=== PATIENT | male | born 1935 | race Caucasian/White ===

== ENCOUNTER 2019-03-28 08:19 | Outpatient (CLI) | payer MEDICARE, OTHER, SELFPAY ==
[2019-03-28 09:21] LABS: Blood Urea Nitrogen 30 mg/dL (8-23)
== END 2019-03-28 08:20 | disposition home or self-care (01) ==
LOC: RADWPI 08:25
PROVIDERS: Radiology Neuroradiology; Family Provider Family Medicine; PCP Family Medicine; Visit Provider Thoracic Surgery (Cardiothoracic Vascular Surgery)
DX: I65.23 Occlusion and stenosis of bilateral carotid arteries (principal)
CPT/HCPCS: 82565; 84520

== ENCOUNTER 2019-04-06 10:35 | Outpatient (CLI) | payer MEDICARE, OTHER, SELFPAY ==
--- NOTE | 2019-04-06 11:00 | USCV_ITS ---
Macho Michaud Age: 83 Gender: M : 1935 Exam Date: 04/06/2019 10:55 Ordering Phys: Bayron Ramos MD (Andy) ([email or web address]) Technologist: JUSTUS WHITLEY [place] [facility] [place]: CAROTID STENOSIS Risk Factors: Previous Vascular Surgery: Right Brachial BP: / Left Brachial BP: / Right Left Velocity (cm/s) Spectral Plaque Velocity (cm/s) Spectral Plaque Syst/Diast Broadening Syst/Diast Broadening 108.10/19.80 Prox CCA 87.10 / 17.60 100.30/20.90 Mid CCA 64.10 / 15.40 70.90/ 14.50 Distal CCA 72.60 / 15.40 363.50/96.30 Prox ICA 625.00/ 227.05 310.70/77.70 Mid ICA 172.70/ 25.20 122.30/27.00 Distal ICA 134.90/ 18.00 123.50 ECA 354.20 3.62 ICA/CCA 9.75 Antegrade Vertebral Antegrade 35.50/ 9.20 cm/s 41.40/ 7.90 cm/s Tri Subclavian Tri 244.1 169.1 0 0 FINDINGS Comparison: none available. Mixture of calcified and noncalcified plaque in the bifurcations. Severe bilateral ICA stenosis , greater on the left. Marked elevation of systolic and diastolic velocities. Antegrade vertebral artery flow. CONCLUSIONS Left ICA stenosis 70-99%. Near completer left ICA occlusion. Right ICA stenosis 70-99%. Dr. Essence Ramirez DO (Electronically Signed) Final Date: 06 April 2019 11:34 S
== END 2019-04-06 10:36 | disposition home or self-care (01) ==
LOC: RAD 10:40
PROVIDERS: Family Provider Family Medicine; PCP Family Medicine; Visit Provider Thoracic Surgery (Cardiothoracic Vascular Surgery)
DX: I65.23 Occlusion and stenosis of bilateral carotid arteries (principal)
CPT/HCPCS: 93880

== ENCOUNTER 2019-04-18 13:21 | Inpatient (IN) | payer MEDICARE, OTHER, SELFPAY ==
[2019-04-15 09:38] VITALS: BMI 36.0
--- NOTE | 2019-04-15 09:46 | ECG_ITS ---
Measurements Intervals [place] Rate: 53 P: 21 KS: 229 QRS: -35 QRSD: 95 T: 14 QT: 410 QTc: 386 SINUS BRADYCARDIA WITH FIRST DEGREE AV BLOCK INFERIOR MYOCARDIAL INFARCTION, PROBABLY OLD No previous ECG available for comparison Electronically Signed On 04-15-2019 15:36:35 HANG GLIDING INSTRUCTOR by Melissa Owens M.D. [email or web address]
[2019-04-15 10:38] LABS: Basophils # 0.1 10^3/uL (0.0-0.1); Basophils % 1.1 %; Eosinophils # 0.4 10^3/uL (0.0-0.8); Eosinophils % 4.1 %; Hematocrit 35.1 % (42.0-52.0); Hemoglobin 11.7 g/dL (11.7-16.6); Lymphocytes # 1.4 10^3/uL (0.8-4.8); Lymphocytes % 15.1 %; Mean Corpuscular HGB Conc 33.3 g/dL (30.0-36.0); Mean Corpuscular Hemoglobin 30.4 pg (28.0-34.0); Mean Corpuscular Volume 91.2 fL (80-94); Mean Platelet Volume 11.1 fL (7.4-10.4); Monocytes # 0.8 10^3/uL (0.2-0.9); Monocytes % 8.8 %; Neutrophils # 6.6 10^3/uL (1.8-7.7); Neutrophils % 70.3 %; Nucleated Red Blood Cells % 0 %; Platelet Count 272 10^3/cmm (130-400); Red Blood Count 3.85 10^6/uL (4.1-5.3); White Blood Count 9.4 10^3/uL (4.0-10.0)
[2019-04-15 10:45] LABS: INR 1.07 (0.8-1.2)
[2019-04-15 10:52] LABS: Blood Urea Nitrogen 29 mg/dL (8-23); Calcium 9.8 mg/dL (8.5-10.5); Carbon Dioxide 20 mmol/L (22-29); Chloride 102 mmol/L (98-107); Glucose 124 mg/dL (65-115); Osmolality Calculated 280 mOsm/kg (285-295); Sodium 136 mmol/L (136-145)
[2019-04-15 11:01] LABS: Urine Appearance Clear (CLEAR); Urine Color Yellow (Yellow)
[2019-04-15 11:02] LABS: Add Urine Microscopic? YES; Bilirubin Urine Neg (NEGATIVE); Blood Urine Neg (Negative); Glucose Urine UA Norm (Normal); Ketones Urine Negative (Negative); Leukocyte Esterase Urine Negative (Negative); Nitrate Urine Negative (Negative); Protein Urine Trace (Negative); Urobilinogen Urine Norm (Negative)
[2019-04-15 11:36] LABS: Add Urine Culture? No; Bacteria Urine 1+; Mucus Urine TRACE; Squamous Epithelial Cell Urine 0-4 (0-5)
--- NOTE | 2019-04-18 06:13 | XRR_ITS ---
PROCEDURE INFORMATION: Exam: XR Chest, 1 View Exam date and time: 04/18/2019 6:38 AM Age: 83 years old Clinical indication: Pre-operative exam; Cardiovascular screening and respiratory screening exam; Additional info: Preop carotid TECHNIQUE: Imaging protocol: XR of the chest Views: 1 view. COMPARISON: No relevant prior studies available. FINDINGS: Lungs: No lung consolidation or pulmonary edema. There is a calcified granuloma in the left lung base. Pleural space: No pleural effusion or pneumothorax. Heart/Mediastinum: The cardiac silhouette is not enlarged. The mediastinal contours are normal. Bones/joints: No acute osseous abnormality. XR/XR chest 1V portable [id number] IMPRESSION: No acute abnormality.
[2019-04-18 06:20] VITALS: BP 151/70; PULSE 64; RESP 18; TEMP 36.2; O2SAT 98
[2019-04-18 06:37] LABS: Glucose Point of Care 111 mg/dL (70-110)
--- NOTE | 2019-04-18 06:57 | W.PM.OPSUD ---
Surgery/Procedure H&P Update DATE OF PROCEDURE: April 18, 2019 DATE H&P PERFORMED: 04/06/19 H&P UPDATE INFORMATION: I have reviewed H&P completed within last 30 days, I have examined patient prior to procedure and Changes to prior documentation as noted here CHANGES TO PREVIOUS DOCUMENTATION: Creatinine is now 2.1 on most recent laboratory data obtained on April 14. I again carefully discussed with Mr. Michaud he has bilateral high-grade stenosis and what is felt to be near occlusion of the left ICA and recommendation for staged bilateral carotid endarterectomies, initially getting on the left side. The inability to obtain a CTA due to his renal dysfunction does provide us with less than ideal preoperative radiographic evaluation. He is aware of this and understands this may create increased risk related to the surgery in addition to his known bilateral disease which does increase his potential stroke risk. He states understanding and wishes for us to proceed. PREOP DIAGNOSIS: Bilateral Carotid artery stenosis PRIMARY INDICATION FOR PROCEDURE: Bilateral, high-grade carotid artery stenoses at the bifurcation as noted by duplex ultrasound. Highest velocities are on the left side. Radiology does not recommend contrasted studies due to his renal insufficiency, most recent creatinine 2.1. PLANNED PROCEDURE: Operation Date: 04/18/19 08:10 Proposed Procedures p Carotid Endarterectomy(Left) - Bayron Ramos MD
--- NOTE | 2019-04-18 07:04 | ANES.PREANE2 ---
Pre-Anesthetic Assessment Pre-Anesthetic Assessment: Height/Weight: Height 1.63 m Weight 95.254 kg Temp Pulse Resp BP Pulse Ox 97.1 F L 64 18 151/70 98 04/18/19 06:20 04/18/19 06:20 04/18/19 06:20 04/18/19 06:20 04/18/19 06:20 Preop Diagnosis: Bilateral Carotid artery stenosis Proposed Procedure: Operation Date: 04/18/19 08:10 Proposed Procedures p Carotid Endarterectomy(Left) - Bayron Ramos MD Familial anesthetic complications: None Was Beta Anselmo taken within 24 hours: Yes Last intake: NPO > 8 hrs sips with meds this morning Social: Social History: Tobacco and No alcohol Packs per day: 0.5 ppd Exam: Pre-Anes Outpt Exam: alert, oriented x 3, clear to auscultation bilaterally and regular rate & rhythm Airway: Cervical ROM: WNL MP: 3 Additional comments: missing Pulmonary: Pulmonary: Sleep apnea (cpap) CV/HEM: CV/HEM: CAD, HTN and VT (1991 - ) Comments: abdominal aortic aneurysm s/p stent : : Chronic renal Insufficiency Hepatic: Hepatic: None reported GI: GI: GERD Metabolic: Metabolic: DM Musc/skel: Comments: ankle (R) brace Neuropsych: Comments: carotid stenosis Anesthetic Plan: ASA status: 3 Anesthesia: General Risk of > 500 ml blood loss (7ml/kg in children): No PFSH Anesthesia PFSH: Medical History (Updated 04/06/19 @ 18:47 by Bayron Ramos MD) AAA (abdominal aortic aneurysm) Endovascular repair several years ago Carotid stenosis Chronic kidney disease Social History Smoking and tobacco status: current every day smoker Alcohol intake: never Data Anesthesia CBC & Chem 7: 04/15/19 09:49 04/15/19 09:49 Other Labs: Laboratory Results - last 48 hr 04/15/19 04/18/19 09:49 06:35 POC Glucose 111 Blood Type O Positive Rho(D) Type Positive Antibody Screen Negative Crossmatch See Detail Cardiac Studies: No Data to Display
[2019-04-18] MEDS: heparin, porcine 1,000 unit/mL INJ 10 mL 10000 UNIT IRRIGATION (07:17)
[2019-04-18] MEDS: vancomycin 1,000 MG SDV 1000 MG IRRIGATION (07:18)
[2019-04-18] MEDS: sodium chloride 0.9% 1,000 ML 30 ML IV ×2 (08:54→14:19)
[2019-04-18 13:29] VITALS: BP 95/45; PULSE 44; RESP 14; TEMP 36.2; O2SAT 98
[2019-04-18 13:33] VITALS: PULSE 42; O2SAT 98
[2019-04-18] MEDS: sodium chloride 0.9% 500 ML 999 ML IV (13:47)
[2019-04-18] MEDS: ondansetron 2 mg/ML SDV 2 mL 4 MG IVP (13:53)
[2019-04-18] MEDS: tamsulosin 0.4 mg Capsule PO (14:01)
--- NOTE | 2019-04-18 14:17 | ANES.PROC ---
Anesthesia Procedures Procedure/Date: 04/18/19 Arterial Line: Time Out Performed: Yes Consent: from patient, risks and benefits reviewed and patient agrees to proceed Size (Gauge): 20 Technique Used: guide wire technique Post-Procedure: dry sterile dressing placed Patient Tolerated Procedure: well Complications: none Site: right and radial
--- NOTE | 2019-04-18 14:44 | PC.NURSE ---
recovery patient to room at 1305, patient bradycardic heart rate 38-45. BP soft at 95/45. 500ml NS bolus given. BP increased to 96/68, and heart rate up to 51. Patient did feel nauseous and 4mg zofran given.
[2019-04-18] MEDS: aspirin 325 mg Tablet PO (15:03)
[2019-04-18] MEDS: sodium chloride 0.9% 1,000 ML 500 ML IV (15:28)
--- NOTE | 2019-04-18 15:30 | PC.NURSE ---
bladder scan no output since patient on floor, bladder scan performed, with result of 0ml. Notified Dr. Ramos, orders for 1liter bolus over 2 hours
[2019-04-18] MEDS: ceFAZolin 1,000 MG in sodium chloride 0.9% (plus) 50 ML 100 MG IV (16:20)
[2019-04-18] MEDS: fluticasone nasal spray 16gm Btl 1 SPRAY INTRANASAL (18:01)
[2019-04-18 20:00] VITALS: BP 121/49; PULSE 49; RESP 9; O2SAT 94
[2019-04-18 20:08] VITALS: PULSE 71; O2SAT 95
--- NOTE | 2019-04-18 21:00 | PC.NURSE ---
Stood at bedside unable to void. States will try again later. Denies bladder distress
[2019-04-18] MEDS: ropinirole 1 mg Tablet 0.5 MG PO (21:46)
[2019-04-18 22:00] VITALS: BP 114/50; PULSE 54; RESP 19; O2SAT 94
[2019-04-19] VITALS (14 sets, daily range): BP systolic 113–129; BP diastolic 48–63; PULSE 48–65; RESP 16–23; TEMP 36.4–37.4; O2SAT 89–96
[2019-04-19] MEDS: ceFAZolin 1,000 MG in sodium chloride 0.9% (plus) 50 ML 100 MG IV ×2 (01:53→08:10)
[2019-04-19] MEDS: HYDROcodone-acetaminophen 5-325 mg Tablet 1 TAB PO ×2 (02:22→08:09)
[2019-04-19 04:23] LABS: Basophils # 0.1 10^3/uL (0.0-0.1); Basophils % 0.5 %; Eosinophils % 0.3 %; Hematocrit 28.5 % (42.0-52.0); Hemoglobin 9.3 g/dL (11.7-16.6); Lymphocytes # 1.4 10^3/uL (0.8-4.8); Lymphocytes % 12.2 %; Mean Corpuscular HGB Conc 32.6 g/dL (30.0-36.0); Mean Corpuscular Hemoglobin 32.2 pg (28.0-34.0); Mean Corpuscular Volume 98.6 fL (80-94); Mean Platelet Volume 11.6 fL (7.4-10.4); Monocytes # 1.4 10^3/uL (0.2-0.9); Monocytes % 12.5 %; Neutrophils # 8.2 10^3/uL (1.8-7.7); Neutrophils % 73.9 %; Nucleated Red Blood Cells % 0 %; Platelet Count 191 10^3/cmm (130-400); Red Blood Count 2.89 10^6/uL (4.1-5.3); Red Cell Distribution Width 13.6 % (12.1-15.1); White Blood Count 11.1 10^3/uL (4.0-10.0)
[2019-04-19 04:42] LABS: Anion Gap 14.2 (5-19); Blood Urea Nitrogen 36 mg/dL (8-23); Calcium 9.1 mg/dL (8.5-10.5); Carbon Dioxide 20 mmol/L (22-29); Chloride 110 mmol/L (98-107); Creatinine Clr Calc Pharmacy 24.1315; Glucose 86 mg/dL (65-115); Osmolality Calculated 285 mOsm/kg (285-295); Potassium 5.2 mmol/L (3.5-5.1); Sodium 139 mmol/L (136-145)
--- NOTE | 2019-04-19 06:08 | PC.NURSE ---
Up to side of bed with max assist of one for balance. Voided 200 ml clear yellow urine. Up to recliner .Tolerated well
--- NOTE | 2019-04-19 06:56 | PM.PN ---
Subjective Subjective: Interval history: Postop day 1 status post left carotid endarterectomy. Uneventful night. Creatinine slightly elevated at 2.5. We will continue fluids through the day. Baseline is 2.1. Neurologically intact. No swallowing difficulties. Voice quality is normal. Vitals/I&O/Wt Last Vital Signs Temp 99.0 F 04/19/19 06:00 Pulse 52 L 04/19/19 06:00 Resp 21 H 04/19/19 04:00 BP 120/49 04/19/19 06:00 Pulse Ox 94 04/19/19 06:00 04/18/19 04/18/19 04/19/19 14:59 22:59 06:59 Intake Total 1550 / 1550 1084 / 2634 410 / 3044 Output Total 200 / 205 Balance 1550 / 1550 1079 / 2629 210 / 2839 Physical Exam Const: COMMON NORMALS: oriented x3 Neck/C-Spine: OTHER: Neck incision is clean and dry. Minimal swelling. Low drain output, 10 cc overnight. Drain was removed. Surgical dressing change. Tongue is midline with protrusion. Face is symmetrical. Neuro: COMMON NORMALS: oriented x3 and no focal motor deficits Psych: COMMON NORMALS: mental status grossly normal Urinary Catheter Management^: Rob: Cath Placed During This Visit: yes Reason for Continuing Indwelling Catheter: Accurate Measurement of Urinary Output in Critically Ill Patients Urinary Catheter Date of Insertion: 04/18/19 Urinary Catheter Time of Insertion: 10:39 Data : 04/19/19 03:26 04/19/19 03:26 A&P Assessment and plan (1) Status post carotid endarterectomy: Postop day #1 status post left carotid endarterectomy. Neurologically intact. Drain was DC'd. I will transfer to [facility] with plan for discharge this afternoon when his transportation is available. He is doing well. Status: Acute Code(s): Z98.890 - Other specified postprocedural states Attestations Medical Necessity Statement*: Bilateral high-grade carotid artery stenoses, postop day #1 status post left carotid endarterectomy Time Spent in Patient Care: 16 - 35 minutes Procedures Arterial Line Size (Gauge): 20 Coding Level of Care Code Acute Office Machine Servicer Apprentice for Chg Fwd Exam Expanded Problem Focused Diagnoses Status post carotid endarterectomy Z98.890
[2019-04-19 07:38] LABS: Glucose Point of Care 86 mg/dL (70-110)
[2019-04-19 07:38] LABS: Glucose Point of Care 97 mg/dL (70-110)
[2019-04-19] MEDS: chlorthalidone 25 mg Tablet 50 MG PO (08:08)
[2019-04-19] MEDS: sodium chloride 0.45% 1,000 ML 175 ML IV ×2 (08:08→15:07)
[2019-04-19] MEDS: losartan 50 mg Tablet 100 MG PO (08:09)
[2019-04-19] MEDS: atorvastatin 40 mg Tablet PO (08:09)
[2019-04-19] MEDS: pantoprazole DR 40 mg Tablet PO (08:09)
[2019-04-19] MEDS: aspirin 81 mg EC Tablet PO (08:10)
[2019-04-19] MEDS: atenolol 50 mg Tablet 100 MG PO (08:10)
[2019-04-19] MEDS: amlodipine 10 mg Tablet PO (08:10)
[2019-04-19] MEDS: fluticasone nasal spray 16gm Btl 1 SPRAY INTRANASAL (08:13)
--- NOTE | 2019-04-19 10:21 | ANE.PACU2 ---
 Inpatient post-anesthesia follow up: Airway intact: Yes Vital signs: Temperature 99.0 F Pulse Rate 52 Respiratory Rate 21 Blood Pressure 122/48 Pulse Oximetry 94 Oxygen Delivery Me thod [ Nasal Cannula Current Rate & Del mino] Oxygen Delivery Me thod Room Air Oxygen Flow Rate [ Current Rate 4 & Delivery] Oxygen Flow Rate 2 Fraction of Inspir ed Oxygen 2 Hydration adequate: Yes Nausea and vomiting: No Pain level: 1 Mental status: Baseline
--- NOTE | 2019-04-19 11:30 | PC.NURSE ---
Report faxed tp [facility]. Further verbal report given to Cesilia Jeffries RN. Pt to transfer after l unch.
[2019-04-19 11:35] LABS: Glucose Point of Care 106 mg/dL (70-110)
--- NOTE | 2019-04-19 12:15 | PC.NURSE ---
Pt transferred to room 268 via W/C. All belongings with pt. Further bedside report to ROBYN Maravilla and ROYBN Lomas.
--- NOTE | 2019-04-19 16:38 | PM.OP ---
Operative Report Date of procedure: April 18, 2019 Pre-op Diagnosis: Bilateral Carotid artery stenosis Procedure Done: Left carotid endarterectomy with patch angioplasty Specimens removed/disposition: Left carotid artery plaque Surgeon: Bayron Ramos Anesthesia: General Condition: stable Disposition: ICU Brief History: Pleasant 83-year-old gentleman with high-grade bilateral carotid artery stenosis greater than 95% on the left and greater than 90% on the right by duplex study. Due to renal insufficiency, he cannot undergo contrasted CTA confirmatory study. We have recommended staged bilateral carotid endarterectomies to reduce the statistical increased risk for spontaneous CVA related to these high-grade bilateral lesions. He is left hemispheric dominant, and given the higher grade stenosis, we have recommended left carotid endarterectomy as the first staged procedure. Details the risk of procedure were carefully discussed including increased risk related for stroke other complications due to the high-grade and bilateral nature of his disease. All questions were answered. Proper consents have been reviewed and signed. Procedure: Mr. Michaud was placed on the OR table and underwent general endotracheal anesthesia with a neurological monitoring endotracheal tube as well as placement of a right radial arterial line. Bihemispheric monitoring pads were placed as well as grounding and sensing pads for nerve conduction evaluation during neck dissection.The entire upper chest and [right/left] neck were sterilely prepped and draped. Incision was made along the anterior border of the sternomastoid muscle and carried down to the platysma with cautery. Dissection from this point forward was carried out utilizing Metzenbaum scissors. The internal jugular vein was dissected free and the facial vein was ligated, oversewn, and divided. Dissection was continued down through the ansa cervicalis with preservation of major branches. Minor branches were divided if required to allow for adequate exposure. Nerve conduction evaluation was performed throughout the dissection for protection of the recurrent nerve. We subsequently reached the common carotid artery. Dissection was then continued proximally to distally across the bifurcation. Vessel loops were placed around the common carotid artery, internal carotid artery, and external carotid artery. Distally, the base of the hypoglossal nerve could be identified and was protected. The internal carotid artery disease went fairly high and extended above the level of the mandibular angle. This did require some traction in this region, but great care was taken to minimize pressure to the hypoglossal nerve, which was protected. Care was taken during this dissection to avoid injury to the vagus nerve. The patient was then heparinized with 10,000 units. The systolic blood pressure was elevated to 160. Following this, in a rapid sequenced fashion, the distal internal carotid artery was clamped followed by clamping of the common carotid artery and external carotid artery. #11 scalpel blade was used to open the common carotid artery proximally. Dockery scissors were then utilized to extend this arteriotomy across the distal common carotid artery and ulcerated very stenotic plaque and continue this further at the bifurcation across the calcific plaque in the internal carotid artery until we had reached normal intima. The internal carotid artery clamp was briefly flashed with evidence of brisk back bleeding, therefore we elected not to shunt. It should be noted that bi-hemispheric oximetry was recorded throughout the procedure. Next, a freer elevator was utilized to create a dissection plane the plaque from intima at the proximal portion of the arteriotomy. This was then divided with a #11 scalpel blade. This plaque was then further dissected along the intimal plane proximally to distally across the bifurcation. Utilizing an everting technique, plaque was removed from the external carotid artery with brisk flow. This plaque was then dissected free up the internal carotid artery to a feathered edge. Heparinized saline solution was utilized to remove any loose debris. Next, a Hemashield patch was brought into the field and sewn into position utilizing a running 6-0 Prolene suture, thereby completing our patch angioplasty. At the completion of the patch, the external carotid artery was opened followed by the common carotid artery and finally the internal carotid artery, thereby reestablishing cerebral flow. Areas of extravasation were repaired with 6-0 Prolene suture. After 5 minutes, heparin was reversed with protamine. Hemostasis was confirmed. The wound was irrigated with antibiotic solution. A small, flat, Rivera-Soliman drain was placed in the wound and connected to bulb suction. Sponge and needle count was correct. The wound was then closed in 2 layers of 3-0 Vicryl suture. Skin was reapproximated in a subcuticular manner with 4-0 Monocryl suture. A pressure dressing was then applied. He was awakened from anesthesia and spontaneous movement of all extremities as well as movement to command was noted. He was then transferred to the ICU in stable condition. I did service counselor with his close personal friend at completion of the procedure. Mr. Michaud will be monitored in the ICU for the next 24 hours.
--- NOTE | 2019-04-19 16:41 | P.DS_ITS ---
Discharge Providers Date of Admission: 04/18/19 13:21 Date of Discharge: April 19, 2019 Attending Provider at Admission: Bayron Ramos MD Attending Provider at Discharge: Bayron Ramos MD Primary Care Provider: Dominga Cortez MD Diagnoses at Discharge Discharge Diagnosis (1) Status post carotid endarterectomy: Status: Acute Reason for Visit Reason for Visit: Reason For Visit: Carotid Senosis Hospital Course Hospital Course: Mr. Michaud has bilateral high-grade carotid artery stenoses of over 90%. This was confirmed by ultrasound. Due to renal insufficiency, he cannot undergo contrasted studies. We recommended staged carotid endar terectomies, initially beginning on the left side which is his dominant hemisphere. He was therefore electively admitted after careful outpatient preoperative evaluation and counseling. He underwent left carotid endarterectomy with a patch angioplasty yesterday, on April 18, 2019. He awakened hemodynamically and neurologically intact. He was convalesced in the ICU. He was felt to be a bit volume depleted underwent saline boluses x2 and then was maintained on IV fluids as he was tolerating a standard diet. He had low CAROLANN drain output in the CAROLANN drain was discontinued this morning. He has been convalescing in his room in the hallways utilizing his walking cane. He remains neurologically intact. Incision is clean and dry. Voice quality is normal. No swallowing difficulties. Tongue is midline with protrusion. Rob catheter was removed this morning. He has voiding without difficulties. He will be discharged home today in stable condition and schedule follow-up in my clinic in 1 week. Physical Exam Const: COMMON NORMALS: oriented x3 Neck/C-Spine: OTHER: Left neck incision is clean and well approximated. Minimal postoperative swelling. Neuro: COMMON NORMALS: oriented x3, no focal motor deficits and no sensory deficits noted Urinary Catheter Management^: Rob: Cath Placed During This Visit: yes Reason for Continuing Indwelling Catheter: Accurate Measurement of Urinary Output in Critically Ill Patients Urinary Catheter Date of Insertion: 04/18/19 Urinary Catheter Time of Insertion: 10:39 Discharge Data Data Completed and Pending: Completed Studies During Hospitalization Category Date Time Status XR chest 1V chau ble [id number] Routine Exams 04/18/19 06:13 Completed Pathology: Surgic al [PTH] Routine Pth 04/18/19 11:59 Completed Pending at discharge Category Date Time Status Leukocyte Reduced RBC Routine Lab 04/15/19 09:49 Results Retype for XM Rou baron Lab 04/15/19 09:49 Results Type and Screen - Cardiac Routine Lab 04/15/19 09:49 Results Labs from last 24 hours 04/19/19 04/19/19 04/19/19 11:32 03:26 03:26 WBC 11.1 H RBC 2.89 L Hgb 9.3 L Hct 28.5 L MCV 98.6 H MCH 32.2 MCHC 32.6 RDW 13.6 Plt Count 191 MPV 11.6 H Neut % (Auto) 73.9 Lymph % (Auto) 12.2 [place] % (Auto) 12.5 Eos % (Auto) 0.3 Baso % (Auto) 0.5 Neut # (Auto) 8.2 H Lymph # (Auto) 1.4 [place] # (Auto) 1.4 H Eos # (Auto) 0.0 Baso # (Auto) 0.1 Nucleated RBC % (a uto) 0 Nucleated RBCs # 0.0 Sodium 139 Potassium 5.2 H Chloride 110 H Carbon Dioxide 20 L Anion Gap 14.2 BUN 36 H Creatinine 2.5 H Glucose 86 POC Glucose 106 Calculated Osmolal ity 285 Calcium 9.1 04/18/19 04/18/19 21:26 17:19 WBC RBC Hgb Hct MCV MCH MCHC RDW Plt Count MPV Neut % (Auto) Lymph % (Auto) [place] % (Auto) Eos % (Auto) Baso % (Auto) Neut # (Auto) Lymph # (Auto) [place] # (Auto) Eos # (Auto) Baso # (Auto) Nucleated RBC % (a uto) Nucleated RBCs # Sodium Potassium Chloride Carbon Dioxide Anion Gap BUN Creatinine Glucose POC Glucose 86 97 Calculated Osmolal ity Calcium Vitals: Last Vital Signs Temp 97.8 F 04/19/19 15:48 Pulse 64 04/19/19 15:48 Resp 18 04/19/19 15:48 BP 113/63 04/19/19 15:48 Pulse Ox 91 04/19/19 15:48 Discharge Plan Discharge Patient Disposition: Home, Self-Care Condition: Stable Prescriptions: Continued alogliptin [Nesina] 12.5 mg tablet 12.5 mg PO QAM RF: 0 ropinirole 0.5 mg tablet 0.5 mg PO DAILY RF: 0 multivitamin Capsule 1 cap PO QAM RF: 0 nystatin 100,000 unit/gram ointment 1 applic TOPICAL BID RF: 0 triamcinolone acetonide 0.1 % cream 1 applic TOPICAL BID RF: 0 fluticasone propionate 50 mcg/actuation spray,suspension 1 spray INTRANASAL BID RF: 0 hydrocodone-acetaminophen 5-325 mg tablet 1 tab PO Q6H PRN (Reason: Pain) RF: 0 aspirin 500 mg tablet 500 mg PO Q6H RF: 0 atenolol 100 mg tablet 100 mg PO BID RF: 0 tamsulosin 0.4 mg capsule 0.4 mg PO ONCE RF: 0 Refresh Tears 0.5 % drops 1 drop ophthalmic (eye) BID RF: 0 cinacalcet [Sensipar] 60 mg tablet 60 mg PO BID RF: 0 cholecalciferol (vitamin D3) 2,000 unit tablet 2,000 unit PO ONCE RF: 0 losartan 100 mg tablet 100 mg PO DAILY RF: 0 omeprazole 20 mg capsule,delayed release(DR/EC) 20 mg PO DAILY RF: 0 atorvastatin 80 mg tablet See Rx Instructions PO DAILY RF: 0 chlorthalidone 50 mg Tablet 50 mg PO DAILY RF: 0 aspirin 81 mg Tablet,Delayed Release (Dr/Ec) 81 mg PO DAILY RF: 0 amlodipine 10 mg Tablet 10 mg PO DAILY RF: 0 Yale-3 350 mg-235 mg- 90 mg-597 mg Capsule,Delayed Release(Dr/Ec) 1 cap PO DAILY RF: 0 Tylenol Extra Strength 500 mg Tablet 500 mg PO Q6H PRN (Reason: Pain) RF: 0 Discharge Orders: Discharge Order (Routine); Ordered 04/19/19 Ordered By: Bayron Ramos Referrals: Bayron Ramos MD [Physician] - 1 week Discharge Diet: Usual diet Discharge Activity: Limit activity as instructed Activity Restrictions/Additional Instructions: No heavy lifting or pulling x2 weeks May begin showers on , April 20 Report any drainage, swelling, redness, or increased pain Discharge Attestations Time Spent in Discharge Care*: less than 30 min Specific Discharge Activities: Specific discharge activities: educating patient, educating and/or supporting family/caregiver, documenting/other paperwork and evaluating patient/reviewing data Quality Metrics Clinical Quality Measures During this hospital stay, did patient experience: None Coding Level of Care Code Acute Health Informatics Advisor for Emi Herndon Diagnoses Status post carotid endarterectomy Z98.890
[2019-04-20 07:38] LABS: Glucose Point of Care 86 mg/dL (70-110)
== END 2019-04-19 17:13 | disposition home or self-care (01) | DRG 39 ==
LOC: ICU 13:21 → MEDSURG 04-19 12:11
PROVIDERS: Admitting Provider Thoracic Surgery (Cardiothoracic Vascular Surgery); Family Provider Family Medicine; PCP Family Medicine; Visit Provider Thoracic Surgery (Cardiothoracic Vascular Surgery)
PROC: 03UL07Z Supplement Left Internal Carotid Artery with Autologous Tissue Substitute, Open Approach (ICD-10-PCS; CPT 35301; principal; 2019-04-18 08:10)
DX: I65.23 Occlusion and stenosis of bilateral carotid arteries (principal); I25.10 Atherosclerotic heart disease of native coronary artery without angina pectoris; I10 Essential (primary) hypertension; K21.9 Gastro-esophageal reflux disease without esophagitis; E11.9 Type 2 diabetes mellitus without complications; N18.9 Chronic kidney disease, unspecified; G47.30 Sleep apnea, unspecified; F17.210 Nicotine dependence, cigarettes, uncomplicated; Z79.82 Long term (current) use of aspirin
CPT/HCPCS: 12345; 36415; 36416; 51702; 71045; 80048; 81001; 82962; 85025; 85610; 86850; 86900; 86920; 88304; 93005; 96375; J0690; J1644; J2250; J2370; J2405; J2704; J2710; J2720; J3010; J3370; J3490; J7030; J7040; P9016

== ENCOUNTER 2019-04-21 01:11 | Inpatient (IN) | payer MEDICARE, OTHER, SELFPAY ==
[2019-04-21] VITALS (198 sets, daily range): BP systolic 101–161; BP diastolic 53–84; PULSE 39–95; RESP 10–34; TEMP 36.6–37; O2SAT 90–99; BMI 36.0
--- NOTE | 2019-04-21 01:15 | ED_ITS ---
Entered by Ester Jeffries, acting as scribe for Jae Lewis MD HPI - SOB/Dyspnea General: Chief Complaint: Shortness of Breath/Dyspnea Stated Complaint: sob Time Seen by Provider: 04/21/19 01:15 Source: patient and family Mode of arrival: wheelchair History of Present Illness: HPI Narrative: 83 y/o male presents to the ED with complaint of SOB and difficulty breathing. Pt was recently admitted for bilateral carotid artery stenosis. Family states he does not have a hx of COPD, as far as they know. He was discharged from Dr. Ramos's care, yesterday. He is non compliant with his CPAP machine at home;stating that it does not help. MD elicited complaint: shortness of breath Onset (ago): hour(s) Timing: progressively worsening Severity: similar to previous episodes Exacerbating factors: lying flat, movement and talking Associated symptoms: Deny abdominal pain, chest pain, fever(s), nausea or vomiting Review of Systems Const: Denies: fever, chills, body aches or change in appetite Eyes: Denies: blurry vision or eye discomfort ENMT: Denies: throat pain or dental pain Card: Denies: chest pain Resp: Reports: shortness of breath GI: Denies: abdominal pain, nausea, vomiting or diarrhea : Denies: painful urination Musc: Denies: neck pain or back pain Skin/Breast: Denies: rash Neuro: Denies: headache Psych: Denies: depression [place]/Lymph: Denies: easy bruising All/Imm: Denies: hives [facility] ED PFSH: Medical History (Updated 04/21/19 @ 02:37 by Slim Chatman MD) AAA (abdominal aortic aneurysm) Endovascular repair several years ago Carotid stenosis Chronic kidney disease Coronary artery disease Depression Diabetes mellitus GERD (gastroesophageal reflux disease) Hypercalcemia Hyperlipidemia Hypertension Impaired glucose tolerance Osteoarthritis Pancreatitis Severe obesity Sleep apnea Tobacco abuse Surgical History (Updated 04/20/19 @ 00:00 by ) Status post carotid endarterectomy Social History Smoking and tobacco status: current every day smoker Alcohol intake: never Physical Exam Const: COMMON NORMALS: oriented x3 HENMT: COMMON NORMALS: normocephalic and head/scalp atraumatic HEAD & SCALP: normocephalic and atraumatic Eye: COMMON NORMALS: PERRL and EOMs intact bilaterally PUPIL: Yes PERRL Neck/C-Spine: COMMON NORMALS: full ROM and supple Chest: COMMONS NORMALS: inspection of chest normal and palpation of chest normal Resp: EFFORT & INSPECTION: Yes tachypneic and Yes respiratory distress OTHER: diminished breath sounds Cardio: COMMON NORMALS: regular rate, regular rhythm and no murmurs RATE: regular rate RHYTHM: regular rhythm GI: COMMON NORMALS: normal to inspection, nondistended, normoactive bowel sounds, soft to palpation, non-tender and no masses PALPATION: Yes soft Extremity: NARRATIVE EXTREMITY EXAM: right ankle deformity noted Neuro: COMMON NORMALS: oriented x3, moves all extremities and no focal motor deficits Psych: COMMON NORMALS: mental status grossly normal, thought process normal and cooperative THOUGHT PROCESS: normal thought process Skin: COMMON NORMALS: no rashes or lesions noted and no wounds GENERAL SKIN EXAM: no rashes or lesions noted Course Vital Signs: Vital signs: Vital Signs Pulse Rate 68 04/21/19 01:20 Respiratory Rate 34 H 04/21/19 01:14 Pulse Oximetry 99 04/21/19 01:41 MDM - SOB/Dyspnea MDM Narrative: Medical decision making narrative: Patient presents here with respiratory distress from acute pulmonary edema. Patient was quite hypoxic upon arrival but is doing much better on BiPAP. Will give patient Lasix as well. Patient has no signs of pneumonia. EKG here is normal. I spoke to hospitalist and will admit to the ICU. Lab Data: Labs: Lab Results 04/21/19 04/21/19 04/21/19 Range/Units 01:28 01:28 01:28 WBC 21.3 H (4.0-10.0) 10^3/ uL RBC 3.49 L (4.1-5.3) 10^6/u L Hgb 10.6 L (11.7-16.6) g/dL Hct 32.8 L (42.0-52.0) % MCV 94.0 (80-94) fL MCH 30.4 (28.0-34.0) pg MCHC 32.3 (30.0-36.0) g/dL RDW 13.1 (12.1-15.1) % Plt Count 251 (130-400) 10^3/c mm MPV 11.5 H (7.4-10.4) fL Neut % (Auto) 74.4 % Lymph % (Auto) 12.3 % Cavalier % (Auto) 11.1 % Eos % (Auto) 0.2 % Baso % (Auto) 0.4 % Neut # (Auto) 15.8 H (1.8-7.7) 10^3/u L Lymph # (Auto) 2.6 (0.8-4.8) 10^3/u L [place]ier # (Auto) 2.4 H (0.2-0.9) 10^3/u L Eos # (Auto) 0.1 (0.0-0.8) 10^3/u L Baso # (Auto) 0.1 (0.0-0.1) 10^3/u L Nucleated RBC % (a uto) 0 % Nucleated RBCs # 0.0 /100WBC PT 15.00 H (10.5-13.3) SECO NDS INR 1.17 (0.8-1.2) Specimen Type Sample Site ABG pH (7.35-7.45) ABG pCO2 (35-45) mmHg ABG pO2 (80.0-100.0) mmH g ABG HCO3 (22-26) mmol/L ABG Base Excess (-2.0-2.0) mmol/ L Reji Test Hematocrit (42-52) % Hgb O2 Saturation (95-100) % Carboxyhemoglobin (0.4-20.1) %THgb Methemoglobin (0.4-1.5) % Total Hemoglobin (14-18) g/dL O2 Delivery Device FiO2 % Barrel Straightener ID Sodium 134 L (136-145) mmol/L Potassium 4.6 (3.5-5.1) mmol/L Chloride 103 (98-107) mmol/L Carbon Dioxide 17 L (22-29) mmol/L Anion Gap 18.6 (5-19) BUN 43 H (8-23) mg/dL Creatinine 2.3 H (0.7-1.2) mg/dL Glucose 195 H (65-115) mg/dL Calculated Osmolal ity 281 L (285-295) mOsm/k g Calcium 10.1 (8.5-10.5) mg/dL Total Bilirubin 0.9 (0.15-1.2) mg/dL AST 25 (0-40) U/L ALT 9 (0-41) U/L Alkaline Phosphata se 73 (40-130) IU/L NT-Pro-B Natriuret Pep 7808 H (0-450) pg/mL Total Protein 7.4 (6.6-8.7) g/dL Albumin 3.8 (3.5-5.2) g/dL Globulin 3.6 (1.3-4.6) g/dL 04/21/19 Range/Units 01:54 WBC (4.0-10.0) 10^3/ uL RBC (4.1-5.3) 10^6/u L Hgb (11.7-16.6) g/dL Hct (42.0-52.0) % MCV (80-94) fL MCH (28.0-34.0) pg MCHC (30.0-36.0) g/dL RDW (12.1-15.1) % Plt Count (130-400) 10^3/c mm MPV (7.4-10.4) fL Neut % (Auto) % Lymph % (Auto) % Cavalier % (Auto) % Eos % (Auto) % Baso % (Auto) % Neut # (Auto) (1.8-7.7) 10^3/u L Lymph # (Auto) (0.8-4.8) 10^3/u L [place]ier # (Auto) (0.2-0.9) 10^3/u L Eos # (Auto) (0.0-0.8) 10^3/u L Baso # (Auto) (0.0-0.1) 10^3/u L Nucleated RBC % (a uto) % Nucleated RBCs # /100WBC PT (10.5-13.3) SECO NDS INR (0.8-1.2) Specimen Type Arterial Sample Site Radial, left ABG pH 7.22 L (7.35-7.45) ABG pCO2 39.5 (35-45) mmHg ABG pO2 80.0 (80.0-100.0) mmH g ABG HCO3 16.2 L (22-26) mmol/L ABG Base Excess -10.8 L (-2.0-2.0) mmol/ L Reji Test N/a Hematocrit 32.7 L (42-52) % Hgb O2 Saturation 93.4 L (95-100) % Carboxyhemoglobin 1.1 (0.4-20.1) %THgb Methemoglobin 0.3 L (0.4-1.5) % Total Hemoglobin 10.7 L (14-18) g/dL O2 Delivery Device Bipap FiO2 60.0 % Barrel Straightener ID [email or web address] Sodium (136-145) mmol/L Potassium (3.5-5.1) mmol/L Chloride (98-107) mmol/L Carbon Dioxide (22-29) mmol/L Anion Gap (5-19) BUN (8-23) mg/dL Creatinine (0.7-1.2) mg/dL Glucose (65-115) mg/dL Calculated Osmolal ity (285-295) mOsm/k g Calcium (8.5-10.5) mg/dL Total Bilirubin (0.15-1.2) mg/dL AST (0-40) U/L ALT (0-41) U/L Alkaline Phosphata se (40-130) IU/L NT-Pro-B Natriuret Pep (0-450) pg/mL Total Protein (6.6-8.7) g/dL Albumin (3.5-5.2) g/dL Globulin (1.3-4.6) g/dL Imaging Data^: CXR: Attestation: I personally reviewed and interpreted this imaging study as follows: My impression: pulmonary edema EKG Data^: EKG 1: Attestation: I personally reviewed and interpreted this EKG as follows: EKG Interpretation Date: 04/21/19 EKG interpretation time: 02:15 Interpretation: nsr hr [address] or t wave abnormalities qrs 98 qtc 382 Critical Care Time Critical Care Time: Critical Care Time: Yes Total Critical Care Time: 36 Attestation: This case had a high probability of a clinically significant, sudden, or life threatening deterioration of this patient's condition which required my full and direct attention, intervention and personal management. Discharge Plan Discharge Patient Disposition: Admitted As Inpatient Clinical Impression: Acute respiratory distress Pulmonary edema Qualifiers: Chronicity: acute Qualified Code(s): J81.0 - Acute pulmonary edema Condition: Stable Referrals: Dominga Cortez MD [Primary Care Provider] - Coding Level of Care Code ED Machine Stonecutter for Chg Fwd Exam Comprehensive The documentation recorded by the Mervin marie Ashley, accurately reflects the service I personally performed and the decisions made by me, Jae Lewis MD Apr 21, 2019 01:11
--- NOTE | 2019-04-21 01:19 | XR_ITS ---
WS: [id number] Portable AP upright chest, 04/21/2019 Clinical Data: sob Comparison: Portable chest, 04/18/2019. Findings: The pulmonary vascularity is increased and the heart is enlarged. The aortic arch shows sushil cification and tortuosity. No nodules, masses or effusions are seen. XR/XR chest 1V portable [id number] Impression: Cardiomegaly with pulmonary vascular congestion.
--- NOTE | 2019-04-21 01:19 | ECG_ITS ---
Measurements Intervals [place] Rate: 61 P: 35 WV: 170 QRS: 6 QRSD: 95 T: 27 QT: 372 QTc: 375 SINUS RHYTHM LOW QRS VOLTAGE IN EXTREMITY LEADS [QRS DEFLECTION < 0.5 mV IN LIMB LEADS] Compared to ECG 04/15/2019 10:19:33 Low QRS voltage now present Sinus bradycardia no longer present First degree AV block no longer present Myocardial infarct finding no longer present Electronically Signed On 04-21-2019 17:22:13 CDT by Nicanor Lovelace M.D. [email or web address]
--- NOTE | 2019-04-21 01:33 | PC.NURSE ---
Received patient to ER via pov with complaint of SOB. Patient recently had left carotid sugery and has become increasingly SOB. in room, Patient placed on monitor with sats 50%, placed on O2 and iv established. Resp here to place patient on Bi-pap per order.
[2019-04-21 01:39] LABS: Basophils # 0.1 10^3/uL (0.0-0.1); Basophils % 0.4 %; Eosinophils # 0.1 10^3/uL (0.0-0.8); Eosinophils % 0.2 %; Hematocrit 32.8 % (42.0-52.0); Hemoglobin 10.6 g/dL (11.7-16.6); Lymphocytes # 2.6 10^3/uL (0.8-4.8); Lymphocytes % 12.3 %; Mean Corpuscular HGB Conc 32.3 g/dL (30.0-36.0); Mean Corpuscular Hemoglobin 30.4 pg (28.0-34.0); Mean Platelet Volume 11.5 fL (7.4-10.4); Monocytes # 2.4 10^3/uL (0.2-0.9); Monocytes % 11.1 %; Neutrophils # 15.8 10^3/uL (1.8-7.7); Neutrophils % 74.4 %; Nucleated Red Blood Cells % 0 %; Platelet Count 251 10^3/cmm (130-400); Red Blood Count 3.49 10^6/uL (4.1-5.3); Red Cell Distribution Width 13.1 % (12.1-15.1); White Blood Count 21.3 10^3/uL (4.0-10.0)
[2019-04-21 02:05] LABS: ABG PCO2 39.5 mmHg (35-45); ABG PH Result 7.22 (7.35-7.45); Arterial Blood Gas Hematocrit 32.7 % (42-52); Base Excess ABG -10.8 mmol/L (-2.0-2.0); Blood Gas Sample Site Radial, left; Blood Gas Sample Type Arterial; Carboxyhemoglobin 1.1 %THgb (0.4-20.1); HCO3 ABG 16.2 mmol/L (22-26); HGB O2 Sat 93.4 % (95-100); Methemoglobin 0.3 % (0.4-1.5); Oxygen Device BIPAP; Total Hemoglobin 10.7 g/dL (14-18)
[2019-04-21 02:10] LABS: INR 1.17 (0.8-1.2)
[2019-04-21 02:11] LABS: Alanine Aminotransferase 9 U/L (0-41); Albumin Level 3.8 g/dL (3.5-5.2); Alkaline Phosphatase 73 IU/L (40-130); Anion Gap 18.6 (5-19); Aspartate Amino Transferase 25 U/L (0-40); Blood Urea Nitrogen 43 mg/dL (8-23); Calcium 10.1 mg/dL (8.5-10.5); Carbon Dioxide 17 mmol/L (22-29); Chloride 103 mmol/L (98-107); Globulin 3.6 g/dL (1.3-4.6); Glucose 195 mg/dL (65-115); NT Pro B Type Natriuretic Pept 7808 pg/mL (0-450); Osmolality Calculated 281 mOsm/kg (285-295); Potassium 4.6 mmol/L (3.5-5.1); Sodium 134 mmol/L (136-145); Total Bilirubin 0.9 mg/dL (0.15-1.2); Total Protein 7.4 g/dL (6.6-8.7)
--- NOTE | 2019-04-21 02:33 | P.HP_ITS ---
Providers/Chief Complaint Primary Care Provider: Dominga Cortez MD Chief Complaint: sob History of Present Illness Macho Michaud is a 83 year old male who has history of sleep apnea, noncompliant with CPAP, recent left carotid endarterectomy 2 days ago came in with chief complaint of shortness of breath. Patient is stating that after the procedure he went home he started having shortness of breath, orthopnea, PND, cough and high fevers, he did not note temperature but he was experiencing chills with hot flashes. His shortness of breath was getting worse today and he decided to come to ED for further evaluation. Patient is denying chest pain, headaches, dysuria, diarrhea or constipation. Diagnostics in ER reveals congestive heart failure, pulmonary edema, left lower lobe pneumonia, leukocytosis, tachypnea He was hypoxic 60% on room air and did well on BiPAP He got lasix IV 60 mg x 1 Troponins are pending, EKG showing sinus bradycardia with first-degree AV block which is old, he is on beta-yuniel as well Review of Systems Const: Reports: fever, chills and body aches; Denies: change in appetite or change in weight Eyes: Denies: change in vision ENMT: Denies: throat pain Card: Denies: chest pain, palpitations, irregular heart rhythm, edema or swelling of feet/ankles Resp: Reports: shortness of breath and non-productive cough; Denies: pain on inspiration GI: Denies: abdominal pain, nausea or coffee grounds in vomit : Denies: flank pain or urinary frequency Musc: Denies: neck pain or extremity swelling Skin/Breast: Denies: rash or skin pain Neuro: Denies: headache or weakness in extremities Psych: Denies: anxiety or sleeping less Endo: Denies: excessive urination [place]/Lymph: Denies: easy bruising All/Imm: Denies: hives Medications/Allergies Allergies Allergy/AdvReac Type Severity Reaction Status Date / Time gemfibrozil Allergy diarrhea Verified 04/18/19 06:55 tramadol [From Ultram] Allergy nausea Verified 04/18/19 06:55 vomiting PFSH Acute PFSH: Medical History (Updated 04/21/19 @ 03:35 by Slim Chatman MD) AAA (abdominal aortic aneurysm) Endovascular repair several years ago Carotid stenosis Chronic kidney disease Chronic kidney disease Coronary artery disease Depression Diabetes mellitus GERD (gastroesophageal reflux disease) Hypercalcemia Hyperlipidemia Hypertension Impaired glucose tolerance Osteoarthritis Pancreatitis Severe chronic obstructive pulmonary disease Severe obesity Sleep apnea Tobacco abuse Surgical History Status post carotid endarterectomy Family History (Updated 04/21/19 @ 02:40 by Slim Chatman MD) Other CAD (coronary artery disease) Social History Smoking and tobacco status: current every day smoker Alcohol intake: never Vitals/I&O/Wt Last Vital Signs Pulse 68 04/21/19 01:20 Resp 34 H 04/21/19 01:14 Pulse Ox 99 04/21/19 01:41 Weight last 48 hrs Weight 95.254 kg Physical Exam Narrative: EXAM NARRATIVE: Mr. Michaud is a very pleasant male currently doing well on BiPAP No respiratory distress, saturating well BiPAP settings 20/10 reduced to 16 and 8, 30% FiO2 S1, S2 no murmur appreciated, hard to assess his JVD, no bilateral lower extre mity edema noted Lung auscultation reveals crackles bibasilar without wheezing Abdomen soft, distended, bloated, with obesity Alert oriented x3, GCS 15 Chronic right ankle fracture, he uses foot brace Appropriate mood and affect Skin does not show any signs of ischemia, gangrene or ulcers Data : 04/21/19 01:28 04/21/19 01:28 A&P Assessment and plan (1) Pulmonary edema: Status: Acute Qualifiers: Chronicity: acute Qualified Code(s): J81.0 - Acute pulmonary edema Code(s): J81.1 - Chronic pulmonary edema (2) Acute respiratory distress: Status: Acute Code(s): R06.03 - Acute respiratory distress (3) Smoker: Status: Acute Code(s): F17.200 - Nicotine dependence, unspecified, uncomplicated (4) Obesity: Status: Acute Code(s): E66.9 - Obesity, unspecified (5) Chronic kidney disease: Status: Acute Code(s): N18.9 - Chronic kidney disease, unspecified (6) Carotid stenosis: Status: Acute Code(s): I65.29 - Occlusion and stenosis of unspecified carotid artery (7) Sleep apnea: Status: Acute Code(s): G47.30 - Sleep apnea, unspecified Additional A&P Information Acute congestive heart failure exacerbation due to hospital-acquired pneumonia No murmur appreciated , I would give him low-dose Lasix because he is na?ve to diuretics Troponin baseline 74, no signs of ischemia on EKG This is most likely secondary to hospital-acquired pneumonia and underlying obstructive sleep apnea Echo in the morning Hospital-acquired pneumonia Subjective fevers, tachypnea, leukocytosis, left lower lobe infiltrate We will cover him with renally dosed vancomycin and cefepime and Levaquin Blood and sputum culture Monitor leukocytosis with CBC Chronic kidney disease 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 certified 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 on 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 settings, he is on sevelamer Baseline creatinine is 2-2.5, current creatinine is 2.3 Left-sided carotid endarterectomy on Thursday No neurological signs and symptoms Left-sided neck wound looks intact without any drainage Hypoxic respiratory failure secondary to pulmonary edema: Currently doing well on BiPAP Patient uses CPAP at night for sleep apnea: He is noncompliant with his CPAP at home Active smoker Counseled on smoking cessation and benefits on his health, Cardiac diet DNR/DNI DVT prophylaxis: Heparin Attestations Medical Necessity Statement*: Anticipating stay in the hospital to cross more than 2 midnights for management of pulmonary edema and hospital-acquired pneumonia Time Spent in Patient Care: 40 Coding Level of Care Code Acute Central Scheduler for Emi Herndon Diagnoses Pulmonary edema J81.0 Chronicity: acute Acute respiratory distress R06.03 Smoker F17.200 Obesity E66.9 Chronic kidney disease N18.9 Carotid stenosis I65.29 Sleep apnea G47.30
[2019-04-21] MEDS: FUROsemide 10 mg/mL SDV 10mL 60 MG IVP (02:36)
[2019-04-21 02:56] LABS: Troponin(5th) Baseline 73 ng/mL (0-15)
--- NOTE | 2019-04-21 03:27 | PC.NURSE ---
Patient spouse is going home for the night and will return in the am, state she is taking his glasses home with her as he can't wear them with the Bi-pap mask on. Patient still has his cane.
[2019-04-21 04:16] LABS: Troponin 5 2HR 89.95 ng/mL (0-15)
--- NOTE | 2019-04-21 04:32 | USCV_ITS ---
Macho Michaud Age: 83 Gender: M : 1935 Exam Date: 04/21/2019 06:29 Ordering Phys: Slim Chatman MD Technologist: JUSTUS WHITLEY Exam Location: [facility] – [place] Indication: CHF BP: 133 / 70 HR: 62 Rhythm: Sinus Technical Quality: Technically difficult study MEASUREMENTS (Male / Female) Normal Values 2D ECHO LV Diastolic Diameter PLAX 4.7 cm 4.2 - 5.9 / 3.9 - 5.3 cm LV Systolic Diameter PLAX 3.2 cm IVS Diastolic Thickness 1.1 cm 0.6 - 1.0 / 0.6 - 0.9 cm IVS Systolic Thickness 1.5 cm LVPW Diastolic Thickness 1.1 cm 0.6 - 1.0 / 0.6 - 0.9 cm LVPW Systolic Thickness 1.3 cm LVOT Diameter 2.0 cm LV Ejection Fraction 2D Teich 60.7 % LA Diameter 4.2 cm LA Width 3.5 cm LA Height 4.6 cm RA Width 3.7 cm RA Height 4.4 cm Aorta at Sinotubular Diameter 2.5 cm M-MODE LV Diastolic Diameter MM 5.5 cm 4.2 - 5.9 / 3.9 - 5.3 cm LV Systolic Diameter MM 3.7 cm LV Ejection Fraction MM Teich 61.3 % IVS Diastolic Thickness MM 1.1 cm 0.6 - 1.0 / 0.6 - 0.9 cm IVS Systolic Thickness MM 1.6 cm LVPW Diastolic Thickness MM 1.1 cm 0.6 - 1.0 / 0.6 - 0.9 cm LVPW Systolic Thickness MM 1.4 cm Aortic Annulus Diameter 2.9 cm LA Ao Ratio MM 1.5 MV E Point Septal Separation 0.7 cm DOPPLER AV Peak Velocity 140.0 cm/s LVOT Peak Velocity 82.0 cm/s AV Area Cont Eq vti 2.1 cm squared AV Area Cont Eq pk 1.8 cm squared MV Peak Velocity 182.0 cm/s MV Area PHT 2.4 cm squared Mitral E to A Ratio 1.6 MV E' Velocity 9.0 cm/s Mitral E to MV E' Ratio 19.0 Mitral E to LV E' Lateral Ratio 17.5 Mitral E to LV E' Septal Ratio 20.8 TV Peak E Velocity 55.0 cm/s Right Atrial Pressure 15.0 mmHg PV Peak Velocity 59.0 cm/s RV Acceleration Time 0.1 s RV Ejection Time 0.3 s RV AcT/ET 0.4 FINDINGS Left Ventricle Normal left ventricular size, systolic function and wall thickness, with no regional wall motion abnormalities. Left ventricular ejection fraction is estimated at 60-65 %. Grade 2 diastolic dysfunction with moderately elevated left atrial filling pressure. Right Ventricle Normal right ventricular size and systolic function. Normal right ventricular systolic pressure. Right Atrium Normal right atrial size. Right atrial pressure estimated at 15 mmHg. Left Atrium Mildly increased left atrial size. Mitral Valve Moderate to severe mitral annular calcification. Moderately thickened mitral valve. Probably at least moderate eccentric mitral regurgitation. Aortic Valve Mildly thickened and calcified trileaflet aortic valve. Aortic valve sclerosis without stenosis. No aortic valve regurgitation. Tricuspid Valve Structurally normal tricuspid valve. Trace to mild tricuspid valve regurgitation. Pulmonic Valve Pulmonic valve not well visualized. Trace pulmonary valve regurgitation. Pericardium No pericardial effusion. Aorta Normal aorta. CONCLUSIONS 1. Normal left ventricular size, systolic function and wall thickness, with no regional wall motion abnormalities. Left ventricular ejection fraction is estimated at 60-65 %. Grade 2 diastolic dysfunction with moderately elevated left atrial filling pressure. 2. Normal right ventricular size and systolic function. 3. Right atrial pressure estimated at 15 mmHg. 4. Mildly increased left atrial size. 5. Probably at least moderate eccentric mitral regurgitation. 6. No prior similar studies to compare. Melissa Owens MD (Electronically Signed) Final Date: 21 April 2019 18:36 S
[2019-04-21] MEDS: FUROsemide 10 mg/mL SDV 2mL 20 MG IVP (04:55)
[2019-04-21] MEDS: heparin 5,000 unit/mL INJ 1 mL 5000 UNIT SUBCUT ×3 (04:55→21:25)
--- NOTE | 2019-04-21 04:55 | PC.ADMIT ---
[address] [id number] Admission Note: The patient,Macho Michaud,83 y/o, was given written information regarding hospital policies, unit procedures and contact persons. Patient's smoking status: current every day smoker. Vital Signs - 8 hr 04/21/19 01:14 04/21/19 01:20 04/21/19 01:41 Pulse Rate 68 Pulse Rate [Monitor] 87 Respiratory Rate 34 H Blood Pressure Pulse Oximetry 90 99 99 04/21/19 02:43 04/21/19 02:45 04/21/19 03:45 Pulse Rate 60 60 62 Pulse Rate [Monitor] Respiratory Rate 22 H 24 H 16 Blood Pressure 122/68 122/68 101/63 Pulse Oximetry 97 98 98 04/21/19 04:22 04/21/19 04:25 04/21/19 04:30 Pulse Rate 77 62 Pulse Rate [Monitor] Respiratory Rate 26 H 21 H Blood Pressure 124/70 Pulse Oximetry 94 94 94 04/21/19 04:35 04/21/19 04:40 04/21/19 04:45 Pulse Rate 63 59 L 60 Pulse Rate [Monitor] Respiratory Rate 23 H 17 16 Blood Pressure 126/66 126/66 126/66 Pulse Oximetry 90 94 95 04/21/19 04:50 Pulse Rate 62 Pulse Rate [Monitor] Respiratory Rate 16 Blood Pressure 131/71 Pulse Oximetry 95 rcvd pt from ed pt placed on cm vss at this time. pt denies pain. incision to left side of neck well approximated c no s/s of infection noted. pt denies need to void at this time. urinal provided. assessment per flowsheet . pt 2 [address] is 16.[address] dr elena olea rn.
[2019-04-21 04:58] LABS: Troponin 5 2HR Delta 16.95 ABS# (0-10)
--- NOTE | 2019-04-21 05:03 | PC.PHAR ---
Pharmacokinetic dosing service Date: 04/21/19 Time: 0500 Objective: Patient: NOLAN VILLARREAL Floor: ICU-1 Age: 83 yo Serum creatinine: 2.3 mg/dL Height: 64.0 Inches Weight (kg): 95.254 Diagnosis: Relevant medical/social history: Cultures and sensitivities: Other labs: Assessment: IBW (kg): 59.20 Dosing wt(kg): 95.254 Estimated Creatinine clearance (ml/min): 21.1 CRCL method: Cockcroft and Gault using ibw(default). Drug selected: Vancomycin Loading dose (mg): 0 Vd (liters): 85.7 (factor used: 0.9 L/kg) Nakul (hr-1): 0.022 Half life (hrs): 31.51 Recommended dose: 1250 mg Interval: 36 hrs Infusion time (hrs): 1.5 Predicted peak (mcg/mL): 26.2 Predicted trough (mcg/mL): 12.27 Total body weight is being used for vancomycin dosing. Renal function is stable [ ] /unstable [ ] Recommendations: Give Vancomycin 1250 mg q 36 hrs with an expected Cpeak of 26.2 mcg/ml and an expected Ctrough of 12.27 mcg/ml Renal dosing of other antibiotics (review renal dosing of other medications and list guidelines here): Thank you for the consult, will continue to follow. Signature: Juli Wilkerson [facility]
[2019-04-21] MEDS: cefepime 1,000 MG in sodium chloride 0.9% (plus) 100 ML 100 MG IV ×2 (05:30→17:34)
[2019-04-21 07:29] LABS: Glucose Point of Care 143 mg/dL (70-110)
[2019-04-21] MEDS: ipratropium-albuterol 3 mL Neb INHALATION ×3 (07:35→20:18)
[2019-04-21] MEDS: levoFLOXacin 750 mg Tablet PO (08:45)
[2019-04-21] MEDS: aspirin 81 mg EC Tablet PO (08:45)
[2019-04-21] MEDS: atorvastatin 40 mg Tablet 80 MG PO (08:45)
[2019-04-21] MEDS: ropinirole 1 mg Tablet 0.5 MG PO (08:50)
[2019-04-21 08:51] LABS: Troponin 5 6HR 110.3 ng/mL (0-15)
[2019-04-21 08:53] LABS: Troponin 5 6HR Delta 37.3 ng/L (0-12)
--- NOTE | 2019-04-21 09:19 | PM.PN ---
Subjective Subjective: Interval history: Patient denies shortness of breath or chest pain this morning. Reports that he was unable to use CPAP at home because of recent carotid endarterectomy. He denies neck pain. He continues to smoke. He denies cough. He was noted to have significant leukocytosis with WBC count 21.3 and likely related to recent surgery/stress. Pneumonia cannot be ruled out. Denies melena or hematochezia. Vitals/I&O/Wt Last Vital Signs Temp 97.8 F 04/21/19 05:20 Pulse 72 04/21/19 07:59 Resp 20 H 04/21/19 07:40 BP 133/61 04/21/19 07:40 Pulse Ox 96 04/21/19 07:40 04/20/19 04/21/19 04/21/19 22:59 06:59 14:59 Output Total 0 / 0 Balance 0 / 0 Weight last 48 hrs Weight 95.254 kg Physical Exam Const: COMMON NORMALS: no apparent distress and oriented x3 Resp: COMMON NORMALS: normal respiratory effort and clear to auscultation bilaterally AUSCULTATION: clear to auscultation bilaterally Cardio: COMMON NORMALS: regular rate, regular rhythm and S2 normal heart sound RATE: regular rate RHYTHM: regular rhythm HEART SOUNDS: S2 normal OTHER: No lower extremity edema GI: COMMON NORMALS: normal to inspection, nondistended, normoactive bowel sounds, soft to palpation and non-tender PALPATION: Yes soft Neuro: COMMON NORMALS: oriented x3 and no focal motor deficits Data : 04/21/19 01:28 04/21/19 01:28 Micro: Microbiology 04/21/19 07:17 Blood Culture - Preliminary Blood SPECIMEN COLLECTED A&P Assessment and plan (1) Pulmonary edema: Status: Acute Qualifiers: Chronicity: acute Qualified Code(s): J81.0 - Acute pulmonary edema Code(s): J81.1 - Chronic pulmonary edema (2) Acute respiratory distress: Status: Acute Code(s): R06.03 - Acute respiratory distress (3) Smoker: Status: Acute Code(s): F17.200 - Nicotine dependence, unspecified, uncomplicated (4) Obesity: Status: Acute Code(s): E66.9 - Obesity, unspecified (5) Chronic kidney disease: Status: Acute Code(s): N18.9 - Chronic kidney disease, unspecified (6) Carotid stenosis: Status: Acute Code(s): I65.29 - Occlusion and stenosis of unspecified carotid artery (7) Sleep apnea: Status: Acute Code(s): G47.30 - Sleep apnea, unspecified (8) Non-ST elevation ND (NSTEMI): Status: Acute Code(s): I21.4 - Non-ST elevation (NSTEMI) myocardial infarction Additional A&P Information Acute congestive heart failure exacerbation due to hospital-acquired pneumonia Suspected hospital-acquired pneumonia Chronic kidney disease stage III Left-sided carotid endarterectomy on Thursday Hypoxic respiratory failure secondary to pulmonary edema: Currently doing well on BiPAP Patient uses CPAP at night for sleep apnea: Active smoker Restart atenolol. Continue aspirin and statin. Normocytic anemia, likely chronic. We will continue current heparin given recent surgery and anemia. Echocardiogram is pending. Discussed case with Dr. Owens who will see patient in consultation. Cardiac diet DNR/DNI DVT prophylaxis: Heparin Attestations Medical Necessity Statement*: Patient with respite failure as well as non-ST elation ND requires close ICU monitoring and treatment. Coding Level of Care Code Acute Registered Appraiser for Emi Tayd Diagnoses Pulmonary edema J81.0 Chronicity: acute Acute respiratory distress R06.03 Smoker F17.200 Obesity E66.9 Chronic kidney disease N18.9 Carotid stenosis I65.29 Sleep apnea G47.30 Non-ST elevation ND (NSTEMI) I21.4
[2019-04-21 11:49] LABS: Glucose Point of Care 140 mg/dL (70-110)
--- NOTE | 2019-04-21 12:27 | PC.CHAP ---
Pastoral Care Encounter/Spiritual Assessment Type of Contact [] Declined engine repair supervisor visit [] Patient/Family/Request visit [] Outpatient visit [] Follow-up visit [] Physician referral [] Code/Alert [x] Routine visit [] Staff referral [] Actively dying [] Patient sleeping [] Family support [] [] Out of room [] Palliative care [] [] Receiving care in room [] Pre-surgical visit [] Trauma [] Long length of stay [] ICU visit [] Other: Relational/Emotional Strength [] Patient feels connected with others/family/visitors/staff [] Distress [] Loneliness/isolation [] Abandonment Spirituality of Patient [] Person of Verna [] Attends Taoist of their Verna [] Believes in Prayer [] Reads Bible or Sikhism materials [] There are Spiritual issues to be addressed General Merchandise Manager Interventions [x] Prayer [] Active listening [] Non-anxious presence [] Spiritual/emotional support [] Crisis/trauma care [] Spiritual counseling [] Bereavement support [] Provided bereavement packet [] Provided Bible/devotional materials [] Provided toy/stuffed animal, coloring book to patient or family member [] Provided Communion [] Anointing/Loraine [] Salvation [] Completed spiritual assessment [] Other: Impact on Illness or Injury [] Angry [] Fearful [] Anxious [] Often cries [] Exhaustion [] Unable to work [] Unable to attend church [] Unable to walk/stand [] Unable to read [] Unable to drive [] Unable to eat/drink [] Unable to sleep [] Unable to be with family [] Patient intubated [x] Other: Summary Patient is on a ventilator and unconscious. Prayer provided. Time spent with patient 3 minutes
[2019-04-21 14:37] LABS: Add Urine Microscopic? NO
[2019-04-21 15:05] LABS: Bilirubin Urine Neg (NEGATIVE); Blood Urine Neg (Negative); Glucose Urine UA Norm (Normal); Ketones Urine Negative (Negative); Leukocyte Esterase Urine Negative (Negative); Nitrate Urine Negative (Negative); Protein Urine Neg (Negative); Specific Gravity, Urine 1.005 (1.005-1.030); Urine Appearance Clear (CLEAR); Urine Color Straw (Yellow); Urobilinogen Urine Norm (Negative)
--- NOTE | 2019-04-21 15:46 | PM.CONSULT ---
Providers/Reason For Consult Consulting Physican/Specialty*: Dr. Owens, cardiology Reason for Consult*: Elevated troponin Attending Physician: Slim Chatman MD Primary Care Provider: Dominga Cortez MD History of Present Illness History of Present Illness Macho Michaud is a 83 year old male with past medical history of bilateral carotid artery stenosis status post recent left carotid endarterectomy with Dr. Ramos, hypertension, obstructive sleep apnea noncompliant with CPAP, chronic kidney disease baseline creatinine 2-2.5, chronic active smoker and history of abdominal aortic aneurysm status post endovascular repair presented with complaints of shortness of breath. She had his procedure 2 days back and soon after going home he started having shortness of breath cough chills as well as orthopnea. He underwent chest x-ray which shows pneumonia, cardiomegaly and pulmonary congestion. He was found to be hypoxic and was placed on BiPAP as well as received Lasix 60 mg IV. His troponin was found to be increased and hence I have been asked to evaluate the patient and assist in further management. EKG showed sinus bradycardia with first-degree AV block. Probably old inferior wall OK. Review of Systems Const: Reports: fever, chills and body aches; Denies: change in appetite or change in weight Eyes: Denies: change in vision ENMT: Denies: throat pain Card: Denies: chest pain, palpitations, irregular heart rhythm, edema or swelling of feet/ankles Resp: Reports: shortness of breath and non-productive cough; Denies: pain on inspiration GI: Denies: abdominal pain, nausea or coffee grounds in vomit : Denies: flank pain or urinary frequency Musc: Denies: neck pain or extremity swelling Skin/Breast: Denies: rash or skin pain Neuro: Denies: headache or weakness in extremities Psych: Denies: anxiety or sleeping less Endo: Denies: excessive urination [place]/Lymph: Denies: easy bruising All/Imm: Denies: hives Meds/Allergies Home Medications and Allergies Home Medications Medication Instructions Recorded Confirmed Type alogliptin 12.5 mg tablet 12.5 mg PO QAM 02/14/19 04/21/19 History aspirin 500 mg tablet 500 mg PO Q6H 02/14/19 04/21/19 History atenolol 100 mg tablet 100 mg PO BID 02/14/19 04/21/19 History carboxymethylcellulose sodium 0.5 1 drop OPHTHALMIC (EYE) BID 02/14/19 04/21/19 History % eye drops cholecalciferol (vitamin D3) 2,000 2,000 unit PO ONCE 02/14/19 04/21/19 History unit tablet cinacalcet 60 mg tablet 60 mg PO BID 02/14/19 04/21/19 History fluticasone propionate 50 1 spray INTRANASAL BID 02/14/19 04/21/19 History mcg/actuation nasal spray,suspension hydrocodone 5 mg-acetaminophen 325 1 tab PO Q6H PRN 02/14/19 04/21/19 History mg tablet losartan 100 mg tablet 100 mg PO DAILY tab 02/14/19 04/21/19 History multivitamin 1 cap PO QAM 02/14/19 04/21/19 History nystatin 100,000 unit/gram topical 1 applic TOPICAL BID 02/14/19 04/21/19 History ointment omeprazole 20 mg capsule,delayed 20 mg PO DAILY cap 02/14/19 04/21/19 History release ropinirole 0.5 mg tablet 0.5 mg PO DAILY tab 02/14/19 04/21/19 History tamsulosin 0.4 mg capsule 0.4 mg PO ONCE 02/14/19 04/21/19 History triamcinolone acetonide 0.1 % 1 applic TOPICAL BID 02/14/19 04/21/19 History topical cream atorvastatin 80 mg tablet See Rx Instructions PO DAILY tab 02/17/19 04/21/19 History [employer] 1 cap PO DAILY 04/15/19 04/21/19 History amlodipine 10 mg PO DAILY 04/15/19 04/21/19 History aspirin 81 mg PO DAILY 04/15/19 04/21/19 History chlorthalidone 50 mg PO DAILY 04/15/19 04/21/19 History acetaminophen [Tylenol Extra 500 mg PO Q6H PRN 04/18/19 04/21/19 History Strength] Allergies Allergy/AdvReac Type Severity Reaction Status Date / Time gemfibrozil Allergy diarrhea Verified 04/18/19 06:55 tramadol [From Ultram] Allergy nausea Verified 04/18/19 06:55 vomiting Current Medications Current Medications Generic Name Dose Route Start Last Admin Trade Name Freq PRN Reason Stop Dose Admin Albuterol/Ipratropium 3 ml 04/21/19 04:32 04/21/19 14:33 Duoneb INHALATION 3 ml Q4H PRN Administration SHORTNESS OF BREATH Aspirin 81 mg 04/21/19 09:00 04/21/19 08:45 Aspirin Ec PO 81 mg DAILY WILLA Administration Atorvastatin Calcium 80 mg 04/21/19 09:00 04/21/19 08:45 Lipitor PO 80 mg DAILY WILLA Administration Furosemide 40 mg 04/21/19 04:32 04/21/19 04:51 Lasix IVP Not Given Q24H WILLA Furosemide 20 mg 04/21/19 04:32 04/21/19 04:55 Lasix IVP 20 mg Q24H WILLA Administration Heparin Sodium (Beef Lung) 5,000 unit 04/21/19 04:32 04/21/19 11:42 Heparin SUBCUT 5,000 unit Q8H WILLA Administration Cefepime HCl 1,000 mg/ Sodium 100 mls @ 100 mls/hr 04/21/19 05:15 04/21/19 05:30 Chloride IV 100 mls/hr Q12H WILLA Administration Protocol Vancomycin HCl 1,250 mg/ 250 mls @ 250 mls/hr 04/21/19 05:30 04/21/19 07:03 Sodium Chloride IV 250 mls/hr Q36H WILLA Administration Insulin Aspart 0 unit 04/21/19 08:00 04/21/19 11:42 Novolog SUBCUT Not Given WM&BEDTIME WILLA Protocol Levofloxacin 750 mg 04/21/19 09:00 04/21/19 08:45 Levaquin PO 750 mg EVERY OTHER DAY WILLA Administration Protocol Nitroglycerin 1 patch 04/21/19 11:15 04/21/19 11:42 Nitro-Dur 0.1 Mg Patch TRANSDERMA 1 patch Q24H WILLA Administration Ropinirole HCl 0.5 mg 04/21/19 09:00 04/21/19 08:50 Requip PO 0.5 mg DAILY WILLA Administration PFSH Acute PFSH: Medical History (Updated 04/21/19 @ 18:53 by Melissa Owens MD) AAA (abdominal aortic aneurysm) Endovascular repair several years ago Carotid stenosis Chronic kidney disease Depression Diabetes mellitus GERD (gastroesophageal reflux disease) Hypercalcemia Hyperlipidemia Hypertension Impaired glucose tolerance Osteoarthritis Pancreatitis Severe chronic obstructive pulmonary disease Severe obesity Sleep apnea Tobacco abuse Surgical History (Updated 04/21/19 @ 18:43 by Melissa Owens MD) Status post carotid endarterectomy Left Family History (Updated 04/21/19 @ 02:40 by Slim Chatman MD) Other CAD (coronary artery disease) Social History Smoking and tobacco status: current every day smoker Alcohol intake: never Vitals/I&O/Wt Last Vital Signs Temp 98.5 F 04/21/19 13:00 Pulse 68 04/21/19 15:00 Resp 20 H 04/21/19 15:00 BP 152/72 04/21/19 15:00 Pulse Ox 94 04/21/19 15:00 04/21/19 04/21/19 04/21/19 06:59 14:59 22:59 Output Total 0 / 0 Balance 0 / 0 Weight last 48 hrs Weight 210 lb Physical Exam Narrative: EXAM NARRATIVE: GENERAL: Obese man lying in bed with mild respiratory distress HEENT: Extraocular movement intact. Pupils equal round reactive to light. No pallor or icterus. NECK: central trachea, + JVD, well approximated incision of recent surgery on left side of his neck. CARDIOVASCULAR SYSTEM: S1-S2 regular. No S3 or S4 present. No murmur rubs or gallops. RESPIRATORY SYSTEM: Chest clear to auscultation except at bilateral bases. He is currently on oxygen through nasal cannula, intermittent crackles in bilateral bases. ABDOMEN: Soft, nontender and nondistended. Normal bowel sounds present. EXTREMITIES: No cyanosis or clubbing. No edema. No signs of chronic venous insufficiency. DIRECTOR PRIVATE: Patient is alert oriented ?3. No focal neurological deficits. SKIN: Normal turgor and temperature. PSYCH: Normal insight and judgment. No suicidal or homicidal ideations. Data Labs: Other Labs: Laboratory Tests 04/21/19 04/21/19 04/21/19 01:28 01:28 03:12 Troponin I 6 Hour Troponin I Hi Sens Del Troponin T Baselin e 73 H Troponin T 120 Min [place] 89.95 H Delta Troponin T 16.95 H* NT-Pro-B Natriuret Pep 7808 H 04/21/19 07:17 Troponin I 6 Hour 110.3 H Troponin I Hi Sens Del 37.3 H* Troponin T Baselin e Troponin T 120 Min [place] Delta Troponin T NT-Pro-B Natriuret Pep Micro: Micro: Microbiology 04/21/19 09:22 Blood Culture - Pr eliminary Blood SPECIMEN [facility] 04/21/19 07:17 Blood Culture - Pr eliminary Blood SPECIMEN [facility] Imaging^: CXR: Radiologist's impression: Findings: The pulmonary vascularity is increased and the heart is enlarged. The aortic arch shows calcification and tortuosity. No nodules, masses or effusions are seen. TTE (04/21/19): I personally reviewed and interpreted this imaging study as follows: My impression: CONCLUSIONS 1. Normal left ventricular size, systolic function and wall thickness, with no regional wall motion abnormalities. Left ventricular ejection fraction is estimated at 60-65 %. Grade 2 diastolic dysfunction with moderately elevated left atrial filling pressure. 2. Normal right ventricular size and systolic function. 3. Right atrial pressure estimated at 15 mmHg. 4. Mildly increased left atrial size. 5. Probably at least moderate eccentric mitral regurgitation. 6. No prior similar studies to compare. Stress echo (04/2015): Radiologist's impression: FINDINGS Baseline echo Normal left ventricle size and function estimated ejection fraction 55%. There is no wall motion abnormality At the peak exercise level No new wall motion abnormality was detected. Augmentation of the left ventricle cavity was good CONCLUSIONS Normal echocardiographic portion of the stress test not suggestive of ischemia EKG will be reported separately A&P Assessment and plan (1) Acute respiratory distress: Acute respiratory distress in setting of decompensated congestive heart failure and pneumonia. Status: Acute Code(s): R06.03 - Acute respiratory distress (2) Diastolic CHF: Heart failure with preserved ejection fraction -Patient is Lasix na?ve. -1 L since morning. Continue Lasix at present dose. Status: Acute Qualifiers: Heart failure chronicity: acute Qualified Code(s): I50.31 - Acute diastolic (congestive) heart failure Code(s): I50.30 - Unspecified diastolic (congestive) heart failure (3) Non-ST elevation [place] (NSTEMI): Non-ST elevation [place] type II in setting of decompensated congestive heart failure and acute hypoxic respiratory failure. Status: Acute Code(s): I21.4 - Non-ST elevation (NSTEMI) myocardial infarction (4) Diabetes mellitus: Status: Acute Code(s): E11.9 - Type 2 diabetes mellitus without complications (5) Sleep apnea: Status: Acute Qualifiers: Sleep apnea type: obstructive Qualified Code(s): G47.33 - Obstructive sleep apnea (adult) (pediatric) Code(s): G47.30 - Sleep apnea, unspecified (6) Obesity: Status: Acute Qualifiers: Obesity classification: adult class 2 (BMI 35 - 39.9) Code(s): E66.9 - Obesity, unspecified (7) Chronic kidney disease: Status: Acute Qualifiers: Chronic kidney disease stage: stage 3 (moderate) Qualified Code(s): N18.3 - Chronic kidney disease, stage 3 (moderate) Code(s): N18.9 - Chronic kidney disease, unspecified Additional A&P Information Pneumonia : Broad-spectrum antibiotics. At least moderate eccentric mitral regurgitation Normocytic anemia Chronic active smoker. Thank you for allowing me to participate in patient's care. Please feel free to call with questions or concerns. Consult Attestations Medical Necessity Statement: Needs hospital stay for management of pneumonia and decompensated CHF. Coding Level of Care Code Acute Leather Softener for Emi Herndon Diagnoses Acute respiratory distress R06.03 Diastolic CHF I50.31 Heart failure chronicity: acute Non-ST elevation [place] (NSTEMI) I21.4 Diabetes mellitus E11.9 Sleep apnea G47.33 Sleep apnea type: obstructive Obesity E66.9 Obesity classification: adult class 2 (BMI 35 - 39.9) Chronic kidney disease N18.3 Chronic kidney disease stage: stage 3 (moderate)
[2019-04-21 17:35] LABS: Glucose Point of Care 106 mg/dL (70-110)
[2019-04-21] MEDS: atenolol 50 mg Tablet 100 MG PO (17:35)
[2019-04-21 21:22] LABS: Glucose Point of Care 119 mg/dL (70-110)
[2019-04-21] MEDS: ropinirole 0.25 mg Tablet 0.5 MG PO (21:25)
--- NOTE | 2019-04-21 22:50 | PC.NURSE ---
DR ABRAHAM FERNANDEZ GAVE ORDER TO GIVE REQUIP AGAIN AND CHANGE TO NIGHT TIME.
[2019-04-22] VITALS (23 sets, daily range): BP systolic 122–168; BP diastolic 67–82; PULSE 65–83; RESP 16–36; TEMP 36.8–37.1; O2SAT 91–96
[2019-04-22] MEDS: FUROsemide 10 mg/mL SDV 2mL 20 MG IVP (04:30)
[2019-04-22] MEDS: heparin 5,000 unit/mL INJ 1 mL 5000 UNIT SUBCUT ×3 (04:30→20:19)
[2019-04-22] MEDS: cefepime 1,000 MG in sodium chloride 0.9% (plus) 100 ML 100 MG IV ×2 (04:30→16:59)
[2019-04-22 04:46] LABS: Basophils # 0.1 10^3/uL (0.0-0.1); Basophils % 0.5 %; Eosinophils % 0.3 %; Hematocrit 28.6 % (42.0-52.0); Hemoglobin 9.5 g/dL (11.7-16.6); Lymphocytes % 7.8 %; Mean Corpuscular HGB Conc 33.2 g/dL (30.0-36.0); Mean Corpuscular Hemoglobin 30.3 pg (28.0-34.0); Mean Corpuscular Volume 91.1 fL (80-94); Mean Platelet Volume 11.7 fL (7.4-10.4); Monocytes # 1.6 10^3/uL (0.2-0.9); Monocytes % 12.6 %; Neutrophils # 9.5 10^3/uL (1.8-7.7); Neutrophils % 77.5 %; Nucleated Red Blood Cells % 0 %; Platelet Count 219 10^3/cmm (130-400); Red Blood Count 3.14 10^6/uL (4.1-5.3); White Blood Count 12.3 10^3/uL (4.0-10.0)
[2019-04-22 05:06] LABS: Anion Gap 18.2 (5-19); Blood Urea Nitrogen 50 mg/dL (8-23); Calcium 10.5 mg/dL (8.5-10.5); Carbon Dioxide 19 mmol/L (22-29); Chloride 103 mmol/L (98-107); Glucose 112 mg/dL (65-115); Osmolality Calculated 281 mOsm/kg (285-295); Potassium 4.2 mmol/L (3.5-5.1); Sodium 136 mmol/L (136-145)
--- NOTE | 2019-04-22 05:48 | PC.NURSE ---
SHIFT SUMMARY PT HAS BEEN AFEBRILE. PT HAS REMAINED ALERT AND ORIENTATED. PT HAS HAD ADEQUATE URINE OUTPUT, AND IV REMAINS PATENT. PT IS ABLE TO USE URINAL BY HIMSELF TO USE BATHROOM, STATES HE IS TOO WEAK TO STAND. PT LUNGS REMAIN DIMINISHED, AND T WAVES REMAIN INVERTED ON TELEMETRY. NO NECK PAIN, NO RESPIRATORY DISTRESS EPISODES. PT REMAINS ON 5-6LNC.
[2019-04-22 07:36] LABS: Glucose Point of Care 107 mg/dL (70-110)
--- NOTE | 2019-04-22 08:04 | P.PN_ITS ---
Subjective Subjective: Interval history: Patient did not have any episodes of chest pains overnight. Urine output of 2100 mL yesterday. He is net -1.1 L. No episodes on telemetry. Medications: Reviewed: Yes Medication Review Details: Current Medications Acetaminophen (Tylenol) 500 mg PO Q6H PRN PRN Reason: Pain Hydrocodone Bitart/Acetaminophen ([place] 5-325 Mg) 1 tab PO Q6H PRN PRN Reason: Pain Albuterol/Ipratropium (Duoneb) 3 ml INHALATION Q4H PRN PRN Reason: SHORTNESS OF BREATH Last Admin: 04/21/19 20:18 Dose: 3 ml Documented by: Aspirin (Aspirin Ec) 81 mg PO DAILY [facility] Last Admin: 04/21/19 08:45 Dose: 81 mg Documented by: Atenolol (Tenormin) 100 mg PO BID [facility] Last Admin: 04/21/19 17:35 Dose: 100 mg Documented by: Atorvastatin Calcium (Lipitor) 80 mg PO DAILY [facility] Last Admin: 04/21/19 08:45 Dose: 80 mg Documented by: Dextrose (D50w) 25 ml IVP ONCE PRN; Protocol PRN Reason: hypoglycemia protocol Dextrose (D50w) 50 ml IVP PRN PRN; Protocol PRN Reason: hypoglycemia protocol Furosemide (Lasix) 40 mg IVP Q24H [facility] Last Admin: 04/21/19 21:30 Dose: Not Given Documented by: Furosemide (Lasix) 20 mg IVP Q24H [facility] Last Admin: 04/22/19 04:30 Dose: 20 mg Documented by: Glucagon (Glucagen) 1 mg IM ONCE PRN; Protocol PRN Reason: Adult Acute Hypoglycemia Prot. Heparin Sodium (Beef Lung) (Heparin) 5,000 unit SUBCUT Q8H [facility] Last Admin: 04/22/19 04:30 Dose: 5,000 unit Documented by: Dextrose (D5w) 500 mls @ 100 mls/hr IV ONCE PRN; Protocol PRN Reason: Adult Acute Hypoglycemia Prot Cefepime HCl 1,000 mg/ Sodium (Chloride) 100 mls @ 100 mls/hr IV Q12H WILLA; Protocol Last Admin: 04/22/19 04:30 Dose: 100 mls/hr Documented by: Vancomycin HCl 1,250 mg/ (Sodium Chloride) 250 mls @ 250 mls/hr IV Q36H [facility] Last Infusion: 04/21/19 21:29 Dose: Infused Documented by: Insulin Aspart (Novolog) 0 unit SUBCUT WM&BEDTIME WILLA; Protocol Last Admin: 04/22/19 07:45 Dose: Not Given Documented by: Levofloxacin (Levaquin) 750 mg PO EVERY OTHER DAY [facility]; Protocol Last Admin: 04/21/19 08:45 Dose: 750 mg Documented by: Nitroglycerin (Nitro-Dur 0.1 Mg Patch) 1 patch TRANSDERMA Q24H [facility] Last Admin: 04/21/19 11:42 Dose: 1 patch Documented by: Non-Formulary Medication (Cinacalcet [Sensipar]) 60 mg PO BID [facility] Ropinirole HCl (Requip) 0.5 mg PO DAILY [facility] Last Admin: 04/21/19 08:50 Dose: 0.5 mg Documented by: Ropinirole HCl (Requip) 0.5 mg PO BEDTIME [facility] Last Admin: 04/21/19 21:25 Dose: 0.5 mg Documented by: Tamsulosin HCl (Flomax) 0.4 mg PO ONCE [facility] Vitals/I&O/Wt Last Vital Signs Temp 98.3 F 04/22/19 05:38 Pulse 81 04/22/19 07:53 Resp 22 H 04/22/19 07:53 BP 140/68 04/22/19 07:53 Pulse Ox 95 04/22/19 07:53 04/21/19 04/22/19 04/22/19 22:59 06:59 14:59 Intake Total 710 / 1190 120 / 1310 Output Total 600 / 1900 1000 / 2900 Balance 110 / -710 -880 / -1590 Weight last 48 hrs Weight 210 lb Physical Exam Narrative: EXAM NARRATIVE: GENERAL: Obese man lying in bed with no distress HEENT: Extraocular movement intact. Pupils equal round reactive to light. No pallor or icterus. NECK: central trachea, + JVD, well approximated incision of recent surgery on left side of his neck. CARDIOVASCULAR SYSTEM: S1-S2 regular. No S3 or S4 present. No murmur rubs or gallops. RESPIRATORY SYSTEM: Chest clear to auscultation except at bilateral bases. He is currently on oxygen through nasal cannula, intermittent crackles in bilateral bases. ABDOMEN: Soft, nontender and nondistended. Normal bowel sounds present. EXTREMITIES: No cyanosis or clubbing. No edema. No signs of chronic venous insufficiency. ESTATE ATTORNEY: Patient is alert oriented ?3. No focal neurological deficits. SKIN: Normal turgor and temperature. PSYCH: Normal insight and judgment. No suicidal or homicidal ideations. Data : 04/22/19 03:55 04/22/19 03:55 Micro: Microbiology 04/21/19 07:17 Blood Culture - Preliminary Blood NEGATIVE TO DATE 04/21/19 09:22 Blood Culture - Preliminary Blood SPECIMEN COLLECTED A&P Assessment and plan (1) Acute respiratory distress: Acute respiratory distress in setting of decompensated congestive heart failure and pneumonia. Status: Acute Code(s): R06.03 - Acute respiratory distress (2) Diastolic CHF: Heart failure with preserved ejection fraction -Patient is Lasix na?ve. -1 L since morning. Continue Lasix at present dose. Status: Acute Qualifiers: Heart failure chronicity: acute Qualified Code(s): I50.31 - Acute diastolic (congestive) heart failure Code(s): I50.30 - Unspecified diastolic (congestive) heart failure (3) Non-ST elevation [place] (NSTEMI): Non-ST elevation [place] type II in setting of decompensated congestive heart failure and acute hypoxic respiratory failure. -Plan for stress test as an outpatient. -continue ASA, statin. Status: Acute Code(s): I21.4 - Non-ST elevation (NSTEMI) myocardial infarction (4) Diabetes mellitus: Status: Acute Code(s): E11.9 - Type 2 diabetes mellitus without complications (5) Sleep apnea: Status: Acute Qualifiers: Sleep apnea type: obstructive Qualified Code(s): G47.33 - Obstructive sleep apnea (adult) (pediatric) Code(s): G47.30 - Sleep apnea, unspecified (6) Obesity: Status: Acute Qualifiers: Obesity classification: adult class 2 (BMI 35 - 39.9) Code(s): E66.9 - Obesity, unspecified (7) Chronic kidney disease: Status: Acute Qualifiers: Chronic kidney disease stage: stage 3 (moderate) Qualified Code(s): N18.3 - Chronic kidney disease, stage 3 (moderate) Code(s): N18.9 - Chronic kidney disease, unspecified Additional A&P Information Pneumonia : Broad-spectrum antibiotics. At least moderate eccentric mitral regurgitation Normocytic anemia Chronic active smoker. Thank you for allowing me to participate in patient's care. Please feel free to call with questions or concerns. Attestations Medical Necessity Statement*: As per primary team Coding Level of Care Code Acute Fork Assembler for Emi Fwjorge Diagnoses Acute respiratory distress R06.03 Diastolic CHF I50.31 Heart failure chronicity: acute Non-ST elevation [place] (NSTEMI) I21.4 Diabetes mellitus E11.9 Sleep apnea G47.33 Sleep apnea type: obstructive Obesity E66.9 Obesity classification: adult class 2 (BMI 35 - 39.9) Chronic kidney disease N18.3 Chronic kidney disease stage: stage 3 (moderate)
--- NOTE | 2019-04-22 08:26 | PM.PN ---
Subjective Subjective: Interval history: Patient denies chest pain this morning but reports being slightly short of breath. He could not tell me if this is his baseline or he feels worse. Denies cough. He is currently on 6 L by nasal cannula saturating in mid 90s. Reports that he was using CPAP before but not in the last several days after he had left-sided endarterectomy because of neck pain when straps overlie. Reports that his neck pain is gradually getting better and he does not hurt as much as it was before. Medications: Reviewed: Yes Medication Review Details: Current Medications Acetaminophen (Tylenol) 500 mg PO Q6H PRN PRN Reason: Pain Hydrocodone Bitart/Acetaminophen ([place] 5-325 Mg) 1 tab PO Q6H PRN PRN Reason: Pain Albuterol/Ipratropium (Duoneb) 3 ml INHALATION Q4H PRN PRN Reason: SHORTNESS OF BREATH Last Admin: 04/21/19 20:18 Dose: 3 ml Documented by: Aspirin (Aspirin Ec) 81 mg PO DAILY [facility] Last Admin: 04/21/19 08:45 Dose: 81 mg Documented by: Atenolol (Tenormin) 100 mg PO BID [facility] Last Admin: 04/21/19 17:35 Dose: 100 mg Documented by: Atorvastatin Calcium (Lipitor) 80 mg PO DAILY [facility] Last Admin: 04/21/19 08:45 Dose: 80 mg Documented by: Dextrose (D50w) 25 ml IVP ONCE PRN; Protocol PRN Reason: hypoglycemia protocol Dextrose (D50w) 50 ml IVP PRN PRN; Protocol PRN Reason: hypoglycemia protocol Furosemide (Lasix) 40 mg IVP Q24H [facility] Last Admin: 04/21/19 21:30 Dose: Not Given Documented by: Furosemide (Lasix) 20 mg IVP Q24H [facility] Last Admin: 04/22/19 04:30 Dose: 20 mg Documented by: Glucagon (Glucagen) 1 mg IM ONCE PRN; Protocol PRN Reason: Adult Acute Hypoglycemia Prot. Heparin Sodium (Beef Lung) (Heparin) 5,000 unit SUBCUT Q8H [facility] Last Admin: 04/22/19 04:30 Dose: 5,000 unit Documented by: Dextrose (D5w) 500 mls @ 100 mls/hr IV ONCE PRN; Protocol PRN Reason: Adult Acute Hypoglycemia Prot Cefepime HCl 1,000 mg/ Sodium (Chloride) 100 mls @ 100 mls/hr IV Q12H [facility]; Protocol Last Admin: 04/22/19 04:30 Dose: 100 mls/hr Documented by: Vancomycin HCl 1,250 mg/ (Sodium Chloride) 250 mls @ 250 mls/hr IV Q36H [facility] Last Infusion: 04/21/19 21:29 Dose: Infused Documented by: Insulin Aspart (Novolog) 0 unit SUBCUT WM&BEDTIME [facility]; Protocol Last Admin: 04/22/19 07:45 Dose: Not Given Documented by: Levofloxacin (Levaquin) 750 mg PO EVERY OTHER DAY [facility]; Protocol Last Admin: 04/21/19 08:45 Dose: 750 mg Documented by: Nitroglycerin (Nitro-Dur 0.1 Mg Patch) 1 patch TRANSDERMA Q24H [facility] Last Admin: 04/21/19 11:42 Dose: 1 patch Documented by: Non-Formulary Medication (Cinacalcet [Sensipar]) 60 mg PO BID [facility] Ropinirole HCl (Requip) 0.5 mg PO DAILY [facility] Last Admin: 04/21/19 08:50 Dose: 0.5 mg Documented by: Ropinirole HCl (Requip) 0.5 mg PO BEDTIME [facility] Last Admin: 04/21/19 21:25 Dose: 0.5 mg Documented by: Tamsulosin HCl (Flomax) 0.4 mg PO ONCE [facility] Vitals/I&O/Wt Last Vital Signs Temp 98.3 F 04/22/19 05:38 Pulse 81 04/22/19 07:53 Resp 22 H 04/22/19 07:53 BP 140/68 04/22/19 07:53 Pulse Ox 95 04/22/19 07:53 04/21/19 04/22/19 04/22/19 22:59 06:59 14:59 Intake Total 710 / 1190 120 / 1310 300 / 300 Output Total 600 / 1900 1000 / 2900 Balance 110 / -710 -880 / -1590 300 / 300 Weight last 48 hrs Weight 95.254 kg Physical Exam Const: COMMON NORMALS: no apparent distress and oriented x3 Resp: COMMON NORMALS: normal respiratory effort and clear to auscultation bilaterally AUSCULTATION: clear to auscultation bilaterally Cardio: COMMON NORMALS: regular rate, regular rhythm and S2 normal heart sound RATE: regular rate RHYTHM: regular rhythm HEART SOUNDS: S2 normal OTHER: No lower extremity edema GI: COMMON NORMALS: normal to inspection, nondistended, normoactive bowel sounds, soft to palpation and non-tender PALPATION: Yes soft Neuro: COMMON NORMALS: oriented x3 and no focal motor deficits Data : 04/22/19 03:55 04/22/19 03:55 Micro: Microbiology 04/21/19 07:17 Blood Culture - Preliminary Blood NEGATIVE TO DATE 04/21/19 09:22 Blood Culture - Preliminary Blood SPECIMEN COLLECTED A&P Assessment and plan (1) Pulmonary edema: Status: Acute Qualifiers: Chronicity: acute Qualified Code(s): J81.0 - Acute pulmonary edema Code(s): J81.1 - Chronic pulmonary edema (2) Acute respiratory distress: Status: Acute Code(s): R06.03 - Acute respiratory distress (3) Smoker: Status: Acute Code(s): F17.200 - Nicotine dependence, unspecified, uncomplicated (4) Obesity: Status: Acute Qualifiers: Obesity classification: adult class 2 (BMI 35 - 39.9) Code(s): E66.9 - Obesity, unspecified (5) Chronic kidney disease: Status: Acute Qualifiers: Chronic kidney disease stage: stage 3 (moderate) Qualified Code(s): N18.3 - Chronic kidney disease, stage 3 (moderate) Code(s): N18.9 - Chronic kidney disease, unspecified (6) Carotid stenosis: Status: Acute Code(s): I65.29 - Occlusion and stenosis of unspecified carotid artery (7) Sleep apnea: Status: Acute Qualifiers: Sleep apnea type: obstructive Qualified Code(s): G47.33 - Obstructive sleep apnea (adult) (pediatric) Code(s): G47.30 - Sleep apnea, unspecified (8) Non-ST elevation [place] (NSTEMI): Status: Acute Code(s): I21.4 - Non-ST elevation (NSTEMI) myocardial infarction Additional A&P Information Acute congestive heart failure exacerbation due to hospital-acquired pneumonia Suspected hospital-acquired pneumonia Chronic kidney disease stage III Left-sided carotid endarterectomy on Thursday Hypoxic respiratory failure secondary to pulmonary edema: Currently doing well on BiPAP Patient uses CPAP at night for sleep apnea: Active smoker Normocytic anemia, likely chronic. Continue monitoring and treatment given clinical improvement we will transfer patient to cardiac stepdown unit. Request physical therapy. Will discuss with Dr. Owens Cardiac diet DNR/DNI DVT prophylaxis: Heparin Attestations Medical Necessity Statement*: Patient with heart failure requires close inpatient monitoring and treatment. Coding Level of Care Code Acute Networking Engineer for Chg Fwd Diagnoses Pulmonary edema J81.0 Chronicity: acute Acute respiratory distress R06.03 Smoker F17.200 Obesity E66.9 Obesity classification: adult class 2 (BMI 35 - 39.9) Chronic kidney disease N18.3 Chronic kidney disease stage: stage 3 (moderate) Carotid stenosis I65.29 Sleep apnea G47.33 Sleep apnea type: obstructive Non-ST elevation [place] (NSTEMI) I21.4
[2019-04-22] MEDS: atorvastatin 40 mg Tablet 80 MG PO (08:50)
[2019-04-22] MEDS: ropinirole 1 mg Tablet 0.5 MG PO (08:50)
[2019-04-22] MEDS: aspirin 81 mg EC Tablet PO (08:50)
[2019-04-22] MEDS: atenolol 50 mg Tablet 100 MG PO ×2 (08:50→18:00)
--- NOTE | 2019-04-22 08:54 | PC.NURSE ---
decreased o2 to 3.5 l nc am meds given
--- NOTE | 2019-04-22 09:52 | PC.CHAP ---
Pastoral Care Encounter/Spiritual Assessment Type of Contact [] Declined precision filer hand visit [] Patient/Family/Request visit [] Outpatient visit [] Follow-up visit [] Physician referral [] Code/Alert [x] Routine visit [] Staff referral [] Actively dying [] Patient sleeping [] Family support [] [] Out of room [] Palliative care [] [] Receiving care in room [] Pre-surgical visit [] Trauma [] Long length of stay [x] ICU visit [] Other: Relational/Emotional Strength [] Patient feels connected with others/family/visitors/staff [] Distress [] Loneliness/isolation [] Abandonment Spirituality of Patient [] Person of Verna [] Attends Gnosticist of their Verna [] Believes in Prayer [] Reads Bible or Jainism materials [] There are Spiritual issues to be addressed Brand Advocate Interventions [] Prayer [] Active listening [] Non-anxious presence [] Spiritual/emotional support [] Crisis/trauma care [] Spiritual counseling [] Bereavement support [] Provided bereavement packet [] Provided Bible/devotional materials [] Provided toy/stuffed animal, coloring book to patient or family member [] Provided Communion [] Anointing/Leopold [] Salvation [x] Completed spiritual assessment [] Other: Impact on Illness or Injury [] Angry [] Fearful [] Anxious [] Often cries [] Exhaustion [] Unable to work [] Unable to attend jain [] Unable to walk/stand [] Unable to read [] Unable to drive [] Unable to eat/drink [] Unable to sleep [] Unable to be with family [] Patient intubated [] Other: Summary little to no appetite. Resting ok. Ney could visit, however no prayer needed. Time spent with patient 15min
[2019-04-22 11:32] LABS: Glucose Point of Care 122 mg/dL (70-110)
--- NOTE | 2019-04-22 14:38 | PC.SOCIAL ---
Addendum entered by Kimberly Funes 04/22/19 14:39: Patients significant other signed with permission from the patient. Original Note: Patient signed for the MCR Recipient letter for the BPCI advanced and the original is in the chart. Information provided.
[2019-04-22 17:06] LABS: Glucose Point of Care 112 mg/dL (70-110)
[2019-04-22] MEDS: HYDROcodone-acetaminophen 5-325 mg Tablet 1 TAB PO (20:19)
[2019-04-22] MEDS: ropinirole 0.25 mg Tablet 0.5 MG PO (20:19)
[2019-04-23] VITALS (7 sets, daily range): BP systolic 122–150; BP diastolic 69–87; PULSE 65–71; RESP 19–22; TEMP 36.6–36.9; O2SAT 92–97
[2019-04-23 02:48] LABS: Glucose Point of Care 124 mg/dL (70-110)
[2019-04-23] MEDS: FUROsemide 10 mg/mL SDV 2mL 20 MG IVP (04:29)
[2019-04-23] MEDS: heparin 5,000 unit/mL INJ 1 mL 5000 UNIT SUBCUT ×3 (04:29→20:01)
[2019-04-23 06:26] LABS: Glucose Point of Care 109 mg/dL (70-110)
[2019-04-23] MEDS: atenolol 50 mg Tablet 100 MG PO ×2 (07:59→17:01)
[2019-04-23] MEDS: levoFLOXacin 750 mg Tablet PO (08:00)
[2019-04-23] MEDS: aspirin 81 mg EC Tablet PO (08:00)
[2019-04-23] MEDS: atorvastatin 40 mg Tablet 80 MG PO (08:00)
[2019-04-23] MEDS: ropinirole 1 mg Tablet 0.5 MG PO (08:00)
--- NOTE | 2019-04-23 08:07 | ECG_ITS ---
Measurements Intervals [place] Rate: 69 P: [place]: 0 QRS: -34 QRSD: 105 T: -20 QT: 404 QTc: 435 ATRIAL FLUTTER PATTERN CONSISTENT WITH PULMONARY DISEASE INFERIOR MYOCARDIAL INFARCTION [40+ ms Q WAVE AND/OR ST/T ABNORMALITY IN II/aVF], OF INDETERMINATE AGE Compared to ECG 04/21/2019 06:15:01 Myocardial infarct finding now present Sinus rhythm no longer present Electronically Signed On 04-23-2019 13:44:46 CDT by Nicanor Lovelace M.D. [email or web address]
--- NOTE | 2019-04-23 08:41 | P.PN_ITS ---
Subjective Subjective: Interval history: Mr. Michaud was admitted recently 2 days after being discharged from having had a carotid endarterectomy. He was in pulmonary edema with heart failure and pneumonia. He is being treated for both. He has a long list of other medical problems. He has grade 2 diastolic dysfunction and normal left ventricular ejection fraction. Originally he was in the ICU but has been transferred to the second floor. This morning he is very sleepy. No complaints Medications: Reviewed: Yes Vitals/I&O/Wt Last Vital Signs Temp 98.4 F 04/23/19 03:24 Pulse 69 04/23/19 07:34 Resp 20 H 04/23/19 07:34 BP 150/84 04/23/19 07:34 Pulse Ox 95 04/23/19 07:34 04/22/19 04/23/19 04/23/19 22:59 06:59 14:59 Intake Total 600 / 1150 240 / 1390 Output Total 650 / 1750 350 / 2100 400 / 400 Balance -50 / -600 -110 / -710 -400 / -400 Physical Exam Narrative: EXAM NARRATIVE: GENERAL: In general he is comfortable at rest HEENT: Exam within normal limits. NECK: Supple without jugular vein distention. The carotid upstroke is normal without bruits. BACK: Exam normal. LUNGS: Clear. HEART: Regular rate and rhythm. ABDOMEN: Benign without organomegaly or tenderness. EXTREMITIES: No edema. NEUROLOGIC: Exam normal. SKIN: Unremarkable. Data : 04/22/19 03:55 04/22/19 03:55 Micro: Microbiology 04/21/19 13:35 Legionella Urinary Antigen - Final Urine,Voided Bacterial Antigens - Final 04/21/19 09:22 Blood Culture - Preliminary Blood NEGATIVE TO DATE 04/21/19 07:17 Blood Culture - Preliminary Blood NEGATIVE TO DATE A&P Assessment and plan (1) Diastolic CHF: Status: Acute Qualifiers: Heart failure chronicity: acute Qualified Code(s): I50.31 - Acute diastolic (congestive) heart failure Code(s): I50.30 - Unspecified diastolic (congestive) heart failure (2) Diabetes mellitus: Status: Acute Code(s): E11.9 - Type 2 diabetes mellitus without complications (3) Sleep apnea: Status: Acute Qualifiers: Sleep apnea type: obstructive Qualified Code(s): G47.33 - Obstructive sleep apnea (adult) (pediatric) Code(s): G47.30 - Sleep apnea, unspecified (4) Obesity: Status: Acute Qualifiers: Obesity classification: adult class 2 (BMI 35 - 39.9) Code(s): E66.9 - Obesity, unspecified (5) Smoker: Status: Acute Code(s): F17.200 - Nicotine dependence, unspecified, uncomplicated (6) Chronic kidney disease: Status: Acute Qualifiers: Chronic kidney disease stage: stage 3 (moderate) Qualified Code(s): N18.3 - Chronic kidney disease, stage 3 (moderate) Code(s): N18.9 - Chronic kidney disease, unspecified (7) Pulmonary edema: Status: Acute Qualifiers: Chronicity: acute Qualified Code(s): J81.0 - Acute pulmonary edema Code(s): J81.1 - Chronic pulmonary edema (8) Acute respiratory distress: Status: Acute Code(s): R06.03 - Acute respiratory distress (9) Carotid stenosis: Status: Acute Code(s): I65.29 - Occlusion and stenosis of unspecified carotid artery (10) Severe chronic obstructive pulmonary disease: Status: Acute Code(s): J44.9 - Chronic obstructive pulmonary disease, unspecified (11) Hypertension: Status: Acute Code(s): I10 - Essential (primary) hypertension (12) Hyperlipidemia: Status: Acute Code(s): E78.5 - Hyperlipidemia, unspecified (13) Moderate mitral regurgitation: Status: Acute Code(s): I34.0 - Nonrheumatic mitral (valve) insufficiency Additional A&P Information Plan is to continue current treatment. He seems better compensated since admission. No changes in medication today. Should be able to transition to Lasix by mouth soon. Attestations Medical Necessity Statement*: Not applicable Coding Level of Care Code Established Pt Acute Wheel And Caster Repairer for Emi Herndon Patient Type Established History Detailed Exam Detailed Medical Decision Making Moderate Complexity Diagnoses Diastolic CHF I50.31 Heart failure chronicity: acute Diabetes mellitus E11.9 Sleep apnea G47.33 Sleep apnea type: obstructive Obesity E66.9 Obesity classification: adult class 2 (BMI 35 - 39.9) Smoker F17.200 Chronic kidney disease N18.3 Chronic kidney disease stage: stage 3 (moderate) Pulmonary edema J81.0 Chronicity: acute Acute respiratory distress R06.03 Carotid stenosis I65.29 Severe chronic obstructive pulmonary disease J44.9 Hypertension I10 Hyperlipidemia E78.5 Moderate mitral regurgitation I34.0
[2019-04-23 11:27] LABS: Glucose Point of Care 103 mg/dL (70-110)
[2019-04-23 12:44] LABS: Basophils # 0.1 10^3/uL (0.0-0.1); Basophils % 0.6 %; Eosinophils # 0.1 10^3/uL (0.0-0.8); Eosinophils % 0.9 %; Hematocrit 31.6 % (42.0-52.0); Hemoglobin 10.8 g/dL (11.7-16.6); Lymphocytes # 0.8 10^3/uL (0.8-4.8); Lymphocytes % 6.4 %; Mean Corpuscular HGB Conc 34.2 g/dL (30.0-36.0); Mean Corpuscular Hemoglobin 31.2 pg (28.0-34.0); Mean Corpuscular Volume 91.3 fL (80-94); Mean Platelet Volume 11.4 fL (7.4-10.4); Monocytes # 1.4 10^3/uL (0.2-0.9); Monocytes % 11.1 %; Neutrophils # 10.1 10^3/uL (1.8-7.7); Neutrophils % 79.7 %; Nucleated Red Blood Cells % 0 %; Platelet Count 269 10^3/cmm (130-400); Red Blood Count 3.46 10^6/uL (4.1-5.3); Red Cell Distribution Width 12.8 % (12.1-15.1); White Blood Count 12.7 10^3/uL (4.0-10.0)
[2019-04-23 12:49] LABS: Alanine Aminotransferase 12 U/L (0-41); Albumin Level 3.5 g/dL (3.5-5.2); Alkaline Phosphatase 68 IU/L (40-130); Anion Gap 19.1 (5-19); Aspartate Amino Transferase 23 U/L (0-40); Blood Urea Nitrogen 58 mg/dL (8-23); Calcium 10.7 mg/dL (8.5-10.5); Carbon Dioxide 20 mmol/L (22-29); Chloride 97 mmol/L (98-107); Globulin 3.2 g/dL (1.3-4.6); Glucose 115 mg/dL (65-115); Osmolality Calculated 274 mOsm/kg (285-295); Potassium 4.1 mmol/L (3.5-5.1); Sodium 132 mmol/L (136-145); Total Bilirubin 0.6 mg/dL (0.15-1.2); Total Protein 6.7 g/dL (6.6-8.7)
--- NOTE | 2019-04-23 15:09 | P.PN_ITS ---
Subjective Subjective: Interval history: Patient denies any chest pain but thinks that he could possibly be short of breath. Denies abdominal pain. Has very low initiative and does not get up or participate with physical therapy. Vitals/I&O/Wt Last Vital Signs Temp 98.4 F 04/23/19 03:24 Pulse 71 04/23/19 11:00 Resp 21 H 04/23/19 11:00 BP 127/69 04/23/19 11:00 Pulse Ox 95 04/23/19 11:00 04/23/19 04/23/19 04/23/19 06:59 14:59 22:59 Intake Total 240 / 1490 360 / 360 Output Total 350 / 2100 850 / 850 Balance -110 / -610 -490 / -490 Physical Exam Const: COMMON NORMALS: no apparent distress and oriented x3 Resp: COMMON NORMALS: normal respiratory effort and clear to auscultation kiera aterally AUSCULTATION: clear to auscultation bilaterally Cardio: COMMON NORMALS: regular rate, regular rhythm and S2 normal heart sound RATE: regular rate RHYTHM: regular rhythm HEART SOUNDS: S2 normal OTHER: No lower extremity edema GI: COMMON NORMALS: normal to inspection, nondistended, normoactive bowel sounds, soft to palpation and non-tender PALPATION: Yes soft Neuro: COMMON NORMALS: oriented x3 and no focal motor deficits Data : 04/23/19 12:05 04/23/19 12:05 Micro: Microbiology 04/21/19 13:35 Legionella Urinary Antigen - Final Urine,Voided Bacterial Antigens - Final A&P Assessment and plan (1) Pulmonary edema: Status: Acute Qualifiers: Chronicity: acute Qualified Code(s): J81.0 - Acute pulmonary edema Code(s): J81.1 - Chronic pulmonary edema (2) Acute respiratory distress: Status: Acute Code(s): R06.03 - Acute respiratory distress (3) Smoker: Status: Acute Code(s): F17.200 - Nicotine dependence, unspecified, uncomplicated (4) Obesity: Status: Acute Qualifiers: Obesity classification: adult class 2 (BMI 35 - 39.9) Code(s): E66.9 - Obesity, unspecified (5) Chronic kidney disease: Status: Acute Qualifiers: Chronic kidney disease stage: stage 3 (moderate) Qualified Code(s): N18.3 - Chronic kidney disease, stage 3 (moderate) Code(s): N18.9 - Chronic kidney disease, unspecified (6) Carotid stenosis: Status: Acute Code(s): I65.29 - Occlusion and stenosis of unspecified carotid artery (7) Sleep apnea: Status: Acute Qualifiers: Sleep apnea type: obstructive Qualified Code(s): G47.33 - Obstructive sleep apnea (adult) (pediatric) Code(s): G47.30 - Sleep apnea, unspecified (8) Non-ST elevation [place] (NSTEMI): Status: Acute Code(s): I21.4 - Non-ST elevation (NSTEMI) myocardial infarction Additional A&P Information Acute congestive heart failure exacerbation due to hospital-acquired pneumonia Suspected hospital-acquired pneumonia Chronic kidney disease stage III Left-sided carotid endarterectomy on Thursday Hypoxic respiratory failure secondary to pulmonary edema: Currently doing well on BiPAP Patient uses CPAP at night for sleep apnea: Active smoker Normocytic anemia, likely chronic. Continue monitoring and treatment but stop vancomycin and monitor. Discussed regarding importance to participate with physical therapy if he wants to go home. Cardiac diet DNR/DNI DVT prophylaxis: Heparin Attestations Medical Necessity Statement*: Patient with pneumonia and TN requires close inpatient monitoring and treatment until deemed safe for discharge. Coding Level of Care Code Acute Environmental Protection Economist for Emi Herndon Diagnoses Pulmonary edema J81.0 Chronicity: acute Acute respiratory distress R06.03 Smoker F17.200 Obesity E66.9 Obesity classification: adult class 2 (BMI 35 - 39.9) Chronic kidney disease N18.3 Chronic kidney disease stage: stage 3 (moderate) Carotid stenosis I65.29 Sleep apnea G47.33 Sleep apnea type: obstructive Non-ST elevation [place] (NSTEMI) I21.4
[2019-04-23 16:56] LABS: Glucose Point of Care 111 mg/dL (70-110)
[2019-04-23] MEDS: cefepime 1,000 MG in sodium chloride 0.9% (plus) 100 ML 100 MG IV (16:59)
[2019-04-23] MEDS: ropinirole 0.25 mg Tablet 0.5 MG PO (19:59)
[2019-04-23] MEDS: HYDROcodone-acetaminophen 5-325 mg Tablet 1 TAB PO (20:00)
[2019-04-23 20:59] LABS: Glucose Point of Care 111 mg/dL (70-110)
[2019-04-24] VITALS (7 sets, daily range): BP systolic 120–158; BP diastolic 65–81; PULSE 64–82; RESP 15–24; TEMP 36.8–37; O2SAT 94–99
--- NOTE | 2019-04-24 00:30 | PC.NURSE ---
Awakened upon nurse entering room. Urinal emptied. Patient denies complaints at this time. Will monitor.
--- NOTE | 2019-04-24 00:36 | PC.NURSE ---
Monitor showing A-Flutter at this time. Patient continues to deny complaints at present. Will monitor.
[2019-04-24] MEDS: FUROsemide 10 mg/mL SDV 2mL 20 MG IVP (04:30)
[2019-04-24] MEDS: heparin 5,000 unit/mL INJ 1 mL 5000 UNIT SUBCUT ×3 (04:30→20:32)
[2019-04-24 05:10] LABS: Basophils # 0.1 10^3/uL (0.0-0.1); Basophils % 0.6 %; Eosinophils # 0.2 10^3/uL (0.0-0.8); Eosinophils % 1.7 %; Hematocrit 34.7 % (42.0-52.0); Hemoglobin 11.5 g/dL (11.7-16.6); Lymphocytes # 1.2 10^3/uL (0.8-4.8); Lymphocytes % 9.7 %; Mean Corpuscular HGB Conc 33.1 g/dL (30.0-36.0); Mean Corpuscular Hemoglobin 31.2 pg (28.0-34.0); Mean Platelet Volume 11.5 fL (7.4-10.4); Monocytes # 1.7 10^3/uL (0.2-0.9); Monocytes % 13.7 %; Neutrophils % 72.7 %; Nucleated Red Blood Cells % 0 %; Platelet Count 297 10^3/cmm (130-400); Red Blood Count 3.69 10^6/uL (4.1-5.3); White Blood Count 12.4 10^3/uL (4.0-10.0)
--- NOTE | 2019-04-24 05:13 | PC.NURSE ---
Monitor showing SR at this time. Patient denies complaints at this time. Will monitor.
[2019-04-24 05:31] LABS: Alanine Aminotransferase 15 U/L (0-41); Albumin Level 3.6 g/dL (3.5-5.2); Alkaline Phosphatase 73 IU/L (40-130); Anion Gap 18.1 (5-19); Aspartate Amino Transferase 27 U/L (0-40); Blood Urea Nitrogen 60 mg/dL (8-23); Carbon Dioxide 21 mmol/L (22-29); Chloride 100 mmol/L (98-107); Globulin 3.4 g/dL (1.3-4.6); Glucose 100 mg/dL (65-115); Osmolality Calculated 279 mOsm/kg (285-295); Potassium 4.1 mmol/L (3.5-5.1); Sodium 135 mmol/L (136-145); Total Bilirubin 0.4 mg/dL (0.15-1.2)
[2019-04-24 06:29] LABS: Glucose Point of Care 103 mg/dL (70-110)
[2019-04-24] MEDS: ropinirole 1 mg Tablet 0.5 MG PO (08:12)
[2019-04-24] MEDS: aspirin 81 mg EC Tablet PO (08:12)
[2019-04-24] MEDS: atenolol 50 mg Tablet 100 MG PO ×2 (08:13→17:04)
[2019-04-24] MEDS: atorvastatin 40 mg Tablet 80 MG PO (08:13)
--- NOTE | 2019-04-24 08:47 | P.PN_ITS ---
Subjective Subjective: Interval history: Mr. Michaud is awake and alert sitting up in the chair this morning. He states he feels well. No shortness of breath and no chest pain. Output in the last 24 hours 2276 mL. Medications: Reviewed: Yes Vitals/I&O/Wt Last Vital Signs Temp 98.6 F 04/24/19 04:00 Pulse 67 04/24/19 07:32 Resp 17 04/24/19 07:32 BP 144/67 04/24/19 07:32 Pulse Ox 99 04/24/19 07:32 04/23/19 04/24/19 04/24/19 22:59 06:59 14:59 Intake Total 540 / 900 120 / 1020 Output Total 775 / 1625 1051 / 2676 Balance -235 / -725 -931 / -1656 Physical Exam Narrative: EXAM NARRATIVE: GENERAL: In general he looks and feels well HEENT: Exam within normal limits. NECK: Supple without jugular vein distention. The carotid upstroke is normal without bruits. BACK: Exam normal. LUNGS: Clear. HEART: Regular rate and rhythm. ABDOMEN: Benign without organomegaly or tenderness. EXTREMITIES: No edema. NEUROLOGIC: Exam normal. SKIN: Unremarkable. Data : 04/24/19 04:35 04/24/19 04:35 A&P Assessment and plan (1) Moderate mitral regurgitation: Status: Acute Code(s): I34.0 - Nonrheumatic mitral (valve) insufficiency (2) AAA (abdominal aortic aneurysm): Status: Acute Code(s): I71.4 - Abdominal aortic aneurysm, without rupture (3) Hyperlipidemia: Status: Acute Code(s): E78.5 - Hyperlipidemia, unspecified (4) Hypertension: Status: Acute Code(s): I10 - Essential (primary) hypertension (5) Severe chronic obstructive pulmonary disease: Status: Acute Code(s): J44.9 - Chronic obstructive pulmonary disease, unspecified (6) Diastolic CHF: Status: Acute Qualifiers: Heart failure chronicity: acute Qualified Code(s): I50.31 - Acute diastolic (congestive) heart failure Code(s): I50.30 - Unspecified diastolic (congestive) heart failure (7) Diabetes mellitus: Status: Acute Code(s): E11.9 - Type 2 diabetes mellitus without complications (8) Non-ST elevation [place] (NSTEMI): Status: Acute Code(s): I21.4 - Non-ST elevation (NSTEMI) myocardial infarction (9) Chronic kidney disease: Status: Acute Qualifiers: Chronic kidney disease stage: stage 3 (moderate) Qualified Code(s): N18.3 - Chronic kidney disease, stage 3 (moderate) Code(s): N18.9 - Chronic kidney disease, unspecified (10) Smoker: Status: Acute Code(s): F17.200 - Nicotine dependence, unspecified, uncomplicated (11) Obesity: Status: Acute Qualifiers: Obesity classification: adult class 2 (BMI 35 - 39.9) Code(s): E66.9 - Obesity, unspecified (12) Sleep apnea: Status: Acute Qualifiers: Sleep apnea type: obstructive Qualified Code(s): G47.33 - Obstructive sleep apnea (adult) (pediatric) Code(s): G47.30 - Sleep apnea, unspecified (13) Pulmonary edema: Status: Acute Qualifiers: Chronicity: acute Qualified Code(s): J81.0 - Acute pulmonary edema Code(s): J81.1 - Chronic pulmonary edema (14) Acute respiratory distress: Status: Acute Code(s): R06.03 - Acute respiratory distress (15) Carotid stenosis: Status: Acute Code(s): I65.29 - Occlusion and stenosis of unspecified carotid artery Additional A&P Information He continues to diurese relatively well. His creatinine has remained stable.Mildly increased left atrial size. He should be able to go home soon. He could go home on his home medications as listed. I would add Lasix 40 mg a day to his regimen. Follow-up as previously arranged after carotid endarterectomy. Attestations Medical Necessity Statement*: Not applicable Coding Level of Care Code Acute Home Hospice Rn for g Fwd Diagnoses Moderate mitral regurgitation I34.0 AAA (abdominal aortic aneurysm) I71.4 Hyperlipidemia E78.5 Hypertension I10 Severe chronic obstructive pulmonary disease J44.9 Diastolic CHF I50.31 Heart failure chronicity: acute Diabetes mellitus E11.9 Non-ST elevation [place] (NSTEMI) I21.4 Chronic kidney disease N18.3 Chronic kidney disease stage: stage 3 (moderate) Smoker F17.200 Obesity E66.9 Obesity classification: adult class 2 (BMI 35 - 39.9) Sleep apnea G47.33 Sleep apnea type: obstructive Pulmonary edema J81.0 Chronicity: acute Acute respiratory distress R06.03 Carotid stenosis I65.29
--- NOTE | 2019-04-24 09:55 | PC.SOCIAL ---
IMM Page 2 of IMM explained to patient and caregiver at bedside. They verbalize understanding. Initialed, dated, and timed and placed in chart. Copy provided to patient.
[2019-04-24 11:37] LABS: Glucose Point of Care 124 mg/dL (70-110)
--- NOTE | 2019-04-24 12:12 | PM.PN ---
Subjective Subjective: Interval history: Patient denies shortness of breath or chest pain this morning. He continues to require at least moderate assistance with physical therapy and has low initiated. Medications: Reviewed: Yes Medication Review Details: Current Medications Acetaminophen (Tylenol) 500 mg PO Q6H PRN PRN Reason: Pain Hydrocodone Bitart/Acetaminophen (Orange 5-325 Mg) 1 tab PO Q6H PRN PRN Reason: Pain Albuterol/Ipratropium (Duoneb) 3 ml INHALATION Q4H PRN PRN Reason: SHORTNESS OF BREATH Last Admin: 04/21/19 20:18 Dose: 3 ml Documented by: Aspirin (Aspirin Ec) 81 mg PO DAILY [facility] Last Admin: 04/21/19 08:45 Dose: 81 mg Documented by: Atenolol (Tenormin) 100 mg PO BID [facility] Last Admin: 04/21/19 17:35 Dose: 100 mg Documented by: Atorvastatin Calcium (Lipitor) 80 mg PO DAILY [facility] Last Admin: 04/21/19 08:45 Dose: 80 mg Documented by: Dextrose (D50w) 25 ml IVP ONCE PRN; Protocol PRN Reason: hypoglycemia protocol Dextrose (D50w) 50 ml IVP PRN PRN; Protocol PRN Reason: hypoglycemia protocol Furosemide (Lasix) 40 mg IVP Q24H [facility] Last Admin: 04/21/19 21:30 Dose: Not Given Documented by: Furosemide (Lasix) 20 mg IVP Q24H [facility] Last Admin: 04/22/19 04:30 Dose: 20 mg Documented by: Glucagon (Glucagen) 1 mg IM ONCE PRN; Protocol PRN Reason: Adult Acute Hypoglycemia Prot. Heparin Sodium (Beef Lung) (Heparin) 5,000 unit SUBCUT Q8H [facility] Last Admin: 04/22/19 04:30 Dose: 5,000 unit Documented by: Dextrose (D5w) 500 mls @ 100 mls/hr IV ONCE PRN; Protocol PRN Reason: Adult Acute Hypoglycemia Prot Cefepime HCl 1,000 mg/ Sodium (Chloride) 100 mls @ 100 mls/hr IV Q12H [facility]; Protocol Last Admin: 04/22/19 04:30 Dose: 100 mls/hr Documented by: Vancomycin HCl 1,250 mg/ (Sodium Chloride) 250 mls @ 250 mls/hr IV Q36H [facility] Last Infusion: 04/21/19 21:29 Dose: Infused Documented by: Insulin Aspart (Novolog) 0 unit SUBCUT WM&BEDTIME [facility]; Protocol Last Admin: 04/22/19 07:45 Dose: Not Given Documented by: Levofloxacin (Levaquin) 750 mg PO EVERY OTHER DAY [facility]; Protocol Last Admin: 04/21/19 08:45 Dose: 750 mg Documented by: Nitroglycerin (Nitro-Dur 0.1 Mg Patch) 1 patch TRANSDERMA Q24H [facility] Last Admin: 04/21/19 11:42 Dose: 1 patch Documented by: Non-Formulary Medication (Cinacalcet [Sensipar]) 60 mg PO BID [facility] Ropinirole HCl (Requip) 0.5 mg PO DAILY [facility] Last Admin: 04/21/19 08:50 Dose: 0.5 mg Documented by: Ropinirole HCl (Requip) 0.5 mg PO BEDTIME [facility] Last Admin: 04/21/19 21:25 Dose: 0.5 mg Documented by: Tamsulosin HCl (Flomax) 0.4 mg PO ONCE [facility] Vitals/I&O/Wt Last Vital Signs Temp 98.6 F 04/24/19 04:00 Pulse 73 04/24/19 11:19 Resp 24 H 04/24/19 11:19 BP 158/81 04/24/19 11:19 Pulse Ox 96 04/24/19 11:19 04/23/19 04/24/19 04/24/19 22:59 06:59 14:59 Intake Total 640 / 1000 120 / 1120 Output Total 775 / 1625 1051 / 2676 Balance -135 / -625 -931 / -1556 Physical Exam Const: COMMON NORMALS: no apparent distress and oriented x3 Resp: COMMON NORMALS: normal respiratory effort and clear to auscultation bilaterally AUSCULTATION: clear to auscultation bilaterally Cardio: COMMON NORMALS: regular rate, regular rhythm and S2 normal heart sound RATE: regular rate RHYTHM: regular rhythm HEART SOUNDS: S2 normal OTHER: No lower extremity edema GI: COMMON NORMALS: normal to inspection, nondistended, normoactive bowel sounds, soft to palpation and non-tender PALPATION: Yes soft Neuro: COMMON NORMALS: oriented x3 and no focal motor deficits Data : 04/24/19 04:35 04/24/19 04:35 A&P Assessment and plan (1) Pulmonary edema: Status: Acute Qualifiers: Chronicity: acute Qualified Code(s): J81.0 - Acute pulmonary edema Code(s): J81.1 - Chronic pulmonary edema (2) Acute respiratory distress: Status: Acute Code(s): R06.03 - Acute respiratory distress (3) Smoker: Status: Acute Code(s): F17.200 - Nicotine dependence, unspecified, uncomplicated (4) Obesity: Status: Acute Qualifiers: Obesity classification: adult class 2 (BMI 35 - 39.9) Code(s): E66.9 - Obesity, unspecified (5) Chronic kidney disease: Status: Acute Qualifiers: Chronic kidney disease stage: stage 3 (moderate) Qualified Code(s): N18.3 - Chronic kidney disease, stage 3 (moderate) Code(s): N18.9 - Chronic kidney disease, unspecified (6) Carotid stenosis: Status: Acute Code(s): I65.29 - Occlusion and stenosis of unspecified carotid artery (7) Sleep apnea: Status: Acute Qualifiers: Sleep apnea type: obstructive Qualified Code(s): G47.33 - Obstructive sleep apnea (adult) (pediatric) Code(s): G47.30 - Sleep apnea, unspecified (8) Non-ST elevation [place] (NSTEMI): Status: Acute Code(s): I21.4 - Non-ST elevation (NSTEMI) myocardial infarction Additional A&P Information Acute congestive heart failure exacerbation due to hospital-acquired pneumonia Suspected hospital-acquired pneumonia Chronic kidney disease stage III Left-sided carotid endarterectomy on Thursday Hypoxic respiratory failure secondary to pulmonary edema: Currently doing well on BiPAP Patient uses CPAP at night for sleep apnea: Active smoker Normocytic anemia, likely chronic. Continue monitoring and treatment with Levaquin. Dr. Lovelace recommends to add Lasix 40 mg daily to his home medications and have outpatient follow-up. Patient currently is weak and not safe to be dismissed home. I have discussed regarding importance to participate with physical therapy as if he is unable to go home tomorrow he will need to be placed to nursing facility for rehabilitation. Cardiac diet DNR/DNI DVT prophylaxis: Heparin Attestations Medical Necessity Statement*: Patient with heart failure and pneumonia requires close inpatient monitoring and treatment until deemed safe for discharge. Coding Level of Care Code Acute Stencil Sprayer for Chg Fwd Exam Detailed Diagnoses Pulmonary edema J81.0 Chronicity: acute Acute respiratory distress R06.03 Smoker F17.200 Obesity E66.9 Obesity classification: adult class 2 (BMI 35 - 39.9) Chronic kidney disease N18.3 Chronic kidney disease stage: stage 3 (moderate) Carotid stenosis I65.29 Sleep apnea G47.33 Sleep apnea type: obstructive Non-ST elevation OR (NSTEMI) I21.4
[2019-04-24] MEDS: ondansetron 2 mg/ML SDV 2 mL 4 MG IVP (16:37)
[2019-04-24 17:03] LABS: Glucose Point of Care 113 mg/dL (70-110)
[2019-04-24] MEDS: cefepime 1,000 MG in sodium chloride 0.9% (plus) 100 ML 100 MG IV (17:12)
[2019-04-24] MEDS: ropinirole 0.25 mg Tablet 0.5 MG PO (20:32)
[2019-04-24] MEDS: HYDROcodone-acetaminophen 5-325 mg Tablet 1 TAB PO (20:33)
[2019-04-24 20:40] LABS: Glucose Point of Care 161 mg/dL (70-110)
--- NOTE | 2019-04-25 00:24 | PC.NURSE ---
Patient now in A-Flutter. Respirations even and unlabored with no s/s of distress noted. Will monitor.
[2019-04-25] MEDS: acetaminophen 500 mg Tablet PO ×3 (00:57→20:39)
[2019-04-25 04:00] VITALS: BP 112/76; PULSE 71; RESP 17; TEMP 36.8; O2SAT 97
[2019-04-25] MEDS: FUROsemide 10 mg/mL SDV 2mL 20 MG IVP (04:28)
[2019-04-25] MEDS: heparin 5,000 unit/mL INJ 1 mL 5000 UNIT SUBCUT (04:28)
--- NOTE | 2019-04-25 05:18 | PC.NURSE ---
Heart monitor showing A-Flutter alternating with SR. States, Headache is a lot better. Denies any other needs. Will monitor.
[2019-04-25 05:20] LABS: Basophils # 0.1 10^3/uL (0.0-0.1); Eosinophils # 0.3 10^3/uL (0.0-0.8); Eosinophils % 2.1 %; Hematocrit 34.1 % (42.0-52.0); Hemoglobin 11.1 g/dL (11.7-16.6); Lymphocytes # 1.4 10^3/uL (0.8-4.8); Lymphocytes % 9.7 %; Mean Corpuscular HGB Conc 32.6 g/dL (30.0-36.0); Mean Corpuscular Hemoglobin 31.1 pg (28.0-34.0); Mean Corpuscular Volume 95.5 fL (80-94); Mean Platelet Volume 11.7 fL (7.4-10.4); Monocytes % 13.6 %; Neutrophils # 10.3 10^3/uL (1.8-7.7); Neutrophils % 71.7 %; Nucleated Red Blood Cells % 0 %; Platelet Count 303 10^3/cmm (130-400); Red Blood Count 3.57 10^6/uL (4.1-5.3); White Blood Count 14.4 10^3/uL (4.0-10.0)
[2019-04-25 05:47] LABS: Alanine Aminotransferase 19 U/L (0-41); Albumin Level 3.1 g/dL (3.5-5.2); Alkaline Phosphatase 75 IU/L (40-130); Anion Gap 19.4 (5-19); Aspartate Amino Transferase 31 U/L (0-40); Blood Urea Nitrogen 69 mg/dL (8-23); Calcium 10.6 mg/dL (8.5-10.5); Carbon Dioxide 18 mmol/L (22-29); Chloride 101 mmol/L (98-107); Globulin 3.6 g/dL (1.3-4.6); Glucose 110 mg/dL (65-115); Osmolality Calculated 278 mOsm/kg (285-295); Potassium 4.4 mmol/L (3.5-5.1); Sodium 134 mmol/L (136-145); Total Bilirubin 0.3 mg/dL (0.15-1.2); Total Protein 6.7 g/dL (6.6-8.7)
[2019-04-25 06:09] LABS: Glucose Point of Care 121 mg/dL (70-110)
[2019-04-25 07:55] VITALS: BP 119/65; PULSE 69; RESP 16; TEMP 36.6; O2SAT 98
[2019-04-25 09:08] VITALS: PULSE 77; RESP 18; O2SAT 98
[2019-04-25] MEDS: levoFLOXacin 750 mg Tablet PO (09:18)
[2019-04-25] MEDS: atorvastatin 40 mg Tablet 80 MG PO (09:19)
[2019-04-25] MEDS: aspirin 81 mg EC Tablet PO (09:19)
[2019-04-25] MEDS: ropinirole 1 mg Tablet 0.5 MG PO (09:19)
[2019-04-25] MEDS: atenolol 50 mg Tablet 100 MG PO (09:21)
[2019-04-25 11:09] VITALS: BP 111/67; PULSE 71; RESP 18; TEMP 36.9; O2SAT 98
[2019-04-25 11:40] LABS: Glucose Point of Care 118 mg/dL (70-110)
--- NOTE | 2019-04-25 12:36 | P.PN_ITS ---
Subjective Subjective: Interval history: Chart reviewed, had 375 mL urine output overnight. AM labs noted, slightly worsening renal function. Continues to require maximum assistance with out of bed activity but seemed to do better with therapy today. States that he has adequate support at home including who is a retired RN and would prefer to return home on discharge. Is a working on getting CPAP machine replaced as cannot wear a mask following his left carotid surgery. Medications: Reviewed: Yes Medication Review Details: Active Medications Generic Name Dose Route Start Last Admin Trade Name Freq PRN Reason Stop Dose Admin Acetaminophen 500 mg 04/21/19 04:32 04/25/19 09:18 Tylenol PO 500 mg Q6H PRN Administration Pain Albuterol/Ipratrop ium 3 ml 04/21/19 04:32 04/21/19 20:18 Duoneb INHALATION 3 ml Q4H PRN Administration SHORTNESS OF GHADA TH Aspirin 81 mg 04/21/19 09:00 04/25/19 09:19 Aspirin Ec PO 81 mg DAILY [facility] Administration Atenolol 100 mg 04/21/19 18:00 04/25/19 09:21 Tenormin PO 100 mg BID [facility] Administration Atorvastatin Calci um 80 mg 04/21/19 09:00 04/25/19 09:19 Lipitor PO 80 mg DAILY [facility] Administration Dextrose 25 ml 04/21/19 04:32 D50w IVP ONCE PRN hypoglycemia prot ocol Protocol Dextrose 50 ml 04/21/19 04:32 D50w IVP PRN PRN hypoglycemia prot ocol Protocol Furosemide 20 mg 04/21/19 04:32 04/25/19 04:28 Lasix IVP 20 mg Q24H [facility] Administration Glucagon 1 mg 04/21/19 04:32 Glucagen IM ONCE PRN Adult Acute Hypog lycemia Prot. Protocol Heparin Sodium (Be ef Lung) 5,000 unit 04/21/19 04:32 04/25/19 04:28 Heparin SUBCUT 5,000 unit Q8H [facility] Administration Dextrose 500 mls @ 100 mls /hr 04/21/19 04:32 D5w IV ONCE PRN Adult Acute Hypog lycemia Prot Protocol Cefepime HCl 1,000 mg/ Sodium 100 mls @ 100 mls /hr 04/22/19 17:15 04/24/19 19:30 Chloride IV Infused Q24H [facility] Infusion Protocol Insulin Aspart 0 unit 04/21/19 08:00 04/25/19 11:48 Novolog SUBCUT Not Given WM&BEDTIME [facility] Protocol Levofloxacin 750 mg 04/21/19 09:00 04/25/19 09:18 Levaquin PO 750 mg EVERY OTHER DAY [facility] Administration Protocol Nitroglycerin 1 patch 04/21/19 11:15 04/24/19 12:17 Nitro-Dur 0.1 Mg Patch TRANSDERMA 1 patch Q24H [facility] Administration Non-Formulary Medi cation 60 mg 04/21/19 09:00 04/25/19 09:21 Cinacalcet [Sens ipar] PO Not Given BID [facility] Ropinirole HCl 0.5 mg 04/21/19 09:00 04/25/19 09:19 Requip PO 0.5 mg DAILY [facility] Administration Ropinirole HCl 0.5 mg 04/21/19 21:15 04/24/19 20:32 Requip PO 0.5 mg BEDTIME [facility] Administration Tamsulosin HCl 0.4 mg 04/21/19 04:32 Flomax PO ONCE [facility] gemfibrozil Allergy (Verified 04/18/19 06:55) diarrhea tramadol [From Ultram] Allergy (Verified 04/18/19 06:55) nausea vomiting Vitals/I&O/Wt Last Vital Signs Temp 98.5 F 04/25/19 11:09 Pulse 71 04/25/19 11:09 Resp 18 04/25/19 11:09 BP 111/67 04/25/19 11:09 Pulse Ox 98 04/25/19 11:09 04/24/19 04/25/19 04/25/19 22:59 06:59 14:59 Intake Total 240 / 240 120 / 360 360 / 360 Output Total 395 / 395 200 / 595 Balance -155 / -155 -80 / -235 360 / 360 Physical Exam Const: COMMON NORMALS: no apparent distress and oriented x3 GENERAL APPEARANCE: cooperative and comfortable ORIENTATION/CONSCIOUSNESS: Yes awake OTHER: -Appears younger than stated age HENMT: COMMON NORMALS: normocephalic, head/scalp atraumatic, hearing grossly normal bilaterally and moist oral mucous membranes HEAD & SCALP: normocephalic and atraumatic Eye: COMMON NORMALS: PERRL, EOMs intact bilaterally and conjunctivae normal CONJUNCTIVA: Yes conjunctivae normal PUPIL: Yes PERRL Neck/C-Spine: COMMON NORMALS: full ROM GENERAL: Yes normal visual inspection and Yes trachea midline OTHER: -noted L CEA incision; healing patricia ropriately, incision well approximated Resp: COMMON NORMALS: normal respiratory effort, no retractions and no use of accessory muscles EFFORT & INSPECTION: Yes able to speak in complete sentences, Yes symmetric chest movement and No tachypneic AUSCULTATION: diminished lung sounds bilateral OTHER: -on 3 L NC Cardio: COMMON NORMALS: regular rate, regular rhythm, S1 normal heart sound, S2 normal heart sound and no murmurs RATE: regular rate RHYTHM: regular rhythm HEART SOUNDS: S1 normal and S2 normal GI: COMMON NORMALS: normal to inspection, nondistended, normoactive bowel sounds, soft to palpation and non-tender INSPECTION: Yes central obesity PALPATION: Yes soft Extremity: COMMON NORMALS: normal to inspection, full ROM and no clubbing, cyanosis or edema; negative for no pedal edema Neuro: COMMON NORMALS: oriented x3, moves all extremities, no focal motor deficits and no sensory deficits noted Psych: COMMON NORMALS: mental status grossly normal, thought process normal, c ooperative, affect normal and speech normal SPEECH: Yes normal speech THOUGHT PROCESS: normal thought process Skin: COMMON NORMALS: no rashes or lesions noted, no jaundice, no petechiae and no mottling GENERAL SKIN EXAM: no rashes or lesions noted Data : 04/25/19 04:39 04/25/19 04:39 A&P Assessment and plan (1) Diastolic CHF: -acutely decompensated diastolic CHF -Echo: EF=60-65%, G2DD, no RWMA, moderate MR, trace to mild TR, trace [place] -on IV diuretics; so far has diuresed 3.5 L; switch to oral Lasix as clinically compensated -continue to monitor Is & Os, daily weights -continue to monitor lytes and renal function -noted evidence of pulmonary vascular congestion on imaging, elevated BNP (7808) Status: Acute Qualifiers: Heart failure chronicity: acute Qualified Code(s): I50.31 - Acute diastolic (congestive) heart failure Code(s): I50.30 - Unspecified diastolic (congestive) heart failure (2) Non-ST elevation GA (NSTEMI): -noted elevated troponins with delta -Cardiology evaluation appreciated -continue statin, ASA Status: Acute Code(s): I21.4 - Non-ST elevation (NSTEMI) myocardial infarction (3) Carotid stenosis: -s/p recent L CEA done by Dr. Ramos on 04/18/19 Status: Acute Qualifiers: Laterality: bilateral Qualified Code(s): I65.23 - Occlusion and stenosis of bilateral carotid arteries Code(s): I65.29 - Occlusion and stenosis of unspecified carotid artery (4) Chronic kidney disease: -has known CKD stage 3; baseline Cr 2.1-2.5 -continue to monitor renal function -avoid nephrotoxins, renally dose meds Status: Acute Qualifiers: Chronic kidney disease stage: stage 3 (moderate) Qualified Code(s): N18.3 - Chronic kidney disease, stage 3 (moderate) Code(s): N18.9 - Chronic kidney disease, unspecified Additional A&P Information -Advanced age -HTN -Morbid obesity: BMI-36 kg/m2 -Deconditioning; PT/OT evaluations appreciated; fall precautions -suspected pneumonia; on empiric antibiotics; CXR negative for infection; supplemental oxygen as needed, continued monitoring of respiratory status -noted hx of DM type II; BG controlled; on diabetic diet -DVT ppx with heparin -Dispo: may need SNF placement if continued generalized weakness but would prefer to return home, feels that he has adequate support there -Code status: DNR/DNI Attestations Medical Necessity Statement*: Patient requires hospitalization for continued IV diuresis and medical management of NSTEMI, pending appropriate disposition given overall deconditioning. Time Spent in Patient Care: Greater than 35 minutes (>than 50% of time spent in counselling and/or direct pt care on unit) . Coding Level of Care Code Acute Operation Specialist for Christineg Fwd Exam Comprehensive Diagnoses Diastolic CHF I50.31 Heart failure chronicity: acute Non-ST elevation GA (NSTEMI) I21.4 Carotid stenosis I65.23 Laterality: bilateral Chronic kidney disease N18.3 Chronic kidney disease stage: stage 3 (moderate)
--- NOTE | 2019-04-25 15:18 | PC.CHAP ---
Pastoral Care Encounter/Spiritual Assessment Type of Contact [] Declined shell molder visit [] Patient/Family/Request visit [] Outpatient visit [] Follow-up visit [] Physician referral [] Code/Alert [x] Routine visit [] Staff referral [] Actively dying [] Patient sleeping [] Family support [] [] Out of room [] Palliative care [] [] Receiving care in room [] Pre-surgical visit [] Trauma [] Long length of stay [] ICU visit [] Other: Relational/Emotional Strength [] Patient feels connected with others/family/visitors/staff [] Distress [] Loneliness/isolation [] Abandonment Spirituality of Patient [] Person of Verna [] Attends Hindu of their Verna [] Believes in Prayer [] Reads Bible or Methodist materials [] There are Spiritual issues to be addressed Sap Bi Developer Interventions [] Prayer [] Active listening [] Non-anxious presence [] Spiritual/emotional support [] Crisis/trauma care [] Spiritual counseling [] Bereavement support [] Provided bereavement packet [] Provided Bible/devotional materials [] Provided toy/stuffed animal, coloring book to patient or family member [] Provided Communion [] Anointing/[place] [] Salvation [] Completed spiritual assessment [] Other: Impact on Illness or Injury [] Angry [] Fearful [] Anxious [] Often cries [] Exhaustion [] Unable to work [] Unable to attend nondenominational [] Unable to walk/stand [] Unable to read [] Unable to drive [] Unable to eat/drink [] Unable to sleep [] Unable to be with family [] Patient intubated [] Other: Summary Patient declined prayer and stated that she did not need anything from the chaplains. Patient was visited by Sap Bi Developer Evans Brantley. Time spent with patient 7 minutes
[2019-04-25 15:50] VITALS: BP 128/63; PULSE 78; RESP 18; TEMP 36.7; O2SAT 98
--- NOTE | 2019-04-25 16:21 | P.PN_ITS ---
Subjective Subjective: Interval history: Patient was transferred out of unit. He is feeling better. No chest pain. Telemetry showed atrial fibrillation on and off since Thursday. Medications: Reviewed: Yes Medication Review Details: Current Medications Acetaminophen (Tylenol) 500 mg PO Q6H PRN PRN Reason: Pain Last Admin: 04/25/19 09:18 Dose: 500 mg Documented by: Albuterol/Ipratropium (Duoneb) 3 ml INHALATION Q4H PRN PRN Reason: SHORTNESS OF BREATH Last Admin: 04/21/19 20:18 Dose: 3 ml Documented by: Apixaban (Eliquis) 2.5 mg PO Q12H [facility] Aspirin (Aspirin Ec) 81 mg PO DAILY [facility] Last Admin: 04/25/19 09:19 Dose: 81 mg Documented by: Atorvastatin Calcium (Lipitor) 80 mg PO DAILY [facility] Last Admin: 04/25/19 09:19 Dose: 80 mg Documented by: Dextrose (D50w) 25 ml IVP ONCE PRN; Protocol PRN Reason: hypoglycemia protocol Dextrose (D50w) 50 ml IVP PRN PRN; Protocol PRN Reason: hypoglycemia protocol Furosemide (Lasix) 20 mg IVP Q24H [facility] Last Admin: 04/25/19 04:28 Dose: 20 mg Documented by: Glucagon (Glucagen) 1 mg IM ONCE PRN; Protocol PRN Reason: Adult Acute Hypoglycemia Prot. Dextrose (D5w) 500 mls @ 100 mls/hr IV ONCE [facility]; Protocol PRN Reason: Adult Acute Hypoglycemia Prot Cefepime HCl 1,000 mg/ Sodium (Chloride) 100 mls @ 100 mls/hr IV Q24H [facility]; Protocol Last Infusion: 04/24/19 19:30 Dose: Infused Documented by: Insulin Aspart (Novolog) 0 unit SUBCUT WM&BEDTIME [facility]; Protocol Last Admin: 04/25/19 11:48 Dose: Not Given Documented by: Levofloxacin (Levaquin) 750 mg PO EVERY OTHER DAY [facility]; Protocol Last Admin: 04/25/19 09:18 Dose: 750 mg Documented by: Metoprolol Tartrate (Lopressor) 100 mg PO BID [facility] Non-Formulary Medication (Cinacalcet [Sensipar]) 60 mg PO BID [facility] Last Admin: 04/25/19 09:21 Dose: Not Given Documented by: Ropinirole HCl (Requip) 0.5 mg PO DAILY [facility] Last Admin: 04/25/19 09:19 Dose: 0.5 mg Documented by: Ropinirole HCl (Requip) 0.5 mg PO BEDTIME [facility] Last Admin: 04/24/19 20:32 Dose: 0.5 mg Documented by: Tamsulosin HCl (Flomax) 0.4 mg PO ONCE [facility] Vitals/I&O/Wt Last Vital Signs Temp 98.0 F 04/25/19 15:50 Pulse 78 04/25/19 15:50 Resp 18 04/25/19 15:50 BP 128/63 04/25/19 15:50 Pulse Ox 98 04/25/19 15:50 04/25/19 04/25/19 04/25/19 06:59 14:59 22:59 Intake Total 120 / 360 360 / 360 Output Total 200 / 595 Balance -80 / -235 360 / 360 Physical Exam Narrative: EXAM NARRATIVE: GENERAL: Obese man lying in bed with no distress HEENT: Extraocular movement intact. Pupils equal round reactive to light. No pallor or icterus. NECK: central trachea, + JVD, well approximated incision of recent surgery on left side of his neck. CARDIOVASCULAR SYSTEM: S1-S2 regular. No S3 or S4 present. No murmur rubs or gallops. RESPIRATORY SYSTEM: Chest clear to auscultation except at bilateral bases. He is currently on oxygen through nasal cannula. ABDOMEN: Soft, nontender and nondistended. Normal bowel sounds present. EXTREMITIES: No cyanosis or clubbing. No edema. No signs of chronic venous insufficiency. CURB HOP: Patient is alert oriented ?3. No focal neurological deficits. SKIN: Normal turgor and temperature. PSYCH: Normal insight and judgment. No suicidal or homicidal ideations. Data : 04/25/19 04:39 04/25/19 04:39 A&P Assessment and plan (1) Acute respiratory distress: Acute respiratory distress in setting of decompensated congestive heart failure and pneumonia. -diuresed well. Status: Acute Code(s): R06.03 - Acute respiratory distress (2) Diastolic CHF: Diuresed well with IV lasix. I will transition to PO lasix tomorrow. Status: Acute Qualifiers: Heart failure chronicity: acute Qualified Code(s): I50.31 - Acute diastolic (congestive) heart failure Code(s): I50.30 - Unspecified diastolic (congestive) heart failure (3) Atrial fibrillation: [id number]=4/9 , 1 for CHF, 2 for age, 1 for PVD. -start on metoprolol tartrate 100 mg twice a day and Eliquis 2.5 mg twice a day. Status: Acute Qualifiers: Atrial fibrillation type: other persistent Qualified Code(s): I48.19 - Other persistent atrial fibrillation Code(s): I48.91 - Unspecified atrial fibrillation (4) Non-ST elevation [place] (NSTEMI): Type 2 in setting of decompensated CHF and PNA. Status: Acute Code(s): I21.4 - Non-ST elevation (NSTEMI) myocardial infarction (5) Hypertension: Fairly controlled. continue current medications. Status: Acute Qualifiers: Hypertension type: essential hypertension Qualified Code(s): I10 - Essential (primary) hypertension Code(s): I10 - Essential (primary) hypertension (6) Hyperlipidemia: Status: Acute Qualifiers: Hyperlipidemia type: mixed hyperlipidemia Qualified Code(s): E78.2 - Mixed hyperlipidemia Code(s): E78.5 - Hyperlipidemia, unspecified (7) Chronic kidney disease: Likely worsening d/t overdiuresis. stop IV lasix. Status: Acute Qualifiers: Chronic kidney disease stage: stage 3 (moderate) Qualified Code(s): N18.3 - Chronic kidney disease, stage 3 (moderate) Code(s): N18.9 - Chronic kidney disease, unspecified (8) Carotid stenosis: s/p left carotid endarterectomy. continue ASA and statin Status: Acute Qualifiers: Laterality: bilateral Qualified Code(s): I65.23 - Occlusion and stenosis of bilateral carotid arteries Code(s): I65.29 - Occlusion and stenosis of unspecified carotid artery Additional A&P Information Pneumonia : On Levaquin. At least moderate eccentric mitral regurgitation Normocytic anemia Chronic active smoker. Thank you for allowing me to participate in patient's care. Please feel free to call with questions or concerns. Attestations Medical Necessity Statement*: Needs hospital stay for management of CHF, CKD and atrial fibrillation. Coding Level of Care Code Acute Day Care Worker for Emi Fwjorge Diagnoses Acute respiratory distress R06.03 Diastolic CHF I50.31 Heart failure chronicity: acute Atrial fibrillation I48.19 Atrial fibrillation type: other persistent Non-ST elevation [place] (NSTEMI) I21.4 Hypertension I10 Hypertension type: essential hypertension Hyperlipidemia E78.2 Hyperlipidemia type: mixed hyperlipidemia Chronic kidney disease N18.3 Chronic kidney disease stage: stage 3 (moderate) Carotid stenosis I65.23 Laterality: bilateral
[2019-04-25 16:54] LABS: Glucose Point of Care 103 mg/dL (70-110)
[2019-04-25] MEDS: metoprolol tartrate 50 mg Tablet 100 MG PO (17:05)
[2019-04-25] MEDS: cefepime 1,000 MG in sodium chloride 0.9% (plus) 100 ML 100 MG IV (17:06)
[2019-04-25] MEDS: apixaban 5 mg Tablet 2.5 MG PO (17:06)
[2019-04-25 20:00] VITALS: BP 124/69; PULSE 77; RESP 24; TEMP 36.6; O2SAT 99
[2019-04-25] MEDS: ropinirole 0.25 mg Tablet 0.5 MG PO (20:39)
[2019-04-25 21:08] LABS: Glucose Point of Care 124 mg/dL (70-110)
--- NOTE | 2019-04-25 22:02 | PC.NURSE ---
Incontinent of urine after using urinal. CLC completed while patient sat up in chair. Able to pivot with one assist. Back to bed. Unable to move self up in the bed. Patient pulled up in the bed. Will monitor.
--- NOTE | 2019-04-25 23:46 | PC.NURSE ---
Lying supine in bed. Still hurting....this old arthritis.. VS taken. Patient usually takes hydrocodone;however, medication wasn't renewed to date. Will monitor.
[2019-04-26] VITALS (8 sets, daily range): BP systolic 104–130; BP diastolic 59–75; PULSE 68–81; RESP 13–22; TEMP 36.7–36.8; O2SAT 94–98
--- NOTE | 2019-04-26 01:49 | PC.NURSE ---
Patient complaining of bipap machines going off. What the hell is that damn noise? This nurse explained to patient about the machines and that respiratory therapy were on their way to fix them. States, Well I hope so....I would like to get some sleep. Will monitor.
[2019-04-26] MEDS: acetaminophen 500 mg Tablet PO (03:16)
[2019-04-26 04:01] LABS: Basophils # 0.1 10^3/uL (0.0-0.1); Basophils % 0.8 %; Eosinophils # 0.4 10^3/uL (0.0-0.8); Eosinophils % 2.7 %; Hematocrit 34.2 % (42.0-52.0); Hemoglobin 11.5 g/dL (11.7-16.6); Lymphocytes # 1.3 10^3/uL (0.8-4.8); Lymphocytes % 9.5 %; Mean Corpuscular HGB Conc 33.6 g/dL (30.0-36.0); Mean Corpuscular Hemoglobin 31.3 pg (28.0-34.0); Mean Corpuscular Volume 92.9 fL (80-94); Mean Platelet Volume 11.4 fL (7.4-10.4); Monocytes # 1.7 10^3/uL (0.2-0.9); Monocytes % 12.5 %; Neutrophils # 10.2 10^3/uL (1.8-7.7); Neutrophils % 72.9 %; Nucleated Red Blood Cells % 0 %; Platelet Count 352 10^3/cmm (130-400); Red Blood Count 3.68 10^6/uL (4.1-5.3); Red Cell Distribution Width 12.9 % (12.1-15.1); White Blood Count 13.9 10^3/uL (4.0-10.0)
[2019-04-26 04:09] LABS: Alanine Aminotransferase 20 U/L (0-41); Albumin Level 3.2 g/dL (3.5-5.2); Alkaline Phosphatase 80 IU/L (40-130); Aspartate Amino Transferase 26 U/L (0-40); Blood Urea Nitrogen 65 mg/dL (8-23); Calcium 10.6 mg/dL (8.5-10.5); Chloride 102 mmol/L (98-107); Globulin 3.6 g/dL (1.3-4.6); Glucose 123 mg/dL (65-115); Osmolality Calculated 284 mOsm/kg (285-295); Potassium 4.3 mmol/L (3.5-5.1); Sodium 137 mmol/L (136-145); Total Bilirubin 0.3 mg/dL (0.15-1.2); Total Protein 6.8 g/dL (6.6-8.7)
--- NOTE | 2019-04-26 05:05 | PC.NURSE ---
Answered patient's call light. Patient requesting something for his legs. This nurse informed him that I had just given him Tylenol for his leg pain approximately one hour ago. Voices understanding. Will monitor.
--- NOTE | 2019-04-26 05:30 | PC.NURSE ---
Dr. Bradshaw notified of patient's complaint of pain. Awaiting return call/message.
[2019-04-26 05:41] LABS: Anion Gap 18.3 (5-19); Carbon Dioxide 21 mmol/L (22-29)
[2019-04-26] MEDS: apixaban 5 mg Tablet 2.5 MG PO (06:03)
[2019-04-26] MEDS: HYDROcodone-acetaminophen 5-325 mg Tablet 1 TAB PO (06:03)
[2019-04-26] MEDS: tamsulosin 0.4 mg Capsule PO (06:03)
--- NOTE | 2019-04-26 06:08 | PC.NURSE ---
Order received to renew Hydrocodone 5/325mg one PO every 6 hours PRN. Patient continues to be upset over bipap alarm that keeps, going off....whoever invented that needs to be shot. Will monitor.
[2019-04-26 06:39] LABS: Glucose Point of Care 113 mg/dL (70-110)
--- NOTE | 2019-04-26 08:30 | P.DS_ITS ---
Discharge Providers Date of Admission: 04/21/19 02:20 Date of Discharge: April 26, 2019 Attending Provider at Admission: Slim Chatman MD Attending Provider at Discharge: Emily Chicas MD Primary Care Provider: Dominga Cortez MD Diagnoses at Discharge Discharge Diagnosis (1) Diastolic CHF: Status: Acute Problem details: -acutely decompensated diastolic CHF -Echo: EF=60-65%, G2DD, no RWMA, moderate MR, trace to mild TR, trace AK -on IV diuretics; so far has diuresed 3.5 L; switch to oral Lasix as clinically compensated -continue to monitor Is & Os, daily weights -continue to monitor lytes and renal function -noted evidence of pulmonary vascular congestion on imaging, elevated BNP (7808) Qualifiers: Heart failure chronicity: acute Qualified Code(s): I50.31 - Acute diastolic (congestive) heart failure (2) Non-ST elevation MD (NSTEMI): Status: Acute Problem details: -noted elevated troponins with delta -Cardiology evaluation appreciated; will f/u in 2 weeks to discuss further evaluation including possible stress testing -continue statin, ASA (3) Carotid stenosis: Status: Chronic Problem details: -s/p recent L CEA done by Dr. Ramos on 04/18/19 Qualifiers: Laterality: bilateral Qualified Code(s): I65.23 - Occlusion and stenosis of bilateral carotid arteries (4) Chronic kidney disease: Status: Chronic Problem details: -has known CKD stage 3; baseline Cr 2.1-2.5 -continue to monitor renal function -avoid nephrotoxins, renally dose meds Qualifiers: Chronic kidney disease stage: stage 3 (moderate) Qualified Code(s): N18.3 - Chronic kidney disease, stage 3 (moderate) Other Information Additional DC diagnoses/information: -Advanced age -HTN -Morbid obesity: BMI-36 kg/m2 -Deconditioning; PT/OT evaluations appreciated; fall precautions -suspected pneumonia; on empiric antibiotics; CXR negative for infection; supplemental oxygen as needed, continued monitoring of respiratory status -noted hx of DM type II; BG controlled; on diabetic diet Reason for Visit Reason for Visit: Reason For Visit: sob Hospital Course Hospital Course: Patient was initially admitted to ICU given the severity of respiratory distress requiring close monitoring of his hemodynamic and respiratory status as well as continuous BiPAP. His hypoxia was related to pulmonary edema as evidenced on imaging and he was diuresed to which he responded well with an overall negative fluid balance of 3.8 L and noted symptomatic improvement. He was found to have elevated troponins and cardiology was consulted. Patient had had a recent left CEA done by Dr. Ramos earlier this month and seems to be doing well from a postop recovery standpoint. There was noted concern for possible pneumonia so patient has been on empiric Levaquin which she will need to continue on discharge to complete his treatment course. He has required supplemental oxygen support which he is not on at baseline so has had a home oxygen evaluation done prior to discharge; does not qualify for oxygen at this time. He has been hemodynamically stable, afebrile and tolerating oral intake without difficulty. He was noted to have some level of renal impairment so has been off ARB and other diuretics other than Lasix. His renal function seems to have stabilized with a creatinine in the 2.0-2.5 range which may be his new baseline. Secondary to atrial fibrillation he has been started on anticoagulation with Eliquis and been continued on beta-yuniel. He has been rate controlled. Following appropriate clinical compensation he was switched from IV diuretics to oral Lasix. Cardiology has continued to follow-up with the patient and has recommended continued medical optimization as this is likely type II NSTEMI secondary to pneumonia and acute CHF exacerbation. Patient was eventually transferred out of the ICU and moved to the cardiac stepdown unit for continued telemetry monitoring. He has been deconditioned and has been working with physical therapy. Disposition was discussed and he prefers to return home where he says he has adequate support including his who is a retired RN. He will likely require further evaluation including possible stress testing which is to be decided on during follow-up with cardiology in approximately 2 weeks. Discharge Summary: -Patient to follow-up with primary care physician within 1 week. He will need follow-up BMP to continue to monitor his renal function in approximately 1 week -Patient to follow-up with cardiology Physical Exam Const: COMMON NORMALS: no apparent distress and oriented x3 GENERAL APPEARANCE: cooperative and comfortable ORIENTATION/CONSCIOUSNESS: Yes awake OTHER: -Appears younger than stated age HENMT: COMMON NORMALS: normocephalic, head/scalp atraumatic, hearing grossly normal bilaterally and moist oral mucous membranes HEAD & SCALP: normocephalic and atraumatic Eye: COMMON NORMALS: PERRL, EOMs intact bilaterally and conjunctivae normal CONJUNCTIVA: Yes conjunctivae normal PUPIL: Yes PERRL Neck/C-Spine: COMMON NORMALS: full ROM GENERAL: Yes normal visual inspection and Yes trachea midline OTHER: -noted L CEA incision; healing appropriately, incision well approximated Resp: COMMON NORMALS: normal respiratory effort, no retractions and no use of accessory muscles EFFORT & INSPECTION: Yes able to speak in complete sentences, Yes symmetric chest movement and No tachypneic AUSCULTATION: diminished lung sounds bilateral OTHER: -on 3 L NC Cardio: COMMON NORMALS: regular rate, regular rhythm, S1 normal heart sound, S2 normal heart sound and no murmurs RATE: regular rate RHYTHM: regular rhythm HEART SOUNDS: S1 normal and S2 normal GI: COMMON NORMALS: normal to inspection, nondistended, normoactive bowel sounds, soft to palpation and non-tender INSPECTION: Yes central obesity PALPATION: Yes soft Extremity: COMMON NORMALS: normal to inspection, full ROM and no clubbing, cyanosis or edema; negative for no pedal edema Neuro: COMMON NORMALS: oriented x3, moves all extremities, no focal motor deficits and no sensory deficits noted Psych: COMMON NORMALS: mental status grossly normal, thought process normal, cooperative, affect normal and speech normal SPEECH: Yes normal speech THOUGHT PROCESS: normal thought process Skin: COMMON NORMALS: no rashes or lesions noted, no jaundice, no petechiae and no mottling GENERAL SKIN EXAM: no rashes or lesions noted Discharge Data Data Completed and Pending: Completed Studies During Hospitalization Category Date Time Status XR chest 1V chau ble [id number] Urgent Exams 04/21/19 01:19 Completed CV echo complete* [id number] Routine Ultrasound 04/21/19 04:32 Completed Pending at discharge Category Date Time Status Blood Culture Rou baron Lab 04/21/19 09:22 Results Sputum Culture an d Gram Stain Stat Lab 04/21/19 04:32 Uncollected Labs from last 24 hours 04/26/19 04/26/19 04/26/19 06:01 03:00 03:00 WBC 13.9 H RBC 3.68 L Hgb 11.5 L Hct 34.2 L MCV 92.9 MCH 31.3 MCHC 33.6 RDW 12.9 Plt Count 352 MPV 11.4 H Neut % (Auto) 72.9 Lymph % (Auto) 9.5 [place] % (Auto) 12.5 Eos % (Auto) 2.7 Baso % (Auto) 0.8 Neut # (Auto) 10.2 H Lymph # (Auto) 1.3 [place] # (Auto) 1.7 H Eos # (Auto) 0.4 Baso # (Auto) 0.1 Nucleated RBC % (a uto) 0 Nucleated RBCs # 0.0 Sodium 137 Potassium 4.3 Chloride 102 Carbon Dioxide 21 L Anion Gap 18.3 BUN 65 H Creatinine 2.3 H Glucose 123 H POC Glucose 113 Calculated Osmolal ity 284 L Calcium 10.6 H Total Bilirubin 0.3 AST 26 ALT 20 Alkaline Phosphata se 80 Total Protein 6.8 Albumin 3.2 L Globulin 3.6 04/25/19 04/25/19 04/25/19 20:37 16:34 11:07 WBC RBC Hgb Hct MCV MCH MCHC RDW Plt Count MPV Neut % (Auto) Lymph % (Auto) [place] % (Auto) Eos % (Auto) Baso % (Auto) Neut # (Auto) Lymph # (Auto) [place] # (Auto) Eos # (Auto) Baso # (Auto) Nucleated RBC % (a uto) Nucleated RBCs # Sodium Potassium Chloride Carbon Dioxide Anion Gap BUN Creatinine Glucose POC Glucose 124 103 118 Calculated Osmolal ity Calcium Total Bilirubin AST ALT Alkaline Phosphata se Total Protein Albumin Globulin Vitals: Last Vital Signs Temp 98.1 F 04/26/19 04:00 Pulse 68 04/26/19 07:16 Resp 17 04/26/19 07:16 BP 104/59 04/26/19 07:16 Pulse Ox 98 04/26/19 07:16 Discharge Plan Discharge Patient Disposition: Home, Self-Care Condition: Stable Prescriptions: New metoprolol tartrate 50 mg Tablet 100 mg PO BID 30 Days Qty: 120 RF: 0 levofloxacin 750 mg Tablet 750 mg PO EVERY OTHER DAY 4 Days Qty: 4 RF: 0 Eliquis 5 mg Tablet 2.5 mg PO Q12H 30 Days Qty: 30 RF: 0 Lasix 20 mg tablet 40 mg PO DAILY 30 Days Qty: 60 RF: 0 Continued ropinirole 0.5 mg tablet 0.5 mg PO DAILY RF: 0 multivitamin Capsule 1 cap PO QAM RF: 0 nystatin 100,000 unit/gram ointment 1 applic TOPICAL BID RF: 0 triamcinolone acetonide 0.1 % cream 1 applic TOPICAL BID RF: 0 fluticasone propionate 50 mcg/actuation spray,suspension 1 spray INTRANASAL BID RF: 0 hydrocodone-acetaminophen 5-325 mg tablet 1 tab PO Q6H PRN (Reason: Pain) RF: 0 tamsulosin 0.4 mg capsule 0.4 mg PO ONCE RF: 0 Refresh Tears 0.5 % drops 1 drop ophthalmic (eye) BID RF: 0 cinacalcet [Sensipar] 60 mg tablet 60 mg PO BID RF: 0 cholecalciferol (vitamin D3) 2,000 unit tablet 2,000 unit PO ONCE RF: 0 omeprazole 20 mg capsule,delayed release(DR/EC) 20 mg PO DAILY RF: 0 aspirin 81 mg Tablet,Delayed Release (Dr/Ec) 81 mg PO DAILY RF: 0 [place]-3 350 mg-235 mg- 90 mg-597 mg Capsule,Delayed Release(Dr/Ec) 1 cap PO DAILY RF: 0 acetaminophen [Tylenol Extra Strength] 500 mg Tablet 500 mg PO Q6H PRN (Reason: Pain) RF: 0 Changed atorvastatin 80 mg tablet 80 mg PO BEDTIME 30 Days Qty: 30 RF: 0 Discontinued alogliptin [Nesina] 12.5 mg tablet 12.5 mg PO QAM RF: 0 aspirin 500 mg tablet 500 mg PO Q6H RF: 0 atenolol 100 mg tablet 100 mg PO BID RF: 0 losartan 100 mg tablet 100 mg PO DAILY RF: 0 chlorthalidone 50 mg Tablet 50 mg PO DAILY RF: 0 amlodipine 10 mg Tablet 10 mg PO DAILY RF: 0 Discharge Orders: Discharge Order (Routine); Ordered 04/26/19 Ordered By: Emily Chicas Referrals: Dominga Cortez MD [Primary Care Provider] - 4-7 days (Post hospital discharge follow up. Treated for pneumonia with Levaquin as well as diuresed with lasix. Patient had noted worsening renal function and will need BMP in 1 week. ) Melissa Owens MD [Physician] - 2 weeks (Post hospital discharge follow up) Discharge Diet: Cardiac Discharge Activity: As per PT/OT instructions Discharge Attestations Time Spent in Discharge Care*: greater than 30 min Specific Discharge Activities: Specific discharge activities: educating patient, discussing with pcp/other providers, discussing with pillowcase cutter/social workers/dc planners, documenting/other paperwork and evaluating patient/reviewing data Status at Discharge: Cognitive status at discharge: cognitively intact , Behavioral status at discharge: cooperative , Functional status at discharge: other assisted ambulation Overall status at discharge: patient is back to baseline Quality Metrics Clinical Quality Measures During this hospital stay, did patient experience: None Coding Level of Care Code Acute Sweatband Maker for Emi Fwd Exam Comprehensive Diagnoses Diastolic CHF I50.31 Heart failure chronicity: acute Non-ST elevation MD (NSTEMI) I21.4 Carotid stenosis I65.23 Laterality: bilateral Chronic kidney disease N18.3 Chronic kidney disease stage: stage 3 (moderate)
--- NOTE | 2019-04-26 08:35 | DCPLANNER ---
Pg 2 of IM updated and reviewed with pt. No questions, copy provided.
[2019-04-26] MEDS: aspirin 81 mg EC Tablet PO (09:07)
[2019-04-26] MEDS: alum-mag-hydroxide-sime 30 mL UDC 15 ML PO ×2 (09:07→13:53)
[2019-04-26] MEDS: metoprolol tartrate 50 mg Tablet 100 MG PO (09:07)
[2019-04-26] MEDS: FUROsemide 40 mg Tablet PO (09:07)
[2019-04-26] MEDS: ropinirole 1 mg Tablet 0.5 MG PO (09:07)
[2019-04-26] MEDS: atorvastatin 40 mg Tablet 80 MG PO (09:07)
--- NOTE | 2019-04-26 09:55 | PC.RESP ---
Pt states that he needs new cpap at home. D/T his incision on his neck, he is unable to use either of the masks we have available for our cpap.
[2019-04-26 11:50] LABS: Glucose Point of Care 119 mg/dL (70-110)
--- NOTE | 2019-04-26 12:22 | PC.RESP ---
Patient given Pulmonary Rehab/Smoking Cessation information.
[2019-04-26] MEDS: calcium carbonate 500 mg Chew Tablet PO (13:53)
--- NOTE | 2019-04-26 15:34 | PM.PN ---
Subjective Subjective: Interval history: No nee complaints, doing well overall. He remains in atrial fibrillation with controlled ventricular response Medications: Reviewed: Yes Vitals/I&O/Wt Last Vital Signs Temp 98.1 F 04/26/19 14:53 Pulse 71 04/26/19 15:29 Resp 16 04/26/19 15:29 BP 128/64 04/26/19 15:29 Pulse Ox 97 04/26/19 15:29 04/26/19 04/26/19 04/26/19 06:59 14:59 22:59 Intake Total 300 / 1020 360 / 360 Output Total 600 / 900 550 / 550 Balance -300 / 120 -190 / -190 Weight last 48 hrs Weight 189 lb 6.4 oz Physical Exam Narrative: EXAM NARRATIVE: GENERAL: Obese man lying in bed with no distress HEENT: Extraocular movement intact. Pupils equal round reactive to light. No pallor or icterus. NECK: central trachea, No JVD, well approximated incision of recent surgery on left side of his neck. CARDIOVASCULAR SYSTEM: S1-S2 regular. No S3 or S4 present. No murmur rubs or gallops. RESPIRATORY SYSTEM: Chest clear to auscultation. No wheezes, rales or rhonchi EXTREMITIES: No cyanosis or clubbing. No edema. No signs of chronic venous insufficiency. 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 No focal neurological deficits. Data : 04/26/19 03:00 04/26/19 03:00 Micro: Microbiology 04/21/19 09:22 Blood Culture - Final Blood NO GROWTH AFTER 5 DAYS 04/21/19 07:17 Blood Culture - Final Blood NO GROWTH AFTER 5 DAYS A&P Assessment and plan (1) Acute respiratory distress: Acute respiratory distress in setting of decompensated congestive heart failure and pneumonia. -resolved. -diuresed well. Status: Acute Code(s): R06.03 - Acute respiratory distress (2) Diastolic CHF: Diuresed well with IV lasix. I will transition to lasix 20 mg daily. -BMP in 1 week and follow up with me in 2 weeks. Status: Acute Qualifiers: Heart failure chronicity: acute Qualified Code(s): I50.31 - Acute diastolic (congestive) heart failure Code(s): I50.30 - Unspecified diastolic (congestive) heart failure (3) Atrial fibrillation: [id number]=1/9 , 1 for CHF, 2 for age, 1 for PVD. -started on metoprolol tartrate 100 mg twice a day and Eliquis 2.5 mg twice a day. -remains rate controlled and asymptomatic. Status: Acute Qualifiers: Atrial fibrillation type: other persistent Qualified Code(s): I48.19 - Other persistent atrial fibrillation Code(s): I48.91 - Unspecified atrial fibrillation (4) Non-ST elevation RI (NSTEMI): Type 2 in setting of decompensated CHF and PNA. -Plan for stress test as an outpatient. Status: Acute Code(s): I21.4 - Non-ST elevation (NSTEMI) myocardial infarction (5) Hypertension: Fairly controlled. continue current medications. Status: Acute Qualifiers: Hypertension type: essential hypertension Qualified Code(s): I10 - Essential (primary) hypertension Code(s): I10 - Essential (primary) hypertension (6) Hyperlipidemia: Status: Acute Qualifiers: Hyperlipidemia type: mixed hyperlipidemia Qualified Code(s): E78.2 - Mixed hyperlipidemia Code(s): E78.5 - Hyperlipidemia, unspecified (7) Chronic kidney disease: Likely worsening d/t overdiuresis. start on lasix 20 mg daily. -Follow up BMP in 1 week Status: Chronic Qualifiers: Chronic kidney disease stage: stage 3 (moderate) Qualified Code(s): N18.3 - Chronic kidney disease, stage 3 (moderate) Code(s): N18.9 - Chronic kidney disease, unspecified (8) Carotid stenosis: s/p left carotid endarterectomy. continue ASA and statin Status: Chronic Qualifiers: Laterality: bilateral Qualified Code(s): I65.23 - Occlusion and stenosis of bilateral carotid arteries Code(s): I65.29 - Occlusion and stenosis of unspecified carotid artery Additional A&P Information Pneumonia : On Levaquin. At least moderate eccentric mitral regurgitation Normocytic anemia Chronic active smoker. Thank you for allowing me to participate in patient's care. Please feel free to call with questions or concerns. Attestations Medical Necessity Statement*: stable to be discharged home from cardiac standpoint Coding Level of Care Code Acute Supervisor Shed Workers for Emi Fwjorge Diagnoses Acute respiratory distress R06.03 Diastolic CHF I50.31 Heart failure chronicity: acute Atrial fibrillation I48.19 Atrial fibrillation type: other persistent Non-ST elevation RI (NSTEMI) I21.4 Hypertension I10 Hypertension type: essential hypertension Hyperlipidemia E78.2 Hyperlipidemia type: mixed hyperlipidemia Chronic kidney disease N18.3 Chronic kidney disease stage: stage 3 (moderate) Carotid stenosis I65.23 Laterality: bilateral
[2019-04-26 16:31] LABS: Glucose Point of Care 144 mg/dL (70-110)
== END 2019-04-26 17:49 | disposition home or self-care (01) | DRG 193 ==
LOC: ER 02:36 → ICU 02:40 → CSU 04-22 18:22
PROVIDERS: Internal Medicine; Admitting Provider Internal Medicine; Emergency Provider Emergency Medicine; Family Provider Family Medicine; PCP Family Medicine; Visit Provider Family Medicine
DX: J18.9 Pneumonia, unspecified organism (principal); I50.31 Acute diastolic (congestive) heart failure; I21.4 Non-ST elevation (NSTEMI) myocardial infarction; J81.0 Acute pulmonary edema; J96.01 Acute respiratory failure with hypoxia; I13.0 Hypertensive heart and chronic kidney disease with heart failure and stage 1 through stage 4 chronic kidney disease, or unspecified chronic kidney disease; I48.19 Other persistent atrial fibrillation; I65.23 Occlusion and stenosis of bilateral carotid arteries; N18.3 Chronic kidney disease, stage 3 (moderate); E66.01 Morbid (severe) obesity due to excess calories; Z68.36 Body mass index [BMI] 36.0-36.9, adult; E11.22 Type 2 diabetes mellitus with diabetic chronic kidney disease; G47.33 Obstructive sleep apnea (adult) (pediatric); F17.210 Nicotine dependence, cigarettes, uncomplicated; Z79.82 Long term (current) use of aspirin; D64.9 Anemia, unspecified; I34.0 Nonrheumatic mitral (valve) insufficiency; Z66 Do not resuscitate; I71.4 Abdominal aortic aneurysm, without rupture
CPT/HCPCS: 12345; 36415; 36416; 36600; 51702; 71045; 80048; 80053; 81001; 81003; 82805; 82962; 83880; 84484; 85025; 85610; 86403; 86850; 86900; 86920; 87040; 87449; 88304; 93005; 93306; 94640; 94660; 96372; 96374; 96375; 97110; 97162; 97530; 99283; J0690; J0692; J1644; J1815; J1940; J2250; J2370; J2405; J2704; J2710; J2720; J3010; J3370; J3490; J7030; J7040; J7050; P9016

== ENCOUNTER 2019-11-22 08:36 | Outpatient (CLI) | payer MEDICARE, OTHER, SELFPAY ==
[2019-11-22 09:02] VITALS: BMI 31.2
--- NOTE | 2019-11-22 09:03 | NMCV_ITS ---
NM damián perf SPECT r/s* [id number] Macho Michaud Age: 84 Gender: M : 1935 Exam Date: 11/22/2019 09:52 Ordering Phys: Melissa Owens MD ([email or web address]) Technologist: ISAK Walker Exam Location: [facility] Indications: SOB, elevated troponin STRESS TEST Please see separate stress test report in [facility] for full findings IMAGE PROTOCOL Rest/Stress 1 Radiopharmaceutical Dose (mCi) Administration Site Administered by Rest: Tc-99m 11.0 IV ISAK Joya Sestamibi Stress:Tc-99m 32.4 IV ISAK Walker Sestamiharika Rest: 22-Nov-2019 Discovery 630 Stress: 22-Nov-2019 Discovery 630 SPECT RESULTS Technical Quality: Good Raw Data Analysis: Soft tissue attenuation Image Corrections: No attenuation or motion correction applied Summed Stress Score: 2 Summed Rest Score: 2 Summed Difference Score: 1 PERFUSION FINDINGS Small size perfusion abnormality of mild severity of apical inferior and apical lateral wall on rest images. There is somewhat improved tracer uptake in apical inferior wall on supine stress images. Prone images were not done. FUNCTIONAL RESULTS (calculated via Gated SPECT) Stress Image LV EF (%): 64 Stress EDV (mL):103 TID: 1.11 Stress ESV (mL):37 FUNCTIONAL FINDINGS: The left ventricle is normal in size. Transient Ischemia Dilatation of 1.1. There is normal left ventricular systolic function. The left ventricular ejection fraction is normal with a value of 64%. There is normal left ventricular wall thickening. IMPRESSIONS 1. Small sized perfusion abnormality of mild severity in apical lateral wall is noted. 2. This may represent attenuation artifact however in absence of prone imaging small area of ischemia in circumflex artery territory cannot be completely excluded. 3. Overall left ventricular systolic function is abnormal with regional wall motion abnormalities. 4. The left ventricular ejection fraction is normal with a value of 64%. 5. No prior similar studies to compare. Melissa Owens MD (Electronically Signed) Final Date: 22 November 2019 13:08 S
--- NOTE | 2019-11-22 09:03 | ECG_ITS ---
[facility] Test Date: 2019-11-22 Pat Name: Macho Michaud Department: Room: Gender: Male Programs Assistant: Marquita Kee : 1935 Requested By: Melissa Owens Order Number: [id number] Anyi MD: Melissa Owens M.D. Interpretive Statements NAME OF STUDY: LEXISCAN SESTAMIBI STRESS TEST INDICATION: Shortness of breath, Elevated Troponin PROCEDURE: At the baseline, the blood pressure was 153/72 mmHg, oxygen saturation 98% with a heart rate of 67 bpm. The electrocardiogram showed normal sinus rhythm, leftward axis. Poor anterior R wave progression and nonspecific ST-T wave changes.. The Lexiscan was infused over a period of 20 seconds. A total of 0.4 milligrams of Lexiscan was infused. The stress phase was continued for a total of 5 minutes. Heart rate at the end of the stress phase was 81 bpm, oxygen saturation 98% with a blood pressure 121/73 mmHg. The EKG at the peak infusion revealed sinus rhythm with no significant ST-T wave changes. Sestamibi was injected 20 seconds after the Lexiscan infusion. Blood pressure at the end of the recovery phase was 143/68 mmHg, oxygen saturation 98% with a heart rate of 78 beats per minute. CONCLUSION: 1. No significant EKG changes with the LexiScan infusion. 2. No LexiScan induced chest pain or cardiac arrhythmia. 3. Normal blood pressure and heart rate response. 4. Sestamibi/sestamibi perfusion scan pending; see separate report. Electronically Signed On 11-22-2019 14:33:28 CDT by Melissa Owens M.D. [id number]
[2019-11-22] MEDS: regadenoson 0.4 Mg/5 ml Syringe IVP (10:44)
[2019-11-22 10:45] VITALS: BP 145/65; PULSE 81
== END 2019-11-22 08:37 | disposition home or self-care (01) ==
LOC: CDL 08:37
PROVIDERS: PCP Family Medicine; Visit Provider Internal Medicine Cardiovascular Disease
DX: I21.4 Non-ST elevation (NSTEMI) myocardial infarction (principal); R06.02 Shortness of breath
CPT/HCPCS: 78452; 93017; A9500; J2785

== ENCOUNTER 2020-05-16 03:17 | Inpatient (IN) | payer MEDICARE, OTHER, SELFPAY ==
[2020-05-16] VITALS (94 sets, daily range): BP systolic 110–196; BP diastolic 57–123; PULSE 85–129; RESP 15–29; TEMP 35.9–36.6; O2SAT 85–100
--- NOTE | 2020-05-16 03:32 | PC.NURSE ---
Patient arrived to ICU via direct admit from [facility] at 0317.
--- NOTE | 2020-05-16 03:37 | P.HP_ITS ---
Providers/Chief Complaint Admitting Physician: Slim Chatman MD Primary Care Provider: Dominga Cortez MD Chief Complaint: Acute Coronary Syndrome History of Present Illness Macho Michaud is a 84 year old male who has history of grade 2 diastolic dysfunction EF 60 to 65% mild tricuspid regurgitation moderate mitral valve regurgitation, carotid stenosis status post left-sided CEA with Dr. Ramos 04/18/2019, chronic kidney disease stage III presented to [facility] with chief complaint of chest discomfort. Patient symptoms started on Thursday. He stating that symptoms started with neck pain, his pain traveled to his anterior part of the chest. He is describing this pain as heaviness, associated with diaphoresis, he could only sleep for 4 hours on Thursday and Thursday and because of worsening of symptoms made his decision to go to the ER for further evaluation, at [facility] his EKG revealed ST elevation with prominent Q waves in inferior leads with ST depression in lead I aVL first troponin 1064, patient was complaining of pain 6/10. His chest pain is persistent he still complaining of 6/10 chest discomfort, he is denying shortness of breath, orthopnea, PND, fever, radiation of chest pain. He denies previous history of PA, he does not take Lasix, he does not use CPAP or use oxygen at home. He currently smokes half a pack a day. EKG was discussed with Dr. Galindo, his presentation is consistent with completed myocardial infarction with prominent Q waves, at the time of my evaluation he is 160s/80s millimeters mercury, he saturating well on room air complaining of chest pain 5-6 intensity, afebrile. Review of Systems Const: Denies: fever(s) Eyes: Denies: change in vision ENMT: Denies: throat pain Card: Reports: chest pain and swelling of feet/ankles; Denies: dyspnea on exertion or orthopnea Resp: Reports: dyspnea and productive cough (Bringing up thick mucus) GI: Denies: abdominal pain : Denies: flank pain Musc: Denies: neck pain Skin/Breast: Denies: rash Neuro: Denies: headache(s) Psych: Denies: anxiety Endo: Denies: polyuria [place]/Lymph: Denies: easy bruising All/Imm: Denies: urticaria Medications/Allergies Home Medications Medication Instructions Recorded Confirmed Last Taken Type carboxymethylcellulose sodium 0.5 1 drop OPHTHALMIC (EYE) BID 02/14/19 05/16/20 04/20/19 History % eye drops cholecalciferol (vitamin D3) 50 2,000 unit PO ONCE 02/14/19 05/16/20 04/20/19 History mcg (2,000 unit) tablet fluticasone propionate 50 1 spray INTRANASAL BID 02/14/19 05/16/20 04/20/19 History mcg/actuation nasal spray,suspension hydrocodone 5 mg-acetaminophen 325 1 tab PO Q6H PRN 02/14/19 05/16/20 04/20/19 History mg tablet multivitamin 1 cap PO QAM 02/14/19 05/16/20 04/20/19 History nystatin 100,000 unit/gram topical 1 applic TOPICAL BID 02/14/19 05/16/20 04/20/19 History ointment omeprazole 20 mg capsule,delayed 20 mg PO DAILY cap 02/14/19 05/16/20 04/20/19 History release acetaminophen 500 mg tablet 500 mg PO DAILY PRN tab 05/10/19 05/16/20 Unknown History cinacalcet 30 mg tablet 30 mg PO DAILY 08/10/19 05/16/20 Unknown History omega 3-dha 500 mg-epa 100 mg-fish cap PO 08/10/19 08/10/19 Unknown History oil capsule ropinirole 1 mg tablet 1 mg PO DAILY PRN 08/10/19 05/16/20 Unknown History vit C 250 mg-vit E 90 mg-zinc 40 1 tab PO BID 08/10/19 05/16/20 Unknown History mg-copper 1 tl-oljemm-avmbww capsule lisinopril 10 mg tablet 10 mg PO DAILY 11/02/19 Unknown History aspirin 81 mg tablet,delayed 81 mg PO DAILY 12/12/19 05/16/20 Unknown History release atorvastatin 80 mg tablet 80 mg PO BEDTIME tab 12/12/19 05/16/20 Unknown History isosorbide mononitrate 30 mg 30 mg PO DAILY #90 tab 12/12/19 05/16/20 Unknown Rx tablet,extended release 24 hr metoprolol tartrate 100 mg tablet 50 mg PO BID tab 12/12/19 05/16/20 Unknown History nifedipine 60 mg tablet,extended 60 mg PO DAILY #90 tab 02/08/20 05/16/20 Unknown Rx release Allergies Allergy/AdvReac Type Severity Reaction Status Date / Time gemfibrozil Allergy diarrhea Verified 12/12/19 09:19 tramadol [From Ultram] Allergy nausea Verified 12/12/19 09:19 vomiting PFSH Acute PFSH: Medical History (Updated 05/16/20 @ 04:27 by Slim Chatman MD) AAA (abdominal aortic aneurysm) Endovascular repair several years ago Atrial fibrillation Carotid stenosis -s/p recent L CEA done by Dr. Ramos on 04/18/19 Chronic kidney disease Depression Diabetes mellitus GERD (gastroesophageal reflux disease) Hypercalcemia Hyperlipidemia Hypertension Impaired glucose tolerance Moderate mitral regurgitation Osteoarthritis Pancreatitis Severe chronic obstructive pulmonary disease Severe obesity Sleep apnea Tobacco abuse Surgical History Status post carotid endarterectomy Left Family History Other CAD (coronary artery disease) Social History Smoking and tobacco status: current every day smoker Alcohol intake: never Vitals/I&O/Wt Last Vital Signs Temp 96.6 F L 05/16/20 03:25 Pulse 90 05/16/20 03:30 Resp 18 05/16/20 03:30 BP 160/85 05/16/20 03:30 Pulse Ox 100 05/16/20 03:30 Physical Exam Narrative: EXAM NARRATIVE: Pleasant male Who does look fluid overloaded clinically Saturating well on room air Appears stated age Complaining of chest discomfort 10 No carotid bruits S1, S2 systolic murmur radiating towards his axilla Bilateral breath sounds without adventitious rhonchi or crackles Bilateral lower extremity with 2+ pitting edema No acute respiratory distress No neurological deficits EOMI, PERRLA No signs of cellulitis A&P Assessment and plan (1) Myocardial infarction: Status: Acute (2) Diastolic CHF: Status: Acute Qualifiers: Heart failure chronicity: acute Qualified Code(s): I50.31 - Acute diastolic (congestive) heart failure (3) Severe chronic obstructive pulmonary disease: Status: Acute (4) Hypertension: Status: Acute Qualifiers: Hypertension type: essential hypertension Qualified Code(s): I10 - Essential (primary) hypertension (5) Chronic kidney disease: Status: Chronic Qualifiers: Chronic kidney disease stage: stage 3 (moderate) Qualified Code(s): N18.3 - Chronic kidney disease, stage 3 (moderate) Additional A&P Information Completed myocardial infarction Prominent Q waves inferior leads: Patient currently complaining of chest discomfort 07/19, hypertensive saturating well on room air, will trend troponin with EKG Keep him n.p.o. until evaluated by cardiology Start heparin therapeutic regimen along aspirin, Plavix and atorvastatin and metoprolol holding lisinopril because of chronic kidney disease We will request echo, he does have valvular abnormality, pansystolic murmur radiating towards axilla EKG reviewed by Dr. Galindo, transportation clerk consulted Patient is leaning towards no surgical intervention considering his chronic kidney disease with risk of further progression with angiogram Diastolic congestive heart failure exacerbation Clinically looks fluid overloaded Lower extremity 2+ pitting edema bilaterally however he is able to lay flat, saturating well on room air I will keep him on Lasix 20 mg a day, he does not use any diuretics at home Has history of mitral valve regurgitation and diastolic dysfunction Chronic kidney disease stage III His baseline creatinine is 2-2.5, his creatinine seems to be around baseline He is at risk of worsening kidney function, he understands the complications of angiogram, requiring temporary dialysis, progression to end-stage renal disease Hold lisinopril for now Hypertension: Metoprolol succinate added today along Lasix monitor blood pressure, could use Imdur or amlodipine if he stays above 140s Goals of care discussed with the patient: DNR/DNI N.p.o., advance diet after cardiology evaluation DVT prophylaxis not needed currently on heparin GTT Attestations Medical Necessity Statement*: Anticipating stay in the hospital cross more than 2 midnights, currently need medical management for completed myocardial infarction, further clinical course to be decided after cardiology evaluation currently monitor in ICU as he is at risk of arrhythmias with recent PA Time Spent in Patient Care: (>than 50% of time spent in counselling and/or direct pt care on unit) . 40mins Coding Level of Care Code Acute Communications Station Manager for Chg Fwd Diagnoses Myocardial infarction I21.9 Diastolic CHF I50.31 Heart failure chronicity: acute Severe chronic obstructive pulmonary disease J44.9 Hypertension I10 Hypertension type: essential hypertension Chronic kidney disease N18.3 Chronic kidney disease stage: stage 3 (moderate)
--- NOTE | 2020-05-16 03:41 | USCV_ITS ---
Macho Michaud Age: 84 Gender: M : 1935 Exam Date: 05/16/2020 07:08 Ordering Phys: Slim Chatman MD Technologist: Neida Shore Exam Location: [facility] [place] Indication: TX BP: 170 / 85 HR: 87 Rhythm: Sinus Technical Quality: Adequate MEASUREMENTS (Male / Female) Normal Values 2D ECHO LV Diastolic Diameter PLAX 3.7 cm 4.2 - 5.9 / 3.9 - 5.3 cm LV Systolic Diameter PLAX 2.8 cm LV Chamber Size 2.8 cm IVS Diastolic Thickness 1.0 cm 0.6 - 1.0 / 0.6 - 0.9 cm IVS Systolic Thickness 1.3 cm LVPW Diastolic Thickness 1.6 cm 0.6 - 1.0 / 0.6 - 0.9 cm LVPW Systolic Thickness 1.8 cm RV Chamber Size 3.4 cm LVOT Diameter 2.0 cm LV Ejection Fraction 2D Teich 48.4 % LA Diameter 4.3 cm LA Width 4.0 cm LA Height 4.1 cm RA Width 3.8 cm RA Height 3.6 cm Aorta at Sinotubular Diameter 2.5 cm M-MODE LV Diastolic Diameter MM 4.3 cm 4.2 - 5.9 / 3.9 - 5.3 cm LV Systolic Diameter MM 2.7 cm LV Ejection Fraction MM Teich 69.2 % IVS Diastolic Thickness MM 1.1 cm 0.6 - 1.0 / 0.6 - 0.9 cm IVS Systolic Thickness MM 1.5 cm LVPW Diastolic Thickness MM 1.2 cm 0.6 - 1.0 / 0.6 - 0.9 cm LVPW Systolic Thickness MM 1.6 cm Aortic Annulus Diameter 2.9 cm LA Ao Ratio MM 1.6 MV E Point Septal Separation 1.1 cm DOPPLER AV Peak Velocity 165.0 cm/s LVOT Peak Velocity 112.0 cm/s AV Area Cont Eq vti 2.1 cm squared AV Area Cont Eq pk 2.2 cm squared MV Area PHT 11.0 cm squared Mitral E to A Ratio 0.6 MV E' Velocity 40.0 cm/s Mitral E to MV E' Ratio 10.8 Mitral E to LV E' Lateral Ratio 12.1 Mitral E to LV E' Septal Ratio 10.0 TR Peak Velocity 183.0 cm/s TR Peak Gradient 13.4 mmHg TV Peak E Velocity 65.0 cm/s Right Atrial Pressure 3.0 mmHg Pulmonary Artery Systolic Pressu 16.4 mmHg PV Peak Velocity 75.0 cm/s RV Acceleration Time 0.1 s RV Ejection Time 0.3 s RV AcT/ET 0.3 FINDINGS Left Ventricle Normal left ventricular size, systolic function and wall thickness. Although no diagnostic regional wall motion abnormality could be identified, this cannot be excluded completely given off axis images. Left ventricular ejection fraction is estimated at 60%. Grade I diastolic dysfunction (abnormal relaxation filling pattern), normal to mildly elevated filling pressures. Right Ventricle Normal right ventricular size. Midly decreased right ventricular systolic function. There is possibly right ventricular free wall hypokinesis. Right ventricular systolic pressure 16.4 mmHg. Right Atrium Normal right atrial size. Left Atrium Mildly increased left atrial size. Mitral Valve Moderate mitral annular calcification. Thickened mitral valve. No mitral valve stenosis. Mild mitral valve regurgitation. Aortic Valve Thickened trileaflet aortic valve. No aortic valve stenosis. No aortic valve regurgitation. Tricuspid Valve Structurally normal tricuspid valve. Trace to mild tricuspid valve regurgitation. Pulmonic Valve Pulmonic valve not well visualized. Trace pulmonary valve regurgitation. Pericardium No pericardial effusion. Aorta Normal size aortic root and proximal ascending aorta. CONCLUSIONS 1. Normal left ventricular size and systolic function. Although no diagnostic regional wall motion abnormality could be identified, this cannot be excluded completely given off axis images. Left ventricular ejection fraction is estimated at 60%. Grade I diastolic dysfunction (abnormal relaxation filling pattern), normal to mildly elevated filling pressures. 2. Normal right ventricular size. Midly decreased right ventricular systolic function. There is possibly right ventricular free wall hypokinesis. 3. When compared to previous echocardiogram dated 04/29/19, mitral valve regurgitation and right ventrcular systolic function may have decreased. Melissa Owens MD (Electronically Signed) Final Date: 17 May 2020 11:02 S
--- NOTE | 2020-05-16 03:44 | ECG_ITS ---
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1935 Requested By: Slim Chatman Order Number: [id number] Reading MD: SLIM ARNETT Measurements Intervals [place] Rate: 88 P: 50 ND: 174 QRS: -30 QRSD: 90 T: 3 QT: 337 QTc: 409 Interpretive Statements SINUS RHYTHM INFERIOR MYOCARDIAL INFARCTION [40+ ms Q WAVE AND/OR ST/T ABNORMALITY IN II/aVF], OF INDETERMINATE AGE ANTEROSEPTAL MYOCARDIAL INFARCTION [40+ ms Q WAVE IN V1-V4], POSSIBLY subacute compared to ECG 04/23/2019 09:07:32 Atrial flutter no longer present Myocardial infarct finding still present Electronically Signed On 05-16-2020 20:22:46 CDT by SLIM ARNETT [id number]
[2020-05-16] MEDS: morphine 4 mg/mL SDV 1 mL 2 MG IVP ×4 (04:03→23:15)
[2020-05-16] MEDS: heparin drip 25,000 UNIT/500 ML PREMIX 18 UNIT IV (04:12)
[2020-05-16] MEDS: heparin 5,000 unit/mL INJ 1 mL IV ×2 (04:12→12:21)
[2020-05-16 04:57] LABS: Basophils # 0.1 10^3/uL (0.0-0.1); Eosinophils # 0.3 10^3/uL (0.0-0.8); Eosinophils % 2.2 %; Hematocrit 34.7 % (42.0-52.0); Hemoglobin 11.3 g/dL (11.7-16.6); Lymphocytes # 1.7 10^3/uL (0.8-4.8); Lymphocytes % 13.8 %; Mean Corpuscular HGB Conc 32.6 g/dL (30.0-36.0); Mean Corpuscular Volume 95.1 fL (80-94); Mean Platelet Volume 10.6 fL (7.4-10.4); Monocytes # 1.2 10^3/uL (0.2-0.9); Monocytes % 9.7 %; Neutrophils # 8.95 10^3/uL (1.8-7.7); Neutrophils % 72.5 %; Nucleated Red Blood Cells % 0 %; Platelet Count 315 10^3/cmm (130-400); Red Blood Count 3.65 10^6/uL (4.1-5.3); Red Cell Distribution Width 13.2 % (12.1-15.1); White Blood Count 12.3 10^3/uL (4.0-10.0)
[2020-05-16 05:20] LABS: Anion Gap 15.6 (5-19); Blood Urea Nitrogen 35 mg/dL (8-23); Calcium 9.3 mg/dL (8.5-10.5); Carbon Dioxide 24 mmol/L (22-29); Chloride 102 mmol/L (98-107); Glucose 114 mg/dL (65-115); Osmolality Calculated 293 mOsm/kg (285-295); Potassium 4.6 mmol/L (3.5-5.1); Sodium 137 mmol/L (136-145)
[2020-05-16 05:28] LABS: NT Pro B Type Natriuretic Pept 3780 pg/mL (0-450)
[2020-05-16 05:36] LABS: Troponin(5th) Baseline 1340 ng/L (0-15)
--- NOTE | 2020-05-16 05:44 | ECG_ITS ---
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: : 1935 Requested By: Slim Chatman Order Number: [id number] Reading MD: SLIM ARNETT Measurements Intervals [place] Rate: 87 P: 39 CT: 173 QRS: -26 QRSD: 87 T: -5 QT: 341 QTc: 411 Interpretive Statements SINUS RHYTHM POSSIBLE LEFT ATRIAL ENLARGEMENT [-0.1mV P WAVE IN V1/V2] INFERIOR MYOCARDIAL INFARCTION [40+ ms Q WAVE AND/OR ST/T ABNORMALITY IN II/aVF], PROBABLY RECENT ANTEROSEPTAL MYOCARDIAL INFARCTION [40+ ms Q WAVE IN V1-V4], POSSIBLY subacute compared to ECG 05/16/2020 03:57:30 No significant changes Electronically Signed On 05-16-2020 20:27:28 CDT by SLIM ARNETT [id number]
--- NOTE | 2020-05-16 07:29 | P.CONIM_ITS ---
Providers/Reason For Consult Consulting Physican/Specialty*: Cardiology Reason for Consult*: Completed infarct, uncontrolled hypertension Attending Physician: Slim Chatman MD Primary Care Provider: Dominga Cortez MD History of Present Illness History of Present Illness Macho Michaud is a 84 year old male past medical history significant for coronary artery disease, chronic kidney disease with baseline creatinine of 2- 2.5, abdominal aortic aneurysm repair, peripheral arterial disease, chronic atrial fibrillation, carotid artery disease, diabetes mellitus and COPD presented after completed infarct with chest pain ongoing for the last 2 days for which patient did not seek any medical attention. Last night he presented to [facility] from where patient was transferred to our service. Dr. Chatman admitted the patient last night and I was consulted. I reviewed his EKG which is suggestive of completed anterior myocardial infarction peak troponin more than 1700 with BNP more than 37,000. I examined the patient this morning he has 5 out of 10 chest pain on a scale of 1-10, I offered him angiogram which was declined. He understand risk benefit and alternative for the procedure he understand the risk of her heart failure which he is already in, risk of contras t-induced nephropathy which he would like to avoid and would not like to end up in renal failure or dialysis which is the main reason. He was started on nitro drip which improved the chest pain . His blood pressure was moderately elevated which will also be controlled with nitroglycerin and optimization of medicines. Currently he denies PND orthopnea. I will also ask for echocardiogram to ass ess LV function. For now we will treat him conservatively as per his own wishes and according to the clinical presentation Review of Systems Const: Denies: fever(s) Eyes: Denies: change in vision ENMT: Denies: throat pain or enlarged tonsils Card: Reports: chest pain and swelling of feet/ankles; Denies: dyspnea on exertion or orthopnea Resp: Reports: dyspnea and productive cough (Bringing up thick mucus) GI: Denies: abdominal pain : Denies: flank pain Musc: Denies: neck pain Skin/Breast: Denies: rash Neuro: Denies: headache(s) Psych: Denies: anxiety Endo: Denies: polyuria [place]/Lymph: Denies: easy bruising All/Imm: Denies: urticaria or acute wheezing Meds/Allergies Home Medications and Allergies Home Medications Medication Instructions Recorded Confirmed Last Taken Type carboxymethylcellulose sodium 0.5 1 drop OPHTHALMIC (EYE) BID 02/14/19 05/16/20 04/20/19 History % eye drops cholecalciferol (vitamin D3) 50 2,000 unit PO ONCE 02/14/19 05/16/20 04/20/19 History mcg (2,000 unit) tablet fluticasone propionate 50 1 spray INTRANASAL BID 02/14/19 05/16/20 04/20/19 History mcg/actuation nasal spray,suspension hydrocodone 5 mg-acetaminophen 325 1 tab PO Q6H PRN 02/14/19 05/16/20 04/20/19 History mg tablet omeprazole 20 mg capsule,delayed 20 mg PO DAILY cap 02/14/19 05/16/20 04/20/19 History release acetaminophen 500 mg tablet 500 mg PO DAILY PRN tab 05/10/19 05/16/20 Unknown History cinacalcet 30 mg tablet 30 mg PO DAILY 08/10/19 05/16/20 Unknown History vit C 250 mg-vit E 90 mg-zinc 40 1 tab PO BID 08/10/19 05/16/20 Unknown History mg-copper 1 dy-lctefi-jrozwg capsule lisinopril 10 mg tablet 10 mg PO DAILY 11/02/19 Unknown History aspirin 81 mg tablet,delayed 81 mg PO DAILY 12/12/19 05/16/20 Unknown History release isosorbide mononitrate 30 mg 30 mg PO DAILY #90 tab 12/12/19 05/16/20 Unknown Rx tablet,extended release 24 hr nifedipine 60 mg tablet,extended 60 mg PO DAILY #90 tab 02/08/20 05/16/20 Unknown Rx release atorvastatin 40 mg PO QPM 05/16/20 05/16/20 Unknown History dextromethorphan-guaifenesin 1 tab PO DAILY@18 05/16/20 05/16/20 Unknown History [Mucus Relief DM] iron 325 mg PO DAILY@18 05/16/20 05/16/20 Unknown History metoprolol tartrate 12.5 mg PO BID 05/16/20 05/16/20 Unknown History nystatin 1 applic TOPICAL BID PRN 05/16/20 05/16/20 Unknown History ondansetron HCl 4 mg PO TID PRN 05/16/20 05/16/20 Unknown History ropinirole 2 mg PO DAILY@18 05/16/20 05/16/20 Unknown History tamsulosin 0.4 mg PO DAILY@18 05/16/20 05/16/20 Unknown History triamcinolone acetonide 1 applic TOPICAL . DIRECTED PRN 05/16/20 05/16/20 Unknown History Allergies Allergy/AdvReac Type Severity Reaction Status Date / Time gemfibrozil Allergy diarrhea Verified 05/16/20 09:31 tramadol [From Ultram] Allergy nausea Verified 05/16/20 09:31 vomiting Current Medications Current Medications Generic Name Dose Route Start Last Admin Trade Name Freq PRN Reason Stop Dose Admin Heparin Sodium (Beef Lung) 0 unit 05/16/20 03:41 05/16/20 04:12 Heparin 5,000 Unit/Ml Inj 1 Ml IV 3,300 unit PRN PRN Administration Heparin weight-base protocol Protocol Heparin Sodium/Sodium Chloride 25,000 unit in 500 mls @ 0 mls/hr 05/16/20 03:45 05/16/20 04:12 Heparin Drip IV 13.74 unit/kg/hr .Q0M WILLA 18 mls/hr Administration Protocol Per Protocol Morphine Sulfate 2 mg 05/16/20 03:50 05/16/20 04:03 Morphine 4 Mg/Ml Sdv 1 Ml IVP 2 mg Q4H PRN Administration SEVERE PAIN PFSH Acute PFSH: Medical History (Updated 05/16/20 @ 18:47 by Slim Galindo MD) AAA (abdominal aortic aneurysm) Endovascular repair several years ago Atrial fibrillation Carotid stenosis -s/p recent L CEA done by Dr. Ramos on 04/18/19 Chronic kidney disease Depression Diabetes mellitus GERD (gastroesophageal reflux disease) Hypercalcemia Hyperlipidemia Hypertension Impaired glucose tolerance Moderate mitral regurgitation Osteoarthritis Pancreatitis Severe chronic obstructive pulmonary disease Severe obesity Sleep apnea Tobacco abuse Surgical History Status post carotid endarterectomy Left Family History Other CAD (coronary artery disease) Social History Smoking and tobacco status: current every day smoker Alcohol intake: never Vitals/I&O/Wt Last Vital Signs Temp 96.6 F L 05/16/20 03:25 Pulse 89 05/16/20 05:35 Resp 16 05/16/20 05:35 BP 170/85 05/16/20 05:35 Pulse Ox 97 05/16/20 05:35 Weight last 48 hrs Weight 144 lb 6.444 oz Physical Exam Narrative: EXAM NARRATIVE: GENERAL: Patient is alert, awake and oriented x3. NECK: No jugular vein distension. HEENT: No cyanosis. No icterus. No pallor. HEART: Regular S1 and S2. No murmur, rub or gallop. LUNGS: Clear to auscultate bilaterally. ABDOMEN: Soft, nontender and nondistended. Positive bowel sounds. No guarding, rebound or tenderness. CENTRAL NERVOUS SYSTEM: Grossly nonfocal. EXTREMITIES: Lower extremities without edema bilaterally. A&P Assessment and plan (1) Myocardial infarction: Most likely patient has completed infarct of anterior wall with possible LAD involvement. It has been more than 24 hours. Patient is not interested in invasive procedure. We will continue to treat him medically unless he change his mind. He understand all the risk benefit and alternative for the treatment. He understand the risk for further deterioration into severe heart failure arrhythmia and worse case scenario . I will obtain echocardiogram to assess LV function. Continue aspirin statin beta-yuniel nitroglycerin anticoagulation and nitro drip. Will add clopidogrel to the regimen Status: Acute Qualifiers: Myocardial infarction type: unspecified Involved coronary artery: unspecified coronary artery Qualified Code(s): I21.9 - Acute myocardial infarction, unspecified (2) Atrial fibrillation: Sinus rhythm continue current regimen Status: Acute Qualifiers: Atrial fibrillation type: other persistent Qualified Code(s): I48.19 - Other persistent atrial fibrillation (3) Hypertension: Start nitro drip due to uncontrolled hypertension Status: Acute Qualifiers: Hypertension type: essential hypertension Qualified Code(s): I10 - Essential (primary) hypertension (4) Chronic kidney disease: Patient has baseline creatinine of 2-2.5. He is high risk for contrast- induced nephropathy leading to transient or permanent dialysis. We will continue to monitor it. Patient declined left heart cath Status: Chronic Qualifiers: Chronic kidney disease stage: stage 3 (moderate) Qualified Code(s): N18.3 - Chronic kidney disease, stage 3 (moderate) (5) Moderate mitral regurgitation: Appear to be stable at this point not in pulmonary edema or decompensated heart failure. Continue to monitor. Will ask for echocardiogram to assess LV function and mitral valve regurgitation. 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
[2020-05-16 07:50] LABS: Troponin 5 2HR 1582 ng/L (0-15); Troponin 5 2HR Delta 242 ABS# (0-10)
--- NOTE | 2020-05-16 08:08 | PC.NURSE ---
Dr. Galindo in unit. Notified of critical trop and delta values. aware et patient refusing angiogram due to kidney function.
[2020-05-16] MEDS: nitroglycerin drip 50 MG/250 ML PREMIX IV (08:41)
[2020-05-16] MEDS: aspirin 81 mg EC Tablet PO (08:43)
[2020-05-16] MEDS: clopidogrel 75 mg Tablet PO (08:44)
[2020-05-16] MEDS: sennosides-docusate Tablet 1 TAB PO (08:44)
[2020-05-16] MEDS: isosorbide mononitrate ER 30 mg Tablet PO (08:45)
--- NOTE | 2020-05-16 09:35 | PC.PHAR ---
PT STATES HE TAKES CARE OF HIS OWN MEDICATIONS-PT BROUGHT IN A MED LIST WITH HIM-PTS MED LIST HAD LIPITOR 1 TAB QPM-PTS [facility] MED LIST HAD 40MG 1 1/2 TAB (60MG)QPM-PTS LIST HAD LISINOPRIL 10MG DAILY-PTS VA MED LIST LISINOPRIL/HCTZ 10-12.5MG DAILY-
[2020-05-16] MEDS: metoprolol succinate ER (24 HR) 25 mg Tablet 12.5 MG PO (09:43)
--- NOTE | 2020-05-16 09:44 | ECG_ITS ---
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[id number] Requested By: Slim Chatman Order Number: [id number] Reading MD: SLIM ARNETT Measurements Intervals Sinclair Rate: 95 P: 37 CO: 147 QRS: -33 QRSD: 92 T: -11 QT: 322 QTc: 406 Interpretive Statements SINUS RHYTHM ANTERIOR MYOCARDIAL INFARCTION [40+ ms Q WAVE AND/OR ST/T ABNORMALITY IN V3/V4], PROBABLY SUBACUTE AND COMPLETED INFERIOR MYOCARDIAL INFARCTION [40+ ms Q WAVE AND/OR ST/T ABNORMALITY IN II/aVF], OF INDETERMINATE AGE ACUTE [place] Compared to ECG 05/16/2020 06:01:30 No significant changes Electronically Signed On 05-16-2020 20:26:41 CDT by SLIM ARNETT [email or web address]
--- NOTE | 2020-05-16 10:26 | PC.CHAP ---
Pastoral Care Encounter/Spiritual Assessment Type of Contact [] Declined customer counter associate visit [] Patient/Family/Request visit [] Outpatient visit [] Follow-up visit [] Physician referral [] Code/Alert [x] Routine visit [] Staff referral [] Actively dying [] Patient sleeping [] Family support [] [] Out of room [] Palliative care [] [] Receiving care in room [] Pre-surgical visit [] Trauma [] Long length of stay [x] ICU visit [] Other: Relational/Emotional Strength [] Patient feels connected with others/family/visitors/staff [] Distress [] Loneliness/isolation [] Abandonment Spirituality of Patient [] Person of Verna [] Attends Restorationism of their Verna [] Believes in Prayer [] Reads Bible or Tenriism materials [] There are Spiritual issues to be addressed [place] Interventions [x] Prayer [] Active listening [] Non-anxious presence [] Spiritual/emotional support [] Crisis/trauma care [] Spiritual counseling [] Bereavement support [] Provided bereavement packet [] Provided Bible/devotional materials [] Provided toy/stuffed animal, coloring book to patient or family member [] Provided Communion [] Anointing/[place] [] Salvation [x] Completed spiritual assessment [] Other: Impact on Illness or Injury [] Angry [] Fearful [] Anxious [] Often cries [] Exhaustion [] Unable to work [] Unable to attend taoist [] Unable to walk/stand [] Unable to read [] Unable to drive [] Unable to eat/drink [] Unable to sleep [] Unable to be with family [] Patient intubated [] Other: Summary Time spent with patient
[2020-05-16 10:59] LABS: Partial Thromboplastin Time 47.7 SECONDS (23.9-36.7)
--- NOTE | 2020-05-16 11:06 | PC.NURSE ---
patient's critical troponin et delta troponin levels are expected. Dr. Galindo is planning to manage the patient medically et will not take him for an angiogram.
[2020-05-16 11:07] LABS: Troponin 5 6HR 1719 ng/L (0-15); Troponin 5 6HR Delta 379 ng/L (0-12)
--- NOTE | 2020-05-16 11:13 | PM.PN ---
Subjective Subjective: Interval history: Patient was seen and examined this morning, he is still complaining of chest tightness, Denies any shortness of, nausea, cough fever. His other vitals and labs have been reviewed. Medications: Reviewed: Yes Vitals/I&O/Wt Last Vital Signs Temp 96.6 F L 05/16/20 03:25 Pulse 94 05/16/20 09:55 Resp 16 05/16/20 09:55 BP 170/85 05/16/20 05:35 Pulse Ox 96 05/16/20 09:55 05/15/20 05/16/20 05/16/20 22:59 06:59 14:59 Output Total 500 / 500 Balance -500 / -500 Weight last 48 hrs Weight 65.5 kg Physical Exam Const: COMMON NORMALS: patient oriented x3 HENMT: COMMON NORMALS: normocephalic and atraumatic HEAD & SCALP: normocephalic and atraumatic Chest: CHEST: Yes Symmetrical chest wall rise Resp: COMMON NORMALS: clear to auscultation bilaterally EFFORT & INSPECTION: Yes symmetric chest movement AUSCULTATION: clear to auscultation bilaterally Cardio: COMMON NORMALS: S1 normal heart sound present and S2 normal heart sound present HEART SOUNDS: S1 normal heart sound present and S2 normal heart sound present OTHER: Irregularly irregular rhythm, S1-S2 are variable intensity, pansystolic murmur in mitral area. GI: COMMON NORMALS: Normal to inspection, nondistended, normoactive bowel sounds present, Soft to palpation, non-tender, No hepatosplenomegaly present and no masses AUSCULTATION: Yes normoactive bowel sounds PALPATION: Yes Soft to palpation and Yes No hepatosplenomegaly present RECTAL EXAM: Yes deferred Extremity: COMMON NORMALS: no clubbing, cyanosis or edema and no pedal edema Neuro: COMMON NORMALS: patient oriented x3 Data : 05/16/20 04:40 05/16/20 04:40 A&P Assessment and plan (1) Non-ST elevation AK (NSTEMI): Pertinent prior studies: Nuclear scan: 11/2019 Small sized perfusion abnormality of mild severity in apical lateral wall is noted. This may represent attenuation artifact however in absence of prone imaging small area of ischemia in circumflex artery territory cannot be completely excluded. Overall left ventricular systolic function is abnormal with regional wall motion abnormalities. The left ventricular ejection fraction is normal with a value of 64%. 2D echo: 04/20 : Normal left ventricular size, systolic function and wall thickness, with no regional wall motion abnormalities. Left ventricular ejection fraction is estimated at 60-65 %. Grade 2 diastolic dysfunction with moderately elevated left atrial filling pressure. Normal right ventricular size and systolic function.Right atrial pressure estimated at 15 mmHg. 2D echo: Telemetry: Aspirin 81 mg. Plavix 75 mg p.o. Atorvastatin 80 mg p.o. Metoprolol tartrate 12.5 mg p.o. daily Imdur 30 mg p.o. daily Heparin drip Nitro drip Patient currently wants medical management.He does not want cardiac cath. Is concerned about his kidney function being affected by cardiac cath. Appreciate cardiology recommendations Status: Acute (2) Atrial fibrillation: Currently in A. fib, rate has varied from 100-110 Continue metoprolol 25 mg every 12 hours On heparin drip Status: Acute Qualifiers: Atrial fibrillation type: other persistent Qualified Code(s): I48.19 - Other persistent atrial fibrillation (3) Chronic kidney disease: Admission serum creatinine: 2.1 Baseline serum creatinine: 2.1-2.5 Monitor BMP. Avoid nephrotoxic Status: Chronic Qualifiers: Chronic kidney disease stage: stage 3 (moderate) Qualified Code(s): N18.3 - Chronic kidney disease, stage 3 (moderate) (4) Carotid stenosis: Status: Chronic Qualifiers: Laterality: bilateral Qualified Code(s): I65.23 - Occlusion and stenosis of bilateral carotid arteries (5) Diastolic CHF: History of heart failure with preserved ejection fraction. Continue Lasix 40 mg IV daily Monitor intake output Daily weight K>4, Mg>2 Status: Acute Qualifiers: Heart failure chronicity: acute Qualified Code(s): I50.31 - Acute diastolic (congestive) heart failure (6) Diabetes mellitus: Status: Acute (7) Severe chronic obstructive pulmonary disease: Status: Acute (8) Hypertension: Status: Acute Qualifiers: Hypertension type: essential hypertension Qualified Code(s): I10 - Essential (primary) hypertension (9) AAA (abdominal aortic aneurysm): Status: Acute Qualifiers: Presence of rupture: without rupture Qualified Code(s): I71.4 - Abdominal aortic aneurysm, without rupture (10) Moderate mitral regurgitation: Status: Acute Additional A&P Information DVT prophylaxis: Currently on heparin drip CODE STATUS;[facility] Necessity Statement*: Patient needs to be in hospital for management of NSTEMI. Coding Level of Care Code Acute Retail Cashier Associate for g Fwd Exam Detailed Diagnoses Non-ST elevation AK (NSTEMI) I21.4 Atrial fibrillation I48.19 Atrial fibrillation type: other persistent Chronic kidney disease N18.3 Chronic kidney disease stage: stage 3 (moderate) Carotid stenosis I65.23 Laterality: bilateral Diastolic CHF I50.31 Heart failure chronicity: acute Diabetes mellitus E11.9 Severe chronic obstructive pulmonary disease J44.9 Hypertension I10 Hypertension type: essential hypertension AAA (abdominal aortic aneurysm) I71.4 Presence of rupture: without rupture Moderate mitral regurgitation I34.0
[2020-05-16] MEDS: ondansetron 2 mg/ML SDV 2 mL 4 MG IVP (13:23)
[2020-05-16] MEDS: metoprolol tartrate 50 mg Tablet PO (19:18)
[2020-05-16] MEDS: hyDRALAzine 25 mg Tablet PO (20:08)
[2020-05-16] MEDS: FUROsemide 10 mg/mL SDV 4mL 40 MG IVP (20:08)
[2020-05-16] MEDS: atorvastatin 40 mg Tablet 80 MG PO (20:08)
[2020-05-16 22:29] LABS: Partial Thromboplastin Time 69.7 SECONDS (23.9-36.7)
[2020-05-17] VITALS (52 sets, daily range): BP systolic 67–156; BP diastolic 42–88; PULSE 72–166; RESP 16–29; TEMP 36.9–38.1; O2SAT 90–97
[2020-05-17] MEDS: morphine 4 mg/mL SDV 1 mL 2 MG IVP ×6 (01:59→21:01)
[2020-05-17] MEDS: heparin drip 25,000 UNIT/500 ML PREMIX 19 UNIT IV (03:14)
[2020-05-17] MEDS: cetylpyridinium Lozenge 1 EACH MUCOUS MEM (03:42)
[2020-05-17 05:27] LABS: Partial Thromboplastin Time 68.6 SECONDS (23.9-36.7)
--- NOTE | 2020-05-17 07:41 | XR_ITS ---
WS: [id number] Portable AP upright chest, 05/17/2020 Clinical Data: chest pain Comparison: Portable chest, 04/21/2019. Findings: No nodules, masses or effusions are seen. The heart is enlarged. The pulmonary vascularity is not increased. No pneumonia or pneumothorax is seen. The aortic arch and descending aorta show sushil cification and tortuosity. Monitor leads are on the chest wall. XR/XR chest 1V portable [id number] Impression: 1. Cardiomegaly. 2. Clearing of pulmonary vascular congestion.
--- NOTE | 2020-05-17 09:24 | PM.PN ---
Subjective Subjective: Interval history: Blood pressure got under control however patient still has mild chest pressure denies any significant shortness of breath. No arrhythmia overnight. X-ray chest is consistent with little volume overload status Medications: Reviewed: Yes Vitals/I&O/Wt Last Vital Signs Temp 98.7 F 05/17/20 07:00 Pulse 111 H 05/17/20 08:30 Resp 21 H 05/17/20 08:30 BP 135/71 05/17/20 08:30 Pulse Ox 95 05/17/20 08:30 05/16/20 05/17/20 05/17/20 22:59 06:59 14:59 Intake Total 1500 / 1890.625 285.633 / 2176.258 Output Total 1000 / 2100 Balance 500 / -209.375 285.633 / 76.258 Weight last 48 hrs Weight 144 lb 6.444 oz Physical Exam Narrative: EXAM NARRATIVE: GENERAL: Patient is alert, awake and oriented x3. NECK: No jugular vein distension. HEENT: No cyanosis. No icterus. No pallor. HEART: Regular S1 and S2. No murmur, rub or gallop. LUNGS: Clear to auscultate bilaterally. ABDOMEN: Soft, nontender and nondistended. Positive bowel sounds. No guarding, rebound or tenderness. CENTRAL NERVOUS SYSTEM: Grossly nonfocal. EXTREMITIES: Lower extremities without edema bilaterally. Data : 05/16/20 04:40 05/16/20 04:40 A&P Assessment and plan (1) Myocardial infarction: Most likely patient has completed infarct of anterior wall with possible LAD involvement. It has been more than 24 hours. Patient is not interested in invasive procedure. We will continue to treat him medically unless he change his mind. He understand all the risk benefit and alternative for the treatment. He understand the risk for further deterioration into severe heart failure arrhythmia and worse case scenario . I will obtain echocardiogram to assess LV function. Continue aspirin statin beta-yuniel nitroglycerin anticoagulation and nitro drip. Will add clopidogrel to the regimen. On today's visit dated 2020 patient denies significant chest pain. He has completed infarct. He refused left heart cath. Continue medical management I will switch patient to carvedilol add hydralazine to the regimen. Continue aspirin statin and clopidogrel. Continue anticoagulation. Status: Acute Qualifiers: Myocardial infarction type: unspecified Involved coronary artery: unspecified coronary artery Qualified Code(s): I21.9 - Acute myocardial infarction, unspecified (2) Atrial fibrillation: Stable. Status: Acute Qualifiers: Atrial fibrillation type: other persistent Qualified Code(s): I48.19 - Other persistent atrial fibrillation (3) Hypertension: Hopefully switching to carvedilol and adding hydralazine will control blood pressure at the same time we will titrate him off nitro drip. Imdur has been added as well. Status: Acute Qualifiers: Hypertension type: essential hypertension Qualified Code(s): I10 - Essential (primary) hypertension (4) Chronic kidney disease: Remained stable at baseline. Status: Chronic Qualifiers: Chronic kidney disease stage: stage 3 (moderate) Qualified Code(s): N18.3 - Chronic kidney disease, stage 3 (moderate) (5) Moderate mitral regurgitation: Added IV diuretics hopefully by diuresing it will improve Status: Acute (6) AAA (abdominal aortic aneurysm): Status: Acute Qualifiers: Presence of rupture: without rupture Qualified Code(s): I71.4 - Abdominal aortic aneurysm, without rupture (7) Carotid stenosis: Status: Chronic Qualifiers: Laterality: bilateral Qualified Code(s): I65.23 - Occlusion and stenosis of bilateral carotid arteries Attestations Medical Necessity Statement*: Patient require continuation hospitalization for above defined care. Coding Level of Care Code Acute Bread Molder for [facility] Fwd Diagnoses Myocardial infarction I21.9 Myocardial infarction type: unspecified Involved coronary artery: unspecified coronary artery Atrial fibrillation I48.19 Atrial fibrillation type: other persistent Hypertension I10 Hypertension type: essential hypertension Chronic kidney disease N18.3 Chronic kidney disease stage: stage 3 (moderate) Moderate mitral regurgitation I34.0 AAA (abdominal aortic aneurysm) I71.4 Presence of rupture: without rupture Carotid stenosis I65.23 Laterality: bilateral
[2020-05-17] MEDS: clopidogrel 75 mg Tablet PO (09:26)
[2020-05-17] MEDS: sennosides-docusate Tablet 1 TAB PO (09:26)
[2020-05-17] MEDS: aspirin 81 mg EC Tablet PO (09:26)
[2020-05-17] MEDS: carvedilol 6.25 mg Tablet PO ×2 (09:27→18:33)
[2020-05-17] MEDS: isosorbide mononitrate ER 30 mg Tablet PO (09:27)
[2020-05-17] MEDS: hyDRALAzine 25 mg Tablet PO (10:35)
[2020-05-17] MEDS: FUROsemide 10 mg/mL SDV 4mL 40 MG IVP (10:39)
--- NOTE | 2020-05-17 10:39 | PC.CHAP ---
Pastoral Care Encounter/Spiritual Assessment Type of Contact [] Declined photographic developer and printer visit [] Patient/Family/Request visit [] Outpatient visit [] Follow-up visit [] Physician referral [] Code/Alert [x] Routine visit [] Staff referral [] Actively dying [] Patient sleeping [] Family support [] [] Out of room [] Palliative care [] [] Receiving care in room [] Pre-surgical visit [] Trauma [] Long length of stay [x] ICU visit [] Other: Relational/Emotional Strength [] Patient feels connected with others/family/visitors/staff [] Distress [] Loneliness/isolation [] Abandonment Spirituality of Patient [] Person of Verna [] Attends Sabianism of their Verna [] Believes in Prayer [] Reads Bible or Congregation materials [] There are Spiritual issues to be addressed Slicing Machine Feeder Interventions [x] Prayer [x] Active listening [x] Non-anxious presence [x] Spiritual/emotional support [] Crisis/trauma care [] Spiritual counseling [] Bereavement support [] Provided bereavement packet [] Provided Bible/devotional materials [] Provided toy/stuffed animal, coloring book to patient or family member [] Provided Communion [] Anointing/[place] [] Salvation [x] Completed spiritual assessment [] Other: Impact on Illness or Injury [] Angry [] Fearful [] Anxious [] Often cries [] Exhaustion [] Unable to work [] Unable to attend anglican [] Unable to walk/stand [] Unable to read [] Unable to drive [] Unable to eat/drink [] Unable to sleep [] Unable to be with family [] Patient intubated [] Other: Summary patient feeling stronger... thankful for care Time spent with patient 5 min
[2020-05-17 12:07] LABS: Partial Thromboplastin Time 56.5 SECONDS (23.9-36.7)
[2020-05-17] MEDS: nitroglycerin drip 50 MG/250 ML PREMIX IV (14:17)
--- NOTE | 2020-05-17 15:26 | PM.PN ---
Subjective Subjective: Interval history: Patient noted improvement in chest pain however is on ngt ggt. This was decreased to 5mcg/hr. no fever, chills, nausea or vomiting. Medications: Reviewed: Yes Vitals/I&O/Wt Last Vital Signs Temp 98.5 F 05/17/20 12:00 Pulse 138 H 05/17/20 14:00 Resp 21 H 05/17/20 14:00 BP 111/81 05/17/20 14:00 Pulse Ox 94 05/17/20 14:00 05/17/20 05/17/20 05/17/20 06:59 14:59 22:59 Intake Total 285.633 / 2176.258 327.288 / 327.288 Output Total 1000 / 1000 Balance 285.633 / 76.258 -672.712 / -672.712 Weight last 48 hrs Weight 65.5 kg Physical Exam Const: COMMON NORMALS: patient oriented x3 HENMT: COMMON NORMALS: normocephalic and atraumatic HEAD & SCALP: normocephalic and atraumatic Chest: CHEST: Yes Symmetrical chest wall rise Resp: COMMON NORMALS: clear to auscultation bilaterally EFFORT & INSPECTION: Yes symmetric chest movement AUSCULTATION: clear to auscultation bilaterally Cardio: COMMON NORMALS: S1 normal heart sound present and S2 normal heart sound present HEART SOUNDS: S1 normal heart sound present and S2 normal heart sound present OTHER: Irregularly irregular rhythm, S1-S2 are variable intensity, pansystolic murmur in mitral area. GI: COMMON NORMALS: Normal to inspection, nondistended, normoactive bowel sounds present, Soft to palpation, non-tender, No hepatosplenomegaly present and no masses AUSCULTATION: Yes normoactive bowel sounds PALPATION: Yes Soft to palpation and Yes No hepatosplenomegaly present RECTAL EXAM: Yes deferred Extremity: COMMON NORMALS: no clubbing, cyanosis or edema and no pedal edema Neuro: COMMON NORMALS: patient oriented x3 Data : 05/16/20 04:40 05/16/20 04:40 A&P Assessment and plan (1) Non-ST elevation [place] (NSTEMI): Pertinent prior studies: Nuclear scan: 11/2019 Small sized perfusion abnormality of mild severity in apical lateral wall is noted. This may represent attenuation artifact however in absence of prone imaging small area of ischemia in circumflex artery territory cannot be completely excluded. Overall left ventricular systolic function is abnormal with regional wall motion abnormalities. The left ventricular ejection fraction is normal with a value of 64%. 2D echo: 04/20 : Normal left ventricular size, systolic function and wall thickness, with no regional wall motion abnormalities. Left ventricular ejection fraction is estimated at 60-65 %. Grade 2 diastolic dysfunction with moderately elevated left atrial filling pressure. Normal right ventricular size and systolic function.Right atrial pressure estimated at 15 mmHg. 2D echo: Telemetry: Aspirin 81 mg. Plavix 75 mg p.o. Atorvastatin 80 mg p.o. Metoprolol tartrate 12.5 mg p.o. daily- switched to Coreg. Imdur 30 mg p.o. daily Heparin drip Nitro drip Cardilogy on board. Repeat lab in am Wean NGT as tolerated. Status: Acute (2) Atrial fibrillation: Currently in A. fib, rate has varied from 100-110 Cardiology on board Changed to coreg On heparin drip Status: Acute Qualifiers: Atrial fibrillation type: other persistent Qualified Code(s): I48.19 - Other persistent atrial fibrillation (3) Chronic kidney disease: Admission serum creatinine: 2.1 Baseline serum creatinine: 2.1-2.5 Monitor BMP. Avoid nephrotoxic At baseline Status: Chronic Qualifiers: Chronic kidney disease stage: stage 3 (moderate) Qualified Code(s): N18.3 - Chronic kidney disease, stage 3 (moderate) (4) Carotid stenosis: Status: Chronic Qualifiers: Laterality: bilateral Qualified Code(s): I65.23 - Occlusion and stenosis of bilateral carotid arteries (5) Diastolic CHF: History of heart failure with preserved ejection fraction. Continue Lasix 40 mg IV daily Monitor intake output Daily weight K>4, Mg>2 Status: Acute Qualifiers: Heart failure chronicity: acute Qualified Code(s): I50.31 - Acute diastolic (congestive) heart failure (6) Diabetes mellitus: Status: Acute (7) Severe chronic obstructive pulmonary disease: Status: Acute (8) Hypertension: Status: Acute Qualifiers: Hypertension type: essential hypertension Qualified Code(s): I10 - Essential (primary) hypertension (9) AAA (abdominal aortic aneurysm): Status: Acute Qualifiers: Presence of rupture: without rupture Qualified Code(s): I71.4 - Abdominal aortic aneurysm, without rupture (10) Moderate mitral regurgitation: Status: Acute Additional A&P Information DVT prophylaxis: Currently on heparin drip CODE STATUS;AND Attestations Medical Necessity Statement*: Will require further hospitalization for management of chsest pain on ngt, and afib on heparin gtt with cardiology Time Spent in Patient Care: Greater than 35 minutes (>than 50% of time spent in counselling and/or direct pt care on unit). 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
--- NOTE | 2020-05-17 18:00 | PC.NURSE ---
[address] Galindo. Discussed medications and plan of care. Orders to change metoporolol to coreg and try to titrate Nitro drip off, if able patient may transfer to [facility]. [address] Blanco. Reviewed medications. Discussed patient c/o throat pain. No issues swallowing. 1330 Reported change in heart rhythm to Dr. Galindo 1350 Reported vital signs to Dr. Galindo. Reported no BMP since yesterday, no orders for labs at this time. 1355 Reported chest pain to Dr. Galindo, Nitro drip turned back on. 1400 Reported heart rhythm to Dr. Galindo.
[2020-05-17 18:23] LABS: Partial Thromboplastin Time 65.9 SECONDS (23.9-36.7)
[2020-05-17] MEDS: atorvastatin 40 mg Tablet 80 MG PO (20:35)
[2020-05-17] MEDS: sodium chloride 0.9% 500 ML IV (21:31)
[2020-05-17] MEDS: sodium chloride 0.9% 1,000 ML 100 ML IV (23:05)
[2020-05-18] VITALS (72 sets, daily range): BP systolic 77–133; BP diastolic 43–78; PULSE 81–105; RESP 14–31; TEMP 36.5–38.7; O2SAT 88–100
[2020-05-18 01:08] LABS: Partial Thromboplastin Time 75.4 SECONDS (23.9-36.7)
[2020-05-18] MEDS: acetaminophen 325 mg Tablet PO (01:36)
[2020-05-18 02:36] LABS: Platelet Count 268 10^3/cmm (130-400)
--- NOTE | 2020-05-18 03:24 | PC.NURSE ---
[facility] 1900 Bedside report done with Sintia Huynh and Germania Gil, ROBYN. Patient is alert and oriented x 4 and is resting in bed on 3L nasal cannula. Patient has nitroglycerin drip running at 10 mcg/min, cardizem drip at 10 mg/hr, and heparin drip running at 19 mL/hour as reported in change of shift, despite MAR saying 14.5 mL/hour. Next PTT per heparin drip protocol at 0010.
--- NOTE | 2020-05-18 03:38 | PC.NURSE ---
Addendum entered by Karina Riddle RN 05/18/20 05:14: Second 500 mL bolus given from 1000 mL saline bag hanging in room for continuous fluids. Original Note: HYPOTENSION 2229- Sintia Sharpe RN called Dr. Chatman for primary nurse due to manual blood pressure of 62/42. Patient is lethargic at this time but remains oriented. Order for 500 mL bolus. 6- Dr. Galindo called about 2300 to check on patient and notified of initial hypotension issue, he states if any more issues with blood pressure or any other needs to call him and gave order for normal saline 100 mL/hour. Notified him at 2346 after fluids started that patients blood pressure remains at 75/45, and he gave order for another 500 mL bolus and to call him after bolus completed. 0022- Dr. Galindo called about 500 mL bolus completing, and MAP still remains below 60 and patient is lethargic. Order for levophed drip and to continue IV fluids at 100 mL/hour.
--- NOTE | 2020-05-18 04:21 | PC.NURSE ---
CARDIZEM/NITRO DRIP Cardizem drip titrated to 5 mg/hour at 2027 due to HR sustaining in the 70s. Cardizem drip has been paused since 2221 and patients HR has remained controlled atrial fibrillation under 100 BPM. Nitro drip has been paused since initial hypotensive episode. No complaints of chest pain so far. Dr. Galindo states if he complains of chest pain again that nitro drip can be restarted.
[2020-05-18] MEDS: sodium chloride 0.9% 1,000 ML 100 ML IV (05:14)
[2020-05-18] MEDS: heparin drip 25,000 UNIT/500 ML PREMIX 23.6 UNIT IV (05:15)
--- NOTE | 2020-05-18 06:16 | PC.NURSE ---
SHIFT SUMMARY Patient has remained alert and oriented x 4 this shift. See previous notes regarding blood pressure and drips. Levophed is at 5 mcg/min. NS running at 100 mL/hour, and heparin drip reduced by 1 mL to 18 mL/hour. Next PTT at 0630 this AM, lab called to ensure they knew of draw for accurate result. 1 void of 175 mL in urinal and 1 incontinent void. Patient states he wants intervention done because he knows he has to do something, and Dr. Galindo notified of that when called about blood pressure last night. States that he will come speak with him this morning about procedure and plan for procedure Thursday morning if patient is still wanting it done.
[2020-05-18] MEDS: sennosides-docusate Tablet 1 TAB PO (09:11)
[2020-05-18] MEDS: isosorbide mononitrate ER 30 mg Tablet PO (09:11)
[2020-05-18] MEDS: aspirin 81 mg EC Tablet PO (09:11)
[2020-05-18] MEDS: clopidogrel 75 mg Tablet PO (09:11)
--- NOTE | 2020-05-18 10:20 | PC.NURSE ---
Bladder scanned pt, scanner showing 180 ml in bladder.
[2020-05-18] MEDS: carvedilol 3.125 mg Tablet PO ×2 (11:03→21:46)
[2020-05-18 11:18] LABS: Add Urine Microscopic? YES; Bilirubin Urine Neg (Negative); Blood Urine Neg (Negative); Glucose Urine UA Norm (Normal); Ketones Urine Negative (Negative); Leukocyte Esterase Urine Negative (Negative); Nitrate Urine Negative (Negative); Protein Urine 1+ (Negative); Specific Gravity, Urine 1.015 (1.005-1.030); Urine Appearance SL Hazy (CLEAR); Urine Color Yellow (Yellow); Urobilinogen Urine Norm (Negative); pH Urine 5 (5-7)
[2020-05-18 11:24] LABS: Squamous Epithelial Cell Urine 0-4 /hpf (0-5); WBC Urine 0-4 /hpf (0-5)
[2020-05-18 11:25] LABS: Add Urine Culture? No; Amorphous Sediment Urine 1+ /hpf; Bacteria Urine TRACE /hpf
[2020-05-18 12:02] LABS: Hematocrit 26.3 % (42.0-52.0); Hemoglobin 8.5 g/dL (11.7-16.6); Mean Corpuscular HGB Conc 32.3 g/dL (30.0-36.0); Mean Corpuscular Hemoglobin 31.1 pg (28.0-34.0); Mean Corpuscular Volume 96.3 fL (80-94); Mean Platelet Volume 10.8 fL (7.4-10.4); Platelet Count 247 10^3/cmm (130-400); Red Blood Count 2.73 10^6/uL (4.1-5.3); Red Cell Distribution Width 13.7 % (12.1-15.1); White Blood Count 19.3 10^3/uL (4.0-10.0)
[2020-05-18 12:20] LABS: Lactate (Lactic Acid level) 0.8 mmol/L (0.5-2.2)
[2020-05-18] MEDS: cefepime 1,000 MG in sodium chloride 0.9% (plus) 50 ML 100 MG IV (12:28)
[2020-05-18 12:30] LABS: Procalcitonin 5.99 ng/mL (0-0.5)
[2020-05-18 12:41] LABS: Alanine Aminotransferase 15 U/L (0-41); Albumin Level 3.2 g/dL (3.5-5.2); Alkaline Phosphatase 65 IU/L (40-130); Aspartate Amino Transferase 41 U/L (0-40); Blood Urea Nitrogen 51 mg/dL (8-23); Calcium 8.9 mg/dL (8.5-10.5); Carbon Dioxide 18 mmol/L (22-29); Chloride 100 mmol/L (98-107); Globulin 2.9 g/dL (1.3-4.6); Glucose 128 mg/dL (65-115); Osmolality Calculated 287 mOsm/kg (285-295); Sodium 131 mmol/L (136-145); Total Bilirubin 0.5 mg/dL (0.15-1.2); Total Protein 6.1 g/dL (6.6-8.7)
[2020-05-18 12:49] LABS: Anion Gap 18.5 (5-19); Potassium 5.5 mmol/L (3.5-5.1)
[2020-05-18 12:57] LABS: Absolute Neutrophil 13.7 10^3/cmm (1.4-6.5); Absolute Segmented Neutrophil 12.7 10/cmm (1.6-7.1); Eosinophils 0 %; Giant Platelets Trace; Lymphocytes 10 %; Lymphocytes Absolute 1.9 10^3/cmm (1.2-3.4); Monocytes Absolute 3.7 10^3/cmm (0.1-0.6); Platelet Estimate Normal (Normal); Segmented Neutrophils 66 %
--- NOTE | 2020-05-18 12:58 | P.PN_ITS ---
Subjective Subjective: Interval history: Overnight patient became hypotensive, responded to IVF however did also require initiation of levophed. Was givena bolus of NS and started on IVF at 100cc/hr. Antihypertensives were held last night. Noted to have Tmax of 101.7, noted increase productive cough as well. Medications: Reviewed: Yes Vitals/I&O/Wt Last Vital Signs Temp 97.7 F 05/18/20 08:00 Pulse 91 05/18/20 11:15 Resp 19 H 05/18/20 11:15 BP 107/78 05/18/20 11:15 Pulse Ox 97 05/18/20 11:15 05/17/20 05/18/20 05/18/20 22:59 06:59 14:59 Intake Total 712.417 / 4389.133 3104.380 / 2291.085 272.947 / 272.947 Output Total 300 / 1300 Balance 412.417 / -914.016 7876.380 / 991.085 272.947 / 272.947 Weight last 48 hrs Weight 81.783 kg Physical Exam Const: COMMON NORMALS: patient oriented x3 HENMT: COMMON NORMALS: normocephalic and atraumatic HEAD & SCALP: normocephalic and atraumatic Chest: CHEST: Yes Symmetrical chest wall rise Resp: COMMON NORMALS: clear to auscultation bilaterally EFFORT & INSPECTION: Yes symmetric chest movement AUSCULTATION: clear to auscultation bilaterally Cardio: COMMON NORMALS: S1 normal heart sound present and S2 normal heart ed[place] nd present HEART SOUNDS: S1 normal heart sound present and S2 normal heart sound present OTHER: Irregularly irregular rhythm, S1-S2 are variable intensity, pansystolic murmur in mitral area. GI: COMMON NORMALS: Normal to inspection, nondistended, normoactive bowel soun ds present, Soft to palpation, non-tender, No hepatosplenomegaly present and no masses AUSCULTATION: Yes normoactive bowel sounds PALPATION: Yes Soft to palpation and Yes No hepatosplenomegaly present RECTAL EXAM: Yes deferred Extremity: COMMON NORMALS: no clubbing, cyanosis or edema and no pedal edema Neuro: COMMON NORMALS: patient oriented x3 Urinary Catheter Management^: Rob: Cath Placed During This Visit: yes Urinary Catheter Date of Insertion: 04/09/21 Urinary Catheter Time of Insertion: 11:00 Data : 05/18/20 11:52 05/18/20 11:52 Micro: Microbiology 05/18/20 01:43 Blood Culture - Preliminary Blood SPECIMEN COLLECTED 05/18/20 01:43 Blood Culture - Preliminary Blood SPECIMEN COLLECTED A&P Assessment and plan (1) Non-ST elevation NM (NSTEMI): Pertinent prior studies: Nuclear scan: 11/2019 Small sized perfusion abnormality of mild severity in apical lateral wall is noted. This may represent attenuation artifact however in absence of prone imaging small area of ischemia in circumflex artery territory cannot be complet jessica excluded. Overall left ventricular systolic function is abnormal with regional wall motion abnormalities. The left ventricular ejection fraction is normal with a value of 64%. 2D echo: 04/20 : Normal left ventricular size, systolic function and wall thickness, with no regional wall motion abnormalities. Left ventricular ejection fraction is estimated at 60-65 %. Grade 2 diastolic dysfunction with moderately elevated left atrial filling pressure. Normal right ventricular size and systolic f unction.Right atrial pressure estimated at 15 mmHg. 2D echo: Telemetry: Aspirin 81 mg. Plavix 75 mg p.o. Coreg 3.125 mg po BID Imdur 30 mg p.o. daily Heparin drip Nitro drip- wean as tolerated Cardilogy on board. Repeat lab in am Patient is agreeable for cardiac cath - defer to cardiology Status: Acute (2) Atrial fibrillation: Currently in A. fib, rate has varied from 100-110 Cardiology on board Changed to coreg 3.125 mg PO BID On heparin drip Was started on cardizem gtt overnight - weaned Status: Acute Qualifiers: Atrial fibrillation type: other persistent Qualified Code(s): I48.19 - Other persistent atrial fibrillation (3) Carotid stenosis: Status: Chronic Qualifiers: Laterality: bilateral Qualified Code(s): I65.23 - Occlusion and stenosis of bilateral carotid arteries (4) Diastolic CHF: History of heart failure with preserved ejection fraction. Continue Lasix 40 mg IV daily - HELD Monitor intake output Daily weight K>4, Mg>2 Status: Acute Qualifiers: Heart failure chronicity: acute Qualified Code(s): I50.31 - Acute diastolic (congestive) heart failure (5) Diabetes mellitus: Sliding scale insulin Status: Acute (6) Severe chronic obstructive pulmonary disease: Status: Acute (7) Hypertension: Status: Acute Qualifiers: Hypertension type: essential hypertension Qualified Code(s): I10 - Essential (primary) hypertension (8) AAA (abdominal aortic aneurysm): Status: Acute Qualifiers: Presence of rupture: without rupture Qualified Code(s): I71.4 - Abdominal aortic aneurysm, without rupture (9) Moderate mitral regurgitation: Status: Acute (10) Hyperkalemia: Likley due to worsening renal function Kayexelate 15g PO x 1 Calcium gluconate 1g iv x 1 1 amp d50 with 10 units of regular insulin Check BS q1hr x 3 after insulin Repeat bmp in am Status: Acute (11) Sepsis associated hypotension: Tmax 101.7 Horvath culture drawn Pro-calcitoin 5.86 Empirically started on vancomycin pharmacy to dose Cefepime 1 g IV q12hr Started on levophed - hypotension possible related to meds vs sepsis Lactic acid - check - trend if high Possible pulmonary source Tylenol PRN for fever Status: Acute (12) Acute worsening of stage 3 chronic kidney disease: Admission serum creatinine: 2.1 ->>> increased to 3.6 - likely due to hypotension Baseline serum creatinine: 2.1-2.5 Monitor BMP. Avoid nephrotoxic At baseline Bolus of NS NS at 100cc/hr Holding diuretics Avoid hypotension May consider nephrology consult Rob placement Status: Acute Additional A&P Information DVT prophylaxis: Currently on heparin drip CODE STATUS;AND Attestations Medical Necessity Statement*: Will require further hospital stay for management of sepsis, worsening renal failure, hyperkalemia, and acs Time Spent in Patient Care: Greater than 35 minutes (>than 50% of time s pent in counselling and/or direct pt care on unit) . Critical Care Time: Critical Care Time (min): 65 Coding Level of Care Code Acute [employer] for g Fwd Diagnoses Non-ST elevation NM (NSTEMI) I21.4 Atrial fibrillation I48.19 Atrial fibrillation type: other persistent Carotid stenosis I65.23 Laterality: bilateral Diastolic CHF I50.31 Heart failure chronicity: acute Diabetes mellitus E11.9 Severe chronic obstructive pulmonary disease J44.9 Hypertension I10 Hypertension type: essential hypertension AAA (abdominal aortic aneurysm) I71.4 Presence of rupture: without rupture Moderate mitral regurgitation I34.0 Hyperkalemia E87.5 Sepsis associated hypotension A41.9; I95.9 Acute worsening of stage 3 chronic kidney disease N18.30
[2020-05-18 13:08] LABS: Total Cells Counted 100 (0-100)
--- NOTE | 2020-05-18 13:17 | XR_ITS ---
WS: [id number] Portable AP upright chest, 05/18/2020 Clinical Data: SOB Comparison: Portable chest, 05/17/2020 Findings: No nodules or masses are seen. The heart is enlarged. The pulmonary vascularity is not inc reased. No pneumonia or pneumothorax is seen. There is a small left pleural effusion. The aortic arch and descending aorta show calcification and tortuosity. XR/XR chest 1V portable [id number] Impression: 1. Cardiomegaly and atherosclerosis 2. Small left pleural effusion.
[2020-05-18] MEDS: vancomycin 1,000 MG in sodium chloride 0.9% 250 ML 250 MG IV (13:29)
[2020-05-18] MEDS: sodium polystyrene sulfonate 15 gm/60 mL Btl PO (13:30)
[2020-05-18] MEDS: dextrose 50% syringe 50 mL IVP (13:30)
[2020-05-18] MEDS: insulin regular-human 10 UNIT in SYRINGE 1 EACH 300 UNIT IVP (13:32)
[2020-05-18 14:03] LABS: NT Pro B Type Natriuretic Pept 17876 pg/mL (0-450)
[2020-05-18 14:06] LABS: Glucose Point of Care 227 mg/dL (70-110)
--- NOTE | 2020-05-18 14:59 | PC.NURSE ---
[address] Galindo to clarify Coreg order while patient is on the Levophed drip. [address] Blanco. Discussed fever over night, labs, and Coreg administration while on Levophed drip. Orders to decrease Coreg to 3.125 mg. Reported low UOP over night and bladder scan of 180 ml at 1020. Orders for Rob and labs. 1250 Reported lab results to Dr. Blanco. Orders obtained. [address] Galindo. Discussed plan of care. No indication for heart cath at this time. Orders to DC IVF, CXR, and Pro-BNP. Orders to hold Coreg while on Levophed drip. [address] Galindo to report CXR and BNP results.
[2020-05-18 15:08] LABS: Glucose Point of Care 158 mg/dL (70-110)
--- NOTE | 2020-05-18 16:01 | PC.NURSE ---
1550 Spoke to lab who reported patient's PTT had a clot in it, stated someone from lab will be over to redraw blood. Dr. Galindo on unit. Reviewed labs and chest xray. No indication for lasix at this time.
[2020-05-18 16:09] LABS: Glucose Point of Care 140 mg/dL (70-110)
--- NOTE | 2020-05-18 16:48 | PC.NURSE ---
Called lab to check status of PTT,lab stated tech was out collecting samples.
--- NOTE | 2020-05-18 17:00 | PC.NURSE ---
Notified Dr. Galindo of patients output of 260 ml this shift. No new orders.
--- NOTE | 2020-05-18 17:43 | PC.RESP ---
Smoking Cessation and Pulmonary Rehab information sent to patient.
[2020-05-18 18:02] LABS: Partial Thromboplastin Time 38.7 SECONDS (23.9-36.7)
--- NOTE | 2020-05-18 18:10 | PC.NURSE ---
1700 Spoke to lab to check on status of blood draw for PTT, laboratory secretary states she is one her way.
[2020-05-18] MEDS: heparin 5,000 unit/mL INJ 1 mL IV (18:23)
--- NOTE | 2020-05-18 21:15 | P.PN_ITS ---
Subjective Subjective: Interval history: Patient denied chest pain but last night dropped his blood pressure for which he was given IV bolus. Lasix was discontinued. Creatinine has worsened with high potassium. Hemoglobin is at 8.5 Medications: Reviewed: Yes Vitals/I&O/Wt Last Vital Signs Temp 98.5 F 05/18/20 14:34 Pulse 96 05/18/20 18:00 Resp 21 H 05/18/20 18:00 BP 97/71 05/18/20 18:00 Pulse Ox 95 05/18/20 18:00 05/18/20 05/18/20 05/18/20 06:59 14:59 22:59 Intake Total 1251.380 / 2291.085 602.807 / 531.606 2350.773 / 2009.580 Output Total 260 / 260 Balance 1251.380 / 991.085 602.807 / 199.525 2289.773 / 1749.580 Weight last 48 hrs Weight 180 lb 4.8 oz Physical Exam Narrative: EXAM NARRATIVE: GENERAL: Patient is alert, awake and oriented x3. NECK: No jugular vein distension. HEENT: No cyanosis. No icterus. No pallor. HEART: Regular S1 and S2. No murmur, rub or gallop. LUNGS: Clear to auscultate bilaterally. ABDOMEN: Soft, nontender and nondistended. Positive bowel sounds. No guarding, rebound or tenderness. CENTRAL NERVOUS SYSTEM: Grossly nonfocal. EXTREMITIES: Lower extremities without edema bilaterally. Urinary Catheter Management^: Rob: Cath Placed During This Visit: yes Reason for Continuing Indwelling Catheter: Accurate Measurement of Urinary Output in Critically Ill Patients Urinary Catheter Date of Insertion: 05/18/20 Urinary Catheter Time of Insertion: 11:00 Data : 05/18/20 11:52 05/18/20 11:52 Micro: Microbiology 05/18/20 01:43 Blood Culture - Preliminary Blood SPECIMEN COLLECTED 05/18/20 01:43 Blood Culture - Preliminary Blood SPECIMEN COLLECTED A&P Assessment and plan (1) Myocardial infarction: Most likely patient has completed infarct of anterior wall with possible LAD involvement. It has been more than 24 hours. Patient is not interested in invasive procedure. We will continue to treat him medically unless he change his mind. He understand all the risk benefit and alternative for the treatment. He understand the risk for further deterioration into severe heart failure arrhythmia and worse case scenario . I will obtain echocardiogram to assess LV function. Continue aspirin statin beta-yuniel nitroglycerin anticoagulation and nitro drip. Will add clopidogrel to the regimen. On today's visit dated 2020 patient denies significant chest pain. He has completed infarct. He refused left heart cath. Continue medical management I will switch patient to carvedilol add hydralazine to the regimen. Continue aspi rin statin and clopidogrel. Continue anticoagulation. On today's visit dated 05/18/2020 patient denies any chest pain last night he dropped his blood pressure for which he was started on Levophed after bolus, we will continue medical management I have discussion with the patient in detail at this point since he is chest pain-free and in renal failure along with anemia intervention is not indicated Status: Acute Qualifiers: Myocardial infarction type: unspecified Involved coronary artery: unspecified coronary artery Qualified Code(s): I21.9 - Acute myocardial infarction, unspecified (2) Atrial fibrillation: Stable. Status: Acute Qualifiers: Atrial fibrillation type: other persistent Qualified Code(s): I48.19 - Other persistent atrial fibrillation (3) Hypertension: hold antihypertensives due to hypotension Status: Acute Qualifiers: Hypertension type: essential hypertension Qualified Code(s): I10 - Essential (primary) hypertension (4) Chronic kidney disease: Due to hyperkalemia patient was given Kayexalate insulin and gluconate, will check potassium now. Continue IV fluid with gentle hydration 70/h Status: Chronic Qualifiers: Chronic kidney disease stage: stage 3 (moderate) Qualified Code(s): N18.3 - Chronic kidney disease, stage 3 (moderate) (5) Moderate mitral regurgitation: Hold diuretics for now Status: Acute (6) AAA (abdominal aortic aneurysm): Status: Acute Qualifiers: Presence of rupture: without rupture Qualified Code(s): I71.4 - Abdo fawn aortic aneurysm, without rupture (7) Carotid stenosis: Status: Chronic Qualifiers: Laterality: bilateral Qualified Code(s): I65.23 - Occlusion and stenosis of bilateral carotid arteries Attestations 2 Medical Necessity Statement*: Patient require continuation hospitalization in the ICU Coding Level of Care Code 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
[2020-05-18] MEDS: sodium chloride 0.9% 1,000 ML 75 ML IV (21:46)
[2020-05-18] MEDS: atorvastatin 40 mg Tablet 80 MG PO (21:47)
[2020-05-18 23:50] LABS: Partial Thromboplastin Time 56.2 SECONDS (23.9-36.7)
[2020-05-19] VITALS (50 sets, daily range): BP systolic 89–158; BP diastolic 46–85; PULSE 82–124; RESP 16–26; TEMP 36.6–37; O2SAT 90–98
--- NOTE | 2020-05-19 04:32 | PC.NURSE ---
ASSUMING CARE 1900 Patient is on 2L nasal cannula. Alert and oriented x 4. Heparin drip running at 16 mL/hour. Rob catheter in place and draining.
[2020-05-19 05:41] LABS: Basophils # 0.1 10^3/uL (0.0-0.1); Basophils % 0.5 %; Eosinophils % 0.1 %; Hematocrit 25.9 % (42.0-52.0); Hemoglobin 8.2 g/dL (11.7-16.6); Lymphocytes % 6.7 %; Mean Corpuscular HGB Conc 31.7 g/dL (30.0-36.0); Mean Corpuscular Hemoglobin 31.2 pg (28.0-34.0); Mean Corpuscular Volume 98.5 fL (80-94); Mean Platelet Volume 11.3 fL (7.4-10.4); Monocytes # 1.6 10^3/uL (0.2-0.9); Monocytes % 10.8 %; Neutrophils # 12.09 10^3/uL (1.8-7.7); Neutrophils % 80.4 %; Nucleated Red Blood Cells % 0 %; Platelet Count 238 10^3/cmm (130-400); Red Blood Count 2.63 10^6/uL (4.1-5.3); Red Cell Distribution Width 13.7 % (12.1-15.1)
[2020-05-19 05:55] LABS: Partial Thromboplastin Time 66.8 SECONDS (23.9-36.7)
[2020-05-19 06:05] LABS: Alanine Aminotransferase 14 U/L (0-41); Albumin Level 3.1 g/dL (3.5-5.2); Alkaline Phosphatase 63 IU/L (40-130); Anion Gap 18.1 (5-19); Aspartate Amino Transferase 26 U/L (0-40); Blood Urea Nitrogen 61 mg/dL (8-23); Calcium 8.9 mg/dL (8.5-10.5); Carbon Dioxide 18 mmol/L (22-29); Chloride 100 mmol/L (98-107); Globulin 2.7 g/dL (1.3-4.6); Glucose 88 mg/dL (65-115); Osmolality Calculated 289 mOsm/kg (285-295); Potassium 5.1 mmol/L (3.5-5.1); Sodium 131 mmol/L (136-145); Total Bilirubin 0.3 mg/dL (0.15-1.2); Total Protein 5.8 g/dL (6.6-8.7)
[2020-05-19] MEDS: aspirin 81 mg EC Tablet PO (08:34)
[2020-05-19] MEDS: isosorbide mononitrate ER 30 mg Tablet PO (08:34)
[2020-05-19] MEDS: carvedilol 3.125 mg Tablet PO ×2 (08:34→21:38)
[2020-05-19] MEDS: clopidogrel 75 mg Tablet PO (08:34)
[2020-05-19] MEDS: cetylpyridinium Lozenge 1 EACH MUCOUS MEM (08:36)
--- NOTE | 2020-05-19 10:45 | PC.SOCIAL ---
IMM Update Pg.2 of IMM updated and reviewed with patient who verbalized understanding. Copy provided.
[2020-05-19] MEDS: sodium chloride 0.9% 1,000 ML 75 ML IV ×2 (11:30→23:23)
--- NOTE | 2020-05-19 11:33 | P.PN_ITS ---
Subjective Subjective: Interval history: Patient says that he feels tired. He denies any chest pain. Has some shortness of breath. His creatinine has worsened significantly. On IV fluids. Vitals/I&O/Wt Last Vital Signs Temp 98.6 F 05/19/20 07:00 Pulse 90 05/19/20 10:30 Resp 23 H 05/19/20 11:00 BP 110/69 05/19/20 11:00 Pulse Ox 97 05/19/20 11:00 05/18/20 05/19/20 05/19/20 22:59 06:59 14:59 Intake Total 1466.773 / 2069.580 1300 / 1300 Output Total 260 / 260 125 / 385 Balance 1206.773 / 1809.580 -125 / 3649.272 9920 / 1300 Weight last 48 hrs Weight 182 lb 4.8 oz Weight 180 lb 4.8 oz Physical Exam Narrative: EXAM NARRATIVE: GENERAL: Patient is alert, awake and oriented x3. NECK: No jugular vein distension. HEENT: No cyanosis. No icterus. No pallor. HEART: Regular S1 and S2. No murmur, rub or gallop. LUNGS: Clear to auscultate bilaterally. ABDOMEN: Soft, nontender and nondistended. Positive bowel sounds. No guarding, rebound or tenderness. CENTRAL NERVOUS SYSTEM: Grossly nonfocal. EXTREMITIES: Lower extremities without edema bilaterally. Urinary Catheter Management^: Rob: Cath Placed During This Visit: yes Reason for Continuing Indwelling Catheter: Accurate Measurement of Urinary Output in Critically Ill Patients Urinary Catheter Date of Insertion: 05/18/20 Urinary Catheter Time of Insertion: 11:00 Data : 05/20/20 05:19 05/19/20 18:11 Micro: Microbiology 05/18/20 01:43 Blood Culture - Preliminary Blood NEGATIVE TO DATE 05/18/20 01:43 Blood Culture - Preliminary Blood NEGATIVE TO DATE A&P Assessment and plan (1) Myocardial infarction: Most likely patient has completed infarct of anterior wall with possible LAD involvement. Patient had refused coronary angiogram after that. Plans for medical management. His echocardiogram shows preserved LV systolic function. There is significant worsening of renal function. Consult nephrology. Continue IV fluids. Repeat BMP in the evening. Status: Acute Qualifiers: Myocardial infarction type: unspecified Involved coronary artery: unspecified coronary artery Qualified Code(s): I21.9 - Acute myocardial infarction, unspecified (2) Atrial fibrillation: Stable. Status: Acute Qualifiers: Atrial fibrillation type: other persistent Qualified Code(s): I48.19 - Other persistent atrial fibrillation (3) Hypertension: hold antihypertensives due to hypotension Status: Acute Qualifiers: Hypertension type: essential hypertension Qualified Code(s): I10 - Essential (primary) hypertension (4) Chronic kidney disease: Patient's creatinine has significantly worsened. Consult nephrology. Continue IV fluids. Status: Chronic Qualifiers: Chronic kidney disease stage: stage 3 (moderate) Qualified Code(s): N18.3 - Chronic kidney disease, stage 3 (moderate) (5) Moderate mitral regurgitation: Hold diuretics for now Status: Acute (6) AAA (abdominal aortic aneurysm): Status: Acute Qualifiers: Presence of rupture: without rupture Qualified Code(s): I71.4 - Abdominal aortic aneurysm, without rupture (7) Carotid stenosis: Status: Chronic Qualifiers: Laterality: bilateral Qualified Code(s): I65.23 - Occlusion and stenosis of bilateral carotid arteries Attestations Medical Necessity Statement*: Care expected to cross 2 midnights. 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
[2020-05-19] MEDS: cefepime 1,000 MG in sodium chloride 0.9% (plus) 50 ML 100 MG IV (11:38)
[2020-05-19 11:51] LABS: Partial Thromboplastin Time 53.9 SECONDS (23.9-36.7)
[2020-05-19] MEDS: heparin 5,000 unit/mL INJ 1 mL IV (12:37)
--- NOTE | 2020-05-19 16:12 | PM.PN ---
Subjective Subjective: Interval history: No new clinical events overnight. Patient was weaned off nitroglycerin and Levophed. No fevers overnight. No chest pain. Medications: Reviewed: Yes Vitals/I&O/Wt Last Vital Signs Temp 98.6 F 05/19/20 11:30 Pulse 93 05/19/20 13:53 Resp 26 H 05/19/20 13:30 BP 114/77 05/19/20 13:30 Pulse Ox 96 05/19/20 13:30 05/19/20 05/19/20 05/19/20 06:59 14:59 22:59 Intake Total 1791.467 / 1791.467 Output Total 125 / 385 100 / 100 Balance -125 / 7720.428 7901.467 / 1691.467 Weight last 48 hrs Weight 82.69 kg Weight 81.783 kg Physical Exam Const: COMMON NORMALS: patient oriented x3 HENMT: COMMON NORMALS: normocephalic and atraumatic HEAD & SCALP: normocephalic and atraumatic Chest: CHEST: Yes Symmetrical chest wall rise Resp: COMMON NORMALS: clear to auscultation bilaterally EFFORT & INSPECTION: Yes symmetric chest movement AUSCULTATION: clear to auscultation bilaterally Cardio: COMMON NORMALS: S1 normal heart sound present and S2 normal heart sound present HEART SOUNDS: S1 normal heart sound present and S2 normal heart sound present OTHER: Irregularly irregular rhythm, S1-S2 are variable intensity, pansystolic murmur in mitral area. GI: COMMON NORMALS: Normal to inspection, nondistended, normoactive bowel sounds present, Soft to palpation, non-tender, No hepatosplenomegaly present and no masses AUSCULTATION: Yes normoactive bowel sounds PALPATION: Yes Soft to palpation and Yes No hepatosplenomegaly present RECTAL EXAM: Yes deferred Extremity: COMMON NORMALS: no clubbing, cyanosis or edema and no pedal edema Neuro: COMMON NORMALS: patient oriented x3 Urinary Catheter Management^: Rob: Cath Placed During This Visit: yes Reason for Continuing Indwelling Catheter: Accurate Measurement of Urinary Output in Critically Ill Patients Urinary Catheter Date of Insertion: 05/18/20 Urinary Catheter Time of Insertion: 11:00 Data : 05/19/20 05:23 05/19/20 05:23 Micro: Microbiology 05/19/20 12:50 MRSA Culture - Final Nose 05/18/20 12:00 Gram Stain - Final Sputum - Expectorated Sputum 05/18/20 01:43 Blood Culture - Preliminary Blood NEGATIVE TO DATE 05/18/20 01:43 Blood Culture - Preliminary Blood NEGATIVE TO DATE A&P Assessment and plan (1) Non-ST elevation [place] (NSTEMI): Pertinent prior studies: Nuclear scan: 11/2019 Small sized perfusion abnormality of mild severity in apical lateral wall is noted. This may represent attenuation artifact however in absence of prone imaging small area of ischemia in circumflex artery territory cannot be completely excluded. Overall left ventricular systolic function is abnormal with regional wall motion abnormalities. The left ventricular ejection fraction is normal with a value of 64%. 2D echo: 04/20 : Normal left ventricular size, systolic function and wall thickness, with no regional wall motion abnormalities. Left ventricular ejection fraction is estimated at 60-65 %. Grade 2 diastolic dysfunction with moderately elevated left atrial filling pressure. Normal right ventricular size and systolic function.Right atrial pressure estimated at 15 mmHg. 2D echo: Telemetry: Aspirin 81 mg. Plavix 75 mg p.o. Coreg 3.125 mg po BID Imdur 30 mg p.o. daily Heparin drip Off Nitro gtt Cardilogy on board. No current plan for cath Chest pain improved. Status: Acute (2) Atrial fibrillation: Rate controlled Cardiology on board Changed to coreg 3.125 mg PO BID On heparin drip Status: Acute Qualifiers: Atrial fibrillation type: other persistent Qualified Code(s): I48.19 - Other persistent atrial fibrillation (3) Carotid stenosis: Status: Chronic Qualifiers: Laterality: bilateral Qualified Code(s): I65.23 - Occlusion and stenosis of bilateral carotid arteries (4) Diastolic CHF: History of heart failure with preserved ejection fraction. Continue Lasix 40 mg IV daily - HELD Monitor intake output Daily weight K>4, Mg>2 Status: Acute Qualifiers: Heart failure chronicity: acute Qualified Code(s): I50.31 - Acute diastolic (congestive) heart failure (5) Diabetes mellitus: Sliding scale insulin Status: Acute (6) Severe chronic obstructive pulmonary disease: Status: Acute (7) Hypertension: Status: Acute Qualifiers: Hypertension type: essential hypertension Qualified Code(s): I10 - Essential (primary) hypertension (8) AAA (abdominal aortic aneurysm): Status: Acute Qualifiers: Presence of rupture: without rupture Qualified Code(s): I71.4 - Abdominal aortic aneurysm, without rupture (9) Moderate mitral regurgitation: Status: Acute (10) Hyperkalemia: Improved after tx 5.1 today Status: Acute (11) Sepsis associated hypotension: No clear source of infection Culture drawn - no NGTD Pro-calcitoin 5.86- Recheck in am - could be high in setting of renal failure Empirically started on vancomycin pharmacy to dose Cefepime 1 g IV q12hr Off pressors Status: Acute (12) Acute worsening of stage 3 chronic kidney disease: Admission serum creatinine: 2.1 ->>> increased to 3.6 - likely due to hypotension - Increased to 4.1 Baseline serum creatinine: 2.1-2.5 Monitor BMP. Avoid nephrotoxic At baseline Bolus of NS NS at 75 cc/hr Holding diuretics Avoid hypotension Nephrology consult Rob placement Status: Acute Additional A&P Information DVT prophylaxis: Currently on heparin drip CODE STATUS;AND Attestations Medical Necessity Statement*: Will require further hospitalization for management of possible sepsis, atrial fibrillation, non STEMI, worsening renal failure Time Spent in Patient Care: Greater than 35 minutes (>than 50% of time spent in counselling and/or direct pt care on unit). Coding Level of Care Code Acute [employer] Head for g Fwd Diagnoses Non-ST elevation [place] (NSTEMI) I21.4 Atrial fibrillation I48.19 Atrial fibrillation type: other persistent Carotid stenosis I65.23 Laterality: bilateral Diastolic CHF I50.31 Heart failure chronicity: acute Diabetes mellitus E11.9 Severe chronic obstructive pulmonary disease J44.9 Hypertension I10 Hypertension type: essential hypertension AAA (abdominal aortic aneurysm) I71.4 Presence of rupture: without rupture Moderate mitral regurgitation I34.0 Hyperkalemia E87.5 Sepsis associated hypotension A41.9; I95.9 Acute worsening of stage 3 chronic kidney disease N18.30
[2020-05-19] MEDS: heparin drip 25,000 UNIT/500 ML PREMIX 18 UNIT IV (17:09)
[2020-05-19 18:29] LABS: Partial Thromboplastin Time 57.2 SECONDS (23.9-36.7)
[2020-05-19 18:39] LABS: Anion Gap 17.7 (5-19); Blood Urea Nitrogen 66 mg/dL (8-23); Calcium 9.2 mg/dL (8.5-10.5); Carbon Dioxide 19 mmol/L (22-29); Chloride 98 mmol/L (98-107); Glucose 137 mg/dL (65-115); Osmolality Calculated 291 mOsm/kg (285-295); Potassium 4.7 mmol/L (3.5-5.1); Sodium 130 mmol/L (136-145)
[2020-05-19] MEDS: ondansetron 2 mg/ML SDV 2 mL 4 MG IVP (21:09)
[2020-05-19] MEDS: atorvastatin 40 mg Tablet 80 MG PO (21:37)
[2020-05-19] MEDS: simethicone 80 mg Chew PO (21:48)
[2020-05-19] MEDS: acetaminophen 325 mg Tablet PO (23:22)
[2020-05-20] VITALS (51 sets, daily range): BP systolic 90–139; BP diastolic 51–85; PULSE 77–97; RESP 2–26; TEMP 36.9; O2SAT 82–98
--- NOTE | 2020-05-20 00:17 | PC.NURSE ---
Addendum entered by Silvia Sharpe RN 05/21/20 00:25: Note entered on incorrect patient. Original Note: Central line Note At approx 2040 nurse to round and administer medication to patient. Left IJ central line found pulled out several cm with small portion of catheter remaining inside patient, sutures still intact. Levophed and fluids stopped at that time. Dr. Chatman was notified by phone. Dr. Chatman placed new central line over guide wire and secured device. Bp without pressor 60/[address] Chatman at bedside and chest xray revealed incorrect placement. Catheter was removed. Dr. Sandhu and Dr. Chatman at bedside, placed right femoral vein central line. Time out completed.
[2020-05-20] MEDS: morphine 4 mg/mL SDV 1 mL 2 MG IVP (00:32)
[2020-05-20] MEDS: vancomycin 1,000 MG in sodium chloride 0.9% 250 ML 250 MG IV (00:33)
--- NOTE | 2020-05-20 00:45 | PC.NURSE ---
Patient complains of chest discomfort at 0032, patient dozing intermittently. Vital signs reviewed. Rates 5/10. Denies shortness of breath. 2mg morphine given IVP at that time with resolution of chest pain approx 30 minutes after administration.
[2020-05-20 01:08] LABS: Partial Thromboplastin Time 57.5 SECONDS (23.9-36.7)
[2020-05-20 05:31] LABS: Platelet Count 251 10^3/cmm (130-400)
[2020-05-20] MEDS: lanolin oint 7 gm 1 APPLIC TOPICAL (05:43)
[2020-05-20] MEDS: nitroglycerin 0.4 mg sublingual Tablet SUBLINGUAL (05:53)
--- NOTE | 2020-05-20 06:02 | PC.NURSE ---
Patient complains of chest discomfort this am. Rates pain 4/10. 1 sublingual nitro given at this time. 5 minutes later patient reports chest pain level 3/10. Denies shortness of breath at this this. 2nd dose nitro tab not delivered due to BP 90/54 after first nitro. Pt is relaxed and attempting to sleep. Will continue to monitor.
--- NOTE | 2020-05-20 07:08 | P.CONIM_ITS ---
Providers/Reason For Consult Consulting Physican/Specialty*: radha maloney md / telenephrology Reason for Consult*: POPPY on CKD stage 4 Attending Physician: Nicholas Blanco Primary Care Provider: Dominga Cortez MD History of Present Illness History of Present Illness Jennifer Michaud is a 84 year old male w/ CKD stage 4- baseline cr 2 in 2019. He was admitted w/ cp and NSTEMI- felt completed AMI on 05/16/20. His history includes grade 2 diastolic dysfunction, moderate Mitral regurgitation, AAA< a fib,carotid stenosis s/p CEA, DM, COPD. The pts BP was treated, lasix and nitro drip were started, catia-i was held. The pt declined angiogram [place] of risk of POPPY/ SAPPHIRE. The pt became hypotensive between nights of 05/17 to 05/18/20- he also developed a fever and a cough. He was started on cardizem drip, lasix held 05/18/20. He was started on iv vanco- convertrd to cefepime, and hyperkalemia treated medically. His cr was 2.1 on 05/16/20 by 05/18 cr was 3.6 mgm/dl. currently cr is 3.9 mg/dl. BP stable and he has edema. Pt is a little confused. Review of Systems General: Reports: 10 or more systems reviewed and unremarkable except in HPI and below Narrative: weak, + CP, sob, urinating in whiteside, nausea, abd pain. Meds/Allergies Home Medications and Allergies Home Medications Medication Instructions Recorded Confirmed Last Taken Type carboxymethylcellulose sodium 0.5 1 drop OPHTHALMIC (EYE) BID 02/14/19 05/16/20 04/20/19 History % eye drops cholecalciferol (vitamin D3) 50 2,000 unit PO DAILY@06 02/14/19 05/16/20 04/20/19 History mcg (2,000 unit) tablet fluticasone propionate 50 1 spray INTRANASAL BID PRN 02/14/19 05/16/20 04/20/19 History mcg/actuation nasal spray,suspension hydrocodone 5 mg-acetaminophen 325 1 tab PO TID@06,12,18 PRN 02/14/19 05/16/20 04/20/19 History mg tablet omeprazole 20 mg capsule,delayed 20 mg PO DAILY@06 cap 02/14/19 05/16/20 04/20/19 History release acetaminophen 500 mg tablet 500 mg PO Q6H PRN tab 05/10/19 05/16/20 Unknown History cinacalcet 30 mg tablet 30 mg PO DAILY@08/10/19 05/16/20 Unknown History vit C 250 mg-vit E 90 mg-zinc 40 1 tab PO BID@06,18 08/10/19 05/16/20 Unknown History mg-copper 1 [id number] capsule lisinopril 10 mg tablet 10 mg PO DAILY@11/02/19 05/16/20 Unknown History aspirin 81 mg tablet,delayed 81 mg PO DAILY@06 12/12/19 05/16/20 Unknown History release isosorbide mononitrate 30 mg 30 mg PO DAILY #90 tab 12/12/19 05/16/20 Unknown Rx tablet,extended release 24 hr nifedipine 60 mg tablet,extended 60 mg PO DAILY #90 tab 02/08/20 05/16/20 Unknown Rx release atorvastatin 40 mg PO QPM 05/16/20 05/16/20 Unknown History dextromethorphan-guaifenesin 1 tab PO DAILY@18 05/16/20 05/16/20 Unknown History [Mucus Relief DM] iron 325 mg PO DAILY@18 05/16/20 05/16/20 Unknown History metoprolol tartrate 12.5 mg PO BID 05/16/20 05/16/20 Unknown History nystatin 1 applic TOPICAL BID PRN 05/16/20 05/16/20 Unknown History ondansetron HCl 4 mg PO TID PRN 05/16/20 05/16/20 Unknown History ropinirole 2 mg PO DAILY@18 05/16/20 05/16/20 Unknown History tamsulosin 0.4 mg PO DAILY@18 05/16/20 05/16/20 Unknown History triamcinolone acetonide 1 applic TOPICAL . DIRECTED PRN 05/16/20 05/16/20 Unknown History Allergies Allergy/AdvReac Type Severity Reaction Status Date / Time gemfibrozil Allergy diarrhea Verified 05/16/20 09:31 tramadol [From Ultram] Allergy nausea Verified 05/16/20 09:31 vomiting Current Medications Current Medications Generic Name Dose Route Start Last Admin Trade Name Freq PRN Reason Stop Dose Admin Acetaminophen 325 - 650 mg 05/18/20 00:54 05/19/20 23:22 Acetaminophen 325 Mg Tablet PO 650 mg Q4H PRN Administration MILD PAIN OR INCREASE TEMP Aspirin 81 mg 05/16/20 09:00 05/19/20 08:34 Aspirin 81 Mg Ec Tablet PO 81 mg DAILY WILLA Administration Atorvastatin Calcium 80 mg 05/16/20 21:00 05/19/20 21:37 Atorvastatin 40 Mg Tablet PO 80 mg BEDTIME WILLA Administration Benzocaine 1 each 05/17/20 03:20 05/19/20 08:36 Cetylpyridinium Lozenge MUCOUS MEM 1 each Q2H PRN Administration SORE THROAT Carvedilol 3.125 mg 05/18/20 11:00 05/19/20 21:38 Carvedilol 3.125 Mg Tablet PO 3.125 mg BID@0900,2100 WILLA Administration Clopidogrel Bisulfate 75 mg 05/16/20 09:00 05/19/20 08:34 Clopidogrel 75 Mg Tablet PO 75 mg DAILY WILLA Administration Furosemide 40 mg 05/17/20 09:30 05/18/20 09:08 Furosemide 10 Mg/Ml Sdv 4ml IVP Not Given Q24H [facility] Heparin Sodium (Beef Lung) 0 unit 05/16/20 03:41 05/19/20 12:37 Heparin 5,000 Unit/Ml Inj 1 Ml IV 1,600 unit PRN PRN Administration Heparin weight-base protocol Protocol Hydralazine HCl 25 mg 05/16/20 21:00 05/18/20 09:08 Hydralazine 25 Mg Tablet PO Not Given TID [facility] Heparin Sodium/Sodium Chloride 25,000 unit in 500 mls @ 0 mls/hr 05/16/20 03:45 05/19/20 17:09 Heparin Drip IV 13.74 unit/kg/hr .Q0M WILLA 18 mls/hr Administration Protocol Per Protocol Nitroglycerin/Dextrose 50 mg in 250 mls @ 0 mls/hr 05/16/20 08:15 05/17/20 22:22 Nitroglycerin Drip IV 0 mcg/min .Q0M WILLA 0 mls/hr Titration Protocol Per Protocol Diltiazem HCl 125 mg/ Sodium 125 mls @ 0 mls/hr 05/17/20 14:00 05/17/20 22:22 Chloride IV 0 mg/hr .Q0M WILLA 0 mls/hr Titration Protocol Per Protocol Norepinephrine Bitartrate 4 mg 254 mls @ 0 mls/hr 05/18/20 00:30 05/18/20 15:59 / Dextrose IV 0 mcg/min .Q0M WILLA 0 mls/hr Titration Protocol Per Protocol Cefepime HCl 1,000 mg/ Sodium 50 mls @ 100 mls/hr 05/18/20 12:00 05/19/20 12:10 Chloride IV Infused Q24H WILLA Infusion Protocol Sodium Chloride 1,000 mls @ 75 mls/hr 05/18/20 21:45 05/19/20 23:23 Sodium Chloride 0.9% IV 75 mls/hr .[id number] WILLA Administration Vancomycin HCl 1,000 mg/ 250 mls @ 250 mls/hr 05/20/20 01:00 05/20/20 01:33 Sodium Chloride IV Infused Q48H WILLA Infusion Protocol Isosorbide Mononitrate 30 mg 05/16/20 09:00 05/19/20 08:34 Isosorbide Mononitrate Er 30 Mg Tablet PO 30 mg DAILY WILLA Administration Lanolin 1 applic 05/20/20 05:37 05/20/20 05:43 Lanolin Oint 7 Gm TOPICAL 1 applic PRN PRN Administration DRYNESS Nitroglycerin 0.4 mg 05/16/20 04:34 05/20/20 05:53 Nitroglycerin 0.4 Mg Sublingual Tablet SUBLINGUAL 1 tab Q5M PRN Administration CHEST PAIN Ondansetron HCl 4 mg 05/19/20 21:00 05/19/20 21:09 Ondansetron 2 Mg/Ml Sdv 2 Ml IVP 4 mg Q6H PRN Administration NAUSEA AND VOMITING Senna/Docusate Sodium 1 tab 05/16/20 09:00 05/19/20 08:39 Sennosides-Docusate Tablet PO Not Given DAILY WILLA Simethicone 80 mg 05/19/20 20:53 05/19/20 21:48 Simethicone 80 Mg Chew PO 80 mg QID PRN Administration FLATULENCE PFSH Acute PFSH: Medical History (Updated 05/18/20 @ 13:06 by Nicholas Blanco MD) AAA (abdominal aortic aneurysm) Endovascular repair several years ago Atrial fibrillation Carotid stenosis -s/p recent L CEA done by Dr. Ramos on 04/18/19 Chronic kidney disease Depression Diabetes mellitus GERD (gastroesophageal reflux disease) Hypercalcemia Hyperlipidemia Hypertension Impaired glucose tolerance Moderate mitral regurgitation Osteoarthritis Pancreatitis Severe chronic obstructive pulmonary disease Severe obesity Sleep apnea Tobacco abuse Surgical History Status post carotid endarterectomy Left Family History Other CAD (coronary artery disease) Social History Smoking and tobacco status: current every day smoker Alcohol intake: never Vitals/I&O/Wt Last Vital Signs Temp 97.8 F 05/19/20 15:00 Pulse 80 05/20/20 05:30 Resp 18 05/20/20 05:30 BP 110/60 05/20/20 05:30 Pulse Ox 96 05/20/20 05:30 05/19/20 05/20/20 05/20/20 22:59 06:59 14:59 Intake Total 200 / 2044.600 1141.25 / 3185.850 Output Total 100 / 200 400 / 600 Balance 100 / 1844.600 741.25 / 2585.850 Weight last 48 hrs Weight 89.312 kg Weight 82.69 kg Physical Exam Narrative: EXAM NARRATIVE: comfortable, w/ NC 02, VSS heent- nc/at, eomi, anicteric neck no jvp lungs crackles at bases heart reg, no rub, +STACY abd soft, nt, nd, +BS ext 1+ b/l edema neuro- a,a, o 2+ Urinary Catheter Management^: [place]iteside: Cath Placed During This Visit: yes Reason for Continuing Indwelling Catheter: Accurate Measurement of Urinary Output in Critically Ill Patients Urinary Catheter Date of Insertion: 05/18/20 Urinary Catheter Time of Insertion: 11:00 Data Micro: Micro: Microbiology 05/19/20 12:50 MRSA Culture - Fin al Nose 05/18/20 12:00 Gram Stain - Final Sputum - Expector ated Sputum A&P Additional A&P Information 84 yr old man NSTEMIA 1. CKD stage 3b/4- baseline cr 2 - -likely etiology is DM, HTN, CRS -bone mineral -metabolism- check pth and phos -renal us -u/a- 1+ prot- would expect more w/ DM neohropathy -given anemia and renal failure-0 send SPEP/ UPEP 2. POPPY- from CRS and pt likely had ATN vs Prerenal- he was hypertensive on admission- had a NV and febrile and hypotensive night between 05/17- 05/18/20 -if cr stable, would d/c ivf -monitor in and out -monitor chemistries and daily weight 3. diastolic dysfunction and moderate MR 4. htn- bp low now 5. DM control 6. infection- monitor vanco trough, keep under 19 7. hyponatremia- likely from POPPY -check urine lytes, tsh, cortisol levels 8. non AGMA and mild AGMA from infection and POPPY 9. full anemia eval 10. echo- CONCLUSIONS 1. Normal left ventricular size and systolic function. Although no diagnostic regional wall motion abnormality could be identified, this cannot be excluded completely given off axis images. Left ventricular ejection fraction is estimated at 60%. Grade I diastolic dysfunction (abnormal relaxation filling pattern), normal to mildly elevated filling pressures. 2. Normal right ventricular size. Midly decreased right ventricular systolic function. There is possibly right ventricular free wall hypokinesis. 3. When compared to previous echocardiogram dated 04/29/19, mitral valve regurgitation and right ventrcular systolic function may have decreased. seen and examined w/ RN- telehealth visit Consult Attestations Medical Necessity Statement: NSTEMI, POPPY, ckd stage 4, infection Time Spent in Patient Care: Greater than 35 minutes Coding Level of Care Code Acute Inspector And Tester for Emi Herndon
--- NOTE | 2020-05-20 07:32 | USR_ITS ---
PROCEDURE INFORMATION: Exam: US Retroperitoneal; Complete; Kidneys and Bladder Exam date and time: 05/20/2020 9:55 AM Age: 84 years old Clinical indication: Abnormal findings; Abnormal lab test; Abnormal kidney function lab tests; Additional info: Desmond on ckd TECHNIQUE: Imaging protocol: Real-time ultrasound of the retroperitoneum with image documentation. Complete exam focused on the kidneys and bladder. COMPARISON: US Renal Kidney Structu* [id number] 11/08/2013 1:10 PM FINDINGS: Right kidney: The right kidney is echogenic compatible with medical renal disease. The right kidney measures 13.4 cm in length. Multiple simple cysts are noted in the upper pole right kidney. The largest cyst right kidney measures 3.4 x 3.7 x 3.5 cm. A smaller cyst upper pole right kidney has some internal echoes or debris and measures 2.5 x 2.9 x 3.2 cm. Left kidney: There is also a simple cyst lower pole left kidney measuring 2.5 x 2.4 x 2.9 cm. The left kidney is echogenic. No left hydronephrosis or nephrolithiasis. Several simple cysts left kidney are noted with the largest measuring 2.4 x 1.9 x 2.6 cm. Aorta: The abdominal aorta measures 1.9 cm. Urinary bladder: The bladder is decompressed and a Rob catheter is present. Other findings: The exam is limited by extensive bowel gas artifact. There is no hydronephrosis. US/US renal BI* [id number] IMPRESSION: Echogenic kidneys compatible with medical renal disease. No hydronephrosis or nephrolithiasis. Bilateral renal cortical simple cysts are noted.
[2020-05-20 07:41] LABS: Glucose Point of Care 74 mg/dL (70-110)
[2020-05-20] MEDS: clopidogrel 75 mg Tablet PO (09:35)
[2020-05-20] MEDS: aspirin 81 mg EC Tablet PO (09:35)
[2020-05-20] MEDS: sennosides-docusate Tablet 1 TAB PO (09:35)
[2020-05-20] MEDS: isosorbide mononitrate ER 30 mg Tablet PO (09:36)
[2020-05-20] MEDS: carvedilol 3.125 mg Tablet PO ×2 (09:37→20:02)
[2020-05-20 09:42] LABS: Potassium, Radom Urine 20 mmol/L; Urine Random Sodium 47 mmol/L
[2020-05-20 09:49] LABS: Thyroid Stimulating Hormone 1.25 uIU/mL (0.27-4.20); Uric Acid 8.3 mg/dL (3.4-7.0)
[2020-05-20 09:54] LABS: Urine Random Chloride 19 mmol/L
[2020-05-20 10:01] LABS: Partial Thromboplastin Time 58.6 SECONDS (23.9-36.7)
[2020-05-20 10:43] LABS: Alanine Aminotransferase 14 U/L (0-41); Alkaline Phosphatase 65 IU/L (40-130); Anion Gap 18.7 (5-19); Aspartate Amino Transferase 19 U/L (0-40); Blood Urea Nitrogen 68 mg/dL (8-23); Calcium 8.8 mg/dL (8.5-10.5); Carbon Dioxide 18 mmol/L (22-29); Chloride 102 mmol/L (98-107); Globulin 2.9 g/dL (1.3-4.6); Glucose 96 mg/dL (65-115); Magnesium 1.7 mg/dL (1.7-2.3); Osmolality Calculated 298 mOsm/kg (285-295); Phosphorus 6.7 mg/dL (2.5-4.5); Potassium 4.7 mmol/L (3.5-5.1); Sodium 134 mmol/L (136-145); Total Bilirubin 0.3 mg/dL (0.15-1.2); Total Protein 5.9 g/dL (6.6-8.7)
[2020-05-20 10:52] LABS: Cortisol Random 20.44 ug/dL (2.47-19.5)
[2020-05-20 11:23] LABS: Hepatitis C Virus Antibody Non-Reactive (Nonreactive)
[2020-05-20 11:34] LABS: Calcium 8.6 mg/dL (8.5-10.5); Vancomycin Random 19.1 ug/mL (20.0-40.0)
[2020-05-20 12:21] LABS: Parathyroid Hormone 273.1 pg/mL (15-65)
[2020-05-20] MEDS: cefepime 1,000 MG in sodium chloride 0.9% (plus) 50 ML 100 MG IV (12:39)
[2020-05-20 13:27] LABS: Partial Thromboplastin Time 54.7 SECONDS (23.9-36.7)
[2020-05-20] MEDS: sodium chloride 0.9% 1,000 ML 75 ML IV (14:24)
--- NOTE | 2020-05-20 14:34 | PC.NURSE ---
Pt states that his CP is worse upon laying down and after he eats. Last night when NItro was given and it did not help with the chest pain. Let Dr. Blanco know. No new orders at this time.
--- NOTE | 2020-05-20 14:42 | P.PN_ITS ---
Subjective Subjective: Interval history: Denied chest pian at the time of my eval, no respiratory distress, stated he felt weak. no fever or chills, no nausea or vomiting. Medications: Reviewed: Yes Vitals/I&O/Wt Last Vital Signs Temp 97.8 F 05/19/20 15:00 Pulse 88 05/20/20 14:00 Resp 20 H 05/20/20 14:00 BP 121/73 05/20/20 14:00 Pulse Ox 97 05/20/20 14:00 05/19/20 05/20/20 05/20/20 22:59 06:59 14:59 Intake Total 200 / 2044.600 1141.25 / 3185.850 1871.6 / 1871.6 Output Total 100 / 200 400 / 600 Balance 100 / 1844.600 741.25 / 2585.850 1871.6 / 1871.6 Weight last 48 hrs Weight 89.312 kg Weight 82.69 kg Physical Exam Const: COMMON NORMALS: patient oriented x3 HENMT: COMMON NORMALS: normocephalic and atraumatic HEAD & SCALP: normocephalic and atraumatic Chest: CHEST: Yes Symmetrical chest wall rise Resp: COMMON NORMALS: clear to auscultation bilaterally EFFORT & INSPECTION: Yes symmetric chest movement AUSCULTATION: clear to auscultation bilaterally Cardio: COMMON NORMALS: S1 normal heart sound present and S2 normal heart sound present HEART SOUNDS: S1 normal heart sound present and S2 normal heart sound present OTHER: Irregularly irregular rhythm, S1-S2 are variable intensity, pansystolic murmur in mitral area. GI: COMMON NORMALS: Normal to inspection, nondistended, normoactive bowel sounds present, Soft to palpation, non-tender, No hepatosplenomegaly present and no masses AUSCULTATION: Yes normoactive bowel sounds PALPATION: Yes Soft to palpation and Yes No hepatosplenomegaly present RECTAL EXAM: Yes deferred Extremity: COMMON NORMALS: no clubbing, cyanosis or edema and no pedal edema Neuro: COMMON NORMALS: patient oriented x3 Urinary Catheter Management^: Rob: Cath Placed During This Visit: yes Reason for Continuing Indwelling Catheter: Accurate Measurement of Urinary Output in Critically Ill Patients Urinary Catheter Date of Insertion: 05/18/20 Urinary Catheter Time of Insertion: 11:00 Data : 05/20/20 05:19 05/20/20 08:45 Micro: Microbiology 05/18/20 12:00 Gram Stain - Final Sputum - Expectorated Sputum Sputum Culture - Preliminary 05/19/20 12:50 MRSA Culture - Final Nose A&P Assessment and plan (1) Non-ST elevation OR (NSTEMI): Pertinent prior studies: Nuclear scan: 11/2019 Small sized perfusion abnormality of mild severity in apical lateral wall is noted. This may represent attenuation artifact however in absence of prone imaging small area of ischemia in circumflex artery territory cannot be completely excluded. Overall left ventricular systolic function is abnormal with regional wall motion abnormalities. The left ventricular ejection fraction is normal with a value of 64%. 2D echo: 04/20 : Normal left ventricular size, systolic function and wall thickness, with no regional wall motion abnormalities. Left ventricular ejection fraction is estimated at 60-65 %. Grade 2 diastolic dysfunction with moderately elevated left atrial filling pressure. Normal right ventricular size and systolic function.Right atrial pressure estimated at 15 mmHg. 2D echo: Telemetry: Aspirin 81 mg. Plavix 75 mg p.o. Coreg 3.125 mg po BID Imdur 30 mg p.o. daily Heparin drip Off Nitro gtt Cardilogy on board. No current plan for cath Chest pain improved however does have intermittent episodes Further plan per cardiology Status: Acute (2) Atrial fibrillation: Rate controlled Cardiology on board Changed to coreg 3.125 mg PO BID On heparin drip Improved Status: Acute Qualifiers: Atrial fibrillation type: other persistent Qualified Code(s): I48.19 - Other persistent atrial fibrillation (3) Carotid stenosis: Status: Chronic Qualifiers: Laterality: bilateral Qualified Code(s): I65.23 - Occlusion and stenosis of bilateral carotid arteries (4) Diastolic CHF: History of heart failure with preserved ejection fraction. Continue Lasix 40 mg IV daily - HELD Monitor intake output Daily weight K>4, Mg>2 Wean 02 Respiratory status stable Status: Acute Qualifiers: Heart failure chronicity: acute Qualified Code(s): I50.31 - Acute diastolic (congestive) heart failure (5) Diabetes mellitus: Sliding scale insulin Status: Acute (6) Severe chronic obstructive pulmonary disease: Status: Acute (7) Hypertension: Status: Acute Qualifiers: Hypertension type: essential hypertension Qualified Code(s): I10 - Essential (primary) hypertension (8) AAA (abdominal aortic aneurysm): Status: Acute Qualifiers: Presence of rupture: without rupture Qualified Code(s): I71.4 - Abdominal aortic aneurysm, without rupture (9) Moderate mitral regurgitation: Status: Acute (10) Hyperkalemia: Improved after tx Status: Acute (11) Sepsis associated hypotension: No clear source of infection Culture drawn - no NGTD Pro-calcitoin 5.86- Recheck in am - could be high in setting of renal failure MRSA - Negative - Will d/c vancomycin Cefepime 1 g IV q12hr Off pressors Etilogy of fever unlear - will continue to monitor for infection and de-escalate abx based on clinical course and culture Follow up on sputum culture Status: Acute (12) Acute worsening of stage 3 chronic kidney disease: Admission serum creatinine: 2.1 ->>> increased to 3.6 - likely due to hypotension - Improving Baseline serum creatinine: 2.1-2.5 Monitor BMP. Avoid nephrotoxic At baseline Bolus of NS NS at 75 cc/hr Holding diuretics Avoid hypotension Nephrology consulted Renal US - medical renal disease Follow up on UPEP/SPEP Rob placement Status: Acute Additional A&P Information DVT prophylaxis: Currently on heparin drip CODE STATUS;AND Attestations Medical Necessity Statement*: will require further hospitalization for management of worsening renal failure, possible infection and cardiac workup Time Spent in Patient Care: Greater than 35 minutes (>than 50% of time spent in counselling and/or direct pt care on unit) . Coding Level of Care Code Acute Car Cleaner for g Fwd Diagnoses Non-ST elevation OR (NSTEMI) I21.4 Atrial fibrillation I48.19 Atrial fibrillation type: other persistent Carotid stenosis I65.23 Laterality: bilateral Diastolic CHF I50.31 Heart failure chronicity: acute Diabetes mellitus E11.9 Severe chronic obstructive pulmonary disease J44.9 Hypertension I10 Hypertension type: essential hypertension AAA (abdominal aortic aneurysm) I71.4 Presence of rupture: without rupture Moderate mitral regurgitation I34.0 Hyperkalemia E87.5 Sepsis associated hypotension A41.9; I95.9 Acute worsening of stage 3 chronic kidney disease N18.30
--- NOTE | 2020-05-20 14:57 | P.PN_ITS ---
Subjective Subjective: Interval history: Patient is overall doing well. He feels very weak and fatigued. Had one episode of chest discomfort in the morning that resolved after taking nitro. Breathing at rest is normal. Heart rates are controlled. Vitals/I&O/Wt Last Vital Signs Temp 97.8 F 05/19/20 15:00 Pulse 88 05/20/20 14:00 Resp 20 H 05/20/20 14:00 BP 121/73 05/20/20 14:00 Pulse Ox 97 05/20/20 14:00 05/19/20 05/20/20 05/20/20 22:59 06:59 14:59 Intake Total 200 / 2044.600 1141.25 / 3185.850 1871.6 / 1871.6 Output Total 100 / 200 400 / 600 Balance 100 / 1844.600 741.25 / 2585.850 1871.6 / 1871.6 Weight last 48 hrs Weight 196 lb 14.4 oz Weight 182 lb 4.8 oz Physical Exam Narrative: EXAM NARRATIVE: GENERAL: Patient is alert, awake and oriented x3. NECK: No jugular vein distension. HEENT: No cyanosis. No icterus. No pallor. HEART: Regular S1 and S2. No murmur, rub or gallop. LUNGS: Clear to auscultate bilaterally. ABDOMEN: Soft, nontender and nondistended. Positive bowel sounds. No guarding, rebound or tenderness. CENTRAL NERVOUS SYSTEM: Grossly nonfocal. EXTREMITIES: Lower extremities without edema bilaterally. Urinary Catheter Management^: Rob: Cath Placed During This Visit: yes Reason for Continuing Indwelling Catheter: Accurate Measurement of Urinary Output in Critically Ill Patients Urinary Catheter Date of Insertion: 05/18/20 Urinary Catheter Time of Insertion: 11:00 Data : 05/20/20 05:19 05/20/20 08:45 Micro: Microbiology 05/18/20 12:00 Gram Stain - Final Sputum - Expectorated Sputum Sputum Culture - Preliminary 05/19/20 12:50 MRSA Culture - Final Nose A&P Assessment and plan (1) Myocardial infarction: Most likely patient has completed infarct of anterior wall with possible LAD involvement. Patient had refused coronary angiogram after that. Plans for medical management. His echocardiogram shows preserved LV systolic function. This is not consistent with large infarct. He may benefit from coronary angiogram once renal function is back to baseline. Will discuss with patient and family in once renal function has improved. Nephrology on board as patient had developed POPPY on CKD. Creatinine has slightly improved with IV fluids. Continue IV fluids. Status: Acute Qualifiers: Myocardial infarction type: unspecified Involved coronary artery: unspecified coronary artery Qualified Code(s): I21.9 - Acute myocardial infarction, unspecified (2) Atrial fibrillation: Stable. Status: Acute Qualifiers: Atrial fibrillation type: other persistent Qualified Code(s): I48.19 - Other persistent atrial fibrillation (3) Hypertension: hold antihypertensives due to hypotension Status: Acute Qualifiers: Hypertension type: essential hypertension Qualified Code(s): I10 - Essential (primary) hypertension (4) Chronic kidney disease: Patient's creatinine has significantly worsened. Consult nephrology. Continue IV fluids. Status: Chronic Qualifiers: Chronic kidney disease stage: stage 3 (moderate) Qualified Code(s): N18.3 - Chronic kidney disease, stage 3 (moderate) (5) Moderate mitral regurgitation: Hold diuretics for now Status: Acute (6) AAA (abdominal aortic aneurysm): Status: Acute Qualifiers: Presence of rupture: without rupture Qualified Code(s): I71.4 - Abdominal aortic aneurysm, without rupture (7) Carotid stenosis: Status: Chronic Qualifiers: Laterality: bilateral Qualified Code(s): I65.23 - Occlusion and stenosis of bilateral carotid arteries Attestations Medical Necessity Statement*: Care expected to cross 2 midnights. Coding Level of Care Code Acute Salesperson Furs for [facility] Fwd Diagnoses Myocardial infarction I21.9 Myocardial infarction type: unspecified Involved coronary artery: unspecified coronary artery Atrial fibrillation I48.19 Atrial fibrillation type: other persistent Hypertension I10 Hypertension type: essential hypertension Chronic kidney disease N18.3 Chronic kidney disease stage: stage 3 (moderate) Moderate mitral regurgitation I34.0 AAA (abdominal aortic aneurysm) I71.4 Presence of rupture: without rupture Carotid stenosis I65.23 Laterality: bilateral
[2020-05-20] MEDS: pantoprazole DR 40 mg Tablet PO (15:37)
[2020-05-20] MEDS: calcium carbonate 500 mg Chew Tablet PO (15:37)
--- NOTE | 2020-05-20 15:49 | PC.NURSE ---
assumed care of this pt. c/o burning in abd. previous nurse called and orders noted. protonix and calcium carbonate given.
--- NOTE | 2020-05-20 17:27 | PC.NURSE ---
resting quietly in bed. doesnt feel he is ready to get o.o.b. yet. not sure how well he will handle it.
[2020-05-20] MEDS: simethicone 80 mg Chew PO (18:03)
--- NOTE | 2020-05-20 18:08 | PC.NURSE ---
states tums helped earlier, but burning sensation has returned after eating dinner. to soon to give tms. alayna given
[2020-05-20] MEDS: atorvastatin 40 mg Tablet 80 MG PO (20:03)
[2020-05-20 20:04] LABS: Partial Thromboplastin Time 51.4 SECONDS (23.9-36.7)
[2020-05-20] MEDS: heparin drip 25,000 UNIT/500 ML PREMIX 20 UNIT IV (20:10)
[2020-05-20] MEDS: heparin 5,000 unit/mL INJ 1 mL IV (21:06)
[2020-05-20] MEDS: acetaminophen 325 mg Tablet PO (21:29)
[2020-05-21] VITALS (55 sets, daily range): BP systolic 99–147; BP diastolic 53–87; PULSE 63–96; RESP 14–35; TEMP 36.5–37.1; O2SAT 89–99
--- NOTE | 2020-05-21 00:34 | PC.NURSE ---
Pain Pt complaining of generalized pain, but reports for pain to BLE. Tylenol ineffective. Pt requesting pain pill. Home med list reviewed, Dr. Chatman notified via telephone and received orders for home hydrocodone 5/325mg TID PRN.
[2020-05-21] MEDS: HYDROcodone-acetaminophen 5-325 mg Tablet 1 TAB PO ×3 (00:51→20:27)
[2020-05-21] MEDS: sodium chloride 0.9% 1,000 ML 75 ML IV (02:58)
[2020-05-21 03:27] LABS: Basophils # 0.1 10^3/uL (0.0-0.1); Basophils % 0.8 %; Eosinophils # 0.2 10^3/uL (0.0-0.8); Eosinophils % 1.8 %; Hematocrit 25.3 % (42.0-52.0); Hemoglobin 8.2 g/dL (11.7-16.6); Lymphocytes # 0.9 10^3/uL (0.8-4.8); Mean Corpuscular HGB Conc 32.4 g/dL (30.0-36.0); Mean Corpuscular Hemoglobin 31.9 pg (28.0-34.0); Mean Corpuscular Volume 98.4 fL (80-94); Mean Platelet Volume 11.6 fL (7.4-10.4); Monocytes # 1.1 10^3/uL (0.2-0.9); Monocytes % 12.3 %; Neutrophils # 6.61 10^3/uL (1.8-7.7); Neutrophils % 73.3 %; Nucleated Red Blood Cells % 0 %; Platelet Count 267 10^3/cmm (130-400); Red Blood Count 2.57 10^6/uL (4.1-5.3); Red Cell Distribution Width 13.2 % (12.1-15.1)
[2020-05-21 03:57] LABS: Partial Thromboplastin Time 72.8 SECONDS (23.9-36.7)
[2020-05-21 04:16] LABS: 25 Hydroxy Vitamin D 40 ng/mL (30-100); Alanine Aminotransferase 14 U/L (0-41); Albumin Level 2.9 g/dL (3.5-5.2); Alkaline Phosphatase 70 IU/L (40-130); Anion Gap 17.7 (5-19); Aspartate Amino Transferase 18 U/L (0-40); Blood Urea Nitrogen 76 mg/dL (8-23); Calcium 8.7 mg/dL (8.5-10.5); Carbon Dioxide 16 mmol/L (22-29); Chloride 106 mmol/L (98-107); Ferritin 316 ng/mL (30-400); Globulin 2.5 g/dL (1.3-4.6); Glucose 96 mg/dL (65-115); Iron 16 ug/dL (59-158); Magnesium 1.6 mg/dL (1.7-2.3); Osmolality Calculated 302 mOsm/kg (285-295); Percent Saturation 11.2 % (20-50); Phosphorus 6.2 mg/dL (2.5-4.5); Potassium 4.7 mmol/L (3.5-5.1); Sodium 135 mmol/L (136-145); Total Bilirubin 0.3 mg/dL (0.15-1.2); Total Iron Binding Capacity 142 mcg/dl; Total Protein 5.4 g/dL (6.6-8.7); Unsaturated Iron Binding 126 ug/dL (112-347)
[2020-05-21 04:21] LABS: Cortisol Random 10.45 ug/dL (2.47-19.5)
--- NOTE | 2020-05-21 07:00 | P.PN_ITS ---
Subjective Subjective: Interval history: lethargic, denies CP overnight. +DAWKINS, no sob at resh, no hemoptysis, weak, poor appetite. Medications: Reviewed: Yes Medication Review Details: Current Medications Acetaminophen (Acetaminophen 325 Mg Tablet) 325 - 650 mg PO Q4H PRN PRN Reason: MILD PAIN OR INCREASE TEMP Last Admin: 05/20/20 21:29 Dose: 650 mg Documented by: Hydrocodone Bitart/Acetaminophen (Hydrocodone-Acetaminophen 5-325 Mg Tablet) 1 tab PO TID PRN PRN Reason: MODERATE PAIN Last Admin: 05/21/20 00:51 Dose: 1 tab Documented by: Albuterol/Ipratropium (Ipratropium-Albuterol 3 Ml Neb) 3 ml INHALATION Q4H PRN PRN Reason: SHORTNESS OF BREATH Aspirin (Aspirin 81 Mg Ec Tablet) 81 mg PO DAILY [facility] Last Admin: 05/20/20 09:35 Dose: 81 mg Documented by: Atorvastatin Calcium (Atorvastatin 40 Mg Tablet) 80 mg PO BEDTIME [facility] Last Admin: 05/20/20 20:03 Dose: 80 mg Documented by: Benzocaine (Cetylpyridinium Lozenge) 1 each MUCOUS MEM Q2H PRN PRN Reason: SORE THROAT Last Admin: 05/19/20 08:36 Dose: 1 each Documented by: Calcium Carbonate (Calcium Carbonate 500 Mg Chew Tablet) 500 mg PO Q4H PRN PRN Reason: INDIGESTION Last Admin: 05/20/20 15:37 Dose: 500 mg Documented by: Carvedilol (Carvedilol 3.125 Mg Tablet) 3.125 mg PO BID@0900,2100 [facility] Last Admin: 05/20/20 20:02 Dose: 3.125 mg Documented by: Clopidogrel Bisulfate (Clopidogrel 75 Mg Tablet) 75 mg PO DAILY [facility] Last Admin: 05/20/20 09:35 Dose: 75 mg Documented by: Furosemide (Furosemide 10 Mg/Ml Sdv 4ml) 40 mg IVP Q24H [facility] Last Admin: 05/18/20 09:08 Dose: Not Given Documented by: Guaifenesin (Guaifenesin 100 Mg/5 Ml Udc 10 Ml) 200 mg PO Q4H PRN PRN Reason: COUGH AND CONGESTION Heparin Sodium (Beef Lung) (Heparin 5,000 Unit/Ml Inj 1 Ml) 0 unit IV PRN PRN; Protocol PRN Reason: Heparin weight-base protocol Last Admin: 05/20/20 21:06 Dose: 1,600 unit Documented by: Hydralazine HCl (Hydralazine 25 Mg Tablet) 25 mg PO TID [facility] Last Admin: 05/18/20 09:08 Dose: Not Given Documented by: Heparin Sodium/Sodium Chloride (Heparin Drip) 25,000 unit in 500 mls @ 0 mls/hr IV .Q0M WILLA; Protocol Last Titration: 05/20/20 21:16 Dose: 16.79 unit/kg/hr, 22 mls/hr Documented by: Nitroglycerin/Dextrose (Nitroglycerin Drip) 50 mg in 250 mls @ 0 mls/hr IV .Q0M WILLA; Protocol Last Titration: 05/17/20 22:22 Dose: 0 mcg/min, 0 mls/hr Documented by: Diltiazem HCl 125 mg/ Sodium (Chloride) 125 mls @ 0 mls/hr IV .Q0M WILLA; Protocol Last Titration: 05/17/20 22:22 Dose: 0 mg/hr, 0 mls/hr Documented by: Norepinephrine Bitartrate 4 mg (/ Dextrose) 254 mls @ 0 mls/hr IV .Q0M WLILA; Protocol Last Titration: 05/18/20 15:59 Dose: 0 mcg/min, 0 mls/hr Documented by: Cefepime HCl 1,000 mg/ Sodium (Chloride) 50 mls @ 100 mls/hr IV Q24H [facility]; Protocol Last Infusion: 05/20/20 14:33 Dose: Infused Documented by: Sodium Chloride (Sodium Chloride 0.9%) 1,000 mls @ 75 mls/hr IV .[id number] [facility] Last Admin: 05/21/20 02:58 Dose: 75 mls/hr Documented by: Isosorbide Mononitrate (Isosorbide Mononitrate Er 30 Mg Tablet) 30 mg PO DAILY [facility] Last Admin: 05/20/20 09:36 Dose: 30 mg Documented by: Lanolin (Lanolin Oint 7 Gm) 1 applic TOPICAL PRN PRN PRN Reason: DRYNESS Last Admin: 05/20/20 05:43 Dose: 1 applic Documented by: Nitroglycerin (Nitroglycerin 0.4 Mg Sublingual Tablet) 0.4 mg SUBLINGUAL Q5M PRN PRN Reason: CHEST PAIN Last Admin: 05/20/20 05:53 Dose: 1 tab Documented by: Ondansetron HCl (Ondansetron 2 Mg/Ml Sdv 2 Ml) 4 mg IVP Q6H PRN PRN Reason: NAUSEA AND VOMITING Last Admin: 05/19/20 21:09 Dose: 4 mg Documented by: Pantoprazole Sodium (Pantoprazole Dr 40 Mg Tablet) 40 mg PO DAILY WILLA Last Admin: 05/20/20 15:37 Dose: 40 mg Documented by: Senna/Docusate Sodium (Sennosides-Docusate Tablet) 1 tab PO DAILY [facility] Last Admin: 05/20/20 09:35 Dose: 1 tab Documented by: Simethicone (Simethicone 80 Mg Chew) 80 mg PO QID PRN PRN Reason: FLATULENCE Last Admin: 05/20/20 18:03 Dose: 80 mg Documented by: Vitals/I&O/Wt Last Vital Signs Temp 97.7 F 05/21/20 06:14 Pulse 71 05/21/20 05:00 Resp 15 05/21/20 05:00 BP 141/63 05/21/20 05:00 Pulse Ox 97 05/21/20 05:00 05/20/20 05/21/20 05/21/20 22:59 06:59 14:59 Intake Total 498.333 / 2369.933 942.5 / 3312.433 Output Total 800 / 800 475 / 1275 Balance -301.667 / 1569.933 467.5 / 2037.433 Weight last 48 hrs Weight 90.31 kg Weight 89.312 kg Physical Exam Narrative: EXAM NARRATIVE: comfortable, w/ NC 02, VSS heent- nc/at, eomi, anicteric neck no jvp lungs crackles at bases heart - controlled, irreg irreg, no rub, +STACY abd soft, nt, nd, +BS ext 1+ b/l edema neuro- a,a, o 2+ Urinary Catheter Management^: Rob: Cath Placed During This Visit: yes Reason for Continuing Indwelling Catheter: Accurate Measurement of Urinary Output in Critically Ill Patients Urinary Catheter Date of Insertion: 05/18/20 Urinary Catheter Time of Insertion: 11:00 Data : 05/21/20 03:14 05/21/20 03:14 Micro: Microbiology 05/18/20 12:00 Gram Stain - Final Sputum - Expectorated Sputum Sputum Culture - Preliminary A&P Additional A&P Information 84 yr old man NSTEMIA 1. CKD stage 3b/4- baseline cr 2 - -likely etiology is DM, HTN, CRS -bone mineral -metabolism- check pth and phos -renal us -u/a- 1+ prot- would expect more w/ DM neohropathy -given anemia and renal failure- send SPEP/ UPEP 2. POPPY- from CRS and pt likely had ATN vs Prerenal- he was hypertensive on admission- had a [place] and febrile and hypotensive night between 05/17- 05/18/20 --appears volume overloaded, edema and crackles on exam- will hold ivf -may need lasix as per cardiology -monitor in and out -monitor chemistries and daily weight 3. diastolic dysfunction and moderate MR -echo- CONCLUSIONS 1. Normal left ventricular size and systolic function. Although no diagnostic regional wall motion abnormality could be identified, this cannot be excluded completely given off axis images. Left ventricular ejection fraction is estimated at 60%. Grade I diastolic dysfunction (abnormal relaxation filling pattern), normal to mildly elevated filling pressures. 2. Normal right ventricular size. Midly decreased right ventricular systolic function. There is possibly right ventricular free wall hypokinesis. 3. When compared to previous echocardiogram dated 04/29/19, mitral valve regurgitation and right ventrcular systolic function may have decreased. 3b. CAD- if needs cardiac cath- high renal risk, high likelihood pt will need temporary and maybe even permanent HD -lasix per cardiology 4. htn- bp well controlled 5. DM control 6. infection- off of vanco. on cefepime 7. hyponatremia- likely from POPPY -check urine lytes, tsh, cortisol levels 8. non AGMA and mild AGMA from infection and POPPY - give sodium bicarb pills 9. full anemia eval - tsat 11%, await ferritin 10. phos binders, replace magnesium -pth 273- calcitriol seen and examined w/ RN- telehealth visit Attestations Medical Necessity Statement*: poppy, ckd, infection, dm Time Spent in Patient Care: 16 - 35 minutes Coding Level of Care Code Acute System Dispatcher for Chg Yanick
[2020-05-21] MEDS: isosorbide mononitrate ER 30 mg Tablet PO (08:55)
[2020-05-21] MEDS: aspirin 81 mg EC Tablet PO (08:55)
[2020-05-21] MEDS: pantoprazole DR 40 mg Tablet PO (08:56)
[2020-05-21] MEDS: sodium bicarbonate 650 mg Tablet PO ×3 (08:56→20:27)
[2020-05-21] MEDS: sennosides-docusate Tablet 1 TAB PO (08:56)
[2020-05-21] MEDS: clopidogrel 75 mg Tablet PO (08:56)
[2020-05-21] MEDS: carvedilol 3.125 mg Tablet PO ×2 (08:56→20:27)
[2020-05-21] MEDS: simethicone 80 mg Chew PO (08:59)
--- NOTE | 2020-05-21 09:00 | PM.PN ---
Subjective Subjective: Interval history: Up in chair. He states he is doing all right. Finally was able to eat some food. Denies any chest pain or pressure currently. Occasional cough here and there. Complains of sore throat. Vitals/I&O/Wt Last Vital Signs Temp 98.7 F 05/21/20 07:54 Pulse 87 05/21/20 07:54 Resp 24 H 05/21/20 07:54 BP 134/67 05/21/20 07:54 Pulse Ox 97 05/21/20 07:54 05/20/20 05/21/20 05/21/20 22:59 06:59 14:59 Intake Total 498.333 / 2369.933 942.5 / 3312.433 Output Total 800 / 800 475 / 1275 Balance -301.667 / 1569.933 467.5 / 2037.433 - Weight last 48 hrs Weight 90.31 kg Weight 89.312 kg Physical Exam Const: COMMON NORMALS: no acute distress and patient oriented x3 HENMT: OTHER: small white exudates of posterior oropharynx Neck/C-Spine: COMMON NORMALS: no JVD Resp: COMMON NORMALS: normal respiratory effort and clear to auscultation bilaterally AUSCULTATION: clear to auscultation bilaterally Cardio: COMMON NORMALS: no JVD, regular rhythm, S1 normal heart sound present, S2 normal heart sound present and No murmurs present (Cardio) RHYTHM: regular rhythm HEART SOUNDS: S1 normal heart sound present and S2 normal heart sound present GI: COMMON NORMALS: Normal to inspection, nondistended, normoactive bowel sounds present, Soft to palpation and non-tender PALPATION: Yes Soft to palpation Extremity: COMMON NORMALS: no joint enlargement GENERAL: Yes edema (Trace) Neuro: COMMON NORMALS: patient oriented x3 and moves all extremities Skin: COMMON NORMALS: no rashes or lesions noted GENERAL SKIN EXAM: no rashes or lesions noted Urinary Catheter Management^: Rob: Cath Placed During This Visit: yes Reason for Continuing Indwelling Catheter: Accurate Measurement of Urinary Output in Critically Ill Patients Urinary Catheter Date of Insertion: 05/18/20 Urinary Catheter Time of Insertion: 11:00 Data : 05/21/20 03:14 05/21/20 03:14 Micro: Microbiology 05/18/20 12:00 Gram Stain - Final Sputum - Expectorated Sputum Sputum Culture - Preliminary A&P Assessment and plan (1) Non-ST elevation NV (NSTEMI): No chest pain. Continue aspirin, Plavix, beta-yuniel, statin, Imdur Consideration given to additional assessment by coronary geography depending on renal function. Appreciate further cardiology recommendations. Pertinent prior studies: Nuclear scan: 11/2019 Small sized perfusion abnormality of mild severity in apical lateral wall is noted. This may represent attenuation artifact however in absence of prone imaging small area of ischemia in circumflex artery territory cannot be completely excluded. Overall left ventricular systolic function is abnormal with regional wall motion abnormalities. The left ventricular ejection fraction is normal with a value of 64%. 2D echo: 04/20 : Normal left ventricular size, systolic function and wall thickness, with no regional wall motion abnormalities. Left ventricular ejection fraction is estimated at 60-65 %. Grade 2 diastolic dysfunction with moderately elevated left atrial filling pressure. Normal right ventricular size and systolic function.Right atrial pressure estimated at 15 mmHg. Status: Acute (2) Atrial fibrillation: Rate controlled 3.125 mg PO BID On heparin drip Status: Acute Qualifiers: Atrial fibrillation type: other persistent Qualified Code(s): I48.19 - Other persistent atrial fibrillation (3) Acute worsening of stage 3 chronic kidney disease: Appears to be showing slow gradual improvement in creatinine today down to 3.5. Appreciate nephrology recommendations. Further IVF held due to concern for fluid overload. 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 To me currently does not appear in active diastolic heart failure, although I am meeting him for the first time. Will await cardiology assessment for now with Lasix on hold, although holding additional IV fluid. Baseline serum creatinine: 2.1-2.5 Avoid nephrotoxic Avoid hypotension Renal US - medical renal disease Follow up on [facility] for monitoring of intake and output Status: Acute (4) Sepsis associated hypotension: Reports he has been having sore throat. White exudates noted. Will obtain rapid strep. Continue current antibiotic. Occasional cough, although no suggestion of pneumonia on chest x-ray. Urine not suggestive of UTI. No neuro, GI, integumentary or other systems showing symptoms of infection. Culture drawn - no NGTD Cefepime 1 g IV q12hr Status: Acute (5) Diastolic CHF: Hold IV fluids. Reassess volume status. Appreciate cardiology recommendations. Cardiac diet Monitor intake output Daily weight K>4, Mg>2 Wean 02 Respiratory status stable Status: Acute Qualifiers: Heart failure chronicity: acute Qualified Code(s): I50.31 - Acute diastolic (congestive) heart failure (6) Carotid stenosis: Status: Chronic Qualifiers: Laterality: bilateral Qualified Code(s): I65.23 - Occlusion and stenosis of bilateral carotid arteries (7) Diabetes mellitus: Sliding scale insulin Status: Acute (8) Severe chronic obstructive pulmonary disease: Status: Acute (9) Hypertension: Status: Acute Qualifiers: Hypertension type: essential hypertension Qualified Code(s): I10 - Essential (primary) hypertension (10) AAA (abdominal aortic aneurysm): Status: Acute Qualifiers: Presence of rupture: without rupture Qualified Code(s): I71.4 - Abdominal aortic aneurysm, without rupture (11) Moderate mitral regurgitation: Status: Acute (12) Hyperkalemia: Improved after tx Status: Acute Additional A&P Information Hypomagnesemia: Replaced DVT prophylaxis: Currently on heparin drip CODE STATUS;AND Attestations Medical Necessity Statement*: Continue admission for assessment management of NSTEMI in setting of acute kidney injury on chronic kidney disease, possible fluid overload, diastolic dysfunction, additional assessment treatment of resolving sepsis, in the setting of multiple underlying comorbidities as above. Coding Level of Care Code Acute Linoleum Layer Helper for Channing Homed Diagnoses Non-ST elevation NV (NSTEMI) I21.4 Atrial fibrillation I48.19 Atrial fibrillation type: other persistent Acute worsening of stage 3 chronic kidney disease N18.30 Sepsis associated hypotension A41.9; I95.9 Diastolic CHF I50.31 Heart failure chronicity: acute Carotid stenosis I65.23 Laterality: bilateral Diabetes mellitus E11.9 Severe chronic obstructive pulmonary disease J44.9 Hypertension I10 Hypertension type: essential hypertension AAA (abdominal aortic aneurysm) I71.4 Presence of rupture: without rupture Moderate mitral regurgitation I34.0 Hyperkalemia E87.5
[2020-05-21] MEDS: sevelamer 800 mg Tablet 1600 MG PO ×3 (09:01→20:26)
[2020-05-21] MEDS: calcitriol 0.25 mcg Capsule PO (09:10)
[2020-05-21 10:24] LABS: Partial Thromboplastin Time 62.8 SECONDS (23.9-36.7)
[2020-05-21 10:42] LABS: Rapid Strep A Test Negative (Negative)
--- NOTE | 2020-05-21 11:57 | PC.SOCIAL ---
*IMM UPDATE* Life Skills Teacher gave patient IMM update. Provided him copy of page 2 of IMM. 05/21/20 @ 1146 Initialed, dated, timed and placed in chart.
--- NOTE | 2020-05-21 13:22 | USCV_ITS ---
Jaswant Jennifer Age: 84 Gender: M : 1935 Exam Date: 05/21/2020 14:49 Ordering Phys: Melissa Owens MD ([email or web address]) Technologist: Exam Location: [facility] [place] Indication: LV AND RV FUNCTION BP: 126 / 61 HR: 79 Rhythm: Sinus Technical Quality: Adequate MEASUREMENTS (Male / Female) Normal Values 2D ECHO LV Diastolic Diameter PLAX 3.9 cm 4.2 - 5.9 / 3.9 - 5.3 cm LV Systolic Diameter PLAX 2.2 cm IVS Diastolic Thickness 1.3 cm 0.6 - 1.0 / 0.6 - 0.9 cm IVS Systolic Thickness 1.3 cm LVPW Diastolic Thickness 1.4 cm 0.6 - 1.0 / 0.6 - 0.9 cm LVPW Systolic Thickness 1.5 cm LV Ejection Fraction 2D Teich 75.7 % LV Ejection Fraction MOD 2C 63.5 % LV Ejection Fraction 2C AL 63.3 % LA Diameter 5.1 cm M-MODE LV Diastolic Diameter MM 4.8 cm 4.2 - 5.9 / 3.9 - 5.3 cm LV Systolic Diameter MM 3.5 cm LV Ejection Fraction MM Teich 52.3 % IVS Diastolic Thickness MM 1.1 cm 0.6 - 1.0 / 0.6 - 0.9 cm IVS Systolic Thickness MM 1.9 cm LVPW Diastolic Thickness MM 1.5 cm 0.6 - 1.0 / 0.6 - 0.9 cm LVPW Systolic Thickness MM 1.8 cm RV Diastolic Diameter MM 2.0 cm Aortic Annulus Diameter 3.8 cm LA Ao Ratio MM 1.3 MV E Point Septal Separation 1.2 cm FINDINGS Left Ventricle Normal left ventricular cavity size. Mildly decreased left ventricular systolic function. Left ventricular ejection fraction is estimated at 50 %. There is moderate hypokinesis of basal to mid anteroseptal and apical septal and apical lateral santana. Abnormal septal motion. Flattened septum in diastole consistent with right ventricle volume overload. Right Ventricle Dilated right ventricle. Moderately decreased right ventricular systolic function. Right Atrium Probably moderate increased right atrial size. Left Atrium Moderately increased left atrial size. Mitral Valve Moderate mitral annular calcification. Aortic Valve Aortic valve not well visualized. Tricuspid Valve Tricuspid valve not well visualized. Pulmonic Valve Pulmonic valve not well visualized. Pericardium No pericardial effusion. Aorta Aorta not well visualized. CONCLUSIONS 1. This is a technically difficult study. Ultrasound enhancing agent Optison was used per protocol. 2. Normal left ventricular cavity size. Mildly decreased left ventricular systolic function. Left ventricular ejection fraction is estimated at 50 %. There is moderate hypokinesis of basal to mid anteroseptal and apical septal and apical lateral santana. Abnormal septal motion. Flattened septum in diastole consistent with right ventricle volume overload. 3. Dilated right ventricle. Moderately decreased right ventricular systolic function. Melissa Owens MD (Electronically Signed) Final Date: 21 May 2020 17:10 S
[2020-05-21] MEDS: cefepime 1,000 MG in sodium chloride 0.9% (plus) 50 ML 100 MG IV (14:44)
[2020-05-21] MEDS: enoxaparin 100 mg/mL Syringe 90 MG SUBCUT (14:44)
--- NOTE | 2020-05-21 19:25 | PM.PN ---
Subjective Subjective: Interval history: Stable. Denies any chest pain creatinine has stabilized Medications: Reviewed: Yes Medication Review Details: Current Medications Acetaminophen (Acetaminophen 325 Mg Tablet) 325 - 650 mg PO Q4H PRN PRN Reason: MILD PAIN OR INCREASE TEMP Last Admin: 05/20/20 21:29 Dose: 650 mg Documented by: Hydrocodone Bitart/Acetaminophen (Hydrocodone-Acetaminophen 5-325 Mg Tablet) 1 tab PO TID PRN PRN Reason: MODERATE PAIN Last Admin: 05/21/20 00:51 Dose: 1 tab Documented by: Albuterol/Ipratropium (Ipratropium-Albuterol 3 Ml Neb) 3 ml INHALATION Q4H PRN PRN Reason: SHORTNESS OF BREATH Aspirin (Aspirin 81 Mg Ec Tablet) 81 mg PO DAILY [facility] Last Admin: 05/20/20 09:35 Dose: 81 mg Documented by: Atorvastatin Calcium (Atorvastatin 40 Mg Tablet) 80 mg PO BEDTIME [facility] Last Admin: 05/20/20 20:03 Dose: 80 mg Documented by: Benzocaine (Cetylpyridinium Lozenge) 1 each MUCOUS MEM Q2H PRN PRN Reason: SORE THROAT Last Admin: 05/19/20 08:36 Dose: 1 each Documented by: Calcium Carbonate (Calcium Carbonate 500 Mg Chew Tablet) 500 mg PO Q4H PRN PRN Reason: INDIGESTION Last Admin: 05/20/20 15:37 Dose: 500 mg Documented by: Carvedilol (Carvedilol 3.125 Mg Tablet) 3.125 mg PO BID@0900,2100 [facility] Last Admin: 05/20/20 20:02 Dose: 3.125 mg Documented by: Clopidogrel Bisulfate (Clopidogrel 75 Mg Tablet) 75 mg PO DAILY [facility] Last Admin: 05/20/20 09:35 Dose: 75 mg Documented by: Furosemide (Furosemide 10 Mg/Ml Sdv 4ml) 40 mg IVP Q24H [facility] Last Admin: 05/18/20 09:08 Dose: Not Given Documented by: Guaifenesin (Guaifenesin 100 Mg/5 Ml Udc 10 Ml) 200 mg PO Q4H PRN PRN Reason: COUGH AND CONGESTION Heparin Sodium (Beef Lung) (Heparin 5,000 Unit/Ml Inj 1 Ml) 0 unit IV PRN PRN; Protocol PRN Reason: Heparin weight-base protocol Last Admin: 05/20/20 21:06 Dose: 1,600 unit Documented by: Hydralazine HCl (Hydralazine 25 Mg Tablet) 25 mg PO TID [facility] Last Admin: 05/18/20 09:08 Dose: Not Given Documented by: Heparin Sodium/Sodium Chloride (Heparin Drip) 25,000 unit in 500 mls @ 0 mls/hr IV .Q0M WILLA; Protocol Last Titration: 05/20/20 21:16 Dose: 16.79 unit/kg/hr, 22 mls/hr Documented by: Nitroglycerin/Dextrose (Nitroglycerin Drip) 50 mg in 250 mls @ 0 mls/hr IV .Q0M WILLA; Protocol Last Titration: 05/17/20 22:22 Dose: 0 mcg/min, 0 mls/hr Documented by: Diltiazem HCl 125 mg/ Sodium (Chloride) 125 mls @ 0 mls/hr IV .Q0M WILLA; Protocol Last Titration: 05/17/20 22:22 Dose: 0 mg/hr, 0 mls/hr Documented by: Norepinephrine Bitartrate 4 mg (/ Dextrose) 254 mls @ 0 mls/hr IV .Q0M [facility]; Protocol Last Titration: 05/18/20 15:59 Dose: 0 mcg/min, 0 mls/hr Documented by: Cefepime HCl 1,000 mg/ Sodium (Chloride) 50 mls @ 100 mls/hr IV Q24H [facility]; Protocol Last Infusion: 05/20/20 14:33 Dose: Infused Documented by: Sodium Chloride (Sodium Chloride 0.9%) 1,000 mls @ 75 mls/hr IV .[id number] [facility] Last Admin: 05/21/20 02:58 Dose: 75 mls/hr Documented by: Isosorbide Mononitrate (Isosorbide Mononitrate Er 30 Mg Tablet) 30 mg PO DAILY [facility] Last Admin: 05/20/20 09:36 Dose: 30 mg Documented by: Lanolin (Lanolin Oint 7 Gm) 1 applic TOPICAL PRN PRN PRN Reason: DRYNESS Last Admin: 05/20/20 05:43 Dose: 1 applic Documented by: Nitroglycerin (Nitroglycerin 0.4 Mg Sublingual Tablet) 0.4 mg SUBLINGUAL Q5M PRN PRN Reason: CHEST PAIN Last Admin: 05/20/20 05:53 Dose: 1 tab Documented by: Ondansetron HCl (Ondansetron 2 Mg/Ml Sdv 2 Ml) 4 mg IVP Q6H PRN PRN Reason: NAUSEA AND VOMITING Last Admin: 05/19/20 21:09 Dose: 4 mg Documented by: Pantoprazole Sodium (Pantoprazole Dr 40 Mg Tablet) 40 mg PO DAILY [facility] Last Admin: 05/20/20 15:37 Dose: 40 mg Documented by: Senna/Docusate Sodium (Sennosides-Docusate Tablet) 1 tab PO DAILY [facility] Last Admin: 05/20/20 09:35 Dose: 1 tab Documented by: Simethicone (Simethicone 80 Mg Chew) 80 mg PO QID PRN PRN Reason: FLATULENCE Last Admin: 05/20/20 18:03 Dose: 80 mg Documented by: Vitals/I&O/Wt Last Vital Signs Temp 97.7 F 05/21/20 16:00 Pulse 83 05/21/20 18:00 Resp 23 H 05/21/20 18:00 BP 138/77 05/21/20 18:00 Pulse Ox 95 05/21/20 18:00 05/21/20 05/21/20 05/21/20 06:59 14:59 22:59 Intake Total 942.5 / 3312.433 52 / 52 1648 / 1700 Output Total 475 / 1275 127 / 127 700 / 827 Balance 467.5 / 2037.433 -75 / -75 948 / 873 Weight last 48 hrs Weight 199 lb 1.6 oz Weight 196 lb 14.4 oz Physical Exam Narrative: EXAM NARRATIVE: GENERAL: Patient is alert, awake and oriented x3. NECK: No jugular vein distension. HEENT: No cyanosis. No icterus. No pallor. HEART: Regular S1 and S2. No murmur, rub or gallop. LUNGS: Clear to auscultate bilaterally. ABDOMEN: Soft, nontender and nondistended. Positive bowel sounds. No guarding, rebound or tenderness. CENTRAL NERVOUS SYSTEM: Grossly nonfocal. EXTREMITIES: Lower extremities without edema bilaterally. Urinary Catheter Management^: Rob: Cath Placed During This Visit: yes Reason for Continuing Indwelling Catheter: Accurate Measurement of Urinary Output in Critically Ill Patients Urinary Catheter Date of Insertion: 05/18/20 Urinary Catheter Time of Insertion: 11:00 Data : 05/21/20 03:14 05/21/20 03:14 Micro: Microbiology 05/18/20 12:00 Gram Stain - Final Sputum - Expectorated Sputum Sputum Culture - Final A&P Assessment and plan (1) Myocardial infarction: Most likely patient has completed infarct of anterior wall with possible LAD involvement. Patient had refused coronary angiogram after that. Plans for medical management. His echocardiogram shows preserved LV systolic function. This is not consistent with large infarct. He may benefit from coronary angiogram once renal function is back to baseline. Will discuss with patient and family in once renal function has improved. Nephrology on board as patient had developed POPPY on CKD. Creatinine has slightly improved with IV fluids. Continue IV fluids. Arterial visit patient appeared to be stable continue to manage medically. Status: Acute Qualifiers: Myocardial infarction type: unspecified Involved coronary artery: unspecified coronary artery Qualified Code(s): I21.9 - Acute myocardial infarction, unspecified (2) Atrial fibrillation: Stable. Continue current regimen Status: Acute Qualifiers: Atrial fibrillation type: other persistent Qualified Code(s): I48.19 - Other persistent atrial fibrillation (3) Hypertension: On the lower side blood pressure continue medicine Status: Acute Qualifiers: Hypertension type: essential hypertension Qualified Code(s): I10 - Essential (primary) hypertension (4) Chronic kidney disease: Creatinine is stabilizing now continue IV hydration Status: Chronic Qualifiers: Chronic kidney disease stage: stage 3 (moderate) Qualified Code(s): N18.3 - Chronic kidney disease, stage 3 (moderate) (5) Moderate mitral regurgitation: Hold diuretics for now Status: Acute (6) AAA (abdominal aortic aneurysm): Status: Acute Qualifiers: Presence of rupture: without rupture Qualified Code(s): I71.4 - Abdominal aortic aneurysm, without rupture (7) Carotid stenosis: Status: Chronic Qualifiers: Laterality: bilateral Qualified Code(s): I65.23 - Occlusion and stenosis of bilateral carotid arteries Attestations Medical Necessity Statement*: Patient require continuation hospitalization for above defined care Coding Level of Care Code Established Pt Acute Colorer Hides And Skins for Christineg Fwd Patient Type Established History Expanded Problem Focused Exam Expanded Problem Focused Medical Decision Making Moderate Complexity Diagnoses Myocardial infarction I21.9 Myocardial infarction type: unspecified Involved coronary artery: unspecified coronary artery Atrial fibrillation I48.19 Atrial fibrillation type: other persistent Hypertension I10 Hypertension type: essential hypertension Chronic kidney disease N18.3 Chronic kidney disease stage: stage 3 (moderate) Moderate mitral regurgitation I34.0 AAA (abdominal aortic aneurysm) I71.4 Presence of rupture: without rupture Carotid stenosis I65.23 Laterality: bilateral
--- NOTE | 2020-05-21 20:05 | PC.NURSE ---
Received bed side shift report from off going nurse. Pt's plan of care reviewed. Pt resting in bed. Respirations are even and unlabored. No s/sx of distress noted. Pt c/o moderate generalized pain. Pt states that the pain is chronic in nature. Pt has prn pain medication ordered. Pt states that his pain is being managed at this time. Pt denies any pains or concerns at this time. Pt is very pleasant and compliant with care. Bed in lowest and locked position, call light and water within reach, x's 2 rails up. Will continue to monitor pt.
[2020-05-21] MEDS: atorvastatin 40 mg Tablet 80 MG PO (20:26)
[2020-05-22] VITALS (45 sets, daily range): BP systolic 124–172; BP diastolic 65–112; PULSE 65–95; RESP 15–29; TEMP 36.1–36.8; O2SAT 92–97; BMI 34.3
[2020-05-22 04:01] LABS: Basophils # 0.1 10^3/uL (0.0-0.1); Basophils % 0.7 %; Eosinophils # 0.3 10^3/uL (0.0-0.8); Eosinophils % 3.2 %; Hemoglobin 8.3 g/dL (11.7-16.6); Mean Corpuscular HGB Conc 31.9 g/dL (30.0-36.0); Mean Corpuscular Hemoglobin 30.6 pg (28.0-34.0); Mean Corpuscular Volume 95.9 fL (80-94); Mean Platelet Volume 11.5 fL (7.4-10.4); Monocytes # 1.2 10^3/uL (0.2-0.9); Monocytes % 14.6 %; Neutrophils # 5.65 10^3/uL (1.8-7.7); Neutrophils % 68.5 %; Nucleated Red Blood Cells % 0 %; Platelet Count 290 10^3/cmm (130-400); Red Blood Count 2.71 10^6/uL (4.1-5.3); Red Cell Distribution Width 13.2 % (12.1-15.1); White Blood Count 8.2 10^3/uL (4.0-10.0)
[2020-05-22 04:18] LABS: Alanine Aminotransferase 15 U/L (0-41); Albumin Level 2.8 g/dL (3.5-5.2); Alkaline Phosphatase 72 IU/L (40-130); Anion Gap 14.8 (5-19); Aspartate Amino Transferase 17 U/L (0-40); Blood Urea Nitrogen 79 mg/dL (8-23); Calcium 9.2 mg/dL (8.5-10.5); Carbon Dioxide 18 mmol/L (22-29); Chloride 104 mmol/L (98-107); Globulin 2.6 g/dL (1.3-4.6); Glucose 95 mg/dL (65-115); Magnesium 1.8 mg/dL (1.7-2.3); Osmolality Calculated 297 mOsm/kg (285-295); Phosphorus 5.3 mg/dL (2.5-4.5); Potassium 4.8 mmol/L (3.5-5.1); Sodium 132 mmol/L (136-145); Total Bilirubin 0.3 mg/dL (0.15-1.2); Total Protein 5.4 g/dL (6.6-8.7)
[2020-05-22] MEDS: HYDROcodone-acetaminophen 5-325 mg Tablet 1 TAB PO ×3 (05:37→20:03)
--- NOTE | 2020-05-22 08:10 | P.PN_ITS ---
Subjective Subjective: Interval history: still weak, feels better, no figueroa, + nausea, edema. no diarrhea, poor appetite Medications: Reviewed: Yes Medication Review Details: Current Medications Acetaminophen (Acetaminophen 325 Mg Tablet) 325 - 650 mg PO Q4H PRN PRN Reason: MILD PAIN OR INCREASE TEMP Last Admin: 05/20/20 21:29 Dose: 650 mg Documented by: Hydrocodone Bitart/Acetaminophen (Hydrocodone-Acetaminophen 5-325 Mg Tablet) 1 tab PO TID PRN PRN Reason: SEVERE PAIN Last Admin: 05/22/20 05:37 Dose: 1 tab Documented by: Albuterol/Ipratropium (Ipratropium-Albuterol 3 Ml Neb) 3 ml INHALATION Q4H PRN PRN Reason: SHORTNESS OF BREATH Aspirin (Aspirin 81 Mg Ec Tablet) 81 mg PO DAILY [facility] Last Admin: 05/21/20 08:55 Dose: 81 mg Documented by: Atorvastatin Calcium (Atorvastatin 40 Mg Tablet) 80 mg PO BEDTIME [facility] Last Admin: 05/21/20 20:26 Dose: 80 mg Documented by: Benzocaine (Cetylpyridinium Lozenge) 1 each MUCOUS MEM Q2H PRN PRN Reason: SORE THROAT Last Admin: 05/19/20 08:36 Dose: 1 each Documented by: Calcitriol (Calcitriol 0.25 Mcg Capsule) 0.25 mcg PO DAILY [facility] Last Admin: 05/21/20 09:10 Dose: 0.25 mcg Documented by: Calcium Carbonate (Calcium Carbonate 500 Mg Chew Tablet) 500 mg PO Q4H PRN PRN Reason: INDIGESTION Last Admin: 05/20/20 15:37 Dose: 500 mg Documented by: Carvedilol (Carvedilol 3.125 Mg Tablet) 3.125 mg PO BID@0900,2100 [facility] Last Admin: 05/21/20 20:27 Dose: 3.125 mg Documented by: Clopidogrel Bisulfate (Clopidogrel 75 Mg Tablet) 75 mg PO DAILY [facility] Last Admin: 05/21/20 08:56 Dose: 75 mg Documented by: Enoxaparin Sodium (Enoxaparin 100 Mg/Ml Syringe) 90 mg 1 mg/kg (90 mg) SUBCUT Q24H [facility] Last Admin: 05/21/20 14:44 Dose: 90 mg Documented by: Furosemide (Furosemide 10 Mg/Ml Sdv 4ml) 40 mg IVP Q24H [facility] Last Admin: 05/18/20 09:08 Dose: Not Given Documented by: Guaifenesin (Guaifenesin 100 Mg/5 Ml Udc 10 Ml) 200 mg PO Q4H PRN PRN Reason: COUGH AND CONGESTION Hydralazine HCl (Hydralazine 25 Mg Tablet) 25 mg PO TID [facility] Last Admin: 05/18/20 09:08 Dose: Not Given Documented by: Nitroglycerin/Dextrose (Nitroglycerin Drip) 50 mg in 250 mls @ 0 mls/hr IV .Q0M [facility]; Protocol Last Titration: 05/17/20 22:22 Dose: 0 mcg/min, 0 mls/hr Documented by: Cefepime HCl 1,000 mg/ Sodium (Chloride) 50 mls @ 100 mls/hr IV Q24H [facility]; Protocol Last Infusion: 05/21/20 19:16 Dose: Infused Documented by: Isosorbide Mononitrate (Isosorbide Mononitrate Er 30 Mg Tablet) 30 mg PO DAILY [facility] Last Admin: 05/21/20 08:55 Dose: 30 mg Documented by: Lanolin (Lanolin Oint 7 Gm) 1 applic TOPICAL PRN PRN PRN Reason: DRYNESS Last Admin: 05/20/20 05:43 Dose: 1 applic Documented by: Nitroglycerin (Nitroglycerin 0.4 Mg Sublingual Tablet) 0.4 mg SUBLINGUAL Q5M PRN PRN Reason: CHEST PAIN Last Admin: 05/20/20 05:53 Dose: 1 tab Documented by: Ondansetron HCl (Ondansetron 2 Mg/Ml Sdv 2 Ml) 4 mg IVP Q6H PRN PRN Reason: NAUSEA AND VOMITING Last Admin: 05/19/20 21:09 Dose: 4 mg Documented by: Pantoprazole Sodium (Pantoprazole Dr 40 Mg Tablet) 40 mg PO DAILY [facility] Last Admin: 05/21/20 08:56 Dose: 40 mg Documented by: Senna/Docusate Sodium (Sennosides-Docusate Tablet) 1 tab PO DAILY [facility] Last Admin: 05/21/20 08:56 Dose: 1 tab Documented by: Sevelamer Carbonate (Sevelamer 800 Mg Tablet) 1,600 mg PO TID [facility] Last Admin: 05/21/20 20:26 Dose: 1,600 mg Documented by: Simethicone (Simethicone 80 Mg Chew) 80 mg PO QID PRN PRN Reason: FLATULENCE Last Admin: 05/21/20 08:59 Dose: 80 mg Documented by: Sodium Bicarbonate (Sodium Bicarbonate 650 Mg Tablet) 650 mg PO TID [facility] Last Admin: 05/21/20 20:27 Dose: 650 mg Documented by: Vitals/I&O/Wt Last Vital Signs Temp 98.2 F 05/22/20 05:30 Pulse 92 05/22/20 07:00 Resp 15 05/22/20 07:00 BP 142/92 05/22/20 05:30 Pulse Ox 95 05/22/20 07:00 05/21/20 05/22/20 05/22/20 22:59 06:59 14:59 Intake Total 1648 / 1700 Output Total 700 / 827 1000 / 1827 Balance 948 / 873 -1000 / -127 Weight last 48 hrs Weight 90.718 kg Weight 90.31 kg Physical Exam Narrative: EXAM NARRATIVE: comfortable, w/ NC 02, VSS heent- nc/at, eomi, anicteric neck no jvp lungs crackles at bases heart - controlled, irreg irreg, no rub, +STACY abd soft, nt, nd, +BS ext 1+ b/l edema neuro- a,a, o 3 no rash Urinary Catheter Management^: Rob: Cath Placed During This Visit: yes Reason for Continuing Indwelling Catheter: Accurate Measurement of Urinary Output in Critically Ill Patients Urinary Catheter Date of Insertion: 05/18/20 Urinary Catheter Time of Insertion: 11:00 Data : 05/22/20 03:17 05/22/20 03:17 Micro: Microbiology 05/18/20 12:00 Gram Stain - Final Sputum - Expectorated Sputum Sputum Culture - Final A&P Additional A&P Information 84 yr old man NSTEMIA 1. CKD stage 3b/4- baseline cr 2 - -likely etiology is DM, HTN, CRS -bone mineral -metabolism- check pth and phos -renal us -u/a- 1+ prot- would expect more w/ DM neohropathy -given anemia and renal failure- send SPEP/ UPEP 2. POPPY- from CRS and pt likely had ATN vs Prerenal- he was hypertensive on admission- had a [place] and febrile and hypotensive night between 05/17- 05/18/20 - appears euvolemic to volume overloaded - lasix as needed by cardiology -monitor in and out -monitor chemistries and daily weight 3. diastolic dysfunction and moderate MR -echo- CONCLUSIONS 1. Normal left ventricular size and systolic function. Although no diagnostic regional wall motion abnormality could be identified, this cannot be excluded completely given off axis images. Left ventricular ejection fraction is estimated at 60%. Grade I diastolic dysfunction (abnormal relaxation filling pattern), normal to mildly elevated filling pressures. 2. Normal right ventricular size. Midly decreased right ventricular systolic function. There is possibly right ventricular free wall hypokinesis. 3. When compared to previous echocardiogram dated 04/29/19, mitral valve regurgitation and right ventrcular systolic function may have decreased. 3b. CAD- if needs cardiac cath- high renal risk, high likelihood pt will need temporary and maybe even permanent HD -as of now, pt wants to avoid dialysis and cardiac cath -I explained to pt that it is possible that his weakness, lethargy are due to his heart disease, and that he may feel better w/ cardiac cath and dialysis if needed. -pt wants to consider it -lasix per cardiology 4. htn- bp okay- no catia-i/ arb due to kidney failure 5. DM control 6. infection- off of vanco. on cefepime 7. hyponatremia- likely from POPPY -check urine lytes, tsh, cortisol levels 8. non AGMA and mild AGMA from infection and POPPY - give sodium bicarb pills 9. full anemia eval - tsat 11%, ferritin 316- iv iron and epo 10. phos improved w/ binders, -pth 273- calcitriol 11. uric acid- 8.3- monitor, may benefit from allopurinol seen and examined w/ RN- telehealth visit Attestations Medical Necessity Statement*: per cardiology Time Spent in Patient Care: 16 - 35 minutes Coding Level of Care Code Acute Lapidary Apprentice for Emi Herndon
[2020-05-22] MEDS: sevelamer 800 mg Tablet 1600 MG PO ×3 (08:13→20:03)
[2020-05-22] MEDS: sennosides-docusate Tablet 1 TAB PO (08:14)
[2020-05-22] MEDS: isosorbide mononitrate ER 30 mg Tablet PO (08:14)
[2020-05-22] MEDS: clopidogrel 75 mg Tablet PO (08:14)
[2020-05-22] MEDS: aspirin 81 mg EC Tablet PO (08:14)
[2020-05-22] MEDS: carvedilol 3.125 mg Tablet PO ×2 (08:14→20:03)
[2020-05-22] MEDS: pantoprazole DR 40 mg Tablet PO (08:14)
[2020-05-22] MEDS: sodium bicarbonate 650 mg Tablet PO ×3 (08:15→20:03)
[2020-05-22] MEDS: calcitriol 0.25 mcg Capsule PO (08:21)
[2020-05-22] MEDS: ferric gluconate 125 MG in sodium chloride 0.9% (100 ml) 100 ML 110 MG IV (09:54)
[2020-05-22] MEDS: cefepime 1,000 MG in sodium chloride 0.9% (plus) 50 ML 100 MG IV (11:18)
[2020-05-22] MEDS: epoetin alfa 10,000 unit/mL INJ 10000 UNIT SUBCUT (11:19)
--- NOTE | 2020-05-22 12:54 | PC.NURSE ---
ST elevation was noted on monitor at around 1245. Patient complained of slight chest pressure. Voicemail left for Dr. Galindo
--- NOTE | 2020-05-22 12:56 | ECG_ITS ---
[facility] Test Date: 2020-05-22 Pat Name: Jennifer Michaud Department: Room: ICU06 Gender: Male [employer] Driver: : [id number] Requested By: Slim Galindo Order Number: [id number] Anyi MD: Amarilis Miller M.D. Measurements Intervals [place] Rate: 73 P: [place]: QRS: -35 QRSD: 101 T: 14 QT: 364 QTc: 403 Interpretive Statements ATRIAL FIBRILLATION LOW QRS VOLTAGE IN PRECORDIAL LEADS [QRS DEFLECTION < 1.0 mV IN CHEST LEADS] POSSIBLE ANTERIOR MYOCARDIAL INFARCTION [30 ms Q WAVE IN V3/V4, OR R < 0.2 mV IN V4], OF INDETERMINATE AGE INFERIOR MYOCARDIAL INFARCTION [40+ ms Q WAVE AND/OR ST/T ABNORMALITY IN II/aVF], OF INDETERMINATE AGE Compared to ECG 05/16/2020 10:37:19 Low QRS voltage now present Sinus rhythm no longer present Myocardial infarct finding still present Electronically Signed On 05-23-2020 7:41:05 CDT by Amarilis Miller M.D. [email or web address]
[2020-05-22] MEDS: enoxaparin 100 mg/mL Syringe 90 MG SUBCUT (13:14)
--- NOTE | 2020-05-22 15:47 | PC.NURSE ---
Patient complained of chest pain at 410. EKG done and sent to Dr. Galindo.
[2020-05-22 15:51] LABS: Creatinine, Random Urine 86 mg/dL (20-320); Protein, Total, Random 101 mg/dL (5-25); Protein/Creatinine Ratio 1.174 (0.022-0.128); Protein/Creatinine Ratio 1174 mg/g creat (22-128)
[2020-05-22] MEDS: nitroglycerin 0.4 mg sublingual Tablet SUBLINGUAL (15:55)
--- NOTE | 2020-05-22 16:06 | PC.NURSE ---
Nitro This nurse entered patients room to give evening medication and patient complained of chest pain 4/10. Patient stated that a nitro might help his pain. Nitro was given at 1559. Vitals before administration were HR-83, RR-20, o2- 96, BP- 135/95. At 1604 vitals 5 minuets after first nitro were HR-89, RR-20, o2-95, BP- 132/76. Pateint stated his chest pain after nitro was 3.5/10. When asked if he wanted another nitro he declined.
--- NOTE | 2020-05-22 17:08 | PM.PN ---
Subjective Subjective: Interval history: States overall he is doing all right. Gradually getting better. Denies chest pain or pressure. has not really gotten up almost at all while in the hospital. States at home he normally uses a cane, has a walker available. States is better set up to get around at home. He is agreeable to try to mobilize with physical therapy closer assess his current functional status and conditioning. Vitals/I&O/Wt Last Vital Signs Temp 97.0 F L 05/22/20 10:00 Pulse 95 05/22/20 16:00 Resp 24 H 05/22/20 16:00 BP 156/82 05/22/20 16:00 Pulse Ox 96 05/22/20 16:00 05/22/20 05/22/20 05/22/20 06:59 14:59 22:59 Intake Total 400 / 400 Output Total 1000 / 1827 325 / 325 Balance -1000 / -127 75 / 75 Weight last 48 hrs Weight 90.718 kg Weight 90.31 kg Physical Exam Const: COMMON NORMALS: no acute distress and patient oriented x3 HENMT: OTHER: small white exudates of posterior oropharynx Neck/C-Spine: COMMON NORMALS: no JVD Resp: COMMON NORMALS: normal respiratory effort and clear to auscultation bilaterally AUSCULTATION: clear to auscultation bilaterally Cardio: COMMON NORMALS: no JVD, regular rhythm, S1 normal heart sound present, S2 normal heart sound present and No murmurs present (Cardio) RHYTHM: regular rhythm HEART SOUNDS: S1 normal heart sound present and S2 normal heart sound present GI: COMMON NORMALS: Normal to inspection, nondistended, normoactive bowel sounds present, Soft to palpation and non-tender PALPATION: Yes Soft to palpation Extremity: COMMON NORMALS: no joint enlargement GENERAL: Yes edema (Trace) Neuro: COMMON NORMALS: patient oriented x3 and moves all extremities Skin: COMMON NORMALS: no rashes or lesions noted GENERAL SKIN EXAM: no rashes or lesions noted Urinary Catheter Management^: Rob: Cath Placed During This Visit: yes Reason for Continuing Indwelling Catheter: Accurate Measurement of Urinary Output in Critically Ill Patients Urinary Catheter Date of Insertion: 05/18/20 Urinary Catheter Time of Insertion: 11:00 Data : 05/22/20 03:17 05/22/20 03:17 Micro: Microbiology 05/21/20 09:30 Group A Streptococcus Rapid Screen - Preliminary Throat A&P Assessment and plan (1) Non-ST elevation RI (NSTEMI): Discussed with him as well as with cardiology regarding plan. For now continue medical management. If he continues to do well, from cardiology standpoint may be will discharge and follow-up with them in clinic to further consider risks and benefits of coronary angiography upon recovery of renal function. Based on echocardiography results RI territory does not appear to be very large. We will try to get him mobilized with physical therapy, assess his functional status and physical conditioning as he has been rather sedentary here in the hospital. If he tolerates this well, mobilizes, and otherwise does all right, tentatively may plan for discharge and outpatient follow-up. No chest pain. Continue aspirin, Plavix, beta-yuniel, statin, Imdur Appreciate nephrology recommendation, in case of deterioration or need for more urgent assessment by coronary angiography, combination with dialysis may be a consideration. He is in ICU as overflow from CSU. Status: Acute (2) Atrial fibrillation: Rate controlled 3.125 mg PO BID Therapeutic Lovenox. If renal function remains stable, consider transition to renally adjusted Eliquis. Status: Acute Qualifiers: Atrial fibrillation type: other persistent Qualified Code(s): I48.19 - Other persistent atrial fibrillation (3) Acute worsening of stage 3 chronic kidney disease: Appears to be showing slow gradual improvement in creatinine. Baseline serum creatinine: 2.1-2.5 Avoid nephrotoxic agents Avoid hypotension Renal US - medical renal disease Follow up on UPEP/SPEP. Immunofixation with serum IgM decreased. No monoclonal immunoglobulin. Rob for monitoring of intake and output Status: Acute (4) Sepsis associated hypotension: Reports he has been having sore throat. White exudates noted. Continue current antibiotic. Rapid strep negative but after antibiotic administration. Occasional cough, although no suggestion of pneumonia on chest x-ray. Urine not suggestive of UTI. No neuro, GI, integumentary or other systems showing symptoms of infection. Culture drawn - no NGTD Cefepime 1 g IV q12hr Status: Acute (5) Diastolic CHF: For now holding both diuretic and IV fluid. Monitor volume status. Mobilize. So far doing well on room air. Cardiac diet Monitor intake output Daily weight K>4, Mg>2 Wean 02 Respiratory status stable Status: Acute Qualifiers: Heart failure chronicity: acute Qualified Code(s): I50.31 - Acute diastolic (congestive) heart failure (6) Carotid stenosis: Status: Chronic Qualifiers: Laterality: bilateral Qualified Code(s): I65.23 - Occlusion and stenosis of bilateral carotid arteries (7) Diabetes mellitus: Sliding scale insulin Status: Acute (8) Severe chronic obstructive pulmonary disease: Status: Acute (9) Hypertension: Status: Acute Qualifiers: Hypertension type: essential hypertension Qualified Code(s): I10 - Essential (primary) hypertension (10) AAA (abdominal aortic aneurysm): Status: Acute Qualifiers: Presence of rupture: without rupture Qualified Code(s): I71.4 - Abdominal aortic aneurysm, without rupture (11) Moderate mitral regurgitation: Status: Acute (12) Hyperkalemia: Improved after tx Status: Acute Additional A&P Information Hypomagnesemia: Recheck magnesium level DVT prophylaxis: Currently on Lovenox CODE STATUS;AND Attestations Medical Necessity Statement*: Continue admission for assessment management following non-STEMI, with acute kidney injury on chronic disease, additional monitoring in the hospital due to risk of deterioration, consideration of timing of additional assessment by coronary angiography, mobilization assessment of functional capacity with limited baseline mobility, discharge planning and arrangements. Coding Level of Care Code Acute Prototype Model Maker for [employer] Fwd Diagnoses Non-ST elevation RI (NSTEMI) I21.4 Atrial fibrillation I48.19 Atrial fibrillation type: other persistent Acute worsening of stage 3 chronic kidney disease N18.30 Sepsis associated hypotension A41.9; I95.9 Diastolic CHF I50.31 Heart failure chronicity: acute Carotid stenosis I65.23 Laterality: bilateral Diabetes mellitus E11.9 Severe chronic obstructive pulmonary disease J44.9 Hypertension I10 Hypertension type: essential hypertension AAA (abdominal aortic aneurysm) I71.4 Presence of rupture: without rupture Moderate mitral regurgitation I34.0 Hyperkalemia E87.5
--- NOTE | 2020-05-22 17:34 | PM.PN ---
Subjective Subjective: Interval history: Denies any complaint. Medications: Reviewed: Yes Medication Review Details: Current Medications Acetaminophen (Acetaminophen 325 Mg Tablet) 325 - 650 mg PO Q4H PRN PRN Reason: MILD PAIN OR INCREASE TEMP Last Admin: 05/20/20 21:29 Dose: 650 mg Documented by: Hydrocodone Bitart/Acetaminophen (Hydrocodone-Acetaminophen 5-325 Mg Tablet) 1 tab PO TID PRN PRN Reason: SEVERE PAIN Last Admin: 05/22/20 05:37 Dose: 1 tab Documented by: Albuterol/Ipratropium (Ipratropium-Albuterol 3 Ml Neb) 3 ml INHALATION Q4H PRN PRN Reason: SHORTNESS OF BREATH Aspirin (Aspirin 81 Mg Ec Tablet) 81 mg PO DAILY [facility] Last Admin: 05/21/20 08:55 Dose: 81 mg Documented by: Atorvastatin Calcium (Atorvastatin 40 Mg Tablet) 80 mg PO BEDTIME [facility] Last Admin: 05/21/20 20:26 Dose: 80 mg Documented by: Benzocaine (Cetylpyridinium Lozenge) 1 each MUCOUS MEM Q2H PRN PRN Reason: SORE THROAT Last Admin: 05/19/20 08:36 Dose: 1 each Documented by: Calcitriol (Calcitriol 0.25 Mcg Capsule) 0.25 mcg PO DAILY [facility] Last Admin: 05/21/20 09:10 Dose: 0.25 mcg Documented by: Calcium Carbonate (Calcium Carbonate 500 Mg Chew Tablet) 500 mg PO Q4H PRN PRN Reason: INDIGESTION Last Admin: 05/20/20 15:37 Dose: 500 mg Documented by: Carvedilol (Carvedilol 3.125 Mg Tablet) 3.125 mg PO BID@0900,2100 [facility] Last Admin: 05/21/20 20:27 Dose: 3.125 mg Documented by: Clopidogrel Bisulfate (Clopidogrel 75 Mg Tablet) 75 mg PO DAILY [facility] Last Admin: 05/21/20 08:56 Dose: 75 mg Documented by: Enoxaparin Sodium (Enoxaparin 100 Mg/Ml Syringe) 90 mg 1 mg/kg (90 mg) SUBCUT Q24H [facility] Last Admin: 05/21/20 14:44 Dose: 90 mg Documented by: Furosemide (Furosemide 10 Mg/Ml Sdv 4ml) 40 mg IVP Q24H [facility] Last Admin: 05/18/20 09:08 Dose: Not Given Documented by: Guaifenesin (Guaifenesin 100 Mg/5 Ml Udc 10 Ml) 200 mg PO Q4H PRN PRN Reason: COUGH AND CONGESTION Hydralazine HCl (Hydralazine 25 Mg Tablet) 25 mg PO TID [facility] Last Admin: 05/18/20 09:08 Dose: Not Given Documented by: Nitroglycerin/Dextrose (Nitroglycerin Drip) 50 mg in 250 mls @ 0 mls/hr IV .Q0M [facility]; Protocol Last Titration: 05/17/20 22:22 Dose: 0 mcg/min, 0 mls/hr Documented by: Cefepime HCl 1,000 mg/ Sodium (Chloride) 50 mls @ 100 mls/hr IV Q24H [facility]; Protocol Last Infusion: 05/21/20 19:16 Dose: Infused Documented by: Isosorbide Mononitrate (Isosorbide Mononitrate Er 30 Mg Tablet) 30 mg PO DAILY [facility] Last Admin: 05/21/20 08:55 Dose: 30 mg Documented by: Lanolin (Lanolin Oint 7 Gm) 1 applic TOPICAL PRN PRN PRN Reason: DRYNESS Last Admin: 05/20/20 05:43 Dose: 1 applic Documented by: Nitroglycerin (Nitroglycerin 0.4 Mg Sublingual Tablet) 0.4 mg SUBLINGUAL Q5M PRN PRN Reason: CHEST PAIN Last Admin: 05/20/20 05:53 Dose: 1 tab Documented by: Ondansetron HCl (Ondansetron 2 Mg/Ml Sdv 2 Ml) 4 mg IVP Q6H PRN PRN Reason: NAUSEA AND VOMITING Last Admin: 05/19/20 21:09 Dose: 4 mg Documented by: Pantoprazole Sodium (Pantoprazole Dr 40 Mg Tablet) 40 mg PO DAILY [facility] Last Admin: 05/21/20 08:56 Dose: 40 mg Documented by: Senna/Docusate Sodium (Sennosides-Docusate Tablet) 1 tab PO DAILY [facility] Last Admin: 05/21/20 08:56 Dose: 1 tab Documented by: Sevelamer Carbonate (Sevelamer 800 Mg Tablet) 1,600 mg PO TID [facility] Last Admin: 05/21/20 20:26 Dose: 1,600 mg Documented by: Simethicone (Simethicone 80 Mg Chew) 80 mg PO QID PRN PRN Reason: FLATULENCE Last Admin: 05/21/20 08:59 Dose: 80 mg Documented by: Sodium Bicarbonate (Sodium Bicarbonate 650 Mg Tablet) 650 mg PO TID [facility] Last Admin: 05/21/20 20:27 Dose: 650 mg Documented by: Vitals/I&O/Wt Last Vital Signs Temp 97.0 F L 05/22/20 10:00 Pulse 95 05/22/20 16:00 Resp 24 H 05/22/20 16:00 BP 156/82 05/22/20 16:00 Pulse Ox 96 05/22/20 16:00 05/22/20 05/22/20 05/22/20 06:59 14:59 22:59 Intake Total 400 / 400 Output Total 1000 / 1827 325 / 325 Balance -1000 / -127 75 / 75 Weight last 48 hrs Weight 200 lb Weight 199 lb 1.6 oz Physical Exam Narrative: EXAM NARRATIVE: GENERAL: Patient is alert, awake and oriented x3. NECK: No jugular vein distension. HEENT: No cyanosis. No icterus. No pallor. HEART: Regular S1 and S2. No murmur, rub or gallop. LUNGS: Clear to auscultate bilaterally. ABDOMEN: Soft, nontender and nondistended. Positive bowel sounds. No guarding, rebound or tenderness. CENTRAL NERVOUS SYSTEM: Grossly nonfocal. EXTREMITIES: Lower extremities without edema bilaterally. Urinary Catheter Management^: Rob: Cath Placed During This Visit: yes Reason for Continuing Indwelling Catheter: Accurate Measurement of Urinary Output in Critically Ill Patients Urinary Catheter Date of Insertion: 05/18/20 Urinary Catheter Time of Insertion: 11:00 Data : 05/22/20 03:17 05/22/20 03:17 Micro: Microbiology 05/21/20 09:30 Group A Streptococcus Rapid Screen - Preliminary Throat A&P Assessment and plan (1) Myocardial infarction: Most likely patient has completed infarct of anterior wall with possible LAD involvement. Patient had refused coronary angiogram after that. Plans for medical management. His echocardiogram shows preserved LV systolic function. This is not consistent with large infarct. He may benefit from coronary angiogram once renal function is back to baseline. Will discuss with patient and family in once renal function has improved. Nephrology on board as patient had developed POPPY on CKD. Creatinine has slightly improved with IV fluids. Continue IV fluids. Arterial visit patient appeared to be stable continue to manage medically. On today's visit dated 05/22/2020 patient denies any complaint sitting in the chair, PT and OT to work with we will treat him conservatively at this point we do not have any intervention to take him to the [facility] due to underlying anemia and renal failure. Status: Acute Qualifiers: Myocardial infarction type: unspecified Involved coronary artery: unspecified coronary artery Qualified Code(s): I21.9 - Acute myocardial infarction, unspecified (2) Atrial fibrillation: Stable. Rate controlled continue medicine Status: Acute Qualifiers: Atrial fibrillation type: other persistent Qualified Code(s): I48.19 - Other persistent atrial fibrillation (3) Hypertension: Better improved Status: Acute Qualifiers: Hypertension type: essential hypertension Qualified Code(s): I10 - Essential (primary) hypertension (4) Chronic kidney disease: Stable. Status: Chronic Qualifiers: Chronic kidney disease stage: stage 3 (moderate) Qualified Code(s): N18.3 - Chronic kidney disease, stage 3 (moderate) (5) Moderate mitral regurgitation: Hold diuretics for now Status: Acute (6) AAA (abdominal aortic aneurysm): Status: Acute Qualifiers: Presence of rupture: without rupture Qualified Code(s): I71.4 - Abdominal aortic aneurysm, without rupture (7) Carotid stenosis: Status: Chronic Qualifiers: Laterality: bilateral Qualified Code(s): I65.23 - Occlusion and stenosis of bilateral carotid arteries Attestations Medical Necessity Statement*: Patient require continued hospitalization for above defined care Coding Level of Care Code Established Pt Acute Claims Representative for [facility] Fwd Patient Type Established History Detailed Exam Detailed Medical Decision Making Moderate Complexity Diagnoses Myocardial infarction I21.9 Myocardial infarction type: unspecified Involved coronary artery: unspecified coronary artery Atrial fibrillation I48.19 Atrial fibrillation type: other persistent Hypertension I10 Hypertension type: essential hypertension Chronic kidney disease N18.3 Chronic kidney disease stage: stage 3 (moderate) Moderate mitral regurgitation I34.0 AAA (abdominal aortic aneurysm) I71.4 Presence of rupture: without rupture Carotid stenosis I65.23 Laterality: bilateral
[2020-05-22] MEDS: atorvastatin 40 mg Tablet 80 MG PO (20:03)
[2020-05-23] VITALS (14 sets, daily range): BP systolic 107–152; BP diastolic 56–91; PULSE 68–104; RESP 7–27; TEMP 36.3–36.7; O2SAT 91–98
[2020-05-23 04:53] LABS: Basophils # 0.1 10^3/uL (0.0-0.1); Basophils % 1.1 %; Eosinophils # 0.3 10^3/uL (0.0-0.8); Eosinophils % 2.8 %; Hematocrit 26.6 % (42.0-52.0); Hemoglobin 8.5 g/dL (11.7-16.6); Lymphocytes % 9.9 %; Mean Corpuscular Hemoglobin 30.8 pg (28.0-34.0); Mean Corpuscular Volume 96.4 fL (80-94); Mean Platelet Volume 11.5 fL (7.4-10.4); Monocytes # 1.6 10^3/uL (0.2-0.9); Monocytes % 15.5 %; Neutrophils # 6.92 10^3/uL (1.8-7.7); Neutrophils % 69.1 %; Nucleated Red Blood Cells % 0 %; Platelet Count 316 10^3/cmm (130-400); Red Blood Count 2.76 10^6/uL (4.1-5.3); Red Cell Distribution Width 13.1 % (12.1-15.1)
[2020-05-23 05:19] LABS: Alanine Aminotransferase 13 U/L (0-41); Albumin Level 2.9 g/dL (3.5-5.2); Alkaline Phosphatase 69 IU/L (40-130); Anion Gap 14.8 (5-19); Aspartate Amino Transferase 12 U/L (0-40); Blood Urea Nitrogen 72 mg/dL (8-23); Calcium 9.3 mg/dL (8.5-10.5); Carbon Dioxide 20 mmol/L (22-29); Chloride 108 mmol/L (98-107); Globulin 2.5 g/dL (1.3-4.6); Glucose 110 mg/dL (65-115); Magnesium 1.7 mg/dL (1.7-2.3); Osmolality Calculated 308 mOsm/kg (285-295); Phosphorus 4.2 mg/dL (2.5-4.5); Potassium 4.8 mmol/L (3.5-5.1); Sodium 138 mmol/L (136-145); Total Bilirubin 0.2 mg/dL (0.15-1.2); Total Protein 5.4 g/dL (6.6-8.7)
--- NOTE | 2020-05-23 06:59 | PM.PN ---
Subjective Subjective: Interval history: feels better. nop sob or cp. has joint pain and weakness. no n/v/f/c/figueroa/d. Medications: Reviewed: Yes Medication Review Details: Current Medications Acetaminophen (Acetaminophen 325 Mg Tablet) 325 - 650 mg PO Q4H PRN PRN Reason: MILD PAIN OR INCREASE TEMP Last Admin: 05/20/20 21:29 Dose: 650 mg Documented by: Hydrocodone Bitart/Acetaminophen (Hydrocodone-Acetaminophen 5-325 Mg Tablet) 1 tab PO TID PRN PRN Reason: SEVERE PAIN Last Admin: 05/22/20 20:03 Dose: 1 tab Documented by: Albuterol/Ipratropium (Ipratropium-Albuterol 3 Ml Neb) 3 ml INHALATION Q4H PRN PRN Reason: SHORTNESS OF BREATH Aspirin (Aspirin 81 Mg Ec Tablet) 81 mg PO DAILY [facility] Last Admin: 05/22/20 08:14 Dose: 81 mg Documented by: Atorvastatin Calcium (Atorvastatin 40 Mg Tablet) 80 mg PO BEDTIME [facility] Last Admin: 05/22/20 20:03 Dose: 80 mg Documented by: Benzocaine (Cetylpyridinium Lozenge) 1 each MUCOUS MEM Q2H PRN PRN Reason: SORE THROAT Last Admin: 05/19/20 08:36 Dose: 1 each Documented by: Calcitriol (Calcitriol 0.25 Mcg Capsule) 0.25 mcg PO DAILY [facility] Last Admin: 05/22/20 08:21 Dose: 0.25 mcg Documented by: Calcium Carbonate (Calcium Carbonate 500 Mg Chew Tablet) 500 mg PO Q4H PRN PRN Reason: INDIGESTION Last Admin: 05/20/20 15:37 Dose: 500 mg Documented by: Carvedilol (Carvedilol 3.125 Mg Tablet) 3.125 mg PO BID@0900,2100 [facility] Last Admin: 05/22/20 20:03 Dose: 3.125 mg Documented by: Clopidogrel Bisulfate (Clopidogrel 75 Mg Tablet) 75 mg PO DAILY [facility] Last Admin: 05/22/20 08:14 Dose: 75 mg Documented by: Enoxaparin Sodium (Enoxaparin 100 Mg/Ml Syringe) 90 mg 1 mg/kg (90 mg) SUBCUT Q24H [facility] Last Admin: 05/22/20 13:14 Dose: 90 mg Documented by: Furosemide (Furosemide 10 Mg/Ml Sdv 4ml) 40 mg IVP Q24H [facility] Last Admin: 05/18/20 09:08 Dose: Not Given Documented by: Guaifenesin (Guaifenesin 100 Mg/5 Ml Udc 10 Ml) 200 mg PO Q4H PRN PRN Reason: COUGH AND CONGESTION Hydralazine HCl (Hydralazine 25 Mg Tablet) 25 mg PO TID [facility] Last Admin: 05/18/20 09:08 Dose: Not Given Documented by: Nitroglycerin/Dextrose (Nitroglycerin Drip) 50 mg in 250 mls @ 0 mls/hr IV .Q0M [facility]; Protocol Last Titration: 05/17/20 22:22 Dose: 0 mcg/min, 0 mls/hr Documented by: Cefepime HCl 1,000 mg/ Sodium (Chloride) 50 mls @ 100 mls/hr IV Q24H [facility]; Protocol Last Infusion: 05/22/20 13:17 Dose: Infused Documented by: Ferric Sodium Gluconate 125 mg (/ Sodium Chloride) 110 mls @ 110 mls/hr IV Q24H [facility] Stop: 05/29/20 10:29 Last Infusion: 05/22/20 11:34 Dose: Infused Documented by: Isosorbide Mononitrate (Isosorbide Mononitrate Er 30 Mg Tablet) 30 mg PO DAILY [facility] Last Admin: 05/22/20 08:14 Dose: 30 mg Documented by: Lanolin (Lanolin Oint 7 Gm) 1 applic TOPICAL PRN PRN PRN Reason: DRYNESS Last Admin: 05/20/20 05:43 Dose: 1 applic Documented by: Nitroglycerin (Nitroglycerin 0.4 Mg Sublingual Tablet) 0.4 mg SUBLINGUAL Q5M PRN PRN Reason: CHEST PAIN Last Admin: 05/22/20 15:55 Dose: 1 tab Documented by: Ondansetron HCl (Ondansetron 2 Mg/Ml Sdv 2 Ml) 4 mg IVP Q6H PRN PRN Reason: NAUSEA AND VOMITING Last Admin: 05/19/20 21:09 Dose: 4 mg Documented by: Pantoprazole Sodium (Pantoprazole Dr 40 Mg Tablet) 40 mg PO DAILY [facility] Last Admin: 05/22/20 08:14 Dose: 40 mg Documented by: Senna/Docusate Sodium (Sennosides-Docusate Tablet) 1 tab PO DAILY [facility] Last Admin: 05/22/20 08:14 Dose: 1 tab Documented by: Sevelamer Carbonate (Sevelamer 800 Mg Tablet) 1,600 mg PO TID [facility] Last Admin: 05/22/20 20:03 Dose: 1,600 mg Documented by: Simethicone (Simethicone 80 Mg Chew) 80 mg PO QID PRN PRN Reason: FLATULENCE Last Admin: 05/21/20 08:59 Dose: 80 mg Documented by: Sodium Bicarbonate (Sodium Bicarbonate 650 Mg Tablet) 650 mg PO TID [facility] Last Admin: 05/22/20 20:03 Dose: 650 mg Documented by: Vitals/I&O/Wt Last Vital Signs Temp 98.1 F 05/23/20 04:00 Pulse 83 05/23/20 05:07 Resp 20 H 05/23/20 04:00 BP 107/58 05/23/20 04:00 Pulse Ox 91 05/23/20 04:00 05/22/20 05/22/20 05/23/20 14:59 22:59 06:59 Intake Total 400 / 400 240 / 640 200 / 840 Output Total 325 / 325 600 / 925 400 / 1325 Balance 75 / 75 -360 / -285 -200 / -485 Weight last 48 hrs Weight 90.718 kg Weight 90.718 kg Physical Exam Narrative: EXAM NARRATIVE: comfortable, w/ NC 02, VSS heent- nc/at, eomi, anicteric neck no jvp lungs -improved air movement b/l heart - controlled, irreg irreg, no rub, +STACY abd soft, nt, nd, +BS ext 1+ b/l edema neuro- a,a, o 3 no rash Urinary Catheter Management^: Rob: Cath Placed During This Visit: yes, but has since been removed by the nurse Reason for Continuing Indwelling Catheter: Decision to DC Catheter Urinary Catheter Date of Insertion: 05/18/20 Urinary Catheter Time of Insertion: 11:00 Date Urinary Catheter Removed: 05/22/20 Time Urinary Catheter Discontinued: 22:30 Data : 05/23/20 04:10 05/23/20 04:10 Micro: Microbiology 05/18/20 01:43 Blood Culture - Final Blood NO GROWTH AFTER 5 DAYS 05/18/20 01:43 Blood Culture - Final Blood NO GROWTH AFTER 5 DAYS 05/21/20 09:30 Group A Streptococcus Rapid Screen - Preliminary Throat A&P Additional A&P Information 84 yr old man NSTEMIA 1. CKD stage 3b/4- baseline cr 2 - -likely etiology is DM, HTN, CRS -bone mineral -metabolism- check pth and phos -renal us -u/a- 1+ prot- would expect more w/ DM neohropathy -given anemia and renal failure- send SPEP/ UPEP 2. POPPY- from CRS and pt likely had ATN vs Prerenal- he was hypertensive on admission- had a VT and febrile and hypotensive night between 05/17- 05/18/20 - appears euvolemic to volume overloaded - lasix as needed by cardiology -monitor in and out -monitor chemistries and daily weight - cr improving. good uop on lasix 3. diastolic dysfunction and moderate MR -echo- CONCLUSIONS 1. Normal left ventricular size and systolic function. Although no diagnostic regional wall motion abnormality could be identified, this cannot be excluded completely given off axis images. Left ventricular ejection fraction is estimated at 60%. Grade I diastolic dysfunction (abnormal relaxation filling pattern), normal to mildly elevated filling pressures. 2. Normal right ventricular size. Midly decreased right ventricular systolic function. There is possibly right ventricular free wall hypokinesis. 3. When compared to previous echocardiogram dated 04/29/19, mitral valve regurgitation and right ventrcular systolic function may have decreased. 3b. CAD- if needs cardiac cath- high renal risk, high likelihood pt will need temporary and maybe even permanent HD -as of now, pt wants to avoid dialysis and cardiac cath -I explained to pt that he has known CAD and DM, CKD- high likelihood of CAD, and high cardiac mortality- recommend cath when cr stabilizes and we can stop lasix 4. htn- bp okay- no catia-i/ arb due to kidney failure 5. DM control 6. infection- off of vanco. on cefepime 7. non AGMA and mild AGMA from infection and POPPY - give sodium bicarb pills 8. full anemia eval - tsat 11%, ferritin 316- iv iron and epo -hgb stable no monoclonal protein on SIFE -given epo on 05/22 9. phos improved w/ binders, dec dose -pth 273- calcitriol 10. uric acid- 8.3- monitor, may benefit from allopurinol 11. hyponatremia -improved replace mag seen and examined w/ RN- telehealth visit Attestations Medical Necessity Statement*: per medicine Time Spent in Patient Care: 16 - 35 minutes Coding Level of Care Code Acute Coverer for Emi [facility]
[2020-05-23] MEDS: sodium bicarbonate 650 mg Tablet PO ×3 (09:10→20:47)
[2020-05-23] MEDS: sennosides-docusate Tablet 1 TAB PO (09:10)
[2020-05-23] MEDS: pantoprazole DR 40 mg Tablet PO (09:10)
[2020-05-23] MEDS: clopidogrel 75 mg Tablet PO (09:10)
[2020-05-23] MEDS: isosorbide mononitrate ER 30 mg Tablet PO (09:11)
[2020-05-23] MEDS: aspirin 81 mg EC Tablet PO (09:11)
[2020-05-23] MEDS: calcitriol 0.25 mcg Capsule PO (09:26)
[2020-05-23] MEDS: ferric gluconate 125 MG in sodium chloride 0.9% (100 ml) 100 ML 110 MG IV (09:28)
[2020-05-23 09:38] LABS: Albumin,Urine Random 34 %; Alpha-1-Globulins Urine Random 2 %; Alpha-2-Globulins Urine Random 26 %; Beta-Globulin,Urine Random 14 %; Gamma Globulin,Urine Random 25 %
[2020-05-23] MEDS: carvedilol 3.125 mg Tablet PO ×2 (09:41→20:47)
[2020-05-23] MEDS: sevelamer 800 mg Tablet PO ×3 (09:41→19:04)
--- NOTE | 2020-05-23 09:51 | ECG_ITS ---
[facility] Test Date: 2020-05-23 Pat Name: Jennifer Michaud Department: Room: 103 Gender: Male Gold Prospector: : 1935 Requested By: Pollo Newman Order Number: [id number] Anyi MD: Amarilis Miller M.D. Measurements Intervals [place] Rate: 86 P: [place]: QRS: -46 QRSD: 97 T: 17 QT: 349 QTc: 418 Interpretive Statements ATRIAL FIBRILLATION LOW QRS VOLTAGE IN PRECORDIAL LEADS [QRS DEFLECTION < 1.0 mV IN CHEST LEADS] POSSIBLE ANTERIOR MYOCARDIAL INFARCTION [30 ms Q WAVE IN V3/V4, OR R < 0.2 mV IN V4], OF INDETERMINATE AGE INFERIOR MYOCARDIAL INFARCTION [40+ ms Q WAVE AND/OR ST/T ABNORMALITY IN II/aVF], OF INDETERMINATE AGE Compared to ECG 05/22/2020 14:03:14 No significant changes Electronically Signed On 05-23-2020 23:54:43 CDT by Amarilis Miller M.D. [id number]
--- NOTE | 2020-05-23 11:51 | P.DS_ITS ---
Discharge Providers Date of Admission: 05/16/20 03:17 Date of Discharge: May 23, 2020 Attending Provider at Admission: Slim Chatman MD Attending Provider at Discharge: Pollo Newman Primary Care Provider: Dominga Cortez MD Diagnoses at Discharge Discharge Diagnosis (1) Myocardial infarction: Status: Acute Qualifiers: Involved coronary artery: unspecified coronary artery Myocardial infarction type: unspecified Qualified Code(s): I21.9 - Acute myocardial infarction, unspecified (2) Atrial fibrillation: Status: Acute Qualifiers: Atrial fibrillation type: other persistent Qualified Code(s): I48.19 - Other persistent atrial fibrillation (3) Hypertension: Status: Acute Qualifiers: Hypertension type: essential hypertension Qualified Code(s): I10 - Essential (primary) hypertension (4) Chronic kidney disease: Status: Chronic Permanent problem details: -has known CKD stage 3; baseline Cr 2.1-2.5 Qualifiers: Chronic kidney disease stage: stage 3 (moderate) Qualified Code(s): N18.3 - Chronic kidney disease, stage 3 (moderate) (5) Moderate mitral regurgitation: Status: Acute (6) AAA (abdominal aortic aneurysm): Status: Acute Permanent problem details: Endovascular repair several years ago Qualifiers: Presence of rupture: without rupture Qualified Code(s): I71.4 - Abdominal aortic aneurysm, without rupture (7) Carotid stenosis: Status: Chronic Permanent problem details: -s/p recent L CEA done by Dr. Ramos on 04/18/19 Qualifiers: Laterality: bilateral Qualified Code(s): I65.23 - Occlusion and stenosis of bilateral carotid arteries (8) Acute worsening of stage 3 chronic kidney disease: Status: Acute (9) Acute on chronic anemia: Status: Acute Reason for Visit Reason for Visit: Acute Coronary Syndrome Hospital Course Hospital Course Very pleasant 84-year-old gentleman with prior diastolic dysfunction, mild TVR, moderate MVR, carotid stenosis, status post left-sided CEA 04/18/2019, chronic kidney disease stage III, current smoker, was transferred over from [facility] after presenting there with complaint of chest pain with symptoms starting on 05/14. He came in for evaluation to [facility] on 05/15 due to worsening symptoms. Their EKG was concerning for ST elevation. He was transferred here for additional cardiac assessment. Cardiology evaluation presentation from consistent with completed myocardial infarction with primary Q waves. He was maintained on aspirin, Plavix, therapeutic anticoagulation, statin, beta-yuniel. With noted acute congestive heart failure on presentation, was treated with IV diuretics. Chronic kidney disease noted on presentation, lisinopril was held. Suffered worsening renal function during hospitalization limiting ability to diuresis, transiently received fluid challenge, more recently appears closer to euvolemic with both diuretics and fluids held. Creatinine during hospitalization was as high as 4.1 on 05/19. He was evaluated by nephrology. In case additional cardiac ablation was urgently needed, dialysis was considered. He had initially declined to consider coronary angiography. More recently considered that this may be an option once his renal function improves. On additional cardiac reassessment recommendation at this time is to continue medical management with benefits not outweighing the risks for more urgent assessment by coronary angiography, and this will be considered again and possibly scheduled on elective basis on reassessment through outpatient follow-up in cardiology clinic given preserved LV systolic function on echocardiography not consistent with a large infarct. We will also ask him to follow-up with nephrology. Currently renal function appears to be gradually improving, creatinine trending closer towards his baseline, currently down to 2.8. With history of atrial fibrillation, for CVA risk mitigation he continues on anticoagulation. Noted anemia in the hospital will need additional follow-up, hemoglobins appear to have stabilized around 8.5. To avoid worsening anemia triple therapy will be avoided. Per recommendation we will continue on anticoagulation at discharge with low-dose aspirin. Please reassess blood counts and adjust therapeutic regimen as appropriate. Anemia of chronic disease, but possibly also multifactorial with component of iron deficiency. Immunochemical fecal test requested, appears not collected. Serum immunofixation was requested, without monoclonal protein. Noted low IgM levels. Electrophoresis still pending. Please follow-up final results. Please refer for additional assessment of anemia depending on results. Consider referral for additional endoscopic evaluation once he recovers from acute illness. During hospitalization also had an episode of sepsis of unclear source, this appears to been secondary to pharyngitis as he has been having sore throat, with noted white exudates. Was initially briefly treated with antibiotics, blood cultures collected without growth. Rapid strep was collected, but already after several days of antibiotics and was negative. Culture pending. Sputum culture unremarkable. Urinalysis not suggestive of acute urinary infection. No signs of GI infection. No signs of [employer], integumentary or other source. Please follow-up for resolution and lack of recurrence of any symptoms. Please revisit with him regarding abstinence from smoking. Continue optimization of other risk factors of coronary disease including diabetes, hype rtension. Discal deconditioning, some limitations in mobility at baseline, and further loss of stamina while in the hospital, he is additionally referred for home health care. Please follow up uric acid levels. Consider addition of hyperuricemic agent if renal function stabilizes. Physical Exam Const: COMMON NORMALS: no acute distress and patient oriented x3 OTHER: Awake, alert, pleasant, conversant. Not in pain or distress. Denies any chest pain or pressure. No shortness of breath. States wants to get out from the hospital today. Overall has lost some of his conditioning, he is agreeable to continue PT with home health at home. States that he has 2 people, his friends, who are nurses also at all times available to help him at home in case he is in need of anything. HENMT: COMMON NORMALS: oropharynx normal Neck/C-Spine: COMMON NORMALS: no JVD Resp: COMMON NORMALS: normal respiratory effort and clear to auscultation bilaterally AUSCULTATION: clear to auscultation bilaterally Cardio: COMMON NORMALS: no JVD, regular rhythm, S1 normal heart sound present, S2 normal heart sound present and No murmurs present (Cardio) RHYTHM: regular rhythm HEART SOUNDS: S1 normal heart sound present and S2 normal heart sound present GI: COMMON NORMALS: Normal to inspection, nondistended, normoactive bowel sounds present, Soft to palpation and non-tender PALPATION: Yes Soft to palpation Extremity: COMMON NORMALS: no joint enlargement and no pedal edema Neuro: COMMON NORMALS: patient oriented x3 and moves all extremities Skin: COMMON NORMALS: no rashes or lesions noted GENERAL SKIN EXAM: no rashes or lesions noted Urinary Catheter Management^: Rob: Cath Placed During This Visit: yes, but has since been removed by the nurse Reason for Continuing Indwelling Catheter: Decision to DC Catheter Urinary Catheter Date of Insertion: 05/18/20 Urinary Catheter Time of Insertion: 11:00 Date Urinary Catheter Removed: 05/22/20 Time Urinary Catheter Discontinued: 22:30 Discharge Data Data Completed and Pending: Completed Studies During Hospitalization Category Date Time Status XR chest 1V chau ble [id number] NOW Exams 05/17/20 07:41 Completed XR chest 1V chau ble [id number] NOW Exams 05/18/20 13:17 Completed CV echo complete* [id number] Routine Ultrasound 05/16/20 03:41 Completed CV echo lmt wo/w contras [id number] Rout ine Ultrasound 05/21/20 13:22 Completed US renal BI* [id number] Routine Ultrasound 05/20/20 07:32 Completed Pending at discharge Category Date Time Status Complete Blood Co unt w/Auto AM LABS Lab 05/24/20 04:00 Ordered Complete Blood Co unt w/Auto AM LABS Lab 05/25/20 04:00 Ordered Complete Blood Co unt w/Auto AM LABS Lab 05/26/20 04:00 Ordered Comprehensive Met abolic Panel AM LA BS Lab 05/24/20 04:00 Ordered Comprehensive Met abolic Panel AM LA BS Lab 05/25/20 04:00 Ordered Comprehensive Met abolic Panel AM LA BS Lab 05/26/20 04:00 Ordered Immunochemical Fe sushil OCB Routine Lab 05/22/20 17:13 Uncollected Magnesium AM LABS Lab 05/24/20 04:00 Ordered Magnesium AM LABS Lab 05/25/20 04:00 Ordered Magnesium AM LABS Lab 05/26/20 04:00 Ordered Phosphorus AM LAB S Lab 05/24/20 04:00 Ordered Phosphorus AM LAB S Lab 05/25/20 04:00 Ordered Phosphorus AM LAB S Lab 05/26/20 04:00 Ordered Serum Protien Gela ctrophoresis [Tota l Protein Lab 05/20/20 08:45 Received Electrophoresis] Stat Streptococcus Cul ture Group A Routi ne Lab 05/21/20 09:30 Results Vitamin D 1,25 Di hydroxy Routine Lab 05/20/20 08:45 Received Labs from last 24 hours 05/23/20 05/23/20 05/20/20 04:10 04:10 08:45 WBC 10.0 RBC 2.76 L Hgb 8.5 L Hct 26.6 L MCV 96.4 H MCH 30.8 MCHC 32.0 RDW 13.1 Plt Count 316 MPV 11.5 H Neut % (Auto) 69.1 Lymph % (Auto) 9.9 [place] % (Auto) 15.5 Eos % (Auto) 2.8 Baso % (Auto) 1.1 Neut # (Auto) 6.92 Lymph # (Auto) 1.0 [place] # (Auto) 1.6 H Eos # (Auto) 0.3 Baso # (Auto) 0.1 Nucleated RBC % (a uto) 0 Nucleated RBCs # 0.0 Sodium 138 Potassium 4.8 Chloride 108 H Carbon Dioxide 20 L Anion Gap 14.8 BUN 72 H Creatinine 2.8 H GFR Calculation Not Reportable Glucose 110 Calculated Osmolal ity 308 H Calcium 9.3 Phosphorus 4.2 Magnesium 1.7 Total Bilirubin 0.2 AST 12 ALT 13 Alkaline Phosphata se 69 Total Protein 5.4 L Albumin 2.9 L Globulin 2.5 Ur Random Creatini ne 86 Ur Random Albumin 34 U Random Total Pro tein 101 H Protein/Creatinin Ratio 1174 H Protein/Creat Rati o 24h 1.174 H U Random a-1-Globu haley % 2 U Random a-2-Globu haley % 26 U Random Beta Glob ulin 14 U Random Gamma Duyen b 25 U Abnormal Prot Ba nd 1 Not Reportable U Abnormal Prot Ba nd 2 Not Reportable U Abnormal Prot Ba nd 3 Not Reportable Urine PEP Interpre t See note Serum Immunofixati on 05/20/20 08:45 WBC RBC Hgb Hct MCV MCH MCHC RDW Plt Count MPV Neut % (Auto) Lymph % (Auto) [place] % (Auto) Eos % (Auto) Baso % (Auto) Neut # (Auto) Lymph # (Auto) [place] # (Auto) Eos # (Auto) Baso # (Auto) Nucleated RBC % (a uto) Nucleated RBCs # Sodium Potassium Chloride Carbon Dioxide Anion Gap BUN Creatinine GFR Calculation Glucose Calculated Osmolal ity Calcium Phosphorus Magnesium Total Bilirubin AST ALT Alkaline Phosphata se Total Protein Albumin Globulin Ur Random Creatini ne Ur Random Albumin U Random Total Pro tein Protein/Creatinin Ratio Protein/Creat Rati o 24h U Random a-1-Globu haley % U Random a-2-Globu haley % U Random Beta Glob ulin U Random Gamma Duyen b U Abnormal Prot Ba nd 1 U Abnormal Prot Ba nd 2 U Abnormal Prot Ba nd 3 Urine PEP Interpre t Serum Immunofixati on See note Vitals: Last Vital Signs Temp 97.4 F L 05/23/20 07:11 Pulse 79 05/23/20 10:26 Resp 16 05/23/20 10:26 BP 132/78 05/23/20 07:11 Pulse Ox 93 05/23/20 10:26 Discharge Plan Discharge Patient Disposition: Home Health Service Condition: Stable Prescriptions: New carvedilol 3.125 mg Tablet 3.125 mg PO BID@0900,2100 Qty: 60 RF: 0 sodium bicarbonate 650 mg Tablet 650 mg PO TID Qty: 90 RF: 0 amoxicillin-pot clavulanate [Augmentin] 875-125 mg tablet 1 tab PO BID Qty: 4 RF: 0 Eliquis 2.5 mg tablet 2.5 mg PO BID Qty: 60 RF: 0 furosemide [Lasix] 40 mg tablet 40 mg PO DAILY PRN (Reason: edema) Qty: 30 RF: 0 Continued fluticasone propionate 50 mcg/actuation spray,suspension 1 spray INTRANASAL BID PRN (Reason: Allergy Symptoms) RF: 0 hydrocodone-acetaminophen 5-325 mg tablet 1 tab PO TID@06,12,18 PRN (Reason: Pain) RF: 0 Refresh Tears 0.5 % drops 1 drop ophthalmic (eye) BID RF: 0 cholecalciferol (vitamin D3) 2,000 unit tablet 2,000 unit PO DAILY@06 RF: 0 omeprazole 20 mg capsule,delayed release(DR/EC) 20 mg PO DAILY@06 RF: 0 cinacalcet 30 mg tablet 30 mg PO DAILY@06 RF: 0 PreserVision AREDS-2 019-802-66-1 rt-[id number]-[id number]-mg capsule 1 tab PO BID@06,18 RF: 0 aspirin 81 mg tablet,delayed release (DR/EC) 81 mg PO DAILY@06 RF: 0 isosorbide mononitrate 30 mg tablet extended release 24 hr 30 mg PO DAILY Qty: 90 RF: 3 acetaminophen [Tylenol Extra Strength] 500 mg tablet 500 mg PO Q6H PRN (Reason: Pain) RF: 0 atorvastatin 40 mg tablet 40 mg PO QPM RF: 0 ondansetron HCl 4 mg tablet 4 mg PO TID PRN (Reason: Nausea And Vomiting) RF: 0 triamcinolone acetonide 0.1 % cream 1 applic TOPICAL . DIRECTED PRN (Reason: UNKNOWN) RF: 0 tamsulosin 0.4 mg capsule 0.4 mg PO DAILY@18 RF: 0 ropinirole 2 mg tablet 2 mg PO DAILY@18 RF: 0 iron 325 mg (65 mg iron) Tablet 325 mg PO DAILY@18 RF: 0 nystatin 100,000 unit/gram Cream 1 applic TOPICAL BID PRN (Reason: UNKNOWN) RF: 0 metoprolol tartrate 25 mg tablet 12.5 mg PO BID RF: 0 Mucus Relief DM 20-400 mg Tablet 1 tab PO DAILY@18 RF: 0 Held lisinopril 10 mg tablet 10 mg PO DAILY@06 RF: 0 Hold Instructions: Resume on 06/06/20. Discontinued nifedipine 60 mg tablet extended release 60 mg PO DAILY Qty: 90 RF: 3 Discharge Orders: Discharge Order (Routine); Ordered 05/23/20 Ordered By: Pollo Newman Referrals: Nephrology [Provider Group] - 2 weeks Dominga Cortez MD [Primary Care Provider] - 4-7 days Barb Odonnell FNP [Nurse Practitioner] - 1 week Melissa Owens MD [Physician] - 1 month Discharge Diet: Cardiac and Diabetic Discharge Activity: Increase activity as tolerated and As per PT/OT instructions Patient Instructions: Aspirin (By mouth), Apixaban (By mouth), Myocardial Infarction (GEN), Atrial Fibrillation (GEN), How to Stop Smoking (GEN), Pharyngitis (GEN), Anemia (GEN), Opioid Safety Activity Restrictions/Additional Instructions: Please stop smoking. For the smoking will risk progression of coronary disease, additional heart attack, heart failure, as well as other risks including stroke, various cancers. Please follow-up with the heart doctor in office. Discussed consideration of additional assessment by coronary angiography following your heart attack. In case of any chest pain or pressure, lightheadedness, severe shortness of breath, severe fatigue, fainting, or any other concerning symptoms please seek medical attention without delay. Please follow-up with kidney specialist. Please also have your primary care doctor reassess renal function at next appointment. Please discuss with your primary care doctor with regards to anemia and have them follow-up your blood count. Once you are sufficiently recovered from the recent hospitalization, also please discuss with your primary care doctor referral for additional endoscopic evaluation of the anemia, as well as follow- up lab studies that have been requested in the hospital to assess for any abnormal proteins in your blood. Please be aware that both aspirin and blood thinner medication which is started to reduce chance of stroke, and recurrence of heart attack, increased risk of bleeding. Please avoid any injury. In case you experience bleeding seek medical attention immediately. Once your kidney function stabilizes back to baseline, please discuss with your primary care doctor regarding gout and consideration of starting preventive therapy. Continue follow-up with regards to other chronic conditions including diabetes, high blood pressure, carotid artery stenosis, abdominal aortic aneurysm. Discharge Attestations Time Spent in Discharge Care*: greater than 30 min Status at Discharge: Cognitive status at discharge: cognitively intact , Behavioral status at discharge: cooperative , Quality Metrics Clinical Quality Measures During this hospital stay, did patient experience: AMI Clinical Trial Participant: No Contraindication to aspirin (AMI): Aspirin given Contraindication to statin: Statin prescribed Contraindication to PCI: Medical contraindication Coding Level of Care Code Acute g FW MI note Exam Comprehensive Diagnoses Myocardial infarction I21.9 Involved coronary artery: unspecified coronary artery Myocardial infarction type: unspecified Atrial fibrillation I48.19 Atrial fibrillation type: other persistent Hypertension I10 Hypertension type: essential hypertension Chronic kidney disease N18.3 Chronic kidney disease stage: stage 3 (moderate) Moderate mitral regurgitation I34.0 AAA (abdominal aortic aneurysm) I71.4 Presence of rupture: without rupture Carotid stenosis I65.23 Laterality: bilateral Acute worsening of stage 3 chronic kidney disease N18.30 Acute on chronic anemia D64.9
--- NOTE | 2020-05-23 12:57 | PC.SOCIAL ---
IMM Update Pg.2 of IMM updated and reviewed with patient who verbalized understanding. Copy provided.
[2020-05-23] MEDS: enoxaparin 100 mg/mL Syringe 90 MG SUBCUT (13:49)
--- NOTE | 2020-05-23 15:20 | ECG_ITS ---
Test Date: 2020-05-23 Pat Name: Jennifer Michaud Department: Room: 103 Gender: Male [employer]: : 1935 Requested By: Pollo Newman Order Number: [id number] Anyi MD: Amarilis Miller M.D. Measurements Intervals [place] Rate: 82 P: [place]: QRS: -44 QRSD: 96 T: 21 QT: 355 QTc: 415 Interpretive Statements ATRIAL FIBRILLATION LOW QRS VOLTAGE IN PRECORDIAL LEADS [QRS DEFLECTION < 1.0 mV IN CHEST LEADS] POSSIBLE ANTERIOR MYOCARDIAL INFARCTION [30 ms Q WAVE IN V3/V4, OR R < 0.2 mV IN V4], OF INDETERMINATE AGE INFERIOR MYOCARDIAL INFARCTION [40+ ms Q WAVE AND/OR ST/T ABNORMALITY IN II/aVF], OF INDETERMINATE AGE Compared to ECG 05/23/2020 10:11:51 No significant changes Electronically Signed On 05-23-2020 23:58:40 CDT by Amarilis Miller M.D. [id number]
--- NOTE | 2020-05-23 16:12 | PM.PN ---
Subjective Subjective: Interval history: Patient complaining of chest pressure upon walking. Plan was to discharge him but due to exertional chest pressure we will keep him for next 24 hours we will start him on ranolazine Medications: Reviewed: Yes Medication Review Details: Current Medications Acetaminophen (Acetaminophen 325 Mg Tablet) 325 - 650 mg PO Q4H PRN PRN Reason: MILD PAIN OR INCREASE TEMP Last Admin: 05/20/20 21:29 Dose: 650 mg Documented by: Hydrocodone Bitart/Acetaminophen (Hydrocodone-Acetaminophen 5-325 Mg Tablet) 1 tab PO TID PRN PRN Reason: SEVERE PAIN Last Admin: 05/22/20 20:03 Dose: 1 tab Documented by: Albuterol/Ipratropium (Ipratropium-Albuterol 3 Ml Neb) 3 ml INHALATION Q4H PRN PRN Reason: SHORTNESS OF BREATH Aspirin (Aspirin 81 Mg Ec Tablet) 81 mg PO DAILY [facility] Last Admin: 05/22/20 08:14 Dose: 81 mg Documented by: Atorvastatin Calcium (Atorvastatin 40 Mg Tablet) 80 mg PO BEDTIME [facility] Last Admin: 05/22/20 20:03 Dose: 80 mg Documented by: Benzocaine (Cetylpyridinium Lozenge) 1 each MUCOUS MEM Q2H PRN PRN Reason: SORE THROAT Last Admin: 05/19/20 08:36 Dose: 1 each Documented by: Calcitriol (Calcitriol 0.25 Mcg Capsule) 0.25 mcg PO DAILY [facility] Last Admin: 05/22/20 08:21 Dose: 0.25 mcg Documented by: Calcium Carbonate (Calcium Carbonate 500 Mg Chew Tablet) 500 mg PO Q4H PRN PRN Reason: INDIGESTION Last Admin: 05/20/20 15:37 Dose: 500 mg Documented by: Carvedilol (Carvedilol 3.125 Mg Tablet) 3.125 mg PO BID@0900,2100 [facility] Last Admin: 05/22/20 20:03 Dose: 3.125 mg Documented by: Clopidogrel Bisulfate (Clopidogrel 75 Mg Tablet) 75 mg PO DAILY [facility] Last Admin: 05/22/20 08:14 Dose: 75 mg Documented by: Enoxaparin Sodium (Enoxaparin 100 Mg/Ml Syringe) 90 mg 1 mg/kg (90 mg) SUBCUT Q24H [facility] Last Admin: 05/22/20 13:14 Dose: 90 mg Documented by: Furosemide (Furosemide 10 Mg/Ml Sdv 4ml) 40 mg IVP Q24H [facility] Last Admin: 05/18/20 09:08 Dose: Not Given Documented by: Guaifenesin (Guaifenesin 100 Mg/5 Ml Udc 10 Ml) 200 mg PO Q4H PRN PRN Reason: COUGH AND CONGESTION Hydralazine HCl (Hydralazine 25 Mg Tablet) 25 mg PO TID [facility] Last Admin: 05/18/20 09:08 Dose: Not Given Documented by: Nitroglycerin/Dextrose (Nitroglycerin Drip) 50 mg in 250 mls @ 0 mls/hr IV .Q0M [facility]; Protocol Last Titration: 05/17/20 22:22 Dose: 0 mcg/min, 0 mls/hr Documented by: Cefepime HCl 1,000 mg/ Sodium (Chloride) 50 mls @ 100 mls/hr IV Q24H [facility]; Protocol Last Infusion: 05/22/20 13:17 Dose: Infused Documented by: Ferric Sodium Gluconate 125 mg (/ Sodium Chloride) 110 mls @ 110 mls/hr IV Q24H [facility] Stop: 05/29/20 10:29 Last Infusion: 05/22/20 11:34 Dose: Infused Documented by: Isosorbide Mononitrate (Isosorbide Mononitrate Er 30 Mg Tablet) 30 mg PO DAILY [facility] Last Admin: 05/22/20 08:14 Dose: 30 mg Documented by: Lanolin (Lanolin Oint 7 Gm) 1 applic TOPICAL PRN PRN PRN Reason: DRYNESS Last Admin: 05/20/20 05:43 Dose: 1 applic Documented by: Nitroglycerin (Nitroglycerin 0.4 Mg Sublingual Tablet) 0.4 mg SUBLINGUAL Q5M PRN PRN Reason: CHEST PAIN Last Admin: 05/22/20 15:55 Dose: 1 tab Documented by: Ondansetron HCl (Ondansetron 2 Mg/Ml Sdv 2 Ml) 4 mg IVP Q6H PRN PRN Reason: NAUSEA AND VOMITING Last Admin: 05/19/20 21:09 Dose: 4 mg Documented by: Pantoprazole Sodium (Pantoprazole Dr 40 Mg Tablet) 40 mg PO DAILY [facility] Last Admin: 05/22/20 08:14 Dose: 40 mg Documented by: Senna/Docusate Sodium (Sennosides-Docusate Tablet) 1 tab PO DAILY [facility] Last Admin: 05/22/20 08:14 Dose: 1 tab Documented by: Sevelamer Carbonate (Sevelamer 800 Mg Tablet) 1,600 mg PO TID [facility] Last Admin: 05/22/20 20:03 Dose: 1,600 mg Documented by: Simethicone (Simethicone 80 Mg Chew) 80 mg PO QID PRN PRN Reason: FLATULENCE Last Admin: 05/21/20 08:59 Dose: 80 mg Documented by: Sodium Bicarbonate (Sodium Bicarbonate 650 Mg Tablet) 650 mg PO TID [facility] Last Admin: 05/22/20 20:03 Dose: 650 mg Documented by: Vitals/I&O/Wt Last Vital Signs Temp 98.0 F 05/23/20 14:54 Pulse 93 05/23/20 14:54 Resp 17 05/23/20 14:54 BP 109/78 05/23/20 14:54 Pulse Ox 94 05/23/20 14:54 05/23/20 05/23/20 05/23/20 06:59 14:59 22:59 Intake Total 200 / 840 350 / 350 Output Total 400 / 1325 225 / 225 350 / 575 Balance -200 / -485 125 / 125 -350 / -225 Weight last 48 hrs Weight 200 lb Weight 200 lb Physical Exam Narrative: EXAM NARRATIVE: GENERAL: Patient is alert, awake and oriented x3. NECK: No jugular vein distension. HEENT: No cyanosis. No icterus. No pallor. HEART: Regular S1 and S2. No murmur, rub or gallop. LUNGS: Clear to auscultate bilaterally. ABDOMEN: Soft, nontender and nondistended. Positive bowel sounds. No guarding, rebound or tenderness. CENTRAL NERVOUS SYSTEM: Grossly nonfocal. EXTREMITIES: Lower extremities without edema bilaterally. Urinary Catheter Management^: Rob: Cath Placed During This Visit: yes, but has since been removed by the nurse Reason for Continuing Indwelling Catheter: Decision to DC Catheter Urinary Catheter Date of Insertion: 05/18/20 Urinary Catheter Time of Insertion: 11:00 Date Urinary Catheter Removed: 05/22/20 Time Urinary Catheter Discontinued: 22:30 Data : 05/23/20 04:10 05/23/20 04:10 Micro: Microbiology 05/21/20 09:30 Group A Streptococcus Rapid Screen - Final Throat 05/18/20 01:43 Blood Culture - Final Blood NO GROWTH AFTER 5 DAYS 05/18/20 01:43 Blood Culture - Final Blood NO GROWTH AFTER 5 DAYS A&P Assessment and plan (1) Myocardial infarction: Most likely patient has completed infarct of anterior wall with possible LAD involvement. Patient had refused coronary angiogram after that. Plans for medical management. His echocardiogram shows preserved LV systolic function. This is not consistent with large infarct. He may benefit from coronary angiogram once renal function is back to baseline. Will discuss with patient and family in once renal function has improved. Nephrology on board as patient had developed POPPY on CKD. Creatinine has slightly improved with IV fluids. Continue IV fluids. Arterial visit patient appeared to be stable continue to manage medically. On today's visit dated 05/22/2020 patient denies any complaint sitting in the chair, PT and OT to work with we will treat him conservatively at this point we do not have any intervention to take him to the [facility] due to underlying anemia and renal failure. Patient is complaining of worsening of chest pressure upon walking will add ranolazine Status: Acute Qualifiers: Myocardial infarction type: unspecified Involved coronary artery: unspecified coronary artery Qualified Code(s): I21.9 - Acute myocardial infarction, unspecified (2) Atrial fibrillation: Well-controlled by the switch to p.o. anticoagulation. In that case may will take him off of Plavix since patient is anemic and cannot continue with Plavix and anticoagulation along with aspirin which will increase chance of bleeding Status: Acute Qualifiers: Atrial fibrillation type: other persistent Qualified Code(s): I48.19 - Other persistent atrial fibrillation (3) Hypertension: Well-controlled. Status: Acute Qualifiers: Hypertension type: essential hypertension Qualified Code(s): I10 - Essential (primary) hypertension (4) Chronic kidney disease: Steadily improving Status: Chronic Qualifiers: Chronic kidney disease stage: stage 3 (moderate) Qualified Code(s): N18.3 - Chronic kidney disease, stage 3 (moderate) (5) Moderate mitral regurgitation: Stable. 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 Type Established History Expanded Problem Focused Exam Expanded Problem Focused Medical Decision Making Moderate Complexity Diagnoses Myocardial infarction I21.9 Myocardial infarction type: unspecified Involved coronary artery: unspecified coronary artery Atrial fibrillation I48.19 Atrial fibrillation type: other persistent Hypertension I10 Hypertension type: essential hypertension Chronic kidney disease N18.3 Chronic kidney disease stage: stage 3 (moderate) Moderate mitral regurgitation I34.0 AAA (abdominal aortic aneurysm) I71.4 Presence of rupture: without rupture Carotid stenosis I65.23 Laterality: bilateral
[2020-05-23] MEDS: ranolazine (12HR) 500 mg Tablet PO (19:05)
[2020-05-23] MEDS: HYDROcodone-acetaminophen 5-325 mg Tablet 1 TAB PO (20:47)
[2020-05-23] MEDS: atorvastatin 40 mg Tablet 80 MG PO (20:47)
[2020-05-23] MEDS: acetaminophen 325 mg Tablet PO (23:50)
[2020-05-24] VITALS (9 sets, daily range): BP systolic 120–169; BP diastolic 62–92; PULSE 76–96; RESP 16–27; TEMP 36.4–37; O2SAT 92–98
[2020-05-24 05:43] LABS: Basophils # 0.1 10^3/uL (0.0-0.1); Basophils % 1.1 %; Eosinophils # 0.3 10^3/uL (0.0-0.8); Eosinophils % 2.3 %; Hemoglobin 8.2 g/dL (11.7-16.6); Lymphocytes # 1.3 10^3/uL (0.8-4.8); Lymphocytes % 11.6 %; Mean Corpuscular HGB Conc 32.8 g/dL (30.0-36.0); Mean Corpuscular Hemoglobin 31.2 pg (28.0-34.0); Mean Corpuscular Volume 95.1 fL (80-94); Mean Platelet Volume 11.6 fL (7.4-10.4); Monocytes # 1.8 10^3/uL (0.2-0.9); Monocytes % 15.9 %; Neutrophils # 7.52 10^3/uL (1.8-7.7); Neutrophils % 67.3 %; Nucleated Red Blood Cells % 0 %; Platelet Count 347 10^3/cmm (130-400); Red Blood Count 2.63 10^6/uL (4.1-5.3); Red Cell Distribution Width 13.2 % (12.1-15.1); White Blood Count 11.2 10^3/uL (4.0-10.0)
[2020-05-24 06:02] LABS: Alanine Aminotransferase 12 U/L (0-41); Albumin Level 2.9 g/dL (3.5-5.2); Alkaline Phosphatase 70 IU/L (40-130); Anion Gap 14.9 (5-19); Aspartate Amino Transferase 13 U/L (0-40); Blood Urea Nitrogen 62 mg/dL (8-23); Calcium 9.3 mg/dL (8.5-10.5); Carbon Dioxide 20 mmol/L (22-29); Chloride 107 mmol/L (98-107); Globulin 2.7 g/dL (1.3-4.6); Glucose 99 mg/dL (65-115); Magnesium 1.7 mg/dL (1.7-2.3); Osmolality Calculated 302 mOsm/kg (285-295); Phosphorus 3.5 mg/dL (2.5-4.5); Potassium 4.9 mmol/L (3.5-5.1); Sodium 137 mmol/L (136-145); Total Bilirubin 0.3 mg/dL (0.15-1.2); Total Protein 5.6 g/dL (6.6-8.7)
--- NOTE | 2020-05-24 07:56 | P.PN_ITS ---
Subjective Subjective: Interval history: pt wants to go home. says he feels better. not using o2. has edema, and CP w/ exertion Medications: Reviewed: Yes Medication Review Details: Current Medications Acetaminophen (Acetaminophen 325 Mg Tablet) 325 - 650 mg PO Q4H PRN PRN Reason: MILD PAIN OR INCREASE TEMP Last Admin: 05/23/20 23:50 Dose: 650 mg Documented by: Hydrocodone Bitart/Acetaminophen (Hydrocodone-Acetaminophen 5-325 Mg Tablet) 1 tab PO TID PRN PRN Reason: SEVERE PAIN Last Admin: 05/23/20 20:47 Dose: 1 tab Documented by: Albuterol/Ipratropium (Ipratropium-Albuterol 3 Ml Neb) 3 ml INHALATION Q4H PRN PRN Reason: SHORTNESS OF BREATH Aspirin (Aspirin 81 Mg Ec Tablet) 81 mg PO DAILY [facility] Last Admin: 05/23/20 09:11 Dose: 81 mg Documented by: Atorvastatin Calcium (Atorvastatin 40 Mg Tablet) 80 mg PO BEDTIME [facility] Last Admin: 05/23/20 20:47 Dose: 80 mg Documented by: Benzocaine (Cetylpyridinium Lozenge) 1 each MUCOUS MEM Q2H PRN PRN Reason: SORE THROAT Last Admin: 05/19/20 08:36 Dose: 1 each Documented by: Calcitriol (Calcitriol 0.25 Mcg Capsule) 0.25 mcg PO DAILY [facility] Last Admin: 05/23/20 09:26 Dose: 0.25 mcg Documented by: Calcium Carbonate (Calcium Carbonate 500 Mg Chew Tablet) 500 mg PO Q4H PRN PRN Reason: INDIGESTION Last Admin: 05/20/20 15:37 Dose: 500 mg Documented by: Carvedilol (Carvedilol 3.125 Mg Tablet) 3.125 mg PO BID@0900,2100 [facility] Last Admin: 05/23/20 20:47 Dose: 3.125 mg Documented by: Clopidogrel Bisulfate (Clopidogrel 75 Mg Tablet) 75 mg PO DAILY [facility] Last Admin: 05/23/20 09:10 Dose: 75 mg Documented by: Enoxaparin Sodium (Enoxaparin 100 Mg/Ml Syringe) 90 mg 1 mg/kg (90 mg) SUBCUT Q24H [facility] Last Admin: 05/23/20 13:49 Dose: 90 mg Documented by: Furosemide (Furosemide 10 Mg/Ml Sdv 4ml) 40 mg IVP Q24H [facility] Last Admin: 05/18/20 09:08 Dose: Not Given Documented by: Guaifenesin (Guaifenesin 100 Mg/5 Ml Udc 10 Ml) 200 mg PO Q4H PRN PRN Reason: COUGH AND CONGESTION Hydralazine HCl (Hydralazine 25 Mg Tablet) 25 mg PO TID [facility] Last Admin: 05/18/20 09:08 Dose: Not Given Documented by: Nitroglycerin/Dextrose (Nitroglycerin Drip) 50 mg in 250 mls @ 0 mls/hr IV .Q0M [facility]; Protocol Last Titration: 05/17/20 22:22 Dose: 0 mcg/min, 0 mls/hr Documented by: Cefepime HCl 1,000 mg/ Sodium (Chloride) 50 mls @ 100 mls/hr IV Q24H [facility]; Protocol Last Admin: 05/23/20 13:43 Dose: Not Given Documented by: Ferric Sodium Gluconate 125 mg (/ Sodium Chloride) 110 mls @ 110 mls/hr IV Q24H [facility] Stop: 05/29/20 10:29 Last Infusion: 05/23/20 10:28 Dose: Infused Documented by: Isosorbide Mononitrate (Isosorbide Mononitrate Er 30 Mg Tablet) 30 mg PO DAILY [facility] Last Admin: 05/23/20 09:11 Dose: 30 mg Documented by: Lanolin (Lanolin Oint 7 Gm) 1 applic TOPICAL PRN PRN PRN Reason: DRYNESS Last Admin: 05/20/20 05:43 Dose: 1 applic Documented by: Nitroglycerin (Nitroglycerin 0.4 Mg Sublingual Tablet) 0.4 mg SUBLINGUAL Q5M PRN PRN Reason: CHEST PAIN Last Admin: 05/22/20 15:55 Dose: 1 tab Documented by: Ondansetron HCl (Ondansetron 2 Mg/Ml Sdv 2 Ml) 4 mg IVP Q6H PRN PRN Reason: NAUSEA AND VOMITING Last Admin: 05/19/20 21:09 Dose: 4 mg Documented by: Pantoprazole Sodium (Pantoprazole Dr 40 Mg Tablet) 40 mg PO DAILY [facility] Last Admin: 05/23/20 09:10 Dose: 40 mg Documented by: Ranolazine (Ranolazine (12hr) 500 Mg Tablet) 500 mg PO BID [facility] Last Admin: 05/23/20 19:05 Dose: 500 mg Documented by: Senna/Docusate Sodium (Sennosides-Docusate Tablet) 1 tab PO DAILY [facility] Last Admin: 05/23/20 09:10 Dose: 1 tab Documented by: Sevelamer Carbonate (Sevelamer 800 Mg Tablet) 800 mg PO TIDWM [facility] Last Admin: 05/23/20 19:04 Dose: 800 mg Documented by: Simethicone (Simethicone 80 Mg Chew) 80 mg PO QID PRN PRN Reason: FLATULENCE Last Admin: 05/21/20 08:59 Dose: 80 mg Documented by: Sodium Bicarbonate (Sodium Bicarbonate 650 Mg Tablet) 650 mg PO TID [facility] Last Admin: 05/23/20 20:47 Dose: 650 mg Documented by: Vitals/I&O/Wt Last Vital Signs Temp 97.6 F 05/24/20 07:10 Pulse 79 05/24/20 07:10 Resp 19 H 05/24/20 07:10 BP 133/80 05/24/20 07:10 Pulse Ox 92 05/24/20 07:10 05/23/20 05/24/20 05/24/20 22:59 06:59 14:59 Intake Total 240 / 642 150 / 792 Output Total 650 / 875 400 / 1275 Balance -410 / -233 -250 / -483 Weight last 48 hrs Weight 90.718 kg Weight 90.718 kg Physical Exam Narrative: EXAM NARRATIVE: comfortable in bed, NARD VSS heent- nc/at, eomi, anicteric neck no jvp lungs -crackles at bases b/l heart - controlled, irreg irreg, no rub, +STACY abd soft, nt, nd, +BS ext 1+ b/l edema neuro- a,a, o 3 no rash Urinary Catheter Management^: Rob: Cath Placed During This Visit: yes, but has since been removed by the nurse Reason for Continuing Indwelling Catheter: Decision to DC Catheter Urinary Catheter Date of Insertion: 05/18/20 Urinary Catheter Time of Insertion: 11:00 Date Urinary Catheter Removed: 05/22/20 Time Urinary Catheter Discontinued: 22:30 Data : 05/24/20 04:16 05/24/20 04:16 Micro: Microbiology 05/21/20 09:30 Group A Streptococcus Rapid Screen - Final Throat A&P Additional A&P Information 84 yr old man NSTEMIA 1. CKD stage 3b/4- baseline cr 2 - -likely etiology is DM, HTN, CRS -bone mineral -metabolism- check pth and phos -renal us -u/a- 1+ prot- would expect more w/ DM neohropathy -given anemia and renal failure- negative SIFE 2. POPPY- from CRS and pt likely had ATN vs Prerenal- he was hypertensive on admission- had a GA and febrile and hypotensive night between 05/17- 05/18/20 - appears euvolemic to volume overloaded - lasix as needed by cardiology -monitor in and out -monitor chemistries and daily weight - cr improving. good uop on lasix 3. diastolic dysfunction and moderate MR -echo- CONCLUSIONS 1. Normal left ventricular size and systolic function. Although no diagnostic regional wall motion abnormality could be identified, this cannot be excluded completely given off axis images. Left ventricular ejection fraction is estimated at 60%. Grade I diastolic dysfunction (abnormal relaxation filling pattern), normal to mildly elevated filling pressures. 2. Normal right ventricular size. Midly decreased right ventricular systolic function. There is possibly right ventricular free wall hypokinesis. 3. When compared to previous echocardiogram dated 04/29/19, mitral valve regurgitation and right ventrcular systolic function may have decreased. 3b. CAD- if needs cardiac cath- high renal risk, however, cr is slowly improving -there is a chance the pt will need temporary and maybe even permanent HD post Cath -as of now, pt wants to avoid dialysis and cardiac cath- however, he still has CP -I explained to pt that he has known CAD and DM, CKD- high likelihood of CAD, and high cardiac mortality- recommend cath when cr stabilizes and we can stop lasix 4. htn- bp okay- no catia-i/ arb due to kidney failure 5. DM control 6. infection- off of vanco. on cefepime 7. non AGMA and mild AGMA from infection and POPPY - give sodium bicarb pills 8. full anemia eval - tsat 11%, ferritin 316- iv iron and epo -hgb stable no monoclonal protein on SIFE -given epo on 05/22 and today 9. phos improved w/ binders, dec dose -pth 273- calcitriol 10. uric acid- 8.3- monitor, may benefit from allopurinol 11. hyponatremia -improved replace mag seen and examined w/ RN- telehealth visit Attestations Medical Necessity Statement*: CAD, POPPY, CKD, anemia Time Spent in Patient Care: 16 - 35 minutes Coding Level of Care Code Acute Tire Layer for Emi Herndon
[2020-05-24] MEDS: isosorbide mononitrate ER 30 mg Tablet PO (10:29)
[2020-05-24] MEDS: aspirin 81 mg EC Tablet PO (10:29)
[2020-05-24] MEDS: clopidogrel 75 mg Tablet PO (10:30)
[2020-05-24] MEDS: carvedilol 3.125 mg Tablet PO (10:30)
[2020-05-24] MEDS: pantoprazole DR 40 mg Tablet PO (10:30)
[2020-05-24] MEDS: sennosides-docusate Tablet 1 TAB PO (10:30)
[2020-05-24] MEDS: sevelamer 800 mg Tablet PO ×3 (10:31→18:01)
[2020-05-24] MEDS: epoetin alfa 10,000 unit/mL INJ 10000 UNIT SUBCUT (10:31)
[2020-05-24] MEDS: ranolazine (12HR) 500 mg Tablet PO ×2 (10:31→18:01)
[2020-05-24] MEDS: ferric gluconate 125 MG in sodium chloride 0.9% (100 ml) 100 ML 110 MG IV (10:32)
[2020-05-24] MEDS: sodium bicarbonate 650 mg Tablet PO ×2 (10:49→14:37)
[2020-05-24] MEDS: calcitriol 0.25 mcg Capsule PO (10:50)
[2020-05-24] MEDS: enoxaparin 100 mg/mL Syringe 90 MG SUBCUT (13:00)
[2020-05-24] MEDS: cefepime 1,000 MG in sodium chloride 0.9% (plus) 50 ML 100 MG IV (13:01)
--- NOTE | 2020-05-24 15:13 | PC.NUTR ---
Follow-up to assessment completed at 10:[address] visited pt room to clarify that we have Vanilla Ensure. Pt was in agreement to try this. Informed pt that the protein content is similar to Boost, neither are too high in protein, which is beneficial due to renal issues. Pt asked if he would be better off not drinking it. Told him that as he intakes at meals are quite low, it would be beneficial at this time to meet protein/kcal needs, but he is welcome to not drink it if preferred, especially if intakes improve. Pt verbalized understanding.
--- NOTE | 2020-05-24 18:07 | P.PN_ITS ---
Subjective Subjective: Interval history: Feeling better today. Denies any chest pain. Medications: Reviewed: Yes Medication Review Details: Current Medications Acetaminophen (Acetaminophen 325 Mg Tablet) 325 - 650 mg PO Q4H PRN PRN Reason: MILD PAIN OR INCREASE TEMP Last Admin: 05/23/20 23:50 Dose: 650 mg Documented by: Hydrocodone Bitart/Acetaminophen (Hydrocodone-Acetaminophen 5-325 Mg Tablet) 1 tab PO TID PRN PRN Reason: SEVERE PAIN Last Admin: 05/23/20 20:47 Dose: 1 tab Documented by: Albuterol/Ipratropium (Ipratropium-Albuterol 3 Ml Neb) 3 ml INHALATION Q4H PRN PRN Reason: SHORTNESS OF BREATH Aspirin (Aspirin 81 Mg Ec Tablet) 81 mg PO DAILY [facility] Last Admin: 05/23/20 09:11 Dose: 81 mg Documented by: Atorvastatin Calcium (Atorvastatin 40 Mg Tablet) 80 mg PO BEDTIME [facility] Last Admin: 05/23/20 20:47 Dose: 80 mg Documented by: Benzocaine (Cetylpyridinium Lozenge) 1 each MUCOUS MEM Q2H PRN PRN Reason: SORE THROAT Last Admin: 05/19/20 08:36 Dose: 1 each Documented by: Calcitriol (Calcitriol 0.25 Mcg Capsule) 0.25 mcg PO DAILY [facility] Last Admin: 05/23/20 09:26 Dose: 0.25 mcg Documented by: Calcium Carbonate (Calcium Carbonate 500 Mg Chew Tablet) 500 mg PO Q4H PRN PRN Reason: INDIGESTION Last Admin: 05/20/20 15:37 Dose: 500 mg Documented by: Carvedilol (Carvedilol 3.125 Mg Tablet) 3.125 mg PO BID@0900,2100 [facility] Last Admin: 05/23/20 20:47 Dose: 3.125 mg Documented by: Clopidogrel Bisulfate (Clopidogrel 75 Mg Tablet) 75 mg PO DAILY [facility] Last Admin: 05/23/20 09:10 Dose: 75 mg Documented by: Enoxaparin Sodium (Enoxaparin 100 Mg/Ml Syringe) 90 mg 1 mg/kg (90 mg) SUBCUT Q24H [facility] Last Admin: 05/23/20 13:49 Dose: 90 mg Documented by: Furosemide (Furosemide 10 Mg/Ml Sdv 4ml) 40 mg IVP Q24H [facility] Last Admin: 05/18/20 09:08 Dose: Not Given Documented by: Guaifenesin (Guaifenesin 100 Mg/5 Ml Udc 10 Ml) 200 mg PO Q4H PRN PRN Reason: COUGH AND CONGESTION Hydralazine HCl (Hydralazine 25 Mg Tablet) 25 mg PO TID [facility] Last Admin: 05/18/20 09:08 Dose: Not Given Documented by: Nitroglycerin/Dextrose (Nitroglycerin Drip) 50 mg in 250 mls @ 0 mls/hr IV .Q0M [facility]; Protocol Last Titration: 05/17/20 22:22 Dose: 0 mcg/min, 0 mls/hr Documented by: Cefepime HCl 1,000 mg/ Sodium (Chloride) 50 mls @ 100 mls/hr IV Q24H [facility]; Protocol Last Admin: 05/23/20 13:43 Dose: Not Given Documented by: Ferric Sodium Gluconate 125 mg (/ Sodium Chloride) 110 mls @ 110 mls/hr IV Q24H [facility] Stop: 05/29/20 10:29 Last Infusion: 05/23/20 10:28 Dose: Infused Documented by: Isosorbide Mononitrate (Isosorbide Mononitrate Er 30 Mg Tablet) 30 mg PO DAILY [facility] Last Admin: 05/23/20 09:11 Dose: 30 mg Documented by: Lanolin (Lanolin Oint 7 Gm) 1 applic TOPICAL PRN PRN PRN Reason: DRYNESS Last Admin: 05/20/20 05:43 Dose: 1 applic Documented by: Nitroglycerin (Nitroglycerin 0.4 Mg Sublingual Tablet) 0.4 mg SUBLINGUAL Q5M OK N PRN Reason: CHEST PAIN Last Admin: 05/22/20 15:55 Dose: 1 tab Documented by: Ondansetron HCl (Ondansetron 2 Mg/Ml Sdv 2 Ml) 4 mg IVP Q6H PRN PRN Reason: NAUSEA AND VOMITING Last Admin: 05/19/20 21:09 Dose: 4 mg Documented by: Pantoprazole Sodium (Pantoprazole Dr 40 Mg Tablet) 40 mg PO DAILY [facility] Last Admin: 05/23/20 09:10 Dose: 40 mg Documented by: Ranolazine (Ranolazine (12hr) 500 Mg Tablet) 500 mg PO BID [facility] Last Admin: 05/23/20 19:05 Dose: 500 mg Documented by: Senna/Docusate Sodium (Sennosides-Docusate Tablet) 1 tab PO DAILY [facility] Last Admin: 05/23/20 09:10 Dose: 1 tab Documented by: Sevelamer Carbonate (Sevelamer 800 Mg Tablet) 800 mg PO TIDWM [facility] Last Admin: 05/23/20 19:04 Dose: 800 mg Documented by: Simethicone (Simethicone 80 Mg Chew) 80 mg PO QID PRN PRN Reason: FLATULENCE Last Admin: 05/21/20 08:59 Dose: 80 mg Documented by: Sodium Bicarbonate (Sodium Bicarbonate 650 Mg Tablet) 650 mg PO TID [facility] Last Admin: 05/23/20 20:47 Dose: 650 mg Documented by: Vitals/I&O/Wt Last Vital Signs Temp 98.6 F 05/24/20 16:00 Pulse 89 05/24/20 16:00 Resp 21 H 05/24/20 16:00 BP 169/91 05/24/20 16:00 Pulse Ox 98 05/24/20 16:00 05/24/20 05/24/20 05/24/20 06:59 14:59 22:59 Intake Total 150 / 792 522 / 522 Output Total 400 / 1275 350 / 350 Balance -250 / -483 172 / 172 Weight last 48 hrs Weight 200 lb Weight 200 lb Physical Exam Narrative: EXAM NARRATIVE: GENERAL: Patient is alert, awake and oriented x3. NECK: No jugular vein distension. HEENT: No cyanosis. No icterus. No pallor. HEART: Regular S1 and S2. No murmur, rub or gallop. LUNGS: Clear to auscultate bilaterally. ABDOMEN: Soft, nontender and nondistended. Positive bowel sounds. No guarding, rebound or tenderness. CENTRAL NERVOUS SYSTEM: Grossly nonfocal. EXTREMITIES: Lower extremities without edema bilaterally. Urinary Catheter Management^: Rob: Cath Placed During This Visit: yes, but has since been removed by the nurse Reason for Continuing Indwelling Catheter: Decision to DC Catheter Urinary Catheter Date of Insertion: 05/18/20 Urinary Catheter Time of Insertion: 11:00 Date Urinary Catheter Removed: 05/22/20 Time Urinary Catheter Discontinued: 22:30 Data : 05/24/20 04:16 05/24/20 04:16 A&P Assessment and plan (1) Myocardial infarction: Most likely patient has completed infarct of anterior wall with possible LAD involvement. Patient had refused coronary angiogram after that. Plans for medical management. His echocardiogram shows preserved LV systolic function. This is not consistent with large infarct. He may benefit from coronary angiogram once renal function is back to baseline. Will discuss with patient and family in once renal function has improved. Nephrology on board as patient had developed POPPY on CKD. Creatinine has slightly improved with IV fluids. Continue IV fluids. Arterial visit patient appeared to be stable continue to manage medically. On today's visit dated 05/22/2020 patient denies any complaint sitting in the chair, PT and OT to work with we will treat him conservatively at this point we do not have any intervention to take him to the [facility] due to underlying anemia and renal failure. Patient is complaining of worsening of chest pressure upon walking will add ranolazine On today's visit dated 05/24/2020 patient denies any chest pain. He think that he is doing much better today. We will continue ranolazine and rest of the medicine. Status: Acute Qualifiers: Myocardial infarction type: unspecified Involved coronary artery: unspecified coronary artery Qualified Code(s): I21.9 - Acute myocardial infarction, unspecified (2) Atrial fibrillation: Well-controlled. Continue current regimen Status: Acute Qualifiers: Atrial fibrillation type: other persistent Qualified Code(s): I48.19 - Other persistent atrial fibrillation (3) Hypertension: Well-controlled. Status: Acute Qualifiers: Hypertension type: essential hypertension Qualified Code(s): I10 - Essential (primary) hypertension (4) Chronic kidney disease: Continues to improve today and almost back to baseline Status: Chronic Qualifiers: Chronic kidney disease stage: stage 3 (moderate) Qualified Code(s): N18.3 - Chronic kidney disease, stage 3 (moderate) (5) Moderate mitral regurgitation: Stable. Status: Acute (6) AAA (abdominal aortic aneurysm): Status: Acute Qualifiers: Presence of rupture: without rupture Qualified Code(s): I71.4 - Abdominal aortic aneurysm, without rupture (7) Carotid stenosis: Status: Chronic Qualifiers: Laterality: bilateral Qualified Code(s): I65.23 - Occlusion and stenosis of bilateral carotid arteries Attestations Medical Necessity Statement*: Require continuation hospitalization for above defined care. Coding Level of Care Code Established Pt Acute Unit Control Clerk for Chg Fwd Patient Type Established History Detailed Exam Detailed Medical Decision Making Moderate Complexity Diagnoses Myocardial infarction I21.9 Myocardial infarction type: unspecified Involved coronary artery: unspecified coronary artery Atrial fibrillation I48.19 Atrial fibrillation type: other persistent Hypertension I10 Hypertension type: essential hypertension Chronic kidney disease N18.3 Chronic kidney disease stage: stage 3 (moderate) Moderate mitral regurgitation I34.0 AAA (abdominal aortic aneurysm) I71.4 Presence of rupture: without rupture Carotid stenosis I65.23 Laterality: bilateral
--- NOTE | 2020-05-24 19:47 | PC.NURSE ---
Pt discharged home IV removed no redness or swelling noted Pts discharge instructions given along with prescriptions and follow up appointments Pt had no c/o pain or discomfort at the time of discharge pt transferred out via wheel chair accompanied by staff
--- NOTE | 2020-05-24 20:33 | PM.DCS ---
Discharge Providers Date of Admission: 05/16/20 03:17 Date of Discharge: May 24, 2020 Attending Provider at Admission: Slim Chatman MD Attending Provider at Discharge: Pollo Newman Primary Care Provider: Dominga Cortez MD Diagnoses at Discharge Discharge Diagnosis (1) Myocardial infarction: Status: Acute Qualifiers: Myocardial infarction type: unspecified Involved coronary artery: unspecified coronary artery Qualified Code(s): I21.9 - Acute myocardial infarction, unspecified (2) Atrial fibrillation: Status: Acute Qualifiers: Atrial fibrillation type: other persistent Qualified Code(s): I48.19 - Other persistent atrial fibrillation (3) Hypertension: Status: Acute Qualifiers: Hypertension type: essential hypertension Qualified Code(s): I10 - Essential (primary) hypertension (4) Chronic kidney disease: Status: Chronic Permanent problem details: -has known CKD stage 3; baseline Cr 2.1-2.5 Qualifiers: Chronic kidney disease stage: stage 3 (moderate) Qualified Code(s): N18.3 - Chronic kidney disease, stage 3 (moderate) (5) Moderate mitral regurgitation: Status: Acute (6) AAA (abdominal aortic aneurysm): Status: Acute Permanent problem details: Endovascular repair several years ago Qualifiers: Presence of rupture: without rupture Qualified Code(s): I71.4 - Abdominal aortic aneurysm, without rupture (7) Carotid stenosis: Status: Chronic Permanent problem details: -s/p recent L CEA done by Dr. Ramos on 04/18/19 Qualifiers: Laterality: bilateral Qualified Code(s): I65.23 - Occlusion and stenosis of bilateral carotid arteries Reason for Visit Reason for Visit: Acute Coronary Syndrome Hospital Course Hospital Course Discharge originally postponed on 05/23 due to elicited exertional chest pain with ambulation prior to discharge after 45 feet of walking. Discussed with cardiology. Was started on Zosyn. Monitor additionally and reassessed again today. Doing much better. Walked about 70 feet. Noted becoming tachycardic, easily fatigable. Definitely deconditioned. However, no chest pain or pressure. Tachycardia resolving with rest. Would benefit from continued skilled therapy with home health physical therapy which is arranged for him. Continue ranolazine on discharge in addition to earlier prescribed medications and follow-up as previously recommended. Very pleasant 84-year-old gentleman with prior diastolic dysfunction, mild TVR, moderate MVR, carotid stenosis, status post left-sided CEA 04/18/2019, chronic kidney disease stage III, current smoker, was transferred over from [facility] ER after presenting there with complaint of chest pain with symptoms starting on 05/14. He came in for evaluation to [facility] on 05/15 due to worsening symptoms. Their EKG was concerning for ST elevation. He was transferred here for additional cardiac assessment. Cardiology evaluation presentation from consistent with completed myocardial infarction with primary Q waves. He was maintained on aspirin, Plavix, therapeutic anticoagulation, statin, beta-yuniel. With noted acute congestive heart failure on presentation, was treated with IV diuretics. Chronic kidney disease noted on presentation, lisinopril was held. Suffered worsening renal function during hospitalization limiting ability to diuresis, transiently received fluid challenge, more recently appears closer to euvolemic with both diuretics and fluids held. Creatinine during hospitalization was as high as 4.1 on 05/19. He was evaluated by nephrology. In case additional cardiac ablation was urgently needed, dialysis was considered. He had initially declined to consider coronary angiography. More recently considered that this may be an option once his renal function improves. On additional cardiac reassessment recommendation at this time is to continue medical management with benefits not outweighing the risks for more urgent assessment by coronary angiography, and this will be considered again and possibly scheduled on elective basis on reassessment through outpatient follow-up in cardiology clinic given preserved LV systolic function on echocardiography not consistent with a large infarct. We will also ask him to follow-up with nephrology. Currently renal function appears to be gradually improving, creatinine trending closer towards his baseline, currently down to 2.8. With history of atrial fibrillation, for CVA risk mitigation he continues on anticoagulation. Noted anemia in the hospital will need additional follow-up, hemoglobins appear to have stabilized around 8.5. To avoid worsening anemia triple therapy will be avoided. Per recommendation we will continue on anticoagulation at discharge with low-dose aspirin. Please reassess blood counts and adjust therapeutic regimen as appropriate. Anemia of chronic disease, but possibly also multifactorial with component of iron deficiency. Immunochemical fecal test requested, appears not collected. Serum immunofixation was requested, without monoclonal protein. Noted low IgM levels. Electrophoresis still pending. Please follow-up final results. Please refer for additional assessment of anemia depending on results. Consider referral for additional endoscopic evaluation once he recovers from acute illness. During hospitalization also had an episode of sepsis of unclear source, this appears to been secondary to pharyngitis as he has been having sore throat, with noted white exudates. Was initially briefly treated with antibiotics, blood cultures collected without growth. Rapid strep was collected, but already after several days of antibiotics and was negative. Culture pending. Sputum culture unremarkable. Urinalysis not suggestive of acute urinary infection. No signs of GI infection. No signs of HOUSING ASSISTANT PROPERTY MANAGER, integumentary or other source. Please follow-up for resolution and lack of recurrence of any symptoms. Please revisit with him regarding abstinence from smoking. Continue optimization of other risk factors of coronary disease including diabetes, hypertension. Discal deconditioning, some limitations in mobility at baseline, and further loss of stamina while in the hospital, he is additionally referred for home health care. Please follow up uric acid levels. Consider addition of hyperuricemic agent if renal function stabilizes. 30-day supplies of medication sent to [place] pharmacy. 7-day supply sent to [facility] in [place]. Physical Exam Const: COMMON NORMALS: no acute distress and patient oriented x3 OTHER: This morning reports he is doing well. Eager to again work with therapy, and again trial walking. Feels that he would like to go home today if there are no other new developments. States knows now not to wait to seek medical attention in case of any concerning symptoms. HENMT: COMMON NORMALS: oropharynx normal Neck/C-Spine: COMMON NORMALS: no JVD Resp: COMMON NORMALS: normal respiratory effort and clear to auscultation bilaterally AUSCULTATION: clear to auscultation bilaterally Cardio: COMMON NORMALS: no JVD, regular rhythm, S1 normal heart sound present, S2 normal heart sound present and No murmurs present (Cardio) RHYTHM: regular rhythm HEART SOUNDS: S1 normal heart sound present and S2 normal heart sound present GI: COMMON NORMALS: Normal to inspection, nondistended, normoactive bowel sounds present, Soft to palpation and non-tender PALPATION: Yes Soft to palpation Extremity: COMMON NORMALS: no joint enlargement and no pedal edema GENERAL: Yes edema (Trace) Neuro: COMMON NORMALS: patient oriented x3 and moves all extremities Skin: COMMON NORMALS: no rashes or lesions noted GENERAL SKIN EXAM: no rashes or lesions noted Urinary Catheter Management^: Rob: Cath Placed During This Visit: yes, but has since been removed by the nurse Reason for Continuing Indwelling Catheter: Decision to DC Catheter Urinary Catheter Date of Insertion: 05/18/20 Urinary Catheter Time of Insertion: 11:00 Date Urinary Catheter Removed: 05/22/20 Time Urinary Catheter Discontinued: 22:30 Discharge Data Data Completed and Pending: Completed Studies During Hospitalization Category Date Time Status XR chest 1V chau ble [id number] NOW Exams 05/17/20 07:41 Completed XR chest 1V chau ble [id number] NOW Exams 05/18/20 13:17 Completed CV echo complete* [id number] Routine Ultrasound 05/16/20 03:41 Completed CV echo lmt wo/w contras [id number] Rout ine Ultrasound 05/21/20 13:22 Completed US renal BI* [id number] Routine Ultrasound 05/20/20 07:32 Completed Pending at discharge Category Date Time Status Serum Protien Gela ctrophoresis [Tota l Protein Lab 05/20/20 08:45 Received Electrophoresis] Stat Vitamin D 1,25 Di hydroxy Routine Lab 05/20/20 08:45 Received Labs from last 24 hours 05/24/20 05/24/20 04:16 04:16 WBC 11.2 H RBC 2.63 L Hgb 8.2 L Hct 25.0 L MCV 95.1 H MCH 31.2 MCHC 32.8 RDW 13.2 Plt Count 347 MPV 11.6 H Neut % (Auto) 67.3 Lymph % (Auto) 11.6 [place] % (Auto) 15.9 Eos % (Auto) 2.3 Baso % (Auto) 1.1 Neut # (Auto) 7.52 Lymph # (Auto) 1.3 [place] # (Auto) 1.8 H Eos # (Auto) 0.3 Baso # (Auto) 0.1 Nucleated RBC % (a uto) 0 Nucleated RBCs # 0.0 Sodium 137 Potassium 4.9 Chloride 107 Carbon Dioxide 20 L Anion Gap 14.9 BUN 62 H Creatinine 2.6 H GFR Calculation Not Reportable Glucose 99 Calculated Osmolal ity 302 H Calcium 9.3 Phosphorus 3.5 Magnesium 1.7 Total Bilirubin 0.3 AST 13 ALT 12 Alkaline Phosphata se 70 Total Protein 5.6 L Albumin 2.9 L Globulin 2.7 Vitals: Last Vital Signs Temp 98.6 F 05/24/20 18:19 Pulse 89 05/24/20 18:19 Resp 21 H 05/24/20 18:19 BP 169/91 05/24/20 18:19 Pulse Ox 98 05/24/20 18:19 Discharge Plan Discharge Patient Disposition: Home Health Service Condition: Stable Prescriptions: New carvedilol 3.125 mg Tablet 3.125 mg PO BID@0900,2100 Qty: 60 RF: 0 sodium bicarbonate 650 mg Tablet 650 mg PO TID Qty: 90 RF: 0 Lasix 40 mg tablet 40 mg PO DAILY PRN (Reason: edema) Qty: 30 RF: 0 Eliquis 2.5 mg tablet 2.5 mg PO BID Qty: 60 RF: 0 Augmentin 875-125 mg tablet 1 tab PO BID Qty: 4 RF: 0 ranolazine 500 mg Tablet Extended Release 12 Hr 500 mg PO BID Qty: 60 RF: 0 Continued fluticasone propionate 50 mcg/actuation spray,suspension 1 spray INTRANASAL BID PRN (Reason: Allergy Symptoms) RF: 0 hydrocodone-acetaminophen 5-325 mg tablet 1 tab PO TID@06,12,18 PRN (Reason: Pain) RF: 0 Refresh Tears 0.5 % drops 1 drop ophthalmic (eye) BID RF: 0 cholecalciferol (vitamin D3) 2,000 unit tablet 2,000 unit PO DAILY@06 RF: 0 omeprazole 20 mg capsule,delayed release(DR/EC) 20 mg PO DAILY@06 RF: 0 cinacalcet 30 mg tablet 30 mg PO DAILY@06 RF: 0 PreserVision AREDS-2 [id number] ad-oydw-ya-mg capsule 1 tab PO BID@,18 RF: 0 aspirin 81 mg tablet,delayed release (DR/EC) 81 mg PO DAILY@06 RF: 0 isosorbide mononitrate 30 mg tablet extended release 24 hr 30 mg PO DAILY Qty: 90 RF: 3 acetaminophen [Tylenol Extra Strength] 500 mg tablet 500 mg PO Q6H PRN (Reason: Pain) RF: 0 atorvastatin 40 mg tablet 40 mg PO QPM RF: 0 ondansetron HCl 4 mg tablet 4 mg PO TID PRN (Reason: Nausea And Vomiting) RF: 0 triamcinolone acetonide 0.1 % cream 1 applic TOPICAL . DIRECTED PRN (Reason: UNKNOWN) RF: 0 tamsulosin 0.4 mg capsule 0.4 mg PO DAILY@18 RF: 0 ropinirole 2 mg tablet 2 mg PO DAILY@18 RF: 0 iron 325 mg (65 mg iron) Tablet 325 mg PO DAILY@18 RF: 0 nystatin 100,000 unit/gram Cream 1 applic TOPICAL BID PRN (Reason: UNKNOWN) RF: 0 metoprolol tartrate 25 mg tablet 12.5 mg PO BID RF: 0 Mucus Relief DM 20-400 mg Tablet 1 tab PO DAILY@18 RF: 0 Held lisinopril 10 mg tablet 10 mg PO DAILY@06 RF: 0 Hold Instructions: Resume on 06/06/20. Discontinued nifedipine 60 mg tablet extended release 60 mg PO DAILY Qty: 90 RF: 3 Discharge Orders: Discharge Order (Routine); Ordered 05/24/20 Ordered By: Pollo Newman Referrals: Dominga Cortez MD [Primary Care Provider] - 4-7 days (Dr. Cortez's office will be calling to schedule a Hospital followup to be seen in 4 to 7 days. If you don't hear from them by tomorrow afternoon, Carla give them a call. Thank you) Brent Melo MD [Referring] - 2 weeks ([facility] will be calling to set up care. If you do not hear from them within a reasonable amount of time, please give them a call at [phone]) Barb Odonnell FNP [Nurse Practitioner] - 06/04/20 9:30 am (You have a post procedure followup with PRASHANT Paul at [facility] on June 04 at 9:30am) Melissa Owens MD [Physician] - 06/26/20 9:15 am (Your appointment at [facility] with Dr. Owens has been change to now June 26 at 9:15am) Discharge Diet: Cardiac and Diabetic Discharge Activity: Increase activity as tolerated and As per PT/OT instructions Patient Instructions: Furosemide (By mouth), Aspirin (By mouth), Amoxicillin/Clavulanate Potassium (By mouth), Carvedilol (By mouth), Ranolazine (By mouth), Sodium Bicarbonate (By mouth), Apixaban (By mouth), Myocardial Infarction (DC), Atrial Fibrillation (DC), How to Stop Smoking (DC), Pharyngitis (DC), Anemia (DC), Opioid Safety Activity Restrictions/Additional Instructions: Please stop smoking. For the smoking will risk progression of coronary disease, additional heart attack, heart failure, as well as other risks including stroke, various cancers. Please follow-up with the heart doctor in office. Discussed consideration of additional assessment by coronary angiography following your heart attack. In case of any chest pain or pressure, lightheadedness, severe shortness of breath, severe fatigue, fainting, or any other concerning symptoms please seek medical attention without delay. Please follow-up with kidney specialist. Please also have your primary care doctor reassess renal function at next appointment. Please discuss with your primary care doctor with regards to anemia and have them follow-up your blood count. Once you are sufficiently recovered from the recent hospitalization, also please discuss with your primary care doctor referral for additional endoscopic evaluation of the anemia, as well as follow-up lab studies that have been requested in the hospital to assess for any abnormal proteins in your blood. Please be aware that both aspirin and blood thinner medication which is started to reduce chance of stroke, and recurrence of heart attack, increased risk of bleeding. Please avoid any injury. In case you experience bleeding seek medical attention immediately. Once your kidney function stabilizes back to baseline, please discuss with your primary care doctor regarding gout and consideration of starting preventive therapy. Continue follow-up with regards to other chronic conditions including diabetes, high blood pressure, carotid artery stenosis, abdominal aortic aneurysm. Do not duplicate discharge medications. Take one week supply from [employer] in entirety before starting the month supply received in the mail. Discharge Attestations Time Spent in Discharge Care*: greater than 30 min Status at Discharge: Cognitive status at discharge: cognitively intact, Behavioral status at discharge: cooperative, Quality Metrics Clinical Quality Measures During this hospital stay, did patient experience: AMI Clinical Trial Participant: No Contraindication to aspirin (AMI): Aspirin given Contraindication to statin: Statin prescribed Contraindication to PCI: Procedure contraindicated Coding Level of Care Code Acute [facility] FW DC note Diagnoses Myocardial infarction I21.9 Myocardial infarction type: unspecified Involved coronary artery: unspecified coronary artery Atrial fibrillation I48.19 Atrial fibrillation type: other persistent Hypertension I10 Hypertension type: essential hypertension Chronic kidney disease N18.3 Chronic kidney disease stage: stage 3 (moderate) Moderate mitral regurgitation I34.0 AAA (abdominal aortic aneurysm) I71.4 Presence of rupture: without rupture Carotid stenosis I65.23 Laterality: bilateral
[2020-05-30 16:38] LABS: Vit D 1,25 (Oh)2, Total 14 pg/mL (18-72); Vit D2 1,25 (Oh)2 <8 pg/mL; Vit D3 1,25 (Oh)2 14 pg/mL
== END 2020-05-24 19:10 | disposition home health service (06) | DRG 280 ==
LOC: ICU 05-21 07:32 → CSU 05-22 23:36
PROVIDERS: Hospitalist; Internal Medicine; Internal Medicine Cardiovascular Disease; Internal Medicine Nephrology; Admitting Provider Internal Medicine; PCP Family Medicine; Visit Provider Internal Medicine
DX: I21.09 ST elevation (STEMI) myocardial infarction involving other coronary artery of anterior wall (principal); A41.9 Sepsis, unspecified organism; I50.31 Acute diastolic (congestive) heart failure; N17.0 Acute kidney failure with tubular necrosis; I13.0 Hypertensive heart and chronic kidney disease with heart failure and stage 1 through stage 4 chronic kidney disease, or unspecified chronic kidney disease; I48.19 Other persistent atrial fibrillation; I08.1 Rheumatic disorders of both mitral and tricuspid valves; E11.22 Type 2 diabetes mellitus with diabetic chronic kidney disease; N18.32 Chronic kidney disease, stage 3b; F32.9 Major depressive disorder, single episode, unspecified; K21.9 Gastro-esophageal reflux disease without esophagitis; E78.5 Hyperlipidemia, unspecified; M19.90 Unspecified osteoarthritis, unspecified site; J44.9 Chronic obstructive pulmonary disease, unspecified; E66.9 Obesity, unspecified; Z68.34 Body mass index [BMI] 34.0-34.9, adult; G47.30 Sleep apnea, unspecified; F17.210 Nicotine dependence, cigarettes, uncomplicated; I25.10 Atherosclerotic heart disease of native coronary artery without angina pectoris; E11.51 Type 2 diabetes mellitus with diabetic peripheral angiopathy without gangrene; D63.1 Anemia in chronic kidney disease; I95.9 Hypotension, unspecified; E87.5 Hyperkalemia; Z79.82 Long term (current) use of aspirin; Z79.891 Long term (current) use of opiate analgesic; J02.9 Acute pharyngitis, unspecified; E83.42 Hypomagnesemia
CPT/HCPCS: 36415; 36416; 51702; 71045; 76770; 80048; 80053; 80202; 81001; 82306; 82310; 82436; 82533; 82652; 82728; 82962; 83540; 83550; 83605; 83735; 83880; 83970; 84100; 84133; 84145; 84155; 84165; 84260; 84300; 84443; 84484; 84550; 85007; 85025; 85027; 85049; 85730; 86803; 87040; 87070; 87081; 87205; 87641; 87880; 93005; 93306; 94660; 96372; 97110; 97116; 97161; 97530; C8924; J0610; J0692; J1644; J1650; J1815; J1940; J2270; J2405; J2916; J3370; J3475; J3490; J7030; J7040; J7050; Q3014; Q4081

== ENCOUNTER 2020-08-09 13:00 | Outpatient (CLI) | payer MEDICARE, OTHER, SELFPAY ==
[2020-08-09 14:19] LABS: Anion Gap 16.6 (5-19); Blood Urea Nitrogen 47 mg/dL (8-23); Calcium 9.1 mg/dL (8.5-10.5); Carbon Dioxide 24 mmol/L (22-29); Chloride 102 mmol/L (98-107); Ferritin 243 ng/mL (30-400); Glucose 126 mg/dL (65-115); Iron 55 ug/dL (59-158); Osmolality Calculated 300 mOsm/kg (285-295); Percent Saturation 24.7 % (20-50); Potassium 4.6 mmol/L (3.5-5.1); Sodium 138 mmol/L (136-145); Total Iron Binding Capacity 222 mcg/dl; Unsaturated Iron Binding 167 ug/dL (112-347)
== END 2020-08-09 13:01 | disposition home or self-care (01) ==
PROVIDERS: PCP Family Medicine; Visit Provider Nurse Practitioner Family
DX: N18.9 Chronic kidney disease, unspecified (principal); D63.1 Anemia in chronic kidney disease
CPT/HCPCS: 36415; 80048; 82728; 83540; 83550

== ENCOUNTER → 2020-09-27 12:54 | Outpatient (BNVA) | payer OTHER, SELFPAY | PROVIDERS: PCP Family Medicine; Referring Provider Family Medicine; Visit Provider Podiatrist Foot & Ankle Surgery | DX: M19.072 Primary osteoarthritis, left ankle and foot (principal); M19.071 Primary osteoarthritis, right ankle and foot; M79.672 Pain in left foot; M79.671 Pain in right foot | CPT/HCPCS: 73610; 73630 ==

== ENCOUNTER → 2020-10-03 07:53 | Day surgery (SDC) | payer MEDICARE, OTHER, SELFPAY ==
[2020-10-03 08:20] VITALS: BP 100/61; PULSE 70; RESP 18; TEMP 36.7; O2SAT 70
[2020-10-03 08:26] VITALS: BMI 30.5
== END ==
PROVIDERS: PCP Family Medicine; Visit Provider Nurse Practitioner Family
DX: D63.1 Anemia in chronic kidney disease (principal)
CPT/HCPCS: 96365; Q0139

== ENCOUNTER → 2020-10-10 07:36 | Day surgery (SDC) | payer MEDICARE, OTHER, SELFPAY ==
[2020-10-10 07:52] VITALS: BP 145/74; PULSE 68; RESP 18; TEMP 37; O2SAT 98; BMI 31.2
[2020-10-10] MEDS: ferumoxytol (NON-ESRD) 510 MG in sodium chloride 0.9% (100 ml) 100 ML 351 MG IV (08:15)
== END ==
PROVIDERS: PCP Family Medicine; Visit Provider Nurse Practitioner Family
DX: D63.1 Anemia in chronic kidney disease (principal)
CPT/HCPCS: 96365; Q0138

== ENCOUNTER 2020-10-11 08:15 | Outpatient (CLI) | payer MEDICARE, OTHER, SELFPAY ==
--- NOTE | 2020-10-11 08:30 | USCV_ITS ---
Jennifer Michaud Age: 85 Gender: M : 1935 Exam Date: 10/11/2020 08:37 Ordering Phys: Melissa Owens MD [email or web address]) Technologist: Exam Location: [facility] [place] Indication: AAA STENT HISTORY: Diameter (cm) AP x Transverse x Length Velocity (cm/s) Waveform Prox Aorta: x x Mid Aorta: x x Distal Aorta: x x Right Iliac Prox: x x Left Iliac Prox: x x Stent Prox Landing 1.62 x 1.27 x 120.60 Aneurysmal Sac Max 1.33 x 1.21 x 56.70 Lt Lat Sac Dim 1.22 Rt Lat Sac Dim 1.63 Stent Dist Landing 1.07 1.58 x 65.10 x Right Iliac Stent 1.08 x 1.11 x 77.00 Left Iliac Stent 1.14 x 1.06 x 99.80 Right Renal Art 53.60 Left Renal Art 84.90 FINDINGS: Limited evaluation of the aortic stent. Inadequate to exclude enlarging aneurysm. Iliac arteries and patent with no aneurysm. CONCLUSIONS Limited evaluation of the aorta stent graft. Consider CTA. Dr. Essence Ramirez DO (Electronically Signed) Final Date: 11 October 2020 15:54 S
--- NOTE | 2020-10-11 11:00 | USCV_ITS ---
Jennifer Michaud Age: 85 Gender: M : 1935 Exam Date: 10/11/2020 08:52 Ordering Phys: Melissa Owens MD ([email or web address]) Technologist: Exam Location: [facility] [place] Indication: LT SIDE ENDART Risk Factors: Previous Vascular Surgery: L CEA Right Brachial BP: / Left Brachial BP: / Right Left Velocity (cm/s) Spectral Plaque Velocity (cm/s) Spectral Plaque Syst/Diast Broadening Syst/Diast Broadening 67.60/ 12.40 Prox CCA 89.83 / 26.73 61.40/ 12.40 Mid CCA 82.37 / 21.03 84.70/ 17.10 Hetro Distal CCA 93.30 / 18.40 241.50/59.20 Hetro Prox ICA 147.20/ 27.60 223.30/50.10 Mid ICA 152.50/ 31.55 117.00/15.80 Distal ICA 151.20/ 36.80 98.10 ECA 132.80 2.85 ICA/CCA 1.63 Antegrade Vertebral Antegrade 60.60/ 14.00 cm/s 53.90/ 15.80 cm/s Bi Subclavian Bi 152.3 163.0 0 0 FINDINGS Comparison:. 04/06/19. Prior left CEA. Velocity has improved in the left ICA. Elevated right ICA velocity is similar to the prior exam with no progression. Velocity slightly improved. Antegrade vertebral arteries. CONCLUSIONS Right ICA stenosis 50-69%. Closer to the higher end of the stenosis percent. Left CEA, with resolved stenosis. Dr. Essence Ramirez DO (Electronically Signed) Final Date: 11 October 2020 15:51 S
== END 2020-10-11 08:16 | disposition home or self-care (01) ==
PROVIDERS: PCP Family Medicine; Visit Provider Internal Medicine Cardiovascular Disease
DX: I71.4 Abdominal aortic aneurysm, without rupture (principal); I65.21 Occlusion and stenosis of right carotid artery
CPT/HCPCS: 76706; 93880

== ENCOUNTER 2020-10-17 07:36 | Outpatient (CLI) | payer MEDICARE, OTHER, SELFPAY ==
[2020-10-17 07:44] VITALS: BMI 30.9
--- NOTE | 2020-10-17 07:57 | ECG_ITS ---
[facility] Test Date: 2020-10-17 Pat Name: Jennifer Michaud Department: Room: Gender: Male Dot Compliance Coordinator: : 1935 Requested By: Melissa Owens Order Number: [id number] De Santiago MD: Melissa Owens M.D. Interpretive Statements NAME OF STUDY: LEXISCAN SESTAMIBI STRESS TEST INDICATION: Chest Pain; Elevated Troponin I PROCEDURE: At the baseline, the blood pressure was 161/81 mmHg, oxygen saturation 95% with a heart rate of 69 bpm. The electrocardiogram showed sinus rhythm left axis deviation possible old anteroseptal infarct. Nonspecific ST-T wave changes.. The Lexiscan was infused over a period of 20 seconds. A total of 0.4 milligrams of Lexiscan was infused. The stress phase was continued for a total of 5 minutes. Heart rate at the end of the stress phase was 73 bpm, oxygen saturation 98% with a blood pressure of 162/86 mmHg. The EKG at the peak infusion revealed no significant ST-T wave changes. Sestamibi was injected 20 seconds after the Lexiscan infusion. Blood pressure at the end of the recovery phase was 144/84 mmHg, oxygen saturation 98% with a heart rate of 72 beats per minute. CONCLUSION: 1. No significant EKG changes with the LexiScan infusion. 2. No LexiScan induced chest pain or cardiac arrhythmia. 3. Normal blood pressure and heart rate response. 4. Sestamibi/sestamibi perfusion scan pending; see separate report. Electronically Signed On 10-19-2020 13:01:26 CDT by Melissa Owens M.D. [id number]
--- NOTE | 2020-10-17 07:58 | NMCV_ITS ---
NM damián perf SPECT r/s* [id number] Jennifer Michaud Age: 85 Gender: M : 1935 Exam Date: 10/17/2020 07:58 Ordering Phys: Melissa Owens MD ([email or web address]) Technologist: ISAK Joya Exam Location: [facility] Indications: CHEST PAIN STRESS TEST Please see separate stress test report in [facility] for full findings IMAGE PROTOCOL Rest/Stress 1 Lexiscan Day Radiopharmaceutical Dose (mCi) Administration Site Administered by Rest: Tc-99m 10.5 IV ISAK Walker Sestamibi Stress:Tc-99m 32.9 IV ISAK Walker Sestamibi Rest: 17-Oct-2020 60 Discovery 630 Stress: 17-Oct-2020 30 Discovery 630 0.4mg Lexiscan. Images obtained in supine and prone position. SPECT RESULTS Technical Quality: Excellent Raw Data Analysis: Normal, Subdiaphragmatic activity Image Corrections: No attenuation or motion correction applied Summed Stress Score: 4 Summed Rest Score: 0 Summed Difference Score: 4 PERFUSION FINDINGS Small size perfusion abnormality of mild severity of mid inferior wall with subtle reversibility in mid inferior and mid inferolateral and apical lateral santana on supine stress images. FUNCTIONAL RESULTS (calculated via Gated SPECT) Stress Image LV EF (%): 61 Stress EDV (mL):122 TID: 0.91 Stress ESV (mL):48 FUNCTIONAL FINDINGS: The left ventricle is normal in size. Transient Ischemia Dilatation of 0.91. There is normal left ventricular systolic function. The left ventricular ejection fraction is normal with a value of 61%. Normal end-diastolic end-systolic volumes. IMPRESSIONS 1. Small sized reversible perfusion abnormality of mild severity of mid inferior and mid to apical infero-lateral santana. 2. This may represent small area of ischemia in right coronary artery/circumflex artery territory. 3. Overall left ventricular systolic function is normal without regional wall motion abnormalities, LVEF=61%. 4. No significant EKG changes with Lexiscan scan infusion. Please refer to separate report for details. Melissa Owens MD (Electronically Signed) Final Date: 19 October 2020 13:02 S
[2020-10-17] MEDS: regadenoson 0.4 Mg/5 ml Syringe IVP (09:44)
[2020-10-17 09:55] VITALS: BP 144/84; PULSE 74
== END 2020-10-17 07:37 | disposition home or self-care (01) ==
LOC: CDL 07:40
PROVIDERS: PCP Family Medicine; Visit Provider Physician Assistant Medical
DX: R07.9 Chest pain, unspecified (principal); R94.39 Abnormal result of other cardiovascular function study
CPT/HCPCS: 78452; 93017; A9500; J2785

== ENCOUNTER 2021-01-23 11:25 | Emergency (ER) | payer MEDICARE, OTHER, SELFPAY ==
[2021-01-23 11:28] VITALS: BP 127/73; PULSE 75; RESP 16; TEMP 37.2; O2SAT 96; BMI 30.9
--- NOTE | 2021-01-23 11:51 | W.ED.GENADLT ---
HPI - General Adult General: Chief complaint: General Medical Stated complaint: JOINT PAIN, KIDNEY DZ Time Seen by Provider: 01/23/21 11:51 History of Present Illness: HPI narrative: Mr. Michaud is an 85-year-old gentleman with significant past medical for CHF, CKD, PAD, hypertension, hyperlipidemia, and diabetes who presents emergency department due to joint pain and swelling. Symptom onset has been worsening over a number of days. He endorses pain that is worse with movement and limits his range of motion. No overlying skin changes. No other sign systemic illness. Intensity symptoms moderate to severe and worse with movement. Overall the course has been worsening. No other specific changes to health, exacerbated, or alleviating factors identified. Review of Systems General: Reports: 10 or more systems reviewed and unremarkable except in HPI and below PFSH ED PFSH: Medical History AAA (abdominal aortic aneurysm) Endovascular repair several years ago -plan for aortic duplex. Atrial fibrillation CAD (coronary artery disease) Carotid stenosis -s/p recent L CEA done by Dr. Ramos on 04/18/19 CHF (congestive heart failure), NYHA class III Chronic kidney disease Chronic kidney disease -has known CKD stage 3; baseline Cr 2.1-2.5 Depression Diabetes mellitus Diastolic CHF GERD (gastroesophageal reflux disease) Hypercalcemia Hyperlipidemia Hypertension Impaired glucose tolerance Moderate mitral regurgitation Myocardial infarction Myocardial infarction Non-ST elevation VA (NSTEMI) Osteoarthritis PAD (peripheral artery disease) Pancreatitis Severe chronic obstructive pulmonary disease Severe obesity Sleep apnea Tobacco abuse Surgical History Status post carotid endarterectomy Left Family History Other CAD (coronary artery disease) Social History Smoking and tobacco status: current every day smoker Alcohol intake: never Physical Exam Narrative: EXAM NARRATIVE: GENERAL/CONSTITUTIONAL -chronically ill-appearing. Uncomfortable due to pain Eyes - PERRL, no conjunctival injection ENMT - Atraumatic external nose and ears. Moist mucous membranes NECK - supple. trachea midline CARDIOVASCULAR - regular rate and rhythm. RESPIRATORY -clear to auscultation bilaterally. ABDOMEN/GI - Nontender/Nondistended. MSK - left hand with swelling of the 2nd DIP joint with limited range of motion overall in the hand. No evidence of flexor tenosynovitis. Bilateral feet and ankles with tenderness with range of motion, mild appreciable swelling. Obvious deformity noted to the right ankle with somewhat unclear chronology/worsening. SKIN - Warm, Dry, no erythema or rashes NEURO - alert and appropriately oriented. Moves all extremities equally. Course ED course: - Patient was seen and evaluated by me at bedside - Patient placed on cardiac monitors, IV access obtained - Initial evaluation notable for exam as noted above -Symptom treatment ordered - Labs notable for leukocytosis of unclear etiology, may be response to inflammatory changes. Near baseline hemoglobin. Metabolic panel similar to baseline, mild evidence of likely dehydration, baseline kidney function. - Imaging notable for chronic changes without acute fracture identified - Upon serial reexamination after treatment the patient was similar to mildly improved - Based on patient history, evaluation, labs, and imaging as interpreted the most likely cause of the patient's condition is exacerbation of chronic underlying inflammatory arthritic disease. - The results of ED evaluation were discussed with the patient including prescriptions and/or symptomatic cares (if applicable) including appropriate and responsible use, followup plan, and return precautions. The patient expressed frustration that he was not being admitted given limited mobility at home. I did have case management/social work come and evaluate the patient. Plan to have them follow-up tomorrow with the patient regarding likely need for care home/rehab. - Patient discharged in satisfactory condition. Vital Signs: Vital signs: Vital Signs Temperature 98.9 F 01/23/21 11:28 Pulse Rate 78 01/23/21 17:18 Respiratory Rate 16 01/23/21 17:18 Blood Pressure 120/78 01/23/21 17:18 Pulse Oximetry 96 01/23/21 17:18 [facility] - General Adult Medical Records: Attestation: I reviewed the patient's medical records. Lab Data: Attestation: I reviewed the patient's lab results. Labs: Lab Results 01/23/21 01/23/21 11:39 11:39 WBC 14.8 10^3/uL H 10 ^3/uL (4.0-10.0) RBC 3.07 10^6/uL L 10 ^6/uL (4.1-5.3) Hgb 9.4 g/dL L g/dL (11.7-16.6) Hct 28.2 % L % (42.0-52.0) MCV 91.9 fl fl (80-94) MCH 30.6 pg pg (28.0-34.0) MCHC 33.3 g/dL g/dL (30.0-36.0) RDW 13.5 % % (12.1-15.1) Plt Count 265 10^3/cmm 10^3 /cmm (130-400) MPV 11.5 fL H fL (7.4-10.4) Neut % (Auto) 82.2 % % Lymph % (Auto) 4.3 % % [place] % (Auto) 11.9 % % Eos % (Auto) 0.2 % % Baso % (Auto) 0.5 % % Neut # (Auto) 12.16 10^3/uL H 1 0^3/uL (1.8-7.7) Lymph # (Auto) 0.6 10^3/uL L 10^ 3/uL (0.8-4.8) [place] # (Auto) 1.8 10^3/uL H 10^ 3/uL (0.2-0.9) Eos # (Auto) 0.0 10^3/uL 10^3/ uL (0.0-0.8) Baso # (Auto) 0.1 10^3/uL 10^3/ uL (0.0-0.1) Nucleated RBC % (a uto) 0 % % Nucleated RBCs # 0.0 /100WBC /100W BC Sodium 133 mmol/L L mmol /L (136-145) Potassium 4.2 mmol/L mmol/L (3.5-5.1) Chloride 100 mmol/L mmol/L (98-107) Carbon Dioxide 17 mmol/L L mmol/ L (22-29) Anion Gap 20.2 H (5-19) BUN 43 mg/dL H mg/dL (8-23) Creatinine 2.4 mg/dL H mg/dL (0.7-1.2) GFR Calculation Not Reportable Glucose 138 mg/dL H mg/dL (65-115) Calculated Osmolal ity 289 mOsm/kg mOsm/ kg (285-295) Calcium 8.8 mg/dL mg/dL (8.5-10.5) Total Bilirubin 0.6 mg/dL mg/dL (0.15-1.2) AST 13 U/L U/L (0-40) ALT 16 U/L U/L (0-41) Alkaline Phosphata se 119 IU/L IU/L (40-130) Total Protein 6.3 g/dL L g/dL (6.6-8.7) Albumin 3.3 g/dL L g/dL (3.5-5.2) Globulin 3.0 g/dL g/dL (1.3-4.6) Discharge Plan Discharge Patient Disposition: Home Clinical Impression: Arthralgia of both ankles, Arthralgia of hand, left Condition: Stable Prescriptions: New prednisone 20 mg tablet 40 mg PO DAILY 7 Days Qty: 14 RF: 0 oxycodone 5 mg tablet 5 mg PO Q4H PRN (Reason: pain) Qty: 10 RF: 0 No Action fluticasone propionate 50 mcg/actuation spray,suspension 1 spray INTRANASAL BID PRN (Reason: Allergy Symptoms) RF: 0 hydrocodone-acetaminophen 5-325 mg tablet 1 tab PO TID@06,12,18 PRN (Reason: Pain) RF: 0 Refresh Tears 0.5 % drops 1 drop ophthalmic (eye) BID RF: 0 cholecalciferol (vitamin D3) 2,000 unit tablet 2,000 unit PO DAILY@06 RF: 0 omeprazole 20 mg capsule,delayed release(DR/EC) 20 mg PO DAILY@06 RF: 0 (DME) articulating AFO to the left See Rx Instructions .Route .MEDSUPPLY Qty: 1 RF: 0 (DME) custom accommodative orthotic bilaterally See Rx Instructions .Route .MEDSUPPLY Qty: 1 RF: 0 (DME) articulating AFO to the left See Rx Instructions .Route .MEDSUPPLY Qty: 1 RF: 0 (DME) custom molded accommodative orthotic bilaterally See Rx Instructions .ROUTE .MEDSUPPLY Qty: 1 RF: 0 cinacalcet 30 mg tablet 30 mg PO DAILY@06 RF: 0 PreserVision AREDS-2 [id number] ls-wvnx-pm-mg capsule 1 tab PO BID@,18 RF: 0 aspirin 81 mg tablet,delayed release (DR/EC) 81 mg PO DAILY@06 RF: 0 isosorbide mononitrate 30 mg tablet extended release 24 hr 30 mg PO DAILY Qty: 90 RF: 3 Lasix 40 mg tablet 40 mg PO DAILY Qty: 30 RF: 3 carvedilol 12.5 mg tablet 12.5 mg PO BID RF: 0 warfarin 5 mg tablet See Rx Instructions .ROUTE .COMPLEX Qty: 30 RF: 11 acetaminophen [Tylenol Extra Strength] 500 mg tablet 500 mg PO Q6H PRN (Reason: Pain) RF: 0 atorvastatin 40 mg tablet 40 mg PO QPM RF: 0 ondansetron HCl 4 mg tablet 4 mg PO TID PRN (Reason: Nausea And Vomiting) RF: 0 triamcinolone acetonide 0.1 % cream 1 applic TOPICAL . DIRECTED PRN (Reason: UNKNOWN) RF: 0 ropinirole 2 mg tablet 2 mg PO DAILY@18 RF: 0 ferrous sulfate [iron] 325 mg (65 mg iron) Tablet 325 mg PO DAILY@18 RF: 0 nystatin 100,000 unit/gram Cream 1 applic TOPICAL BID PRN (Reason: UNKNOWN) RF: 0 dextromethorphan-guaifenesin [Mucus Relief DM] 20-400 mg Tablet 1 tab PO DAILY@18 RF: 0 sodium bicarbonate 650 mg Tablet 650 mg PO TID Qty: 90 RF: 0 Discharge Orders: Discharge ED (Routine); Ordered 01/23/21 Ordered By: Jhon Mcclellan Referrals: Dominga Cortez MD [Primary Care Provider] - Discharge Diet: Usual diet Discharge Activity: Resume usual activity Patient Instructions: Arthralgia (ED), Opioid Safety Activity Restrictions/Additional Instructions: Thank you for visiting the emergency department. You were seen and evaluated for joint pain. The exact cause of your symptoms is unclear though based on x-ray findings is likely secondary to a chronic inflammatory arthritis. Additionally please ensure that you are staying hydrated. You will be given multiple prescriptions, 1 to help with the inflammation, additionally a pain medication in the opioid class. You may continue to use laql-juo-hfzydvl medications for your symptoms unless you have been told not to by another physician. If you are using NSAIDs such as ibuprofen, Aleve, or aspirin you should also use a H2 yuniel or proton pump inhibitor, you were given a prescription for this as well. Please follow-up with your primary care provider. Please return to the emergency department for worsening symptoms or anything else that you are concerned about and feel needs emergency department evaluation. Coding Level of Care Code ED Hairspring Inspector for Emi Herndon
--- NOTE | 2021-01-23 12:16 | XRR_ITS ---
PROCEDURE INFORMATION: Exam: XR Right Ankle Exam date and time: 01/23/2021 12:16 PM Age: 85 years old Clinical indication: Pain; Ankle; Bilateral; Additional info: Pain, deformity TECHNIQUE: Imaging protocol: XR Right ankle. Views: 3 or more views. COMPARISON: CR XR ankle RT min 3V* [id number] 09/27/2020 1:01 PM FINDINGS: Bones/joints: Redemonstrated deformed appearance of the talofibular articulation with what appears to be some inferior migration of the distal fibula and eroded appearance of the inferolateral aspect of the talus/calcaneus. There is extensive soft tissue swelling and calcification around the ankle in this region. There is also moderate degenerative narrowing of the medial aspect of the ankle mortise. There may be some erosion of the fibular tip as described on prior study. There also appears to be advanced degenerative changes of the rest of the hindfoot joint spaces. Generalized osseous demineralization is noted. Soft tissues: Please see bones/joints section. XR/XR ankle RT min 3V* [id number] IMPRESSION: Redemonstrated advanced DJD and deformed appearance of the hindfoot/ankle as described in the body of the report. There also extensive soft tissues calcifications and swelling within the ankle in this region. Given findings elsewhere within the wrist, findings most likely reflect sequela of inflammatory arthropathy such as CPPD with Charcot joint an additional consideration.
--- NOTE | 2021-01-23 12:16 | XRR_ITS ---
PROCEDURE INFORMATION: Exam: XR Left Hand Exam date and time: 01/23/2021 12:16 PM Age: 85 years old Clinical indication: Pain; Hand; Left; Additional info: Pain, swelling TECHNIQUE: Imaging protocol: XR Left hand. Views: 3 or more views. COMPARISON: No relevant prior studies available. FINDINGS: Bones/joints: Severe DJD at the base of the thumb. There is also moderate DJD at the 1st IP. 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 There is moderate degenerative narrowing of the rest of the DIP joints. 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 Soft tissues: Soft tissue swelling most evident around the wrist and 2nd digit. XR/XR hand LT min 3V* [id number] IMPRESSION: 1. Severe DJD at the base of the thumb. 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 2. Extensive calcification in the region of the TFCC/ulnar styloid process with soft tissue swelling of the wrist in this region. 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
--- NOTE | 2021-01-23 12:16 | XRR_ITS ---
PROCEDURE INFORMATION: Exam: XR Left Ankle Exam date and time: 01/23/2021 12:16 PM Age: 85 years old Clinical indication: Pain; Ankle; Bilateral; Additional info: Pain, unable to ambulate TECHNIQUE: Imaging protocol: XR Left ankle. Views: 3 or more views. COMPARISON: CR XR ankle LT min 3V* [id number] 09/27/2020 1:04 PM FINDINGS: Bones/joints: Generalized osseous demineralization. Osseous structures are intact without fracture. Rlus-zh-bguqsuta degenerative narrowing of the tibiotalar joint most conspicuous along the posterior aspect. Moderate degenerative narrowing also noted along the lateral aspect of the ankle mortise. Soft tissues: Normal. XR/XR ankle LT min 3V* [id number] IMPRESSION: No acute findings. Oozm-dq-cusmedij DJD of the tibiotalar joint.
[2021-01-23 12:23] LABS: Basophils # 0.1 10^3/uL (0.0-0.1); Basophils % 0.5 %; Eosinophils % 0.2 %; Hematocrit 28.2 % (42.0-52.0); Hemoglobin 9.4 g/dL (11.7-16.6); Lymphocytes # 0.6 10^3/uL (0.8-4.8); Lymphocytes % 4.3 %; Mean Corpuscular HGB Conc 33.3 g/dL (30.0-36.0); Mean Corpuscular Hemoglobin 30.6 pg (28.0-34.0); Mean Corpuscular Volume 91.9 fl (80-94); Mean Platelet Volume 11.5 fL (7.4-10.4); Monocytes # 1.8 10^3/uL (0.2-0.9); Monocytes % 11.9 %; Neutrophils # 12.16 10^3/uL (1.8-7.7); Neutrophils % 82.2 %; Nucleated Red Blood Cells % 0 %; Platelet Count 265 10^3/cmm (130-400); Red Blood Count 3.07 10^6/uL (4.1-5.3); Red Cell Distribution Width 13.5 % (12.1-15.1); White Blood Count 14.8 10^3/uL (4.0-10.0)
[2021-01-23] MEDS: ketorolac 30 mg/mL INJ 15 MG IVP (12:41)
[2021-01-23] MEDS: acetaminophen 1,000 MG/100 ML PIGGYBACK 400 MG IV (12:43)
[2021-01-23 12:56] LABS: Alanine Aminotransferase 16 U/L (0-41); Albumin Level 3.3 g/dL (3.5-5.2); Alkaline Phosphatase 119 IU/L (40-130); Anion Gap 20.2 (5-19); Aspartate Amino Transferase 13 U/L (0-40); Blood Urea Nitrogen 43 mg/dL (8-23); Calcium 8.8 mg/dL (8.5-10.5); Carbon Dioxide 17 mmol/L (22-29); Chloride 100 mmol/L (98-107); Glucose 138 mg/dL (65-115); Osmolality Calculated 289 mOsm/kg (285-295); Potassium 4.2 mmol/L (3.5-5.1); Sodium 133 mmol/L (136-145); Total Bilirubin 0.6 mg/dL (0.15-1.2); Total Protein 6.3 g/dL (6.6-8.7)
--- NOTE | 2021-01-23 13:08 | XRR_ITS ---
PROCEDURE INFORMATION: Exam: XR Chest Exam date and time: 01/23/2021 1:08 PM Age: 85 years old Clinical indication: Other: Infection; Patient HX: History--chronic joint pain. Pt's lt wrist and lt hand is swollen. PT has a deformitity showing on the medial side of the RT ankle. PT has had prior breaks of the lft ankle several years ago. TECHNIQUE: Imaging protocol: XR of the chest. Views: 1 view. COMPARISON: CR XR chest 1V portable [id number] 05/18/2020 1:27 PM FINDINGS: Lungs: Unremarkable. No consolidation. Pleural spaces: Unremarkable. No pleural effusion. No pneumothorax. Heart/Mediastinum: Stable mild cardiomegaly. Bones/joints: Unremarkable. XR/XR chest 1V portable [id number] IMPRESSION: Stable exam, no acute findings.
[2021-01-23 13:57] VITALS: BP 137/76; PULSE 71; RESP 18; O2SAT 96
[2021-01-23 17:18] VITALS: BP 120/78; PULSE 78; RESP 16; O2SAT 96
--- NOTE | 2021-01-25 07:13 | DCPLANNER ---
late entry - caseworker intake was asked to follow up with shelter placement for patient. Patients information had been sent to [facility] and [facility] for review. Patient would be self pay due to not meeting insurance guidelines. Cheri, called and got a cochran quote from [facility] for patient, she got a cochran for the remainder of January and what patient would need to pay if patient was still in facility in February. she spoke with Andie, at [facility]. This caseworker intake called patients friend Tin, and gave him the quote for the month of January and explained to him about Katja payment if patient was still in facility in February. configuration manager was told that patient would go to [facility], and that family would have him at the facility sometime today. configuration manager called [facility], and informed the facility that patient would be going to facility sometime today.
== END 2021-01-23 17:36 | disposition home or self-care (01) ==
PROVIDERS: Emergency Provider Emergency Medicine; PCP Family Medicine
DX: M25.572 Pain in left ankle and joints of left foot (principal); M25.571 Pain in right ankle and joints of right foot; M25.542 Pain in joints of left hand; Z79.82 Long term (current) use of aspirin; Z79.01 Long term (current) use of anticoagulants; I25.10 Atherosclerotic heart disease of native coronary artery without angina pectoris; I13.0 Hypertensive heart and chronic kidney disease with heart failure and stage 1 through stage 4 chronic kidney disease, or unspecified chronic kidney disease; E11.22 Type 2 diabetes mellitus with diabetic chronic kidney disease; N18.30 Chronic kidney disease, stage 3 unspecified; I50.30 Unspecified diastolic (congestive) heart failure; E78.5 Hyperlipidemia, unspecified; I25.2 Old myocardial infarction; J44.9 Chronic obstructive pulmonary disease, unspecified; F17.210 Nicotine dependence, cigarettes, uncomplicated
CPT/HCPCS: 71045; 73130; 73610; 80053; 85025; 96374; 96375; 99283; J1885

== ENCOUNTER 2021-02-02 17:22 | Inpatient (IN) | payer MEDICARE, OTHER, SELFPAY ==
[2021-02-02] VITALS (10 sets, daily range): BP systolic 120–159; BP diastolic 67–89; PULSE 11–82; RESP 16–24; TEMP 36.6–37.1; O2SAT 93–100; BMI 31.1
--- NOTE | 2021-02-02 18:01 | XRR_ITS ---
PROCEDURE INFORMATION: Exam: XR Chest Exam date and time: 02/02/2021 6:01 PM Age: 85 years old Clinical indication: Chest wall pain; Additional info: Chest pain TECHNIQUE: Imaging protocol: XR of the chest. Views: 1 view. COMPARISON: CR XR chest 1V portable [id number] 01/23/2021 1:15 PM FINDINGS: Lungs: See Heart/Mediastinum finding. Pleural spaces: No pleural effusion. No pneumothorax. Heart/Mediastinum: Stable retrocardiac density suggesting a small hiatal hernia. Stable moderate enlargement of the cardiac silhouette. Mediastinal contours are unremarkable. Vasculature: Stable vascular calcifications in the aorta. Stable tortuosity of the aorta. Bones/joints: Unremarkable for age. XR/XR chest 1V portable [id number] IMPRESSION: 1. No acute cardiopulmonary process. 2. Incidental/nonacute findings are listed in the report.
--- NOTE | 2021-02-02 18:01 | W.ED.CHESTPA ---
Documented by User: PRASHANT Calhoun 02/02/21 19:29 HPI - Chest Pain General: Chief Complaint: Chest Pain Stated Complaint: CP Time Seen by Provider: 02/02/21 18:01 History of Present Illness: HPI narrative: 85-year-old male patient comes in today with concerns of bruising across the anterior chest wall, dark-colored stools, and chest discomfort. Patient reports 1 week ago he was seen in the emergency department for some redness and inflammation of bilateral ankles. Patient was placed on prednisone which messed with his INR for his anticoagulation with warfarin. Family with the patient was concerned due to the anterior chest wall bruising. Patient is alert and oriented. Skin is warm and dry. No edema is noted in the extremities. Patient has a history of atrial fib, peripheral artery disease, CHF, hypertension, CAD, hyperlipidemia. Patient supposedly had an INR up to 15, 3 days ago was treated with an infusion at [facility] and INR yesterday was 3.5. Patient did not receive a dose of warfarin today. Review of Systems General: Reports: 10 or more systems reviewed and unremarkable except in HPI and below Skin/Breast: Reports: other (Anterior chest wall bruising) [facility] ED PFSH: Medical History AAA (abdominal aortic aneurysm) Endovascular repair several years ago -plan for aortic duplex. Atrial fibrillation CAD (coronary artery disease) Carotid stenosis -s/p recent L CEA done by Dr. Ramos on 04/18/19 CHF (congestive heart failure), NYHA class III Chronic kidney disease Chronic kidney disease -has known CKD stage 3; baseline Cr 2.1-2.5 Depression Diabetes mellitus Diastolic CHF GERD (gastroesophageal reflux disease) Hypercalcemia Hyperlipidemia Hypertension Impaired glucose tolerance Moderate mitral regurgitation Myocardial infarction Myocardial infarction Non-ST elevation ND (NSTEMI) Osteoarthritis PAD (peripheral artery disease) Pancreatitis Severe chronic obstructive pulmonary disease Severe obesity Sleep apnea Tobacco abuse Surgical History Status post carotid endarterectomy Left Family History Other CAD (coronary artery disease) Social History Smoking and tobacco status: current every day smoker Alcohol intake: never Physical Exam Const: COMMON NORMALS: no acute distress and patient oriented x3 GENERAL APPEARANCE: cooperative HENMT: COMMON NORMALS: normocephalic HEAD & SCALP: normal to inspection and normocephalic MOUTH: Normal oral and palatal mucosa present Eye: GENERAL EYE: appearance normal, both eyes and all related structures Neck/C-Spine: COMMON NORMALS: full ROM Lymph: LYMPHATIC: no lymphadenopathy noted Chest: COMMONS NORMALS: normal inspection of the chest Resp: COMMON NORMALS: normal respiratory effort EFFORT & INSPECTION: Yes able to speak in complete sentences Cardio: COMMON NORMALS: regular rate and regular rhythm RATE: regular rate RHYTHM: regular rhythm GI: COMMON NORMALS: Soft to palpation AUSCULTATION: Yes normoactive bowel sounds PALPATION: Yes Soft to palpation and Yes Tenderness to palpation present (GI) : COMMON NORMALS: Yes no CVA tenderness BLADDER/KIDNEY EXAM: Yes no CVA tenderness Back/Pelvis: COMMON NORMALS: no CVA tenderness and thoracic and lumbar spine normal to inspection Extremity: COMMON NORMALS: normal to inspection Neuro: COMMON NORMALS: patient oriented x3 and moves all extremities Psych: COMMON NORMALS: mental status grossly normal and cooperative Skin: COMMON NORMALS: no rashes or lesions noted NARRATIVE SKIN EXAM: Pale skin, large area of ecchymosis to the anterior chest wall. GENERAL SKIN EXAM: no rashes or lesions noted Course ED course: 1919, reviewed patient with Dr. Sandhu, attending ER physician, concerns for BUN being at 120, hemoglobin at 6.4. Due to the patient's history of dark stools he believes his kidney function is due to the digesting of blood due to a GI bleed he secondary to his elevation of his INR. Patient will need to be admitted to hospital for infusion of blood products and monitoring of GI bleed and labs. Vital Signs: Vital signs: Vital Signs Temperature 98.7 F 02/02/21 17:42 Pulse Rate 11 L 02/02/21 18:30 Respiratory Rate 22 H 02/02/21 18:30 Blood Pressure 155/85 02/02/21 18:30 Pulse Oximetry 100 02/02/21 18:30 MDM - Chest Pain MDM Narrative: Medical decision making narrative: Patient came in today due to concerns of dark stools, increased shortness of breath, and elevation in his INR, and bruising across his anterior chest wall. On exam patient has tenderness of his anterior chest wall and abdomen. Bowel sounds were positive. Skin was warm and dry color was pale. Vital signs were normal. Differential diagnosis includes but not limited to GI bleed, chest wall contusion, anxiety, uncontrolled anticoagulation. INR was now 2.9. Patient's hemoglobin hematocrit was 6.4 and 19.6. Creatinine was 3.2 and BUN was 120. This was reviewed with Dr. Sandhu who recommended patient be admitted for further evaluation of renal dysfunction, GI bleed, and anemia. Lab Data: Labs: Lab Results 02/02/21 02/02/21 02/02/21 18:00 18:00 18:00 WBC 16.5 10^3/uL H 10 ^3/uL (4.0-10.0) RBC 2.09 10^6/uL L 10 ^6/uL (4.1-5.3) Hgb 6.4 g/dL L* g/dL (11.7-16.6) Hct 19.6 % L* % (42.0-52.0) MCV 93.8 fl fl (80-94) MCH 30.6 pg pg (28.0-34.0) MCHC 32.7 g/dL g/dL (30.0-36.0) RDW 16.2 % H % (12.1-15.1) Plt Count 416 10^3/cmm H 10 ^3/cmm (130-400) MPV 11.3 fL H fL (7.4-10.4) Neut % (Auto) 77.8 % % Lymph % (Auto) 8.5 % % Mccreary % (Auto) 10.2 % % Eos % (Auto) 0.1 % % Baso % (Auto) 0.1 % % Neut # (Auto) 12.82 10^3/uL H 1 0^3/uL (1.8-7.7) Lymph # (Auto) 1.4 10^3/uL 10^3/ uL (0.8-4.8) Mccreary # (Auto) 1.7 10^3/uL H 10^ 3/uL (0.2-0.9) Eos # (Auto) 0.0 10^3/uL 10^3/ uL (0.0-0.8) Baso # (Auto) 0.0 10^3/uL 10^3/ uL (0.0-0.1) Nucleated RBC % (a uto) 0.3 % % Nucleated RBCs # 0.1 /100WBC /100W BC PT 30.80 SECONDS H S ECONDS (12.1-14.9) INR 2.90 H (0.8-1.2) APTT 33.5 SECONDS SECO NDS (23.9-36.7) Sodium 136 mmol/L mmol/L (136-145) Potassium 4.5 mmol/L mmol/L (3.5-5.1) Chloride 96 mmol/L L mmol/ L (98-107) Carbon Dioxide 24 mmol/L mmol/L (22-29) Anion Gap 20.5 H (5-19) BUN 120 mg/dL H* D mg /dL (8-23) Creatinine 3.2 mg/dL H mg/dL (0.7-1.2) GFR Calculation Not Reportable Glucose 145 mg/dL H mg/dL (65-115) Calculated Osmolal ity 323 mOsm/kg H mOs m/kg (285-295) Calcium 8.7 mg/dL mg/dL (8.5-10.5) Total Bilirubin 0.4 mg/dL mg/dL (0.15-1.2) AST 16 U/L U/L (0-40) ALT 18 U/L U/L (0-41) Alkaline Phosphata se 90 IU/L IU/L (40-130) Troponin T Baselin e NT-Pro-B Natriuret Pep 77639 pg/mL H pg/ mL (0-450) Total Protein 5.7 g/dL L g/dL (6.6-8.7) Albumin 3.4 g/dL L g/dL (3.5-5.2) Globulin 2.3 g/dL g/dL (1.3-4.6) 02/02/21 18:00 WBC RBC Hgb Hct MCV MCH MCHC RDW Plt Count MPV Neut % (Auto) Lymph % (Auto) Mccreary % (Auto) Eos % (Auto) Baso % (Auto) Neut # (Auto) Lymph # (Auto) Mccreary # (Auto) Eos # (Auto) Baso # (Auto) Nucleated RBC % (a uto) Nucleated RBCs # PT INR APTT Sodium Potassium Chloride Carbon Dioxide Anion Gap BUN Creatinine GFR Calculation Glucose Calculated Osmolal ity Calcium Total Bilirubin AST ALT Alkaline Phosphata se Troponin T Baselin e 91 ng/L H ng/L (0-15) NT-Pro-B Natriuret Pep Total Protein Albumin Globulin Discharge Plan Discharge Patient Disposition: Admitted As Inpatient Clinical Impression: Acute GI bleeding, Warfarin-induced coagulopathy Chronic renal insufficiency Qualifiers: Chronic kidney disease stage: stage 3 (moderate) Chronic kidney disease stage 3 subtype: unspecified whether 3a or 3b Qualified Code(s): N18.30 - Chronic kidney disease, stage 3 unspecified Condition: Stable Coding Level of Care Code ED Arcade Game Technician for Chg Fwd Exam Comprehensive Documented by User: Nathaniel Sandhu DO 02/02/21 20:03 HPI - Chest Pain General: Chief Complaint: Chest Pain Stated Complaint: CP Time Seen by Provider: 02/02/21 18:01 PFSH ED PFSH: Medical History AAA (abdominal aortic aneurysm) Endovascular repair several years ago -plan for aortic duplex. Atrial fibrillation CAD (coronary artery disease) Carotid stenosis -s/p recent L CEA done by Dr. Ramos on 04/18/19 CHF (congestive heart failure), NYHA class III Chronic kidney disease Chronic kidney disease -has known CKD stage 3; baseline Cr 2.1-2.5 Depression Diabetes mellitus Diastolic CHF GERD (gastroesophageal reflux disease) Hypercalcemia Hyperlipidemia Hypertension Impaired glucose tolerance Moderate mitral regurgitation Myocardial infarction Myocardial infarction Non-ST elevation ND (NSTEMI) Osteoarthritis PAD (peripheral artery disease) Pancreatitis Severe chronic obstructive pulmonary disease Severe obesity Sleep apnea Tobacco abuse Surgical History Status post carotid endarterectomy Left Family History Other CAD (coronary artery disease) Social History Smoking and tobacco status: current every day smoker Alcohol intake: never Course Vital Signs: Vital signs: Vital Signs Temperature 98.7 F 02/02/21 17:42 Pulse Rate 11 L 02/02/21 18:30 Respiratory Rate 22 H 02/02/21 18:30 Blood Pressure 155/85 02/02/21 18:30 Pulse Oximetry 100 02/02/21 18:30 MDM - Chest Pain MDM Narrative: Medical decision making narrative: This patient was originally seen by PRASHANT Salguero. I agree with his history, evaluation, and treatment. I spoke with Dr. Blanco, who agrees to admit the patient. Lab Data: Labs: Lab Results 02/02/21 02/02/21 02/02/21 18:00 18:00 18:00 WBC 16.5 10^3/uL H 10 ^3/uL (4.0-10.0) RBC 2.09 10^6/uL L 10 ^6/uL (4.1-5.3) Hgb 6.4 g/dL L* g/dL (11.7-16.6) Hct 19.6 % L* % (42.0-52.0) MCV 93.8 fl fl (80-94) MCH 30.6 pg pg (28.0-34.0) MCHC 32.7 g/dL g/dL (30.0-36.0) RDW 16.2 % H % (12.1-15.1) Plt Count 416 10^3/cmm H 10 ^3/cmm (130-400) MPV 11.3 fL H fL (7.4-10.4) Neut % (Auto) 77.8 % % Lymph % (Auto) 8.5 % % Mccreary % (Auto) 10.2 % % Eos % (Auto) 0.1 % % Baso % (Auto) 0.1 % % Neut # (Auto) 12.82 10^3/uL H 1 0^3/uL (1.8-7.7) Lymph # (Auto) 1.4 10^3/uL 10^3/ uL (0.8-4.8) Mccreary # (Auto) 1.7 10^3/uL H 10^ 3/uL (0.2-0.9) Eos # (Auto) 0.0 10^3/uL 10^3/ uL (0.0-0.8) Baso # (Auto) 0.0 10^3/uL 10^3/ uL (0.0-0.1) Nucleated RBC % (a uto) 0.3 % % Nucleated RBCs # 0.1 /100WBC /100W BC PT 30.80 SECONDS H S ECONDS (12.1-14.9) INR 2.90 H (0.8-1.2) APTT 33.5 SECONDS SECO NDS (23.9-36.7) Sodium 136 mmol/L mmol/L (136-145) Potassium 4.5 mmol/L mmol/L (3.5-5.1) Chloride 96 mmol/L L mmol/ L (98-107) Carbon Dioxide 24 mmol/L mmol/L (22-29) Anion Gap 20.5 H (5-19) BUN 120 mg/dL H* D mg /dL (8-23) Creatinine 3.2 mg/dL H mg/dL (0.7-1.2) GFR Calculation Not Reportable Glucose 145 mg/dL H mg/dL (65-115) Calculated Osmolal ity 323 mOsm/kg H mOs m/kg (285-295) Calcium 8.7 mg/dL mg/dL (8.5-10.5) Total Bilirubin 0.4 mg/dL mg/dL (0.15-1.2) AST 16 U/L U/L (0-40) ALT 18 U/L U/L (0-41) Alkaline Phosphata se 90 IU/L IU/L (40-130) Troponin T Baselin e NT-Pro-B Natriuret Pep 68221 pg/mL H pg/ mL (0-450) Total Protein 5.7 g/dL L g/dL (6.6-8.7) Albumin 3.4 g/dL L g/dL (3.5-5.2) Globulin 2.3 g/dL g/dL (1.3-4.6) 02/02/21 18:00 WBC RBC Hgb Hct MCV MCH MCHC RDW Plt Count MPV Neut % (Auto) Lymph % (Auto) Mccreary % (Auto) Eos % (Auto) Baso % (Auto) Neut # (Auto) Lymph # (Auto) Mccreary # (Auto) Eos # (Auto) Baso # (Auto) Nucleated RBC % (a uto) Nucleated RBCs # PT INR APTT Sodium Potassium Chloride Carbon Dioxide Anion Gap BUN Creatinine GFR Calculation Glucose Calculated Osmolal ity Calcium Total Bilirubin AST ALT Alkaline Phosphata se Troponin T Baselin e 91 ng/L H ng/L (0-15) NT-Pro-B Natriuret Pep Total Protein Albumin Globulin Discharge Plan Discharge Patient Disposition: Admitted As Inpatient Clinical Impression: Acute GI bleeding, Warfarin-induced coagulopathy Chronic renal insufficiency Qualifiers: Chronic kidney disease stage: stage 3 (moderate) Chronic kidney disease stage 3 subtype: unspecified whether 3a or 3b Qualified Code(s): N18.30 - Chronic kidney disease, stage 3 unspecified Condition: Stable Coding Level of Care Code ED Arcade Game Technician for Emi Fwd Exam Comprehensive
[2021-02-02 18:08] LABS: Basophils % 0.1 %; Eosinophils % 0.1 %; Lymphocytes # 1.4 10^3/uL (0.8-4.8); Lymphocytes % 8.5 %; Mean Corpuscular HGB Conc 32.7 g/dL (30.0-36.0); Mean Corpuscular Hemoglobin 30.6 pg (28.0-34.0); Mean Corpuscular Volume 93.8 fl (80-94); Mean Platelet Volume 11.3 fL (7.4-10.4); Monocytes # 1.7 10^3/uL (0.2-0.9); Monocytes % 10.2 %; Neutrophils # 12.82 10^3/uL (1.8-7.7); Neutrophils % 77.8 %; Nucleated Red Blood Cells # 0.1 /100WBC; Nucleated Red Blood Cells % 0.3 %; Platelet Count 416 10^3/cmm (130-400); Red Blood Count 2.09 10^6/uL (4.1-5.3); Red Cell Distribution Width 16.2 % (12.1-15.1); White Blood Count 16.5 10^3/uL (4.0-10.0)
[2021-02-02 18:21] LABS: Partial Thromboplastin Time 33.5 SECONDS (23.9-36.7)
[2021-02-02 18:34] LABS: Troponin(5th) Baseline 91 ng/L (0-15)
[2021-02-02 18:44] LABS: Alanine Aminotransferase 18 U/L (0-41); Albumin Level 3.4 g/dL (3.5-5.2); Alkaline Phosphatase 90 IU/L (40-130); Anion Gap 20.5 (5-19); Aspartate Amino Transferase 16 U/L (0-40); Calcium 8.7 mg/dL (8.5-10.5); Carbon Dioxide 24 mmol/L (22-29); Chloride 96 mmol/L (98-107); Globulin 2.3 g/dL (1.3-4.6); Glucose 145 mg/dL (65-115); Potassium 4.5 mmol/L (3.5-5.1); Sodium 136 mmol/L (136-145); Total Bilirubin 0.4 mg/dL (0.15-1.2); Total Protein 5.7 g/dL (6.6-8.7)
[2021-02-02 18:59] LABS: Osmolality Calculated 323 mOsm/kg (285-295)
[2021-02-02 19:00] LABS: Blood Urea Nitrogen 120 mg/dL (8-23)
[2021-02-02 19:05] LABS: Hematocrit 19.6 % (42.0-52.0); Hemoglobin 6.4 g/dL (11.7-16.6)
--- NOTE | 2021-02-02 20:01 | ECG_ITS ---
[facility] Test Date: 2021-02-02 Pat Name: Jennifer Michaud Department: Room: Gender: Male Science Intern: : 1935 Requested By: Bayron Ellison Order Number: [id number] Anyi MD: Melissa Owens M.D. Measurements Intervals [place] Rate: 72 P: SD: QRS: -30 QRSD: 111 T: -7 QT: 384 QTc: 421 Interpretive Statements ATRIAL FIBRILLATION INFERIOR MYOCARDIAL INFARCTION , PROBABLY OLD [40+ ms Q WAVE AND/OR ST/T ABNORMALITY IN II/aVF] Compared to ECG 05/23/2020 15:33:16 No significant changes Electronically Signed On 02-04-2021 17:00:20 YARDING SUPERVISOR by Melissa Owens M.D. [id number]
[2021-02-02] MEDS: LORazepam 2 mg/mL INJ 1 mL 0.25 MG IVP (20:03)
[2021-02-02] MEDS: pantoprazole 40 mg SDV 80 MG IVP (20:07)
[2021-02-02 20:53] LABS: Troponin 5 2HR 90.13 ng/L (0-15); Troponin 5 2HR Delta -0.87 ABS# (0-10)
[2021-02-02] MEDS: acetaminophen 325 mg Tablet 650 MG PO (21:27)
[2021-02-02] MEDS: diphenhydrAMINE 50 mg/mL SDV 1mL 12.5 MG IVP (21:27)
[2021-02-02] MEDS: sodium chloride 0.9% 100 mL Bag 50 ML IV (22:35)
--- NOTE | 2021-02-02 23:19 | PM.HP ---
Providers/Chief Complaint Admitting Physician: Nicholas Blanco Primary Care Provider: Dominga Cortez MD Chief Complaint: CP History of Present Illness 84-year-old gentleman with past medical history of bilateral carotid artery stenosis s/p L. CEA, hypertension, obstructive sleep apnea, chronic kidney disease with baseline creatinine of 2-2.5, abdominal aortic aneurysm s/p endovascular repair, chronic diastolic heart failure, coronary artery disease, chronic obstructive pulmonary disease, peripheral arterial disease and paroxysmal atrial fibrillation on Coumadin who presented to ER with shortness of breath. This as associated with chest pain and increasing weakness. Additionally noted to have multiple episode of dark tarry stools. No prior history of GI bleed. Did note supratheraputic INR recently up to 15 however this had improved to 3.5 on 02/01. Denied nausea or vomiting. Laboratory workup showed a WBC of 16.5, hemoglobin of 6.4, hematocrit 19.6 and a platelet count of 416. INR of 2.90. Sodium 136, potassium 4.5, chloride 96, bicarb 24, BUN 120 and creatinine of 3.2. Troponin T baseline of 91, repeat of 90.1 at 2hr. ProBNP of 27,828. Imaging studies included chest x-ray which did not show any evidence of acute cardiopulmonary abnormality. ER Medication: GI cocktail Benadryl 12.5 Ativan 0.25 Protonix 80 mg IV x 1 NS bolus Transfusion. Recent Nuclear Stress test 10/2020 Small sized reversible perfusion abnormality of mild severity of mid inferior and mid to apical infero-lateral santana. 2. This may represent small area of ischemia in right coronary artery/circumflex artery territory. Review of Systems General: Reports: 10 or more systems reviewed and unremarkable except in HPI and below Medications/Allergies Home Medications Medication Instructions Recorded Confirmed Last Taken Type carboxymethylcellulose sodium 0.5 1 drop OPHTHALMIC (EYE) BID 02/14/19 10/10/20 10/09/20 History % eye drops cholecalciferol (vitamin D3) 50 2,000 unit PO DAILY@06 02/14/19 10/10/20 10/09/20 History mcg (2,000 unit) tablet fluticasone propionate 50 1 spray INTRANASAL BID PRN 02/14/19 10/10/20 10/09/20 History mcg/actuation nasal spray,suspension hydrocodone 5 mg-acetaminophen 325 1 tab PO TID@,, PRN 02/14/19 10/10/20 10/09/20 History mg tablet omeprazole 20 mg capsule,delayed 20 mg PO DAILY@06 cap 02/14/19 10/10/20 10/09/20 History release acetaminophen 500 mg tablet 500 mg PO Q6H PRN tab 05/10/19 10/10/20 10/09/20 History cinacalcet 30 mg tablet 30 mg PO DAILY@06 08/10/19 10/10/20 10/09/20 History vit C 250 mg-vit E 90 mg-zinc 40 1 tab PO BID@06,18 08/10/19 10/10/20 10/09/20 History mg-copper 1 ay-ifwztv-uhfhvv capsule aspirin 81 mg tablet,delayed 81 mg PO DAILY@06 12/12/19 10/10/20 10/09/20 History release isosorbide mononitrate 30 mg 30 mg PO DAILY #90 tab 12/12/19 10/10/20 10/09/20 Rx tablet,extended release 24 hr atorvastatin 40 mg PO QPM 05/16/20 10/10/20 10/09/20 History dextromethorphan-guaifenesin 1 tab PO DAILY@18 05/16/20 10/10/20 10/09/20 History [Mucus Relief DM] ferrous sulfate [iron] 325 mg PO DAILY@18 05/16/20 10/10/20 10/09/20 History nystatin 1 applic TOPICAL BID PRN 05/16/20 10/10/20 10/09/20 History ondansetron HCl 4 mg PO TID PRN 05/16/20 10/10/20 10/09/20 History ropinirole 2 mg PO DAILY@18 05/16/20 10/10/20 10/09/20 History triamcinolone acetonide 1 applic TOPICAL . DIRECTED PRN 05/16/20 10/10/20 10/09/20 History sodium bicarbonate 650 mg PO TID #90 tab 05/23/20 10/10/20 10/09/20 Rx furosemide 40 mg tablet 40 mg PO DAILY #30 tab 06/26/20 10/10/20 10/09/20 Rx carvedilol 12.5 mg tablet 12.5 mg PO BID 08/06/20 10/10/2021 History warfarin 5 mg tablet See Rx Instructions .ROUTE 09/24/20 10/10/20 10/09/20 Rx .COMPLEX #30 tab articulating AFO to the left #1 ea 09/27/20 10/10/20 10/09/20 Rx custom accommodative orthotic #1 ea 09/27/20 10/10/20 10/09/20 Rx bilaterally articulating AFO to the left #1 ea 10/16/20 10/16/20 Unknown Rx custom molded accommodative #1 ea 10/16/20 10/16/20 Unknown Rx orthotic bilaterally oxycodone 5 mg PO Q4H PRN #10 tab 01/23/21 Unknown Rx Allergies Allergy/AdvReac Type Severity Reaction Status Date / Time gemfibrozil Allergy diarrhea Verified 02/02/21 17:42 tramadol [From Ultram] Allergy nausea Verified 02/02/21 17:42 vomiting PFSH Acute PFSH: Medical History AAA (abdominal aortic aneurysm) Endovascular repair several years ago -plan for aortic duplex. Atrial fibrillation CAD (coronary artery disease) Carotid stenosis -s/p recent L CEA done by Dr. Ramos on 04/18/19 CHF (congestive heart failure), NYHA class III Chronic kidney disease Chronic kidney disease -has known CKD stage 3; baseline Cr 2.1-2.5 Depression Diabetes mellitus Diastolic CHF GERD (gastroesophageal reflux disease) Hypercalcemia Hyperlipidemia Hypertension Impaired glucose tolerance Moderate mitral regurgitation Myocardial infarction Myocardial infarction Non-ST elevation ND (NSTEMI) Osteoarthritis PAD (peripheral artery disease) Pancreatitis Severe chronic obstructive pulmonary disease Severe obesity Sleep apnea Tobacco abuse Surgical History Status post carotid endarterectomy Left Family History Other CAD (coronary artery disease) Social History Smoking and tobacco status: current every day smoker Alcohol intake: never Vitals/I&O/Wt Last Vital Signs Temp 98.2 F 02/03/21 02:10 Pulse 76 02/03/21 02:10 Resp 16 02/03/21 02:10 BP 156/87 02/03/21 02:10 Pulse Ox 97 02/03/21 02:10 02/02/21 02/02/21 02/03/21 14:59 22:59 06:59 Intake Total 0 / 0 350 / 350 Balance 0 / 0 350 / 350 Weight last 48 hrs Weight 82.129 kg Weight 79.379 kg Physical Exam Narrative: EXAM NARRATIVE: GENERAL APPEARANCE: Alert, awake no distress. HEENT: Grossly unremarkable. CVS; Regular rate and rhythm Chest; CTABL Abd; Soft, NT, ND Ext; No edema Urinary Catheter Management^: Rob: Cath Placed During This Visit: yes Urinary Catheter Date of Insertion: 02/02/21 Urinary Catheter Time of Insertion: 17:25 Data : 02/03/21 04:10 02/03/21 04:10 A&P Additional A&P Information ABLA due to GI bleed Hb 6.4 Transfusion of 2 units ordered in ER May need lasix H/H q6hr Goal Hgb > 8.0 given cardiac disease Will need general surgery consult in am Protonix 40 mg IV BID NPO for now Holding aspirin/ Coumadin VitK 5 mg PO x 1 Acute on chronic stage 3 kidney disease Baseline creatinine 2 to 2.5 Now increased to 3.2 Repeat BMP in am Renal dosing Holding diuretics Monitor u/o Paroxysmal Atrial fibrillation on Coumadin Holding Coreg 12.5 mg PO BID Holding Coumadin due to above Cardiac tele Additional Medical Problems Carotid Artery Stenosis s/p L.CEA Hypertension AAA hx of Endovascular repair Ch.Diastolic HF Coronary artery disease COPD PAD GOYO GI ppx SCDS Attestations Medical Necessity Statement*: Will require less than 2 midnight stay in hospital for eval and treatment. Time Spent in Patient Care: Greater than 35 minutes (>than 50% of time spent in counselling and/or direct pt care on unit). Coding Level of Care Code Acute Wildlife Conservation Professor for Emi Herndon
[2021-02-03] VITALS (13 sets, daily range): BP systolic 115–169; BP diastolic 58–87; PULSE 69–80; RESP 16–20; TEMP 36.4–37.1; O2SAT 96–100
--- NOTE | 2021-02-03 00:01 | ECG_ITS ---
[facility] Test Date: 2021-02-03 Pat Name: Jennifer Michaud Department: Room: 253 Gender: Male Catholic Priest: : 1935 Requested By: Bayron Ellison Order Number: [id number] Anyi MD: Melissa Owens M.D. Measurements Intervals [place] Rate: 76 P: IA: QRS: -36 QRSD: 118 T: -14 QT: 388 QTc: 437 Interpretive Statements ATRIAL FIBRILLATION ANTERIOR MYOCARDIAL INFARCTION , OF INDETERMINATE AGE INFERIOR MYOCARDIAL INFARCTION , OF INDETERMINATE AGE Compared to ECG 02/02/2021 17:36:26 No significant changes Electronically Signed On 02-04-2021 16:59:26 HYDRAULIC PUNCH PRESS OPERATOR by Melissa Owens M.D. [email or web address] medical [email or web address] Medicalohiohealth o'bleness hospitalRover [email or web address]/[id number]
[2021-02-03] MEDS: sodium chloride 0.9% 1,000 ML 75 ML IV (02:54)
[2021-02-03] MEDS: pantoprazole 40 mg SDV IVP ×2 (02:54→14:05)
[2021-02-03] MEDS: phytonadione (ADULT) 10 mg/mL Ampule 1 mL 5 MG PO (04:08)
[2021-02-03 04:34] LABS: Basophils % 0.1 %; Eosinophils % 0.2 %; Hematocrit 25.5 % (42.0-52.0); Hemoglobin 8.4 g/dL (11.7-16.6); Lymphocytes # 1.3 10^3/uL (0.8-4.8); Lymphocytes % 7.6 %; Mean Corpuscular HGB Conc 32.9 g/dL (30.0-36.0); Mean Corpuscular Hemoglobin 30.3 pg (28.0-34.0); Mean Corpuscular Volume 92.1 fl (80-94); Mean Platelet Volume 11.4 fL (7.4-10.4); Monocytes # 2.1 10^3/uL (0.2-0.9); Monocytes % 12.1 %; Neutrophils # 13.27 10^3/uL (1.8-7.7); Neutrophils % 76.9 %; Nucleated Red Blood Cells # 0.1 /100WBC; Nucleated Red Blood Cells % 0.3 %; Platelet Count 356 10^3/cmm (130-400); Red Blood Count 2.77 10^6/uL (4.1-5.3); Red Cell Distribution Width 15.7 % (12.1-15.1); White Blood Count 17.3 10^3/uL (4.0-10.0)
[2021-02-03 05:24] LABS: Alanine Aminotransferase 17 U/L (0-41); Albumin Level 3.2 g/dL (3.5-5.2); Alkaline Phosphatase 93 IU/L (40-130); Anion Gap 17.2 (5-19); Aspartate Amino Transferase 15 U/L (0-40); Calcium 8.4 mg/dL (8.5-10.5); Carbon Dioxide 24 mmol/L (22-29); Chloride 100 mmol/L (98-107); Globulin 2.1 g/dL (1.3-4.6); Glucose 98 mg/dL (65-115); Osmolality Calculated 318 mOsm/kg (285-295); Potassium 4.2 mmol/L (3.5-5.1); Sodium 137 mmol/L (136-145); Total Bilirubin 1.5 mg/dL (0.15-1.2); Total Protein 5.3 g/dL (6.6-8.7)
[2021-02-03 05:27] LABS: Blood Urea Nitrogen 107 mg/dL (8-23)
[2021-02-03 07:21] LABS: INR 2.92 (0.8-1.2)
[2021-02-03 09:14] LABS: Hematocrit 25.6 % (42.0-52.0); Hemoglobin 8.6 g/dL (11.7-16.6)
[2021-02-03 15:48] LABS: Hematocrit 27.7 % (42.0-52.0); Hemoglobin 9.1 g/dL (11.7-16.6)
--- NOTE | 2021-02-03 16:54 | PM.PN ---
Subjective Subjective: Interval history: Patient was seen and examined this morning, no bowel movement today, hemoglobin has remained stable after 2 units PRBC transfusion, currently having good urine output, BUN has trended down, Likely serum creatinine is speaking. No uremic symptoms.Denies any nausea vomiting abdominal pain. Was complaining about Rob catheter. Medications: Reviewed: Yes Vitals/I&O/Wt Last Vital Signs Temp 98.7 F 02/03/21 15:44 Pulse 72 02/03/21 15:44 Resp 17 02/03/21 15:44 BP 169/79 02/03/21 15:44 Pulse Ox 100 02/03/21 15:44 02/03/21 02/03/21 02/03/21 06:59 14:59 22:59 Intake Total 740 / 740 607.5 / 607.5 Output Total 750 / 750 1000 / 1000 Balance -10 / -10 607.5 / 607.5 -1000 / -392.5 Weight last 48 hrs Weight 82.327 kg Weight 82.129 kg Weight 79.379 kg Physical Exam Const: COMMON NORMALS: patient oriented x3 HENMT: COMMON NORMALS: normocephalic and atraumatic HEAD & SCALP: normocephalic and atraumatic Resp: COMMON NORMALS: clear to auscultation bilaterally EFFORT & INSPECTION: Yes symmetric chest movement AUSCULTATION: clear to auscultation bilaterally Cardio: COMMON NORMALS: regular rate, regular rhythm, S1 normal heart sound present, S2 normal heart sound present, No gallops present (Cardio), No murmurs present (Cardio), No rub (Cardio) and Peripheral pulses 2+ throughout RATE: regular rate RHYTHM: regular rhythm HEART SOUNDS: S1 normal heart sound present and S2 normal heart sound present PERIPHERAL PULSES: Peripheral pulses 2+ throughout GI: COMMON NORMALS: Normal to inspection, nondistended, normoactive bowel sounds present, Soft to palpation, non-tender, No hepatosplenomegaly present and no masses AUSCULTATION: Yes normoactive bowel sounds PALPATION: Yes Soft to palpation and Yes No hepatosplenomegaly present RECTAL EXAM: Yes deferred Extremity: COMMON NORMALS: no clubbing, cyanosis or edema and no pedal edema Neuro: COMMON NORMALS: patient oriented x3 Urinary Catheter Management^: Rob: Cath Placed During This Visit: yes Reason for Continuing Indwelling Catheter: Accurate Measurement of Urinary Output in Critically Ill Patients Urinary Catheter Date of Insertion: 02/02/21 Urinary Catheter Time of Insertion: 17:25 Data : 02/03/21 15:00 02/03/21 04:10 A&P Additional A&P Information # Acute blood loss anemia likely secondary to upper GI bleed likely secondary to recent steroid use, as well as being on warfarin. Admission Hb 6.4 s/p 2 units PRBC H&H:9.03/07 Protonix 40 mg IV BID Initially NPO. Currently started on CLD. aspirin/ Coumadin on hold S/P VitK 5 mg PO x 1 Current plan is to monitor the H&H and if it continues to drop patient may need EGD. If the hemoglobin stabilizes, EGD can be done as an outpatient if needed. # Acute on chronic stage 3 kidney disease : Possibly secondary to ATN secondary to acute relative hypotension, as well as diuretic use. Baseline creatinine 2 to 2.5 current scr 3.3 Monitor BMP Renal dosing Holding diuretics Monitor u/o Paroxysmal Atrial fibrillation on Coumadin Coreg 12.5 mg PO BID Holding Coumadin due to above Cardiac tele Additional Medical Problems Carotid Artery Stenosis s/p L.CEA Hypertension AAA hx of Endovascular repair Ch.Diastolic HF Coronary artery disease COPD PAD GOOY GI ppx SCDS Attestations Medical Necessity Statement*: Patient is still in hospital for management of anemia and POPPY. Coding Level of Care Code Acute [place] Polisher Operator for Emi Fwd Exam Detailed
[2021-02-03] MEDS: ferrous sulfate EC 325 mg Tablet PO (18:16)
[2021-02-03] MEDS: carvedilol 12.5 mg Tablet PO (18:16)
[2021-02-03] MEDS: ropinirole 2 mg Tablet PO (18:16)
[2021-02-03] MEDS: atorvastatin 40 mg Tablet PO (18:16)
[2021-02-03] MEDS: cloNIDine 0.1 mg Tablet PO (18:16)
[2021-02-03] MEDS: sodium chloride 0.9% 1,000 ML 30 ML IV (18:18)
[2021-02-03 18:53] LABS: Anion Gap 17.2 (5-19); Calcium 8.3 mg/dL (8.5-10.5); Carbon Dioxide 22 mmol/L (22-29); Chloride 100 mmol/L (98-107); Glucose 127 mg/dL (65-115); Osmolality Calculated 311 mOsm/kg (285-295); Potassium 4.2 mmol/L (3.5-5.1); Sodium 135 mmol/L (136-145)
[2021-02-03 18:58] LABS: Blood Urea Nitrogen 95 mg/dL (8-23)
[2021-02-03 22:27] LABS: Hematocrit 23.7 % (42.0-52.0); Hemoglobin 7.8 g/dL (11.7-16.6)
[2021-02-04] VITALS (16 sets, daily range): BP systolic 117–154; BP diastolic 58–90; PULSE 61–84; RESP 16–20; TEMP 36.1–36.9; O2SAT 96–100
[2021-02-04] MEDS: pantoprazole 40 mg SDV IVP ×2 (02:12→14:46)
[2021-02-04] MEDS: acetaminophen 325 mg Tablet 650 MG PO (02:16)
--- NOTE | 2021-02-04 03:17 | PC.NURSE ---
While this nurse was in patients room at around 1730, the tele monitor was going off and a few other nurses and INDUSTRIAL TRAINING SPECIALIST came into the room to check on him, once they realized the patient was not in any distress they left, the patient then asked me why people were coming into the room to check on him, this nurse explained to him that the monitor he was wearing had sent out a signal that he was in distress, we then went on to talk about what we would do if he was really in distress, that is when the patient made it very clear he wanted to be a DNR, this nurse notified the physician at 1947 to update the patients chart.
[2021-02-04] MEDS: cholecalciferol (vitamin D3) 1,000 unit Tablet 2000 UNIT PO (05:35)
[2021-02-04 06:30] LABS: Glucose Point of Care 129 mg/dL (70-110)
[2021-02-04] MEDS: carvedilol 12.5 mg Tablet PO ×2 (08:34→17:35)
[2021-02-04] MEDS: isosorbide mononitrate ER 30 mg Tablet PO (08:34)
[2021-02-04] MEDS: sodium chloride 0.9% 1,000 ML 30 ML IV (08:34)
[2021-02-04] MEDS: cloNIDine 0.1 mg Tablet PO ×2 (08:34→17:35)
[2021-02-04 10:12] LABS: Eosinophils # 0.2 10^3/uL (0.0-0.8); Eosinophils % 1.3 %; Hematocrit 22.9 % (42.0-52.0); Hemoglobin 7.5 g/dL (11.7-16.6); Lymphocytes # 0.7 10^3/uL (0.8-4.8); Lymphocytes % 4.9 %; Mean Corpuscular HGB Conc 32.8 g/dL (30.0-36.0); Mean Corpuscular Hemoglobin 30.9 pg (28.0-34.0); Mean Corpuscular Volume 94.2 fl (80-94); Mean Platelet Volume 11.3 fL (7.4-10.4); Monocytes # 1.2 10^3/uL (0.2-0.9); Monocytes % 8.9 %; Neutrophils # 11.61 10^3/uL (1.8-7.7); Neutrophils % 82.9 %; Nucleated Red Blood Cells % 0.1 %; Platelet Count 291 10^3/cmm (130-400); Red Blood Count 2.43 10^6/uL (4.1-5.3); Red Cell Distribution Width 16.5 % (12.1-15.1)
[2021-02-04 10:21] LABS: INR 1.52 (0.8-1.2)
[2021-02-04 10:34] LABS: Alanine Aminotransferase 13 U/L (0-41); Albumin Level 2.9 g/dL (3.5-5.2); Alkaline Phosphatase 83 IU/L (40-130); Aspartate Amino Transferase 11 U/L (0-40); Calcium 8.2 mg/dL (8.5-10.5); Carbon Dioxide 22 mmol/L (22-29); Chloride 106 mmol/L (98-107); Globulin 1.9 g/dL (1.3-4.6); Glucose 113 mg/dL (65-115); Osmolality Calculated 314 mOsm/kg (285-295); Sodium 139 mmol/L (136-145); Total Bilirubin 0.8 mg/dL (0.15-1.2); Total Protein 4.8 g/dL (6.6-8.7)
[2021-02-04 10:48] LABS: Blood Urea Nitrogen 83 mg/dL (8-23); Creatinine Clr Calc Pharmacy 19.4255
[2021-02-04] MEDS: FUROsemide 10 mg/mL SDV 4mL 40 MG IVP (11:26)
[2021-02-04] MEDS: magnesium citrate Btl 296 mL PO ×2 (11:26→21:33)
[2021-02-04] MEDS: sodium chloride 0.9% (100 ml) 100 ML (11:27)
[2021-02-04] MEDS: sucralfate 1 gm Tablet PO ×2 (11:27→21:33)
--- NOTE | 2021-02-04 15:12 | P.PN_ITS ---
Subjective Subjective: Interval history: Patient was seen this morning, he complains that he has a real dry mouth, his mouth is dry is a rug, he tells me that the sips and chips are not really helping, he had one episode of black bowel movement overnight, denies any lightheadedness, dizziness, no nausea, no vomiting does tell me that he had a colonoscopy in 1974 which was normal, no history of EGD Medications: Reviewed: Yes Vitals/I&O/Wt Last Vital Signs Temp 97 F L 02/04/21 15:01 Pulse 61 02/04/21 15:01 Resp 18 02/04/21 15:01 BP 147/75 02/04/21 15:01 Pulse Ox 97 02/04/21 15:01 02/04/21 02/04/21 02/04/21 06:59 14:59 22:59 Intake Total 0 / 826.5 878 / 878 0 / 878 Output Total 700 / 1700 Balance -700 / -873.5 878 / 878 0 / 878 Weight last 48 hrs Weight 82.962 kg Weight 82.327 kg Weight 82.129 kg Weight 79.379 kg Physical Exam Const: COMMON NORMALS: no acute distress Resp: COMMON NORMALS: normal respiratory effort, No retractions, No use of accessory muscles and clear to auscultation bilaterally AUSCULTATION: clear to auscultation bilaterally Cardio: COMMON NORMALS: regular rate, regular rhythm, S1 normal heart sound present, S2 normal heart sound present and No gallops present (Cardio) RATE: regular rate RHYTHM: regular rhythm HEART SOUNDS: S1 normal heart sound present and S2 normal heart sound present GI: COMMON NORMALS: Normal to inspection, nondistended, normoactive bowel sounds present, Soft to palpation, non-tender and No hepatosplenomegaly present PALPATION: Yes Soft to palpation and Yes No hepatosplenomegaly present Extremity: COMMON NORMALS: no pedal edema Skin: NARRATIVE SKIN EXAM: chest, maculopapular rash, nonblanching, irregular borders measuring 10x8 cm, Urinary Catheter Management^: Rob: Cath Placed During This Visit: yes Reason for Continuing Indwelling Catheter: Accurate Measurement of Urinary Output in Critically Ill Patients Urinary Catheter Date of Insertion: 02/02/21 Urinary Catheter Time of Insertion: 17:25 Data : 02/04/21 09:45 02/04/21 09:45 A&P Additional A&P Information # Acute blood loss anemia likely secondary to upper GI bleed likely secondary to recent steroid use warfarin on hold Admission Hb 6.8 s/p 2 units PRBC H&H:6.8 INR 1.52 will transfuse 1 unit prbc and ffp Protonix 40 mg IV BID Initially NPO Currently started on CLD aspirin Coumadin on hold S/P Vit K 5 mg PO x 1 consult general surgery for EGD # Acute on chronic stage 3 kidney disease : Possibly secondary to ATN secondary to acute relative hypotension, as well as diuretic use Baseline creatinine 2 to 2.5 current cr 2.8 Monitor BNP Renal dosing Holding diuretics Monitor u/o Paroxysmal Atrial fibrillation on Coumadin Coreg 12.5 mg PO BID Holding Coumadin Cardiac telemetry Additional Medical Problems Carotid Artery Stenosis s/p L.CEA Hypertension AAA hx of Endovascular repair Ch.Diastolic HF Coronary artery disease COPD PAD GOYO GI ppx SCDS Attestations Medical Necessity Statement*: patient requires hospitalization for gi bleed Coding Level of Care Code Acute Broadcast Engineer for Emi Fwd Exam Detailed
[2021-02-04 16:18] LABS: Hematocrit 28.1 % (42.0-52.0); Hemoglobin 9.1 g/dL (11.7-16.6)
--- NOTE | 2021-02-04 17:05 | P.CONIM_ITS ---
Providers/Reason For Consult Consulting Physician/Specialty*: General surgery Reason for Consult*: GI bleed Attending Physician: Tex Ortega MD Primary Care Provider: Dominga Cortez MD History of Present Illness History of Present Illness Jennifer Michaud is a 85 year old male who presented to the hospital for generalized weekness. General surgery was consulted because he had a black bowel movement last night. He takes coumadin for afib. His INR was supratherapeutic but has been corrected to 1.5. He reports that he has been having black bowel movements for about 2 weeks now. His last colonoscopy was in 1974 and was reportedly normal. He denies any abdominal pain, N/V, fever and/or chills. He recently developed significant chest wall ecchymosis. Denies any other symptoms Review of Systems General: Reports: 10 or more systems reviewed and unremarkable except in HPI and below Meds/Allergies Home Medications and Allergies Home Medications Medication Instructions Recorded Confirmed Last Taken Type carboxymethylcellulose sodium 0.5 1 drop OPHTHALMIC (EYE) BID 02/14/19 02/03/21 10/09/20 History % eye drops cholecalciferol (vitamin D3) 50 2,000 unit PO DAILY@02/14/19 02/03/21 10/09/20 History mcg (2,000 unit) tablet fluticasone propionate 50 1 spray INTRANASAL BID PRN 02/14/19 02/03/21 10/09/20 History mcg/actuation nasal spray,suspension hydrocodone 5 mg-acetaminophen 325 1 tab PO TID@06,12,18 PRN 02/14/19 02/03/21 10/09/20 History mg tablet omeprazole 20 mg capsule,delayed 20 mg PO DAILY@06 cap 02/14/19 02/03/21 10/09/20 History release acetaminophen 500 mg tablet 500 mg PO Q6H PRN tab 05/10/19 02/03/21 10/09/20 History cinacalcet 30 mg tablet 30 mg PO DAILY@08/10/19 02/03/21 10/09/20 History aspirin 81 mg tablet,delayed 81 mg PO DAILY@06 12/12/19 02/03/21 10/09/20 History release isosorbide mononitrate 30 mg 30 mg PO DAILY #90 tab 12/12/19 02/03/21 10/09/20 Rx tablet,extended release 24 hr atorvastatin 40 mg PO QPM 05/16/20 02/03/21 10/09/20 History dextromethorphan-guaifenesin 1 tab PO DAILY@18 05/16/20 02/03/21 10/09/20 History [Mucus Relief DM] ferrous sulfate [iron] 325 mg PO DAILY@18 05/16/20 02/03/21 10/09/20 History nystatin 1 applic TOPICAL BID PRN 05/16/20 02/03/21 10/09/20 History ondansetron HCl 4 mg PO TID PRN 05/16/20 02/03/21 10/09/20 History ropinirole 2 mg PO DAILY@18 05/16/20 02/03/21 10/09/20 History triamcinolone acetonide 1 applic TOPICAL . DIRECTED PRN 05/16/20 02/03/21 10/09/20 History sodium bicarbonate 650 mg PO TID #90 tab 05/23/20 02/03/21 10/09/20 Rx carvedilol 12.5 mg tablet 12.5 mg PO BID 08/06/20 02/03/21 10/09/20 History warfarin 5 mg tablet See Rx Instructions .ROUTE 09/24/20 02/03/21 10/09/20 Rx .COMPLEX #30 tab articulating AFO to the left #1 ea 09/27/20 02/03/21 10/09/20 Rx custom accommodative orthotic #1 ea 09/27/20 02/03/21 10/09/20 Rx bilaterally articulating AFO to the left #1 ea 10/16/20 02/03/21 Unknown Rx custom molded accommodative #1 ea 10/16/20 02/03/21 Unknown Rx orthotic bilaterally oxycodone 5 mg PO Q4H PRN #10 tab 01/23/21 02/03/21 Unknown Rx clonidine HCl 0.1 mg PO BID 02/03/21 02/03/21 Unknown History vit C-vit [id number]-om-3 1 cap PO DAILY 02/03/21 02/03/21 Unknown History [Ocuvite] Allergies Allergy/AdvReac Type Severity Reaction Status Date / Time gemfibrozil Allergy diarrhea Verified 02/02/21 17:42 tramadol [From Ultram] Allergy nausea Verified 02/02/21 17:42 vomiting Current Medications Current Medications Generic Name Dose Route Start Last Admin Trade Name Frankieq PRN Reason Stop Dose Admin Acetaminophen 650 mg 02/03/21 02:17 02/04/21 02:16 Acetaminophen 325 Mg Tablet PO 650 mg Q6H PRN Administration Mild/Mod Pain Or Temp >/= 101 Atorvastatin Calcium 40 mg 02/03/21 18:00 02/03/21 18:16 Atorvastatin 40 Mg Tablet PO 40 mg QPM WILLA Administration Carvedilol 12.5 mg 02/03/21 18:00 02/04/21 08:34 Carvedilol 12.5 Mg Tablet PO 12.5 mg BID WILLA Administration Clonidine HCl 0.1 mg 02/03/21 18:00 02/04/21 08:34 Clonidine 0.1 Mg Tablet PO 0.1 mg BID WILLA Administration Ferrous Sulfate 325 mg 02/03/21 18:00 02/03/21 18:16 Ferrous Sulfate Ec 325 Mg Tablet PO 325 mg DAILY@18 WILLA Administration Isosorbide Mononitrate 30 mg 02/04/21 09:00 02/04/21 08:34 Isosorbide Mononitrate Er 30 Mg Tablet PO 30 mg DAILY WILLA Administration Magnesium Citrate 296 ml 02/04/21 10:15 02/04/21 11:26 Magnesium Citrate Btl 296 Ml PO 02/04/21 22:16 296 ml Q12H WILLA Administration Pantoprazole Sodium 40 mg 02/03/21 02:30 02/04/21 14:46 Pantoprazole 40 Mg Sdv IVP 40 mg Q12H WILLA Administration Ropinirole HCl 2 mg 02/03/21 18:00 02/03/21 18:16 Ropinirole 2 Mg Tablet PO 2 mg DAILY@18 WILLA Administration Sucralfate 1 gm 02/04/21 11:00 02/04/21 11:27 Sucralfate 1 Gm Tablet PO 1 gm Q12H WILLA Administration Vitamin D 2,000 unit 02/04/21 06:00 02/04/21 05:35 Cholecalciferol (Vitamin D3) 1,000 Unit Tablet PO 2,000 unit DAILY@06 WILLA Administration PFSH Acute PFSH: Medical History AAA (abdominal aortic aneurysm) Endovascular repair several years ago -plan for aortic duplex. Atrial fibrillation CAD (coronary artery disease) Carotid stenosis -s/p recent L CEA done by Dr. Ramos on 04/18/19 CHF (congestive heart failure), NYHA class III Chronic kidney disease Chronic kidney disease -has known CKD stage 3; baseline Cr 2.1-2.5 Depression Diabetes mellitus Diastolic CHF GERD (gastroesophageal reflux disease) Hypercalcemia Hyperlipidemia Hypertension Impaired glucose tolerance Moderate mitral regurgitation Myocardial infarction Myocardial infarction Non-ST elevation [place] (NSTEMI) Osteoarthritis PAD (peripheral artery disease) Pancreatitis Severe chronic obstructive pulmonary disease Severe obesity Sleep apnea Tobacco abuse Surgical History Status post carotid endarterectomy Left Family History Other CAD (coronary artery disease) Social History Smoking and tobacco status: current every day smoker Alcohol intake: never Vitals/I&O/Wt Last Vital Signs Temp 97.5 F L 02/04/21 16:45 Pulse 71 02/04/21 16:45 Resp 18 02/04/21 16:45 BP 150/80 02/04/21 16:45 Pulse Ox 97 02/04/21 16:45 02/04/21 02/04/21 02/04/21 06:59 14:59 22:59 Intake Total 0 / 826.5 952 / 952 0 / 952 Output Total 700 / 1700 900 / 900 Balance -700 / -873.5 952 / 952 -900 / 52 Weight last 48 hrs Weight 182 lb 14.4 oz Weight 181 lb 8 oz Weight 181 lb 1 oz Weight 175 lb Physical Exam Const: COMMON NORMALS: no acute distress and patient oriented x3 HENMT: COMMON NORMALS: normocephalic and atraumatic HEAD & SCALP: normocephalic and atraumatic Chest: COMMONS NORMALS: normal inspection of the chest and normal palpation of entire chest wall Resp: COMMON NORMALS: normal respiratory effort, No retractions and No use of accessory muscles Cardio: OTHER: afib GI: OTHER: S, NT, ND, no guarding/rebound or masses Extremity: COMMON NORMALS: normal to inspection and full ROM Neuro: COMMON NORMALS: patient oriented x3, moves all extremities and no focal motor deficits Psych: COMMON NORMALS: mental status grossly normal and Normal thought process present THOUGHT PROCESS: Normal thought process present Urinary Catheter Management^: Rob: Cath Placed During This Visit: yes Reason for Continuing Indwelling Catheter: Accurate Measurement of Urinary Output in Critically Ill Patients Urinary Catheter Date of Insertion: 02/02/21 Urinary Catheter Time of Insertion: 17:25 A&P Assessment and plan (1) Acute GI bleeding: Currently undergoing bowel prep for EGD and colonoscopy tomorrow. Dr. Avery to return tomorrow Medical management per primary Status: Acute Coding Level of Care Code Acute Concert Or Lecture Hall Manager for [facility] Fwd Diagnoses Acute GI bleeding K92.2
[2021-02-04] MEDS: ferrous sulfate EC 325 mg Tablet PO (17:35)
[2021-02-04] MEDS: atorvastatin 40 mg Tablet PO (17:35)
[2021-02-04] MEDS: ropinirole 2 mg Tablet PO (17:35)
[2021-02-05] VITALS (12 sets, daily range): BP systolic 97–172; BP diastolic 50–89; PULSE 63–80; RESP 16–18; TEMP 35.9–36.8; O2SAT 93–100
[2021-02-05 00:54] LABS: Hemoglobin 8.8 g/dL (11.7-16.6)
[2021-02-05] MEDS: pantoprazole 40 mg SDV IVP ×2 (02:48→17:37)
[2021-02-05 06:20] LABS: Basophils % 0.1 %; Eosinophils # 0.4 10^3/uL (0.0-0.8); Eosinophils % 2.6 %; Hematocrit 28.7 % (42.0-52.0); Hemoglobin 9.5 g/dL (11.7-16.6); Lymphocytes # 0.8 10^3/uL (0.8-4.8); Lymphocytes % 4.8 %; Mean Corpuscular HGB Conc 33.1 g/dL (30.0-36.0); Mean Corpuscular Hemoglobin 30.8 pg (28.0-34.0); Mean Corpuscular Volume 93.2 fl (80-94); Mean Platelet Volume 11.2 fL (7.4-10.4); Monocytes # 1.3 10^3/uL (0.2-0.9); Neutrophils # 13.85 10^3/uL (1.8-7.7); Neutrophils % 82.9 %; Nucleated Red Blood Cells % 0 %; Platelet Count 275 10^3/cmm (130-400); Red Blood Count 3.08 10^6/uL (4.1-5.3); Red Cell Distribution Width 16.4 % (12.1-15.1); White Blood Count 16.7 10^3/uL (4.0-10.0)
[2021-02-05 06:22] LABS: INR 1.26 (0.8-1.2)
[2021-02-05 06:35] LABS: Alanine Aminotransferase 13 U/L (0-41); Alkaline Phosphatase 96 IU/L (40-130); Anion Gap 16.9 (5-19); Aspartate Amino Transferase 12 U/L (0-40); Blood Urea Nitrogen 69 mg/dL (8-23); Calcium 8.6 mg/dL (8.5-10.5); Carbon Dioxide 22 mmol/L (22-29); Chloride 106 mmol/L (98-107); Globulin 2.4 g/dL (1.3-4.6); Glucose 119 mg/dL (65-115); Magnesium 2.4 mg/dL (1.7-2.3); Osmolality Calculated 313 mOsm/kg (285-295); Phosphorus 3.7 mg/dL (2.5-4.5); Potassium 3.9 mmol/L (3.5-5.1); Sodium 141 mmol/L (136-145); Total Protein 5.4 g/dL (6.6-8.7)
--- NOTE | 2021-02-05 07:45 | PC.NURSE ---
AT APPROX. 0740 PT TAKEN TO GI LAB FOR PROCEDURE
--- NOTE | 2021-02-05 08:22 | P.ANESASSM_ITS ---
Pre-Anesthetic Assessment Pre-Anesthetic Assessment: Height/Weight: Height 1.63 m Weight 77.706 kg Temp Pulse Resp BP Pulse Ox 96.7 F L 77 16 156/76 100 02/05/21 07:52 02/05/21 07:52 02/05/21 07:52 02/05/21 07:52 02/05/21 07:52 Preop Diagnosis: Bilateral Carotid artery stenosis Proposed Procedure: Operation Date: 02/05/21 08:30 Proposed Procedures p EGD(Not Applicable) - Chino Avery MD s Colonoscopy(Not Applicable) - [place]ino Avery MD Familial anesthetic complications: none Was Beta Anselmo taken within 24 hours: N/A Was Clonidine taken within 24 hours: N/A Last intake: > 8hrs Social: Social History: No alcohol and No tobacco Comment: former smoker and alcohol Exam: Pre-Anes Outpt Exam: alert, oriented x 3, clear to auscultation bilaterally and regular rate & rhythm Airway: Cervical ROM: WNL MP: 3 Dentition: Other (no teeth) Pulmonary: Pulmonary: COPD and Sleep apnea CV/HEM: CV/HEM: Afib, CHF, HTN, NE and PVD Comments: AAA s/p endovascular repair, Mod MR : : Chronic renal Insufficiency GI: GI: GERD Metabolic: Metabolic: DM and Hyperlipidemia Neuropsych: Comments: L CEA on 04/28 Anesthetic Plan: ASA status: 4 Anesthesia: MAC Risk of > 500 ml blood loss (7ml/kg in children): No Meds/Allergies Current Medications: Current Medications Generic Name Dose Route Start Last Admin Trade Name Freq PRN Reason Stop Dose Admin Acetaminophen 650 mg 02/03/21 02:17 02/04/21 02:16 Acetaminophen 32 5 Mg Tablet PO 650 mg Q6H PRN Administration Mild/Mod Pain Or Temp >/= 101 Atorvastatin Calci um 40 mg 02/03/21 18:00 02/04/21 17:35 Atorvastatin 40 Mg Tablet PO 40 mg QPM WILLA Administration Carvedilol 12.5 mg 02/03/21 18:00 02/05/21 07:47 Carvedilol 12.5 Mg Tablet PO Not Given BID WILLA Clonidine HCl 0.1 mg 02/03/21 18:00 02/05/21 07:47 Clonidine 0.1 Mg Tablet PO Not Given BID WILLA Ferrous Sulfate 325 mg 02/03/21 18:00 02/04/21 17:35 Ferrous Sulfate Ec 325 Mg Tablet PO 325 mg DAILY@18 WILLA Administration Isosorbide Mononit rate 30 mg 02/04/21 09:00 02/05/21 07:48 Isosorbide [place] itrate Er 30 Mg Ta blet PO Not Given DAILY [facility] Pantoprazole Sodiu m 40 mg 02/03/21 02:30 02/05/21 02:48 Pantoprazole 40 Mg Sdv IVP 40 mg Q12H WILLA Administration Ropinirole HCl 2 mg 02/03/21 18:00 02/04/21 17:35 Ropinirole 2 Mg Tablet PO 2 mg DAILY@18 WILLA Administration Sucralfate 1 gm 02/04/21 11:00 02/04/21 21:33 Sucralfate 1 Gm Tablet PO 1 gm Q12H [facility] Administration Vitamin D 2,000 unit 02/04/21 06:00 02/05/21 05:49 Cholecalciferol (Vitamin D3) 1,000 Unit Tablet PO Not Given DAILY@06 [facility] PFSH Anesthesia PFSH: Medical History AAA (abdominal aortic aneurysm) Endovascular repair several years ago -plan for aortic duplex. Atrial fibrillation CAD (coronary artery disease) Carotid stenosis -s/p recent L CEA done by Dr. Ramos on 04/18/19 CHF (congestive heart failure), NYHA class III Chronic kidney disease Chronic kidney disease -has known CKD stage 3; baseline Cr 2.1-2.5 Depression Diabetes mellitus Diastolic CHF GERD (gastroesophageal reflux disease) Hypercalcemia Hyperlipidemia Hypertension Impaired glucose tolerance Moderate mitral regurgitation Myocardial infarction Myocardial infarction Non-ST elevation NE (NSTEMI) Osteoarthritis PAD (peripheral artery disease) Pancreatitis Severe chronic obstructive pulmonary disease Severe obesity Sleep apnea Tobacco abuse Surgical History Status post carotid endarterectomy Left Family History Other CAD (coronary artery disease) Social History Smoking and tobacco status: current every day smoker Alcohol intake: never Data Anesthesia CBC & Chem 7: 02/05/21 05:58 02/05/21 05:58 Other Labs: Laboratory Results - last 48 hr 02/02/21 02/03/21 02/03/21 20:10 08:56 15:00 WBC RBC Hgb 8.6 L 9.1 L Hct 25.6 L 27.7 L MCV MCH MCHC RDW Plt Count MPV Neut % (Auto) Lymph % (Auto) White % (Auto) Eos % (Auto) Baso % (Auto) Neut # (Auto) Lymph # (Auto) White # (Auto) Eos # (Auto) Baso # (Auto) Nucleated RBC % (auto) Nucleated RBCs # PT INR Sodium Potassium Chloride Carbon Dioxide Anion Gap BUN Creatinine GFR Calculation Glucose POC Glucose Calculated Osmolality Calcium Phosphorus Magnesium Total Bilirubin AST ALT Alkaline Phosphatase Total Protein Albumin Globulin Blood Type O Positive Rho(D) Type Positive Antibody Screen Negative Crossmatch See Detail 02/03/21 02/03/21 02/04/21 18:16 22:20 06:27 WBC RBC Hgb 7.8 L Hct 23.7 L MCV MCH MCHC RDW Plt Count MPV Neut % (Auto) Lymph % (Auto) White % (Auto) Eos % (Auto) Baso % (Auto) Neut # (Auto) Lymph # (Auto) White # (Auto) Eos # (Auto) Baso # (Auto) Nucleated RBC % (auto) Nucleated RBCs # PT INR Sodium 135 L Potassium 4.2 Chloride 100 Carbon Dioxide 22 Anion Gap 17.2 BUN 95 H* Creatinine 3.1 H GFR Calculation Not Reportable Glucose 127 H POC Glucose 129 H Calculated Osmolality 311 H Calcium 8.3 L Phosphorus Magnesium Total Bilirubin AST ALT Alkaline Phosphatase Total Protein Albumin Globulin Blood Type Rho(D) Type Antibody Screen Crossmatch 02/04/21 02/04/21 02/04/21 09:45 09:45 09:45 WBC 14.0 H RBC 2.43 L Hgb 7.5 L Hct 22.9 L MCV 94.2 H MCH 30.9 MCHC 32.8 RDW 16.5 H Plt Count 291 MPV 11.3 H Neut % (Auto) 82.9 Lymph % (Auto) 4.9 White % (Auto) 8.9 Eos % (Auto) 1.3 Baso % (Auto) 0.0 Neut # (Auto) 11.61 H Lymph # (Auto) 0.7 L White # (Auto) 1.2 H Eos # (Auto) 0.2 Baso # (Auto) 0.0 Nucleated RBC % (auto) 0.1 Nucleated RBCs # 0.0 PT 18.70 H D INR 1.52 H Sodium 139 Potassium 4.0 Chloride 106 Carbon Dioxide 22 Anion Gap 15.0 BUN 83 H* Creatinine 2.8 H GFR Calculation Not Reportable Glucose 113 POC Glucose Calculated Osmolality 314 H Calcium 8.2 L Phosphorus Magnesium Total Bilirubin 0.8 AST 11 ALT 13 Alkaline Phosphatase 83 Total Protein 4.8 L Albumin 2.9 L Globulin 1.9 Blood Type Rho(D) Type Antibody Screen Crossmatch 02/04/21 02/05/21 02/05/21 15:58 00:39 05:58 WBC 16.7 H RBC 3.08 L Hgb 9.1 L 8.8 L 9.5 L Hct 28.1 L 27.0 L 28.7 L MCV 93.2 MCH 30.8 MCHC 33.1 RDW 16.4 H Plt Count 275 MPV 11.2 H Neut % (Auto) 82.9 Lymph % (Auto) 4.8 White % (Auto) 8.0 Eos % (Auto) 2.6 Baso % (Auto) 0.1 Neut # (Auto) 13.85 H Lymph # (Auto) 0.8 White # (Auto) 1.3 H Eos # (Auto) 0.4 Baso # (Auto) 0.0 Nucleated RBC % (auto) 0 Nucleated RBCs # 0.0 PT INR Sodium Potassium Chloride Carbon Dioxide Anion Gap BUN Creatinine GFR Calculation Glucose POC Glucose Calculated Osmolality Calcium Phosphorus Magnesium Total Bilirubin AST ALT Alkaline Phosphatase Total Protein Albumin Globulin Blood Type Rho(D) Type Antibody Screen Crossmatch 02/05/21 02/05/21 05:58 05:58 WBC RBC Hgb Hct MCV MCH MCHC RDW Plt Count MPV Neut % (Auto) Lymph % (Auto) White % (Auto) Eos % (Auto) Baso % (Auto) Neut # (Auto) Lymph # (Auto) White # (Auto) Eos # (Auto) Baso # (Auto) Nucleated RBC % (auto) Nucleated RBCs # PT 16.20 H INR 1.26 H Sodium 141 Potassium 3.9 Chloride 106 Carbon Dioxide 22 Anion Gap 16.9 BUN 69 H Creatinine 2.8 H GFR Calculation Not Reportable Glucose 119 H POC Glucose Calculated Osmolality 313 H Calcium 8.6 Phosphorus 3.7 Magnesium 2.4 H Total Bilirubin 1.0 AST 12 ALT 13 Alkaline Phosphatase 96 Total Protein 5.4 L Albumin 3.0 L Globulin 2.4 Blood Type Rho(D) Type Antibody Screen Crossmatch Cardiac Studies: Echocardiogram 05/21/20
--- NOTE | 2021-02-05 08:25 | PM.PN ---
Subjective Subjective: Interval history: patient denies any nausea or vomiting, states stool is not clear Vitals/I&O/Wt Last Vital Signs Temp 96.7 F L 02/05/21 07:52 Pulse 77 02/05/21 07:52 Resp 16 02/05/21 07:52 BP 156/76 02/05/21 07:52 Pulse Ox 100 02/05/21 07:52 02/04/21 02/05/21 02/05/21 22:59 06:59 14:59 Intake Total 725 / 1677 Output Total 2100 / 2660 560 / 2660 Balance -1375 / -983 -560 / -983 Weight last 48 hrs Weight 171 lb 5 oz Weight 182 lb 14.4 oz Physical Exam Narrative: EXAM NARRATIVE: Abdomen: soft Urinary Catheter Management^: Rob: Cath Placed During This Visit: yes Reason for Continuing Indwelling Catheter: Accurate Measurement of Urinary Output in Critically Ill Patients Urinary Catheter Date of Insertion: 02/02/21 Urinary Catheter Time of Insertion: 17:25 Data : 02/05/21 05:58 02/05/21 05:58 A&P Assessment and plan (1) Acute GI bleeding: Plan for EGD/colonoscopy today Tap water enema Status: Acute Attestations Medical Necessity Statement*: gi bleed Coding Level of Care Code Acute Marine Fisheries Technician for Emi [place] Diagnoses Acute GI bleeding K92.2
[2021-02-05] MEDS: sodium chloride 0.9% 1,000 ML 30 ML IV (08:50)
--- NOTE | 2021-02-05 09:32 | ANE.PACU2 ---
Inpatient post-anesthesia follow up: Airway intact: Yes Vital signs: Temperature 96.7 F Pulse Rate 77 Respiratory Rate 16 Blood Pressure 156/76 Pulse Oximetry 100 Oxygen Delivery Me thod [ Room Air Current Rate & Del mino] Oxygen Delivery Me thod Room Air Oxygen Flow Rate 2 Fraction of Inspir ed Oxygen Hydration adequate: Yes Nausea and vomiting: No Pain level: 1 Mental status: Baseline
--- NOTE | 2021-02-05 13:08 | PC.SOCIAL ---
IMM Update Pg. 2 of IMM updated. Copy provided at bedside as patient is off the unit.
[2021-02-05] MEDS: cloNIDine 0.1 mg Tablet PO (17:36)
[2021-02-05] MEDS: ferrous sulfate EC 325 mg Tablet PO (17:36)
[2021-02-05] MEDS: carvedilol 12.5 mg Tablet PO (17:37)
[2021-02-05] MEDS: ropinirole 2 mg Tablet PO (17:37)
[2021-02-05] MEDS: atorvastatin 40 mg Tablet PO (17:37)
--- NOTE | 2021-02-05 17:42 | P.PN_ITS ---
Subjective Subjective: Interval history: Patient was seen this morning, after his EGD procedure, he tells me that he takes too many medications, and he would like me to stop some of his medications are not needed, I discussed EGD findings, gastritis, no acute signs of bleeding, given his hemoglobin dropped down to 6.5 I recommend holding anticoagulation, monitoring his hemoglobin, he does on he is weak Vitals/I&O/Wt Last Vital Signs Temp 98 F 02/05/21 16:00 Pulse 71 02/05/21 16:00 Resp 16 02/05/21 16:00 BP 172/81 02/05/21 17:36 Pulse Ox 97 02/05/21 16:00 02/05/21 02/05/21 02/05/21 06:59 14:59 22:59 Intake Total 100 / 100 Output Total 560 / 2660 350 / 350 Balance -560 / -983 -250 / -250 Weight last 48 hrs Weight 77.706 kg Weight 82.962 kg Physical Exam Const: COMMON NORMALS: no acute distress and patient oriented x3 Resp: COMMON NORMALS: normal respiratory effort, No retractions, No use of accessory muscles and clear to auscultation bilaterally AUSCULTATION: clear to auscultation bilaterally Cardio: COMMON NORMALS: regular rate, regular rhythm, S1 normal heart sound present and S2 normal heart sound present RATE: regular rate RHYTHM: regular rhythm HEART SOUNDS: S1 normal heart sound present and S2 normal heart sound present GI: COMMON NORMALS: Normal to inspection, nondistended, normoactive bowel sounds present, Soft to palpation, non-tender and No hepatosplenomegaly present PALPATION: Yes Soft to palpation and Yes No hepatosplenomegaly present Extremity: COMMON NORMALS: no pedal edema Neuro: COMMON NORMALS: patient oriented x3 Psych: COMMON NORMALS: mental status grossly normal Urinary Catheter Management^: Rob: Cath Placed During This Visit: yes Reason for Continuing Indwelling Catheter: Accurate Measurement of Urinary Output in Critically Ill Patients Urinary Catheter Date of Insertion: 02/02/21 Urinary Catheter Time of Insertion: 17:25 Data : 02/05/21 05:58 02/05/21 05:58 A&P Additional A&P Information # Acute blood loss anemia likely secondary to upper GI bleed likely secondary to recent steroid use warfarin on hold Admission Hb 6.8 s/p 3 units PRBC, 1 unit FFP H&H 9.5 INR 1.52 Continue Carafate Protonix 40 mg IV BID Initially NPO, now on general diet aspirin Coumadin on hold S/P Vit K 5 mg PO x 1 PT OT # Acute on chronic stage 3 kidney disease : Possibly secondary to ATN secondary to acute relative hypotension, as well as diuretic use Baseline creatinine 2 to 2.5 current cr 2.8 Monitor BNP Renal dosing Holding diuretics Monitor u/o Paroxysmal Atrial fibrillation on Coumadin Coreg 12.5 mg PO BID Holding Coumadin Cardiac telemetry Additional Medical Problems Carotid Artery Stenosis s/p L.CEA Hypertension AAA hx of Endovascular repair Ch.Diastolic HF Coronary artery disease COPD PAD GOYO GI ppx SCDS Attestations Medical Necessity Statement*: Patient requires hospitalization for acute GI bleed Coding Level of Care Code Acute Mapping Editor for Emi [place]
[2021-02-05] MEDS: aspirin 81 mg EC Tablet PO (18:13)
[2021-02-05] MEDS: sucralfate 1 gm Tablet PO (22:08)
[2021-02-06] VITALS (7 sets, daily range): BP systolic 128–159; BP diastolic 52–75; PULSE 63–85; RESP 16–18; TEMP 36.6–36.9; O2SAT 93–97
[2021-02-06] MEDS: pantoprazole 40 mg SDV IVP (05:27)
[2021-02-06] MEDS: cholecalciferol (vitamin D3) 1,000 unit Tablet 2000 UNIT PO (05:27)
[2021-02-06 06:02] LABS: Basophils % 0.1 %; Eosinophils # 0.6 10^3/uL (0.0-0.8); Eosinophils % 3.7 %; Hematocrit 29.1 % (42.0-52.0); Hemoglobin 9.5 g/dL (11.7-16.6); Lymphocytes # 0.8 10^3/uL (0.8-4.8); Lymphocytes % 4.6 %; Mean Corpuscular HGB Conc 32.6 g/dL (30.0-36.0); Mean Corpuscular Volume 95.1 fl (80-94); Mean Platelet Volume 11.8 fL (7.4-10.4); Monocytes # 1.5 10^3/uL (0.2-0.9); Monocytes % 9.4 %; Neutrophils # 13.23 10^3/uL (1.8-7.7); Neutrophils % 80.6 %; Nucleated Red Blood Cells % 0 %; Platelet Count 264 10^3/cmm (130-400); Red Blood Count 3.06 10^6/uL (4.1-5.3); Red Cell Distribution Width 16.2 % (12.1-15.1); White Blood Count 16.4 10^3/uL (4.0-10.0)
[2021-02-06 06:12] LABS: INR 1.23 (0.8-1.2)
[2021-02-06 06:32] LABS: Alanine Aminotransferase 10 U/L (0-41); Albumin Level 2.9 g/dL (3.5-5.2); Alkaline Phosphatase 97 IU/L (40-130); Anion Gap 17.8 (5-19); Aspartate Amino Transferase 11 U/L (0-40); Blood Urea Nitrogen 59 mg/dL (8-23); Calcium 8.7 mg/dL (8.5-10.5); Carbon Dioxide 20 mmol/L (22-29); Chloride 104 mmol/L (98-107); Globulin 2.4 g/dL (1.3-4.6); Glucose 131 mg/dL (65-115); Magnesium 2.2 mg/dL (1.7-2.3); Osmolality Calculated 304 mOsm/kg (285-295); Phosphorus 3.2 mg/dL (2.5-4.5); Potassium 3.8 mmol/L (3.5-5.1); Sodium 138 mmol/L (136-145); Total Bilirubin 0.9 mg/dL (0.15-1.2); Total Protein 5.3 g/dL (6.6-8.7)
--- NOTE | 2021-02-06 10:19 | PC.CHAP ---
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 [] Patient/Family/Request visit [] Outpatient visit [] Follow-up visit [] Physician referral [] Code/Alert [x] Routine visit [] Staff referral [] Actively dying [] Patient sleeping [] Family support [] [] Out of room [] Palliative care [] [] Receiving care in room [] Pre-surgical visit [] Trauma [] Long length of stay [] ICU visit [] Other: Relational/Emotional Strength [x] Patient feels connected with others/family/visitors/staff [] Distress [] Loneliness/isolation [] Abandonment Spirituality of Patient [xPerson of Verna [x] Attends Jew of their Verna [x] Believes in Prayer [] Reads Bible or Tenriism materials [] There are Spiritual issues to be addressed 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 Interventions [x] Prayer [x] Active listening [x] Non-anxious presence [] Spiritual/emotional support [] Crisis/trauma care []x Spiritual counseling [] Bereavement support [] Provided bereavement packet [] Provided Bible/devotional materials [] Provided toy/stuffed animal, coloring book to patient or family member x] Completed spiritual assessment [] Other: Impact on Illness or Injury [] Angry [] Fearful [] Anxious [] Often cries [] Exhaustion [] Unable to work [] Unable to attend congregational [] Unable to walk/stand [] Unable to read [] Unable to drive [] Unable to eat/drink [] Unable to sleep [] Unable to be with family [] Patient intubated [] Other: Summary Time spent with patient 10 min
[2021-02-06] MEDS: isosorbide mononitrate ER 30 mg Tablet PO (11:09)
[2021-02-06] MEDS: cloNIDine 0.1 mg Tablet PO (11:09)
[2021-02-06] MEDS: aspirin 81 mg EC Tablet PO (11:09)
[2021-02-06] MEDS: carvedilol 12.5 mg Tablet PO (11:09)
[2021-02-06] MEDS: sucralfate 1 gm Tablet PO (11:09)
--- NOTE | 2021-02-06 12:22 | PM.DCS ---
Discharge Providers Date of Admission: 02/02/21 19:30 Date of Discharge: February 06, 2021 Attending Provider at Admission: Nicholas Blanco Attending Provider at Discharge: Tex Ortega MD Primary Care Provider: Dominga Cortez MD Diagnoses at Discharge Discharge Diagnosis (1) Acute GI bleeding: Status: Acute Reason for Visit Reason for Visit: CP Hospital Course Hospital Course 84-year-old gentleman with past medical history of CVA, bilateral carotid artery stenosis s/p L. CEA, hypertension, obstructive sleep apnea, chronic kidney disease with baseline creatinine of 2-2.5, abdominal aortic aneurysm s/p endovascular repair, chronic diastolic heart failure, coronary artery disease, chronic obstructive pulmonary disease, peripheral arterial disease and paroxysmal atrial fibrillation on Coumadin who presented to ER with shortness of breath. Patient was admitted to [facility] for acute blood loss anemia, secondary to GI bleed, with history of steroid use, Coumadin use. Hemoglobin on admission was 6.8, required 3 units PRBC, 1 unit FFP, 5 mg vitamin K, no significant hemodynamic compromise, management included Protonix, Carafate, anticoagulation was held, given his recurrent black stools he underwent an EGD and colonoscopy. EGD showed healing gastric ulcers, no active bleeding. Colonoscopy showed diverticulosis. Patient was monitored as inpatient, hemodynamic he remained stable, hemoglobin remained stable between 8-9, his symptomatology improved. His hemoglobin discharge is 9.5, INR 1.23, discharged on Protonix 40 twice daily, Carafate, with the follow-up with general surgery as outpatient for consideration of capsule endoscopy. Patient was advised if he were to have any recurrent bloody or black stools go to emergency room. Check weekly CBCs. Patient was discharged home will require half-way. In terms of his anticoagulation for paroxysmal atrial fibrillation, Coumadin has been held on discharge, and is been discharged on aspirin 81 mg. Given his age, his risk factors, his severity of GI bleed, I discussed the risks and benefits of resuming anticoagulation. Risks including but not limited to recurrent GI bleed and anemia and morbidity and mortality associated, benefits include decreasing the risk of stroke. Risks of holding anticoagulation including but not limited to risk of embolic CVA and morbidity and mortality associated. Discussed risks and benefits of all options, he voiced understanding, all questions answered, agreed for now to hold Coumadin. Will have shared decision making with cardiology in 2 to 4 weeks. As there was no active source of bleeding found, patient might benefit from a capsule endoscopy. Physical Exam Const: COMMON NORMALS: no acute distress and patient oriented x3 Resp: COMMON NORMALS: normal respiratory effort, No retractions, No use of accessory muscles and clear to auscultation bilaterally AUSCULTATION: clear to auscultation bilaterally Cardio: COMMON NORMALS: regular rate, regular rhythm, S1 normal heart sound present and S2 normal heart sound present RATE: regular rate RHYTHM: regular rhythm HEART SOUNDS: S1 normal heart sound present and S2 normal heart sound present GI: COMMON NORMALS: Normal to inspection, nondistended, normoactive bowel sounds present, Soft to palpation and non-tender PALPATION: Yes Soft to palpation Extremity: COMMON NORMALS: no pedal edema Neuro: COMMON NORMALS: patient oriented x3 Psych: COMMON NORMALS: mental status grossly normal Urinary Catheter Management^: Rob: Cath Placed During This Visit: yes Reason for Continuing Indwelling Catheter: Accurate Measurement of Urinary Output in Critically Ill Patients Urinary Catheter Date of Insertion: 02/02/21 Urinary Catheter Time of Insertion: 17:25 Discharge Data Data Completed and Pending: Completed Studies During Hospitalization Category Date Time Status XR chest 1V chau ble [id number] Stat Exams 02/02/21 18:01 Completed Pending at discharge Category Date Time Status Complete Blood Co unt w/Auto AM LABS Lab 02/07/21 04:00 Ordered Comprehensive Met abolic Panel AM LA BS Lab 02/07/21 04:00 Ordered Magnesium AM LABS Lab 02/07/21 04:00 Ordered Phosphorus AM LAB S Lab 02/07/21 04:00 Ordered Labs from last 24 hours 02/06/21 02/06/21 02/06/21 05:11 05:11 05:11 WBC 16.4 H RBC 3.06 L Hgb 9.5 L Hct 29.1 L MCV 95.1 H MCH 31.0 MCHC 32.6 RDW 16.2 H Plt Count 264 MPV 11.8 H Neut % (Auto) 80.6 Lymph % (Auto) 4.6 Tompkins % (Auto) 9.4 Eos % (Auto) 3.7 Baso % (Auto) 0.1 Neut # (Auto) 13.23 H Lymph # (Auto) 0.8 Tompkins # (Auto) 1.5 H Eos # (Auto) 0.6 Baso # (Auto) 0.0 Nucleated RBC % (a uto) 0 Nucleated RBCs # 0.0 PT 15.90 H INR 1.23 H Sodium 138 Potassium 3.8 Chloride 104 Carbon Dioxide 20 L Anion Gap 17.8 BUN 59 H Creatinine 2.5 H GFR Calculation Not Reportable Glucose 131 H Calculated Osmolal ity 304 H Calcium 8.7 Phosphorus 3.2 Magnesium 2.2 Total Bilirubin 0.9 AST 11 ALT 10 Alkaline Phosphata se 97 Total Protein 5.3 L Albumin 2.9 L Globulin 2.4 Crossmatch 02/02/21 20:10 WBC RBC Hgb Hct MCV MCH MCHC RDW Plt Count MPV Neut % (Auto) Lymph % (Auto) Tompkins % (Auto) Eos % (Auto) Baso % (Auto) Neut # (Auto) Lymph # (Auto) Tompkins # (Auto) Eos # (Auto) Baso # (Auto) Nucleated RBC % (a uto) Nucleated RBCs # PT INR Sodium Potassium Chloride Carbon Dioxide Anion Gap BUN Creatinine GFR Calculation Glucose Calculated Osmolal ity Calcium Phosphorus Magnesium Total Bilirubin AST ALT Alkaline Phosphata se Total Protein Albumin Globulin Crossmatch See Detail Vitals: Last Vital Signs Temp 98.4 F 02/06/21 11:05 Pulse 85 02/06/21 11:05 Resp 16 02/06/21 11:05 BP 147/75 02/06/21 11:09 Pulse Ox 97 02/06/21 11:05 Discharge Plan Discharge Patient Disposition: Home Condition: Stable Prescriptions: New sucralfate 1 gram Tablet 1 g PO Q12H 30 Days Qty: 60 RF: 0 pantoprazole [Protonix] 40 mg tablet,delayed release (DR/EC) 40 mg PO BID 30 Days Qty: 60 RF: 0 Continued fluticasone propionate 50 mcg/actuation spray,suspension 1 spray INTRANASAL BID PRN (Reason: Allergy Symptoms) RF: 0 hydrocodone-acetaminophen 5-325 mg tablet 1 tab PO TID@06,12,18 PRN (Reason: Pain) RF: 0 Refresh Tears 0.5 % drops 1 drop ophthalmic (eye) BID RF: 0 cholecalciferol (vitamin D3) 2,000 unit tablet 2,000 unit PO DAILY@06 RF: 0 (DME) articulating AFO to the left See Rx Instructions .Route .MEDSUPPLY Qty: 1 RF: 0 (DME) custom accommodative orthotic bilaterally See Rx Instructions .Route .MEDSUPPLY Qty: 1 RF: 0 (DME) articulating AFO to the left See Rx Instructions .Route .MEDSUPPLY Qty: 1 RF: 0 (DME) custom molded accommodative orthotic bilaterally See Rx Instructions .ROUTE .MEDSUPPLY Qty: 1 RF: 0 cinacalcet 30 mg tablet 30 mg PO DAILY@06 RF: 0 aspirin 81 mg tablet,delayed release (DR/EC) 81 mg PO DAILY@06 RF: 0 isosorbide mononitrate 30 mg tablet extended release 24 hr 30 mg PO DAILY Qty: 90 RF: 3 carvedilol 12.5 mg tablet 12.5 mg PO BID RF: 0 clonidine HCl 0.1 mg Tablet 0.1 mg PO BID RF: 0 Ocuvite [id number]-mg Capsule 1 cap PO DAILY RF: 0 acetaminophen [Tylenol Extra Strength] 500 mg tablet 500 mg PO Q6H PRN (Reason: Pain) RF: 0 atorvastatin 40 mg tablet 40 mg PO QPM RF: 0 triamcinolone acetonide 0.1 % cream 1 applic TOPICAL . DIRECTED PRN (Reason: Rash) RF: 0 ropinirole 2 mg tablet 2 mg PO DAILY@18 RF: 0 ferrous sulfate [iron] 325 mg (65 mg iron) Tablet 325 mg PO DAILY@18 RF: 0 nystatin 100,000 unit/gram Cream 1 applic TOPICAL BID PRN (Reason: Rash) RF: 0 sodium bicarbonate 650 mg Tablet 650 mg PO TID Qty: 90 RF: 0 Discontinued omeprazole 20 mg capsule,delayed release(DR/EC) 20 mg PO DAILY@06 RF: 0 warfarin 5 mg tablet See Rx Instructions .ROUTE .COMPLEX Qty: 30 RF: 11 oxycodone 5 mg tablet 5 mg PO Q4H PRN (Reason: pain) Qty: 10 RF: 0 ondansetron HCl 4 mg tablet 4 mg PO TID PRN (Reason: Nausea And Vomiting) RF: 0 dextromethorphan-guaifenesin [Mucus Relief DM] 20-400 mg Tablet 1 tab PO DAILY@18 RF: 0 Discharge Orders: Discharge Order (Routine); Ordered 02/06/21 Ordered By: Tex Ortega Referrals: [facility] [Outside] Dominga Cortez MD [Primary Care Provider] - Chino Avery MD [Physician] - 03/12/21 8:15 am Melissa Owens MD [Physician] - 2 weeks Discharge Activity: Resume usual activity Patient Instructions: GI Discharge Instructions, Opioid Safety Activity Restrictions/Additional Instructions: -Please recheck CBC in 1 week -Monitor for bloody or black stools -Have patient follow-up with cardiology as outpatient -Refer to general surgery, for consideration for capsule endoscopy Discharge Attestations Time Spent in Discharge Care*: less than 30 min Status at Discharge: Cognitive status at discharge: cognitively intact, Behavioral status at discharge: cooperative, Quality Metrics Clinical Quality Measures During this hospital stay, did patient experience: None Coding Level of Care Code Acute Chg [facility] note Diagnoses Acute GI bleeding K92.2
[2021-02-06 13:59] LABS: SARS Covid-2 Antigen Negative (Negative)
--- NOTE | 2021-02-06 14:51 | PC.NURSE ---
THIS NURSE HAS ATTEMPTED TO CALL REPORT TO [facility] MULTIPLE TIMES NOW. NO ONE HAS ANSWERED THUS FAR. WILL CONTINUE TO TRY AND REACH SOMEONE.
--- NOTE | 2021-02-06 14:58 | PC.NURSE ---
REPORT CALLED TO JUDY AT [facility]. ALL QUESTIONS ANSWERED. JUST WAITING FOR TRANSPORTATION TO GET HERE.
== END 2021-02-06 16:03 | disposition skilled nursing facility (03) | DRG 377 ==
LOC: ER 19:50 → MEDSURG 20:03
PROVIDERS: Internal Medicine; Surgery; Admitting Provider Hospitalist; Emergency Provider Nurse Practitioner Family; PCP Family Medicine; Visit Provider Family Medicine
PROC: 0DJ08ZZ Inspection of Upper Intestinal Tract, Via Natural or Artificial Opening Endoscopic (ICD-10-PCS; CPT 43235; principal; 2021-02-05 08:30)
PROC: 0DJD8ZZ Inspection of Lower Intestinal Tract, Via Natural or Artificial Opening Endoscopic (ICD-10-PCS; CPT 45378; 2021-02-05 08:30)
DX: K92.2 Gastrointestinal hemorrhage, unspecified (principal); N17.0 Acute kidney failure with tubular necrosis; I13.0 Hypertensive heart and chronic kidney disease with heart failure and stage 1 through stage 4 chronic kidney disease, or unspecified chronic kidney disease; I50.32 Chronic diastolic (congestive) heart failure; D62 Acute posthemorrhagic anemia; T45.515A Adverse effect of anticoagulants, initial encounter; T38.0X5A Adverse effect of glucocorticoids and synthetic analogues, initial encounter; I48.0 Paroxysmal atrial fibrillation; E11.51 Type 2 diabetes mellitus with diabetic peripheral angiopathy without gangrene; N18.30 Chronic kidney disease, stage 3 unspecified; E11.22 Type 2 diabetes mellitus with diabetic chronic kidney disease; I25.10 Atherosclerotic heart disease of native coronary artery without angina pectoris; E78.5 Hyperlipidemia, unspecified; I71.4 Abdominal aortic aneurysm, without rupture; F32.A Depression, unspecified; K21.9 Gastro-esophageal reflux disease without esophagitis; I34.0 Nonrheumatic mitral (valve) insufficiency; I25.2 Old myocardial infarction; J44.9 Chronic obstructive pulmonary disease, unspecified; E66.9 Obesity, unspecified; Z68.29 Body mass index [BMI] 29.0-29.9, adult; Z79.82 Long term (current) use of aspirin; Z79.891 Long term (current) use of opiate analgesic; K25.9 Gastric ulcer, unspecified as acute or chronic, without hemorrhage or perforation; K29.70 Gastritis, unspecified, without bleeding; K57.30 Diverticulosis of large intestine without perforation or abscess without bleeding; F17.210 Nicotine dependence, cigarettes, uncomplicated; G47.33 Obstructive sleep apnea (adult) (pediatric); I95.9 Hypotension, unspecified
CPT/HCPCS: 36415; 36416; 36430; 43235; 45378; 51702; 71045; 80048; 80053; 82962; 83735; 83880; 84100; 84484; 85014; 85018; 85025; 85610; 85730; 86850; 86900; 86920; 86927; 87426; 93005; 96374; 96375; 97116; 97161; 97165; 99285; C9113; J1200; J1940; J2060; J2704; J3430; J7030; P9016; P9017

== ENCOUNTER 2021-03-21 10:15 | Outpatient (CLI) | payer MEDICARE, OTHER, SELFPAY ==
[2021-03-21 10:48] LABS: Basophils # 0.2 10^3/uL (0.0-0.1); Basophils % 1.5 %; Eosinophils # 0.9 10^3/uL (0.0-0.8); Eosinophils % 8.5 %; Hematocrit 38.2 % (42.0-52.0); Hemoglobin 12.1 g/dL (11.7-16.6); Lymphocytes # 1.2 10^3/uL (0.8-4.8); Lymphocytes % 10.8 %; Mean Corpuscular HGB Conc 31.7 g/dL (30.0-36.0); Mean Corpuscular Hemoglobin 28.9 pg (28.0-34.0); Mean Corpuscular Volume 91.2 fl (80-94); Mean Platelet Volume 11.6 fL (7.4-10.4); Monocytes # 0.9 10^3/uL (0.2-0.9); Monocytes % 8.5 %; Neutrophils # 7.42 10^3/uL (1.8-7.7); Neutrophils % 69.9 %; Nucleated Red Blood Cells % 0 %; Platelet Count 320 10^3/cmm (130-400); Red Blood Count 4.19 10^6/uL (4.1-5.3); Red Cell Distribution Width 14.2 % (12.1-15.1); White Blood Count 10.6 10^3/uL (4.0-10.0)
[2021-03-21 11:13] LABS: Alanine Aminotransferase 10 U/L (0-41); Albumin Level 4.2 g/dL (3.5-5.2); Alkaline Phosphatase 144 IU/L (40-130); Anion Gap 22.9 (5-19); Aspartate Amino Transferase 16 U/L (0-40); Blood Urea Nitrogen 61 mg/dL (8-23); Calcium 10.2 mg/dL (8.5-10.5); Carbon Dioxide 20 mmol/L (22-29); Chloride 102 mmol/L (98-107); Chol HDL Ratio 3.69 mg/dL (1.0-5.00); Cholesterol 118 mg/dL (0-200); Globulin 2.7 g/dL (1.3-4.6); Glucose 119 mg/dL (65-115); HDL Cholesterol 32 mg/dL (60-100); LDL Cholesterol Calculated 59 mg/dL (50-129); LDL HDL Ratio 1.84 RATIO (0.00-3.22); Osmolality Calculated 310 mOsm/kg (285-295); Potassium 3.9 mmol/L (3.5-5.1); Sodium 141 mmol/L (136-145); Total Bilirubin 0.7 mg/dL (0.15-1.2); Total Protein 6.9 g/dL (6.6-8.7); Triglycerides 136 mg/dL (0-150)
== END 2021-03-21 10:16 | disposition home or self-care (01) ==
PROVIDERS: PCP Internal Medicine; Visit Provider Family Medicine
DX: K92.2 Gastrointestinal hemorrhage, unspecified (principal)
CPT/HCPCS: 80053; 80061; 85025

== ENCOUNTER → 2021-06-05 13:09 | Outpatient (BNVA) | payer MEDICARE, OTHER, SELFPAY | PROVIDERS: PCP Internal Medicine; Visit Provider Internal Medicine Cardiovascular Disease | DX: I13.0 Hypertensive heart and chronic kidney disease with heart failure and stage 1 through stage 4 chronic kidney disease, or unspecified chronic kidney disease (principal); E11.22 Type 2 diabetes mellitus with diabetic chronic kidney disease; N18.30 Chronic kidney disease, stage 3 unspecified; I50.33 Acute on chronic diastolic (congestive) heart failure; N17.9 Acute kidney failure, unspecified; Z79.84 Long term (current) use of oral hypoglycemic drugs; I25.10 Atherosclerotic heart disease of native coronary artery without angina pectoris; I73.9 Peripheral vascular disease, unspecified; F17.210 Nicotine dependence, cigarettes, uncomplicated | CPT/HCPCS: 99214 ==

== ENCOUNTER 2021-08-22 12:32 | Emergency (ER) | payer MEDICARE, OTHER, SELFPAY ==
[2021-08-22 12:39] VITALS: BP 157/87; PULSE 78; RESP 16; TEMP 36.6; O2SAT 95; BMI 29.6
--- NOTE | 2021-08-22 12:54 | W.ED.FALL ---
HPI - Fall General: Chief Complaint: Fall Stated Complaint: FALL Time Seen by Provider: 08/22/21 12:36 Source: patient and EMS Mode of arrival: EMS Limitations: no limitations History of Present Illness: Patient is an 85-year-old with an extensive medical history here via EMS following a fall. Patient states he uses a walker at all times for ambulation and states his walker is wheeled and the wheels got ahead of me causing the walker to fall out from underneath him causing him to fall forward. Patient states he has generalized weakness and deconditioning that he receives in-home OT/PT for. He states once he fell he was not able to pick himself up off of the ground thus an ambulance was called. Patient denies any injury sustained during the fall. Patient has no physical complaints upon arrival. Patient denies lightheadedness, dizziness, chest pain, shortness of breath (has some chronic but at baseline), difficulty breathing. complaint: fall Onset (ago): hour(s) Fall from: standing Fall witnessed: yes, by family Place fall occurred: home Loss of consciousness: None Prolonged down time: no Symptoms prior to fall: none Context: tripped/slipped Associated symptoms-after fall: Reports no associated symptoms and difficulty walking (chronically); Denies abdominal pain, chest pain, confusion, headache(s), lightheadedness, neck pain or vertigo Review of Systems Const: Denies: fever(s), chills, body aches, fatigue or malaise Eyes: Denies: change in vision or blurry vision Card: Reports: edema (chronic) and swelling of feet/ankles (chronic); Denies: chest pain, palpitations, irregular heart rhythm, lightheadedness, syncope or pre-syncope Resp: Reports: dyspnea (chronic-at baseline); Denies: productive cough, non-productive cough, wheezing, hemoptysis or chest congestion GI: Denies: abdominal pain Musc: Reports: extremity swelling (chronic bilateral LE edema) and joint pain (chronic bilateral ankle joint pain); Denies: neck pain or back pain Neuro: Reports: difficulty walking (chronically); Denies: headache(s), dizziness, vertigo, confusion, Slurred speech present, difficulty communicating thoughts or seizure-like activity PFS ED PFSH: Medical History AAA (abdominal aortic aneurysm) Endovascular repair several years ago -plan for aortic duplex. Atrial fibrillation CAD (coronary artery disease) Carotid stenosis -s/p recent L CEA done by Dr. Ramos on 04/18/19 CHF (congestive heart failure), NYHA class III Chronic kidney disease Chronic kidney disease -has known CKD stage 3; baseline Cr 2.1-2.5 Depression Diabetes mellitus Diastolic CHF GERD (gastroesophageal reflux disease) Hypercalcemia Hyperlipidemia Hypertension Impaired glucose tolerance Moderate mitral regurgitation Myocardial infarction Myocardial infarction Non-ST elevation SC (NSTEMI) Osteoarthritis PAD (peripheral artery disease) Pancreatitis Severe chronic obstructive pulmonary disease Severe obesity Sleep apnea Tobacco abuse Surgical History Status post carotid endarterectomy Left Family History Other CAD (coronary artery disease) Social History Smoking and tobacco status: current every day smoker Alcohol intake: never Physical Exam Const: COMMON NORMALS: no acute distress, patient oriented x3, no limitations and alert GENERAL APPEARANCE: cooperative ORIENTATION/CONSCIOUSNESS: Yes awake, Yes oriented to person, Yes oriented to place and Yes oriented to time HENMT: COMMON NORMALS: normocephalic and atraumatic HEAD & SCALP: normal to inspection, normocephalic and atraumatic FACE & SINUS: normal facial exam Eye: GENERAL EYE: appearance normal, both eyes and all related structures Neck/C-Spine: COMMON NORMALS: full ROM GENERAL: Yes normal visual inspection CERVICAL SPINE: Yes cervical ROM normal, No pain with cervical ROM, No Cervical spine tenderness, No step off deformity and No Paracervical muscle tenderness Chest: COMMONS NORMALS: normal inspection of the chest and normal palpation of entire chest wall Resp: COMMON NORMALS: normal respiratory effort and clear to auscultation bilaterally AUSCULTATION: clear to auscultation bilaterally Cardio: COMMON NORMALS: regular rate and regular rhythm RATE: regular rate RHYTHM: regular rhythm GI: COMMON NORMALS: Normal to inspection, nondistended, normoactive bowel sounds present, Soft to palpation and non-tender PALPATION: Yes Soft to palpation Back/Pelvis: COMMON NORMALS: thoracic and lumbar spine normal to inspection, no thoracic nor lumbar tenderness and thoraco-lumbar ROM normal Extremity: NARRATIVE EXTREMITY EXAM: bilateral equal LE pitting edema; he has chronic bilateral ankle deformities-marked deformity to R ankle that is chronic GENERAL: Yes normal exam except as noted Neuro: LISA COMA SCALE: document GCS findings [place] coma scale eye opening: Spontaneous [place] coma scale verbal response: Orientated Lisa coma scale motor response: Obey commands [place] coma scale total score: 15 COMMON NORMALS: patient oriented x3, CN's II-XII intact bilaterally, moves all extremities, no focal motor deficits and no sensory deficits noted SENSORIUM/ORIENTATION: Yes alert, Yes oriented to person, Yes oriented to place and Yes oriented to time Skin: NARRATIVE SKIN EXAM: superficial abrasion to L volar forearm; no pain/tenderness here TRAUMA: no lacerations Course Vital Signs: Vital signs: Vital Signs Temperature 98 F 08/22/21 12:39 Pulse Rate 78 08/22/21 12:39 Respiratory Rate 16 08/22/21 12:39 Blood Pressure 157/87 08/22/21 12:39 Pulse Oximetry 95 08/22/21 12:39 MDM - Fall Medical Decision Making Patient is an 85-year-old male here following a mechanical fall. He has absolutely no physical complaints at this time and reports no injuries related to the fall. Patient does have generalized weakness that has been present for many months making ambulation increasingly difficult. In addition patient has bilateral ankle deformities/arthralgias that are chronic and present since the that makes ambulation difficult. Patient does receive in home OT/PT for his generalized deconditioning. He does have an extensive medical history but has no complaints in regards to these today. After physical exam and patient not complaining of any symptoms I did ask him if there is anything I can do for him today and he expressed interest in being admitted to the hospital so he could go to a intermediate. I reached out to one of the individuals that patient lives with (Tin Booth) and he stated they have spoken to his PCP in regards to this and they should be working on getting him into one. I don't see any indication for hospitalization at this time based on his lack of complaints. No blood work/imaging was completed today again based on his history and lack of complaints. Discharge Plan Discharge Patient Disposition: Home Clinical Impression: Fall Condition: Stable Prescriptions: No Action fluticasone propionate 50 mcg/actuation spray,suspension 1 spray INTRANASAL BID PRN (Reason: Allergy Symptoms) 0RF hydrocodone-acetaminophen 5-325 mg tablet 1 tab PO TID@06,12,18 PRN (Reason: Pain) 0RF Refresh Tears 0.5 % drops 1 drop ophthalmic (eye) BID 0RF Rx Instructions: as directed (ADDY) articulating AFO to the left See Rx Instructions .Route .MEDSUPPLY Qty: 1 0RF Rx Instructions: As directed BY CAROLANN&Marilyn (ADDY) custom accommodative orthotic bilaterally See Rx Instructions .Route .MEDSUPPLY Qty: 1 0RF Rx Instructions: As directed by CAROLANN&Marilyn (ADDY) articulating AFO to the left See Rx Instructions .Route .MEDSUPPLY Qty: 1 0RF Rx Instructions: As directed analia (ADDY) custom molded accommodative orthotic bilaterally See Rx Instructions .ROUTE .MEDSUPPLY Qty: 1 0RF Rx Instructions: As directed furosemide 40 mg tablet 40 mg PO DAILY 0RF isosorbide mononitrate 30 mg tablet extended release 24 hr 30 mg PO DAILY 0RF Rx Instructions: @06:00 pantoprazole [Protonix] 40 mg tablet,delayed release (DR/EC) 40 mg PO DAILY 0RF sucralfate [Carafate] 1 gram tablet 1 g PO BID 0RF magnesium hydroxide [Milk of Magnesia] 400 mg/5 mL suspension 5 ml PO DAILY PRN0RF loperamide 1 mg/5 mL liquid 1 mg PO Q4H PRN0RF Rx Instructions: administer after each loose stool until symptoms controlled; do not exceed 8 mg per 24 hrs guaifenesin [Mucinex] 600 mg tablet extended release 12hr 600 mg PO Q12H PRN0RF aspirin 81 mg tablet,delayed release (DR/EC) 81 mg PO DAILY@06 0RF carvedilol 12.5 mg tablet 25 mg PO BID 0RF Rx Instructions: must administer with a meal/food clonidine HCl 0.1 mg Tablet 0.1 mg PO BID 0RF vit C-vit M-friole-vhy-om-3 [id number] lj-jkzj-yx-mg Capsule 1 cap PO DAILY 0RF acetaminophen [Tylenol Extra Strength] 500 mg tablet 500 mg PO Q6H PRN (Reason: Pain) 0RF atorvastatin 40 mg tablet 40 mg PO QPM 0RF triamcinolone acetonide 0.1 % cream 1 applic TOPICAL . DIRECTED PRN (Reason: Rash) 0RF ropinirole 2 mg tablet 2 mg PO DAILY@18 0RF nystatin 100,000 unit/gram Cream 1 applic TOPICAL BID PRN (Reason: Rash) 0RF sodium bicarbonate 650 mg Tablet 650 mg PO TID Qty: 90 0RF Discharge Orders: Discharge ED (Routine); Ordered 08/22/21 Ordered By: Carla Jamison Referrals: Ben Melendez MD [Primary Care Provider] - Activity Restrictions/Additional Instructions: As we discussed you need to continue to follow-up with your primary care provider so that they can begin the process if you wish to return to a intermediate. Coding Level of Care Code ED [employer] Lead Lineman for Chg Fwd Exam Comprehensive
== END 2021-08-22 13:59 | disposition home or self-care (01) ==
PROVIDERS: Emergency Provider Physician Assistant; PCP Internal Medicine
DX: R53.1 Weakness (principal); W18.30XA Fall on same level, unspecified, initial encounter; Z79.82 Long term (current) use of aspirin; I25.10 Atherosclerotic heart disease of native coronary artery without angina pectoris; I13.0 Hypertensive heart and chronic kidney disease with heart failure and stage 1 through stage 4 chronic kidney disease, or unspecified chronic kidney disease; E11.22 Type 2 diabetes mellitus with diabetic chronic kidney disease; N18.30 Chronic kidney disease, stage 3 unspecified; I50.9 Heart failure, unspecified; E78.5 Hyperlipidemia, unspecified; I25.2 Old myocardial infarction; F17.210 Nicotine dependence, cigarettes, uncomplicated
CPT/HCPCS: 99281